=== PATIENT | female | born 1970 | race African-American/Black ===

== ENCOUNTER 2016-06-30 15:30 | Observation (INO) | payer OTHER ==
[2016-06-30] VITALS (8 sets, daily range): BP systolic 133–159; BP diastolic 62–87; PULSE 40–55; RESP 14–24; TEMP 97.7–98.3; O2SAT 95–100
[~2016-06-30] VITALS: Ht 175.3 cm; Wt 42.0 kg
[~2016-06-30 15:30] MED LIST: ALBU8I INH; AMBI5TAB PO; ATOR40TA PO; CITA20 PO; CLOP75 PO; LACT PO; LEVEMIR SQ; LORA-474 PO; LYRI50CA2 PO; METF500 PO; METO25 PO; METR-1 PO; NOVOLOGP2 SQ; SENN8.6T8 PO; SERT100 PO; SPIRCAP INH; TOPI50TA4 PO; ZOFR4TAB3 SL
[2016-06-30] MEDS ORDERED: SODIUM CHLOR 0.9% 1000 ML INJ 1,000 ML IV SCH (16:37)
[2016-06-30] MEDS ORDERED: ONDANSETRON HCL 4 MG/2 ML VIAL IVP ONE (16:45)
[2016-06-30] MEDS ORDERED: PANTOPRAZOLE SODIUM 40 MG VIAL IVP ONE (16:45)
[2016-06-30] MEDS ORDERED: SODIUM CHLORIDE 0.9% FLUSH 10 ML FLUSH IV FLUSH PRN (16:45)
--- NOTE | 2016-06-30 17:06 | PD ---
HPI Chief Complaint: GI Complaint Time Seen by Provider: 17:00 Travel History International Travel<30 days: No Contact w/Intl Traveler<30days: No Traveled to known affect area: No History of Present Illness HPI Patient is a 46-year-old female presenting to emergency department evaluation of nausea, vomiting, abdominal pain. Patient states her symptoms started yesterday, she's been vomiting all night last night and throughout the day today. She reports elevated blood sugars at 500, 475, 420. Patient takes Levemir and metformin at home. She denies any fevers, chills, chest pain, shortness of breath. She denies any alcohol use, she denies any recent sick contacts, or contaminated foods. Patient has history of the same a few months ago per her report when she was in DKA. PFSH Past Medical History Hx Anticoagulant Therapy: Yes (PLAVIX) Arthritis: No Asthma: Yes Autoimmune Disease: No Blood Disorders: No Anxiety: Yes Depression: Yes Heart Rhythm Problems: No Cancer: No High Cholesterol: Yes Chemotherapy: No Chest Pain: Yes Congestive Heart Failure: No COPD: No Cerebrovascular Accident: Yes (STROKE 2014) Coronary Artery Disease: Yes Diabetes: Yes Patient Takes Glucophage: Yes Diminished Hearing: No Deep Vein Thrombosis: Yes Gastrointestinal Disorders: Yes (GASTRITIS) GERD: Yes Genitourinary: No Headaches: Yes Hypertension: Yes Immune Disorder: No Implanted Vascular Access Dvce: Yes (STENT IN LEFT LEG) Neurologic: Yes (DIABETIC NEUROPATHY, CVA, PERIPHERIAL VISION LOSS RIGHT EYE) Immunizations Current: Yes Migraines: Yes Radiation Therapy: No Sickle Cell Disease: No Sleep Apnea: No Thyroid Disease: No Influenza Vaccination: Yes ?: Not : 3 Para: 0 Miscarriage: 3 : 0 Ovarian Cysts: Yes Past Surgical History Abdominal Surgery: Yes (04/30/02 FIBROIDS REMOVED FROM UTERUS.) AICD: No Arteriovenous Shunt: No Body Medical Devices: LEFT LEG FILTER Ear Surgery: No Endocrine Surgery: No Eye Surgery: Yes Genitourinary Surgery: No Gynecologic Surgery: Yes Hysterectomy: Yes (PARTIAL) Insulin Pump: No Joint Replacement: No Oral Surgery: No Pacemaker: No Other Surgery: Yes (MYOMECTOMY, BLOOD CLOT FROM L LEG, R BELOW KNEE AMPUTATION) Social History Alcohol Use: No Tobacco Use: Yes (1/2 PPD) Substance Use: Yes (MARIJUANA) Allergies-Medications (Allergen,Severity, Reaction): Coded Allergies: Penicillin (Verified Allergy, Severe, SWELLING WITH RESP DIFFICULTY, ) Shellfish (Verified Allergy, Severe, SWELLING, 06/30/16) Tomato (Verified Allergy, Intermediate, 06/30/16) Milk (Verified Allergy, Unknown, 06/30/16) Reported Meds & Prescriptions Reported Meds & Active Scripts Active Reported Albuterol Neb (Albuterol Sulfate) 2.5 Mg/3 Ml Neb 2.5 Mg NEB Q4-6H PRN Proair Hfa 8.5 GM Inh (Albuterol Sulfate) 90 Mcg/Act Aer 2 Puff INH BID 108 mcg/actuation Metformin (Metformin HCl) 500 Mg Tab 500 Mg PO BID With meals Sertraline (Sertraline HCl) 100 Mg Tab 100 Mg PO DAILY Pantoprazole (Pantoprazole Sodium) 40 Mg Tab 40 Mg PO DAILY Spiriva Handihaler (Tiotropium Inh) 18 Mcg Cap 18 Mcg INH DAILY 1 capsule = 18 mcg Do Not Swallow Capsule Lyrica (Pregabalin) 50 Mg Cap 50 Mg PO BID Zolpidem (Zolpidem Tartrate) 10 Mg Tab 10 Mg PO HS Clopidogrel (Clopidogrel Bisulfate) 75 Mg Tab 75 Mg PO DAILY Levemir Flextouch Pen Inj (Insulin Detemir) 300 unit/3 ML Pen 10 Units SQ BID Topamax (Topiramate) 50 Mg Tab 50 Mg PO HS Novolog Inj (Insulin Aspart) 1,000 Unit/10 Ml Vial 0 SQ DIRECTED Sliding Scale as directed. Review of Systems Except as stated in HPI: all other systems reviewed are Neg General / Constitutional: No: Fever, Chills HENT: No: Headaches Cardiovascular: No: Chest Pain or Discomfort Respiratory: No: Shortness of Breath Gastrointestinal: Positive: Nausea, Vomiting, Abdominal Pain, No: Diarrhea Musculoskeletal: No: Myalgias Neurologic: Positive: Weakness, No: Dizziness, Syncope, Focal Abnormalities Physical Exam Narrative GENERAL: Thin, well-developed female. Appears drowsy and uncomfortable, in no acute distress. SKIN: Focused skin assessment warm/dry. HEAD: Atraumatic. Normocephalic. EYES: Pupils equal and round. No scleral icterus. No injection or drainage. ENT: No nasal bleeding or discharge. Mucous membranes pink and moist. NECK: Trachea midline. No JVD. CARDIOVASCULAR: Bradycardic. No murmur appreciated. RESPIRATORY: No accessory muscle use. Clear to auscultation. Breath sounds equal bilaterally. GASTROINTESTINAL: Abdomen soft, tender to palpation epigastric region, nondistended. Hepatic and splenic margins not palpable. The bowel sounds, no rebound, no guarding MUSCULOSKELETAL: No obvious deformities. No clubbing. No cyanosis. No edema. Right BKA NEUROLOGICAL drowsy, easily arousable and alert. No obvious cranial nerve deficits. Motor grossly within normal limits. Normal speech. PSYCHIATRIC: Appropriate mood and affect; insight and judgment normal. Data Data Last Documented VS Vital Signs Date Time Temp Pulse Resp B/P Pulse Ox O2 Delivery O2 Flow Rate FiO2 06/30/16 18:27 51 16 145/87 100 Room Air 06/30/16 16:37 97.7 Orders Complete Blood Count With Diff (06/30/16 16:37) Comprehensive Metabolic Panel (06/30/16 16:37) Lipase (06/30/16 16:37) Lactic Acid (06/30/16 16:37) Urinalysis - C+S If Indicated (06/30/16 16:37) Iv Access Insert/Monitor (06/30/16 16:37) Ecg Monitoring (06/30/16 16:37) Oximetry (06/30/16 16:37) Ondansetron Inj (Zofran Inj) (06/30/16 16:45) Pantoprazole Inj (Protonix Inj) (06/30/16 16:45) Sodium Chlor 0.9% 1000 Ml Inj (Ns 1000 M (06/30/16 16:37) Sodium Chloride 0.9% Flush (Ns Flush) (06/30/16 16:45) Electrocardiogram (06/30/16 16:56) Magnesium (Mg) (06/30/16 16:56) Blood Gas Venous (Vbg) (06/30/16 16:56) Beta Hydroxybutyrate (Acetone) (06/30/16 17:05) B-Type Natriuretic Peptide (06/30/16 17:35) Ckmb (Isoenzyme) Profile (06/30/16 17:35) Magnesium (Mg) (06/30/16 17:35) Prothrombin Time / Inr (Pt) (06/30/16 17:35) Act Partial Throm Time (Ptt) (06/30/16 17:35) Troponin I (06/30/16 17:35) Chest, Single Ap (06/30/16 ) Urine Culture (06/30/16 17:10) Blood Culture (06/30/16 18:06) Vancomycin Inj (Vancomycin Inj) (06/30/16 18:07) Ceftriaxone Inj (Rocephin Inj) (06/30/16 18:30) Prochlorperazine Inj (Compazine Inj) (06/30/16 18:30) CKMB (06/30/16 17:10) CKMB% (06/30/16 17:10) Admit Order (Ed Use Only) (06/30/16 18:47) Labs Laboratory Tests Test 06/30/16 06/30/16 17:10 17:12 White Blood Count 6.3 TH/MM3 Red Blood Count 4.45 MIL/MM3 Hemoglobin 14.7 GM/DL Hematocrit 43.3 % Mean Corpuscular Volume 97.3 FL Mean Corpuscular Hemoglobin 33.1 PG Mean Corpuscular Hemoglobin 34.0 % Concent Red Cell Distribution Width 13.0 % Platelet Count 318 TH/MM3 Mean Platelet Volume 8.0 FL Neutrophils (%) (Auto) 89.3 % Lymphocytes (%) (Auto) 8.3 % Monocytes (%) (Auto) 1.9 % Eosinophils (%) (Auto) 0.1 % Basophils (%) (Auto) 0.4 % Neutrophils # (Auto) 5.6 TH/MM3 Lymphocytes # (Auto) 0.5 TH/MM3 Monocytes # (Auto) 0.1 TH/MM3 Eosinophils # (Auto) 0.0 TH/MM3 Basophils # (Auto) 0.0 TH/MM3 CBC Comment DIFF FINAL Differential Comment Urine Color YELLOW Urine Turbidity HAZY Urine pH 6.0 Urine Specific [place] 1.048 Urine Protein TRACE mg/dL Urine Glucose (UA) 1000 mg/dL Urine Ketones 150 mg/dL Urine Occult Blood NEG Urine Nitrite POS Urine Bilirubin NEG Urine Urobilinogen LESS THAN 2.0 MG/DL Urine Leukocyte Esterase NEG Urine WBC 2 /hpf Urine Squamous Epithelial 4 /hpf Cells Urine Bacteria MANY /hpf Microscopic Urinalysis Comment CULTURE INDICATED Sodium Level 147 MEQ/L Potassium Level 3.8 MEQ/L Chloride Level 109 MEQ/L Carbon Dioxide Level 27.4 MEQ/L Anion Gap 11 MEQ/L Blood Urea Nitrogen 10 MG/DL Creatinine 0.77 MG/DL Estimat Glomerular Filtration 97 ML/MIN Rate Random Glucose 335 MG/DL Lactic Acid Level 2.5 mmol/L Calcium Level 9.4 MG/DL Magnesium Level 2.0 MG/DL Total Bilirubin 0.4 MG/DL Aspartate Amino Transf 20 U/L (AST/SGOT) Alanine Aminotransferase 34 U/L (ALT/SGPT) Alkaline Phosphatase 119 U/L Total Creatine Kinase 121 U/L Creatine Kinase MB 0.9 NG/ML Troponin I LESS THAN 0.02 NG/ML Total Protein 7.3 GM/DL Albumin 4.0 GM/DL Lipase 111 U/L B-Hydroxybutyrate 2.61 MMOL/L Blood Gas Puncture Site IV Blood Gas Patient Temperature 98.6 Venous Blood pH 7.41 Venous Blood Partial Pressure 43 mmHg CO2 Venous Blood Partial Pressure 28 mmHg O2 Venous Blood HCO3 26 mmol/L Venous Blood Oxygen Saturation 52 % Venous Blood Oxygen Content 10.7 Vol % Venous Blood Base Excess 2.1 mmol/L Oxygen Delivery Device ROOM AIR MDM Medical Decision Making Medical Screen Exam Complete: Yes Emergency Medical Condition: Yes Interpretation(s) Laboratory Tests Test 06/30/16 06/30/16 17:10 17:12 White Blood Count 6.3 TH/MM3 Red Blood Count 4.45 MIL/MM3 Hemoglobin 14.7 GM/DL Hematocrit 43.3 % Mean Corpuscular Volume 97.3 FL Mean Corpuscular Hemoglobin 33.1 PG Mean Corpuscular Hemoglobin 34.0 % Concent Red Cell Distribution Width 13.0 % Platelet Count 318 TH/MM3 Mean Platelet Volume 8.0 FL Neutrophils (%) (Auto) 89.3 % Lymphocytes (%) (Auto) 8.3 % Monocytes (%) (Auto) 1.9 % Eosinophils (%) (Auto) 0.1 % Basophils (%) (Auto) 0.4 % Neutrophils # (Auto) 5.6 TH/MM3 Lymphocytes # (Auto) 0.5 TH/MM3 Monocytes # (Auto) 0.1 TH/MM3 Eosinophils # (Auto) 0.0 TH/MM3 Basophils # (Auto) 0.0 TH/MM3 CBC Comment DIFF FINAL Differential Comment Urine Color YELLOW Urine Turbidity HAZY Urine pH 6.0 Urine Specific [place] 1.048 Urine Protein TRACE mg/dL Urine Glucose (UA) 1000 mg/dL Urine Ketones 150 mg/dL Urine Occult Blood NEG Urine Nitrite POS Urine Bilirubin NEG Urine Urobilinogen LESS THAN 2.0 MG/DL Urine Leukocyte Esterase NEG Urine WBC 2 /hpf Urine Squamous Epithelial 4 /hpf Cells Urine Bacteria MANY /hpf Microscopic Urinalysis Comment CULTURE INDICATED Sodium Level 147 MEQ/L Potassium Level 3.8 MEQ/L Chloride Level 109 MEQ/L Carbon Dioxide Level 27.4 MEQ/L Anion Gap 11 MEQ/L Blood Urea Nitrogen 10 MG/DL Creatinine 0.77 MG/DL Estimat Glomerular Filtration 97 ML/MIN Rate Random Glucose 335 MG/DL Lactic Acid Level 2.5 mmol/L Calcium Level 9.4 MG/DL Magnesium Level 2.0 MG/DL Total Bilirubin 0.4 MG/DL Aspartate Amino Transf 20 U/L (AST/SGOT) Alanine Aminotransferase 34 U/L (ALT/SGPT) Alkaline Phosphatase 119 U/L Total Creatine Kinase 121 U/L Troponin I LESS THAN 0.02 NG/ML Total Protein 7.3 GM/DL Albumin 4.0 GM/DL Lipase 111 U/L B-Hydroxybutyrate 2.61 MMOL/L Blood Gas Puncture Site IV Blood Gas Patient Temperature 98.6 Venous Blood pH 7.41 Venous Blood Partial Pressure 43 mmHg CO2 Venous Blood Partial Pressure 28 mmHg O2 Venous Blood HCO3 26 mmol/L Venous Blood Oxygen Saturation 52 % Venous Blood Oxygen Content 10.7 Vol % Venous Blood Base Excess 2.1 mmol/L Oxygen Delivery Device ROOM AIR Vital Signs Date Time Temp Pulse Resp B/P Pulse Ox O2 Delivery O2 Flow Rate FiO2 06/30/16 16:42 43 14 159/72 99 Room Air 06/30/16 16:41 100 Room Air 06/30/16 16:37 97.7 55 16 159/72 99 Differential Diagnosis Hyperglycemia versus gastroenteritis versus gastritis versus cholecystitis versus DKA versus other Narrative Course Patient is a 46-year-old female presenting to the emergency room evaluation of abdominal pain, nausea, vomiting, body aches. Symptoms started yesterday. Patient's history of the same in November 2015. Patient reports she was in DKA at that time. She has a history of type 2 diabetes, her blood sugars have been running in the upper 400s to 500s. Patient's vital signs are stable, she is bradycardic on the monitor with a heart rate in the mid 50s. Chest x-ray shows no acute disease CBC with elevated neutrophils Chemistry with a random glucose of 335 lactic acid 2.5 troponin less than 0.02. Magnesium 2.0 Beta hydroxybutyrate 2.61 UA shows nitrite positive UTI with elevated glucose, elevated ketones and elevated specific gravity VBG pH 7.41. Patient given 2 L of IV fluids, IV vancomycin, IV Rocephin ordered. Blood and urine cultures obtained and pending. [facility] paged for admission. Dr. Sen accepted admission, pt placed in OBS per her request. Sepsis Criteria Severe Sepsis (+one): Lactate >2 Diagnosis Primary Impression: Nausea and vomiting Qualified Code: R11.2 - Non-intractable vomiting with nausea, unspecified vomiting type Additional Impressions: Hyperglycemia due to type 2 diabetes mellitus Qualified Code: E11.65 - Type 2 diabetes mellitus with hyperglycemia, unspecified terminal press operator insulin use status UTI (urinary tract infection) Qualified Code: N39.0 - Urinary tract infection without hematuria, site unspecified Bradycardia Admitting Information Admitting Physician Requests: Observation Condition: Fabiola Delgado STRATIGRAPHY TEACHER June 30, 2016 17:06
[2016-06-30 17:15] LABS: BLOOD GAS VENOUS BASE EXCESS 2.1 mmol/L (-2-2); BLOOD GAS VENOUS HCO3 26 mmol/L (22-26); BLOOD GAS VENOUS O2 CONTENT 10.7 Vol % (9.0-17.0); BLOOD GAS VENOUS O2 HGB SAT 52 % (70-76); BLOOD GAS VENOUS PCO2 43 mmHg (44-48); BLOOD GAS VENOUS PO2 28 mmHg (35-40); BLOOD GAS VENOUS pH 7.41 (7.360-7.400); TEMP CORR TO 98.6
[2016-06-30 17:16] LABS: CRITICAL VALUE YES; DRAW SITE IV; OXYGEN DEVICE ROOM AIR; STAT NO
[2016-06-30 17:33] LABS: AUTOMATED NEUTROPHIL # 5.6 TH/MM3 (1.8-7.7); BASOPHIL % 0.4 % (0.0-2.0); EOSINOPHIL % 0.1 % (0.0-4.0); HEMATOCRIT 43.3 % (35.0-46.0); HEMO FLAGS DIFF FINAL; LYMPH % 8.3 % (9.0-44.0); LYMPHOCYTE # 0.5 TH/MM3 (1.0-4.8); MEAN CELL VOLUME 97.3 FL (80.0-100.0); MEAN CORPUSCULAR HEMOGLOBIN 33.1 PG (27.0-34.0); MONO % 1.9 % (0.0-8.0); NEUT % 89.3 % (16.0-70.0); PLATELET COUNT 318 TH/MM3 (150-450); RED BLOOD COUNT 4.45 MIL/MM3 (4.00-5.30); WHITE BLOOD COUNT 6.3 TH/MM3 (4.0-11.0)
[2016-06-30] MEDS ORDERED: TOPA50TA7 PO (17:45)
[2016-06-30] MEDS ORDERED: METF500T PO (17:45)
[2016-06-30] MEDS ORDERED: ALBU0.08 NEB (17:45)
[2016-06-30] MEDS ORDERED: ALBUAER3 INH (17:45)
[2016-06-30] MEDS ORDERED: SPIRCAP INH (17:45)
[2016-06-30] MEDS ORDERED: ZOLP10TA3 PO (17:45)
[2016-06-30] MEDS ORDERED: SERT-129 PO (17:45)
[2016-06-30] MEDS ORDERED: INSU1INJ5 SQ (17:45)
[2016-06-30] MEDS ORDERED: LYRI50CA PO (17:45)
[2016-06-30] MEDS ORDERED: NOVOLOGP2 SQ (17:45)
[2016-06-30] MEDS ORDERED: CLOP75TA PO (17:45)
[2016-06-30] MEDS ORDERED: PANT40TA3 PO (17:45)
[2016-06-30 17:49] LABS: ALT (GPT) 34 U/L (10-53); ANION GAP 11 MEQ/L (5-15); AST (GOT) 20 U/L (15-37); BICARBONATE 27.4 MEQ/L (21.0-32.0); BLOOD UREA NITROGEN 10 MG/DL (7-18); CHLORIDE 109 MEQ/L (98-107); GLOMERULAR FILTRATION RATE 97 ML/MIN (>89); POTASSIUM 3.8 MEQ/L (3.5-5.1); SODIUM (NA) 147 MEQ/L (136-145)
[2016-06-30 17:51] LABS: ALKALINE PHOSPHATASE 119 U/L (45-117); TOTAL BILIRUBIN ADULT 0.4 MG/DL (0.2-1.0)
[2016-06-30 17:59] LABS: BACTERIA, URINE MANY /hpf; BLOOD, URINE NEG (NEG); COMMENT (UR) CULTURE INDICATED; CULTURE IF INDICATED CULTURE INDICATED; GLUCOSE,URINE 1000 mg/dL (NEG); KETONE, URINE 150 mg/dL (NEG); SQUAMOUS EPITHELIAL CELL URINE 4 /hpf (0-5); URINE COLOR YELLOW (YELLW/STRAW)
[2016-06-30 18:00] LABS: NITRITE,URINE POS (NEG)
[2016-06-30] MEDS ORDERED: VANCOMYCIN INJ 1,000 MG in SODIUM CHLOR 0.9% 250 ML INJ 250 ML IV STA (18:07)
[2016-06-30 18:30] LABS: CREATINE KINASE 121 U/L (26-192)
[2016-06-30] MEDS ORDERED: cefTRIAXone INJ 2,000 MG in SODIUM CHLORIDE 0.9% INJ 100 ML IV ONE (18:30)
[2016-06-30] MEDS ORDERED: PROCHLORPERAZINE INJ 10 MG/2 ML VIAL IV PUSH ONE (18:30)
--- NOTE | 2016-06-30 18:34 | RADRPT ---
EXAM DATE/TIME: 06/30/2016 18:22 [facility] COMPARISON: CHEST SINGLE AP, October 21, 2015, 19:01. INDICATIONS : Nausea, vomiting, diarrhea. MEDICAL HISTORY : Cardiovascular disease. Diabetes mellitus type 2. SURGICAL HISTORY : None. ENCOUNTER: Initial ACUITY: 4 - 6 days PAIN SCORE: 8/10 LOCATION: Abdomen. FINDINGS: A single view of the chest demonstrates the lungs to be symmetrically aerated without evidence of mas s, infiltrate or effusion. The cardiomediastinal contours are unremarkable. Osseous structures are intact. CONCLUSION: No acute disease. Dmitriy Aguila MD on June 30, 2016 at 18:32 Board Certified Radiologist. This report was verified electronically.
[2016-06-30 18:48] LABS: CKMB 0.9 NG/ML (0.5-3.6)
[2016-06-30 18:58] LABS: APTT (PATIENT) 22.4 SEC (24.3-30.1); PROTHROMBIN TIME - PATIENT 11.6 SEC (9.8-11.6)
[2016-06-30] MEDS ORDERED: NALOXONE HCL 0.4 MG/ML AMP IV PRN (19:45)
[2016-06-30] MEDS ORDERED: DEXTROSE 50% IN WATER 50 ML VIAL(D50) IV PUSH PRN (20:45)
[2016-06-30] MEDS ORDERED: GLUCAGON 1 MG/ML VIAL OTHER PRN (20:45)
[2016-06-30] MEDS: SODIUM CHLORIDE 0.9% FLUSH 10 ML FLUSH IV FLUSH SCH (21:14)
--- NOTE | 2016-06-30 22:25 | HHI.HP ---
HPI Service [facility] Primary Care Physician Refugio Hill, Admission Diagnosis UTI, BRADYCARDIA, NAUSEA/VOMITING, T2DM Diagnoses: (1) UTI (urinary tract infection) (2) Nausea and vomiting (3) Hyperglycemia due to type 2 diabetes mellitus (4) Bradycardia Chief Complaint: abdominal pain with nausea and vomiting Travel History International Travel<30 Days: No Contact w/Intl Traveler <30 Da: No Traveled to Known Affected Are: No History of Present Illness Ms. Colón is a 46 year old female with a history of neuropathy, CVA, DVT, peripheral vascular disease with left leg stent and right BKA, coronary artery disease, hyperlipidemia, hypertension, asthma, gastroesophageal reflux disease, and diabetes mellitus who presented to the emergency room complaining of severe abdominal pain with nausea and vomiting. Urinalysis is consistent with UTI. The patient is seen in the CDU. She is very sleepy and will awaken and answer questions briefly but says she is too sick to stay awake for interview. She complains of severe diffuse stomach pain all over her abdomen accompanied by green emesis with an inability to hold down any food or fluids for 2 days. She reports that the symptoms are accompanied by throbbing headache and diarrhea 3 times on 06/30/2016 with green stool. She denies neck pain and photophobia. Denies fever, hematuria, dysuria, urinary frequency Denies family contact with similar symptoms Denies eating any unusual foods Ran out of bp medications about one week ago - formerly took Metoprolol BID - unsure of dose Denies CAD, CHF . Review of Systems Except as stated in HPI: all other systems reviewed are Neg Past Family Social History Past Medical History Hypertension Diabetes mellitus PVD Asthma Anxiety Depression Hyperlipidemia CVA 2015 Coronary artery disease DVT gastritis GERD . Past Surgical History Right BKA Left leg stent Hysterectomy Eye surgery . Reported Medications Reported Meds & Active Scripts Active Reported Albuterol Neb (Albuterol Sulfate) 2.5 Mg/3 Ml Neb 2.5 Mg NEB Q4-6H PRN Proair Hfa 8.5 GM Inh (Albuterol Sulfate) 90 Mcg/Act Aer 2 Puff INH BID 108 mcg/actuation Metformin (Metformin HCl) 500 Mg Tab 500 Mg PO BID With meals Sertraline (Sertraline HCl) 100 Mg Tab 100 Mg PO DAILY Pantoprazole (Pantoprazole Sodium) 40 Mg Tab 40 Mg PO DAILY Spiriva Handihaler (Tiotropium Inh) 18 Mcg Cap 18 Mcg INH DAILY 1 capsule = 18 mcg Do Not Swallow Capsule Lyrica (Pregabalin) 50 Mg Cap 50 Mg PO BID Zolpidem (Zolpidem Tartrate) 10 Mg Tab 10 Mg PO HS Clopidogrel (Clopidogrel Bisulfate) 75 Mg Tab 75 Mg PO DAILY Levemir Flextouch Pen Inj (Insulin Detemir) 300 unit/3 ML Pen 10 Units SQ BID Topamax (Topiramate) 50 Mg Tab 50 Mg PO HS Novolog Inj (Insulin Aspart) 1,000 Unit/10 Ml Vial 0 SQ DIRECTED Sliding Scale as directed. . Allergies: Coded Allergies: Penicillin (Verified Allergy, Severe, SWELLING WITH RESP DIFFICULTY, ) Shellfish (Verified Allergy, Severe, SWELLING, 08/01/16) Tomato (Verified Allergy, Intermediate, 08/01/16) Milk (Verified Allergy, Unknown, 08/01/16) Active Ordered Medications Current Medications Ondansetron HCl (Zofran Inj) 4 mg ONCE ONCE IVP Last administered on 06/30/16 17:21; Start 06/30/16 at 16:45; Stop 06/30/16 at 16:46; Status DC Pantoprazole Sodium 40 mg 40 mg ONCE ONCE IVP Last administered on 06/30/16 17 :21; Start 06/30/16 at 16:45; Stop 06/30/16 at 16:46; Status DC Sodium Chloride (NS 1000 ml Inj) 1,000 ml @ 1,000 mls/hr Q1H IV Last administered on 06/30/16 17:20; Start 06/30/16 at 16:37; Stop 06/30/16 at 17:36; Status DC Sodium Chloride 2 ml 2 ml UNSCH PRN IV FLUSH FLUSH AFTER USING IV ACCESS; Start 06/30/16 at 16:45; Stop 06/30/16 at 20:00; Status DC Vancomycin HCl 1000 mg/Sodium Chloride 250 ml @ 250 mls/hr ONCE STAT IV Last administered on 06/30/16 19:21; Start 06/30/16 at 18:07; Stop 06/30/16 at 19:06; Status DC Ceftriaxone Sodium/Sodium Chloride (Rocephin Inj/NS Inj) 100 ml @ 200 mls/hr ONCE ONCE IV Last administered on 06/30/16 18:26; Start 06/30/16 at 18:30; Stop 06/30/16 at 18:59; Status DC Prochlorperazine Edisylate (Compazine Inj) 10 mg ONCE ONCE IV PUSH Last administered on 06/30/16 18:26; Start 06/30/16 at 18:30; Stop 06/30/16 at 18:31; Status DC Sodium Chloride (NS Flush) 2 ml UNSCH PRN IV FLUSH FLUSH AFTER USING IV ACCESS ; Start 06/30/16 at 19:45 Sodium Chloride (NS Flush) 2 ml BID IV FLUSH Last administered on 06/30/16 21: 14; Start 06/30/16 at 21:00 Ondansetron HCl (Zofran Inj) 4 mg Q6H PRN IVP NAUSEA OR VOMITING; Start at 19:45 Naloxone HCl (Narcan Inj) 0.4 mg UNSCH PRN IV SEE LABEL COMMENTS; Start at 19:45 Pantoprazole Sodium (Protonix) 40 mg DAILY PO ; Start 07/01/16 at 09:00 Dextrose (D50w (Vial) Inj) 25 ml UNSCH PRN IV PUSH HYPOGLYCEMIA-SEE COMMENTS; Start 06/30/16 at 20:45 Glucagon (Glucagon Inj) 1 mg UNSCH PRN OTHER HYPOGLYCEMIA-SEE COMMENTS; Start 06/30/16 at 20:45 . Family History Father with diabetes mellitus . Social History Tobacco: One pack per day for many years Alcohol: denies Illicit Drugs: denies . Physical Exam Vital Signs Vital Signs Date Time Temp Pulse Resp B/P Pulse Ox O2 Delivery O2 Flow Rate FiO2 06/30/16 21:29 43 18 134/64 98 06/30/16 19:25 45 20 133/63 100 Room Air 06/30/16 18:27 51 16 145/87 100 Room Air 06/30/16 17:18 40 24 143/67 100 Room Air 06/30/16 16:42 43 14 159/72 99 Room Air 06/30/16 16:41 100 Room Air 06/30/16 16:37 97.7 55 16 159/72 99 Physical Exam GENERAL: This is a thin, chronically ill-appearing female patient, in no apparent distress but sleepy. SKIN: No rashes, ecchymoses or lesions. Cool and dry. HEAD: Atraumatic. Normocephalic. EYES: No scleral icterus. No injection or drainage. ENT: Nose without bleeding, purulent drainage. NECK: Trachea midline. No JVD or lymphadenopathy. CARDIOVASCULAR: Regular rate and rhythm without murmurs, gallops, or rubs. RESPIRATORY: Clear to auscultation. Breath sounds equal bilaterally. No wheezes , rales, or rhonchi. GASTROINTESTINAL: Abdomen soft, non-tender, nondistended. No guarding. : suprapubic tenderness with palpation MUSCULOSKELETAL: Extremities without clubbing, cyanosis, or edema. No calf tenderness. Right BKA noted. NEUROLOGICAL: Lethargic. Motor and sensory grossly within normal limits. Normal speech. . Laboratory Laboratory Tests Test 06/30/16 06/30/16 06/30/16 17:10 17:12 18:18 White Blood Count 6.3 Red Blood Count 4.45 Hemoglobin 14.7 Hematocrit 43.3 Mean Corpuscular Volume 97.3 Mean Corpuscular Hemoglobin 33.1 Mean Corpuscular Hemoglobin 34.0 Concent Red Cell Distribution Width 13.0 Platelet Count 318 Mean Platelet Volume 8.0 Neutrophils (%) (Auto) 89.3 Lymphocytes (%) (Auto) 8.3 Monocytes (%) (Auto) 1.9 Eosinophils (%) (Auto) 0.1 Basophils (%) (Auto) 0.4 Neutrophils # (Auto) 5.6 Lymphocytes # (Auto) 0.5 Monocytes # (Auto) 0.1 Eosinophils # (Auto) 0.0 Basophils # (Auto) 0.0 CBC Comment DIFF FINAL Differential Comment Urine Color YELLOW Urine Turbidity HAZY Urine pH 6.0 Urine Specific [place] 1.048 Urine Protein TRACE Urine Glucose (UA) 1000 Urine Ketones 150 Urine Occult Blood NEG Urine Nitrite POS Urine Bilirubin NEG Urine Urobilinogen LESS THAN 2.0 Urine Leukocyte Esterase NEG Urine WBC 2 Urine Squamous Epithelial 4 Cells Urine Bacteria MANY Microscopic Urinalysis Comment CULTURE INDICATED Sodium Level 147 Potassium Level 3.8 Chloride Level 109 Carbon Dioxide Level 27.4 Anion Gap 11 Blood Urea Nitrogen 10 Creatinine 0.77 Estimat Glomerular Filtration 97 Rate Random Glucose 335 Lactic Acid Level 2.5 Calcium Level 9.4 Magnesium Level 2.0 Total Bilirubin 0.4 Aspartate Amino Transf 20 (AST/SGOT) Alanine Aminotransferase 34 (ALT/SGPT) Alkaline Phosphatase 119 Total Creatine Kinase 121 Creatine Kinase MB 0.9 Troponin I LESS THAN 0.02 B-Type Natriuretic Peptide 110 Total Protein 7.3 Albumin 4.0 Lipase 111 B-Hydroxybutyrate 2.61 Blood Gas Puncture Site IV Blood Gas Patient Temperature 98.6 Venous Blood pH 7.41 Venous Blood Partial Pressure 43 CO2 Venous Blood Partial Pressure 28 O2 Venous Blood HCO3 26 Venous Blood Oxygen Saturation 52 Venous Blood Oxygen Content 10.7 Venous Blood Base Excess 2.1 Oxygen Delivery Device ROOM AIR Prothrombin Time 11.6 Prothromb Time International 1.0 Ratio Activated Partial 22.4 Thromboplast Time Date/Time Procedure Status Source Growth 06/30/16 18:18 Aerobic Blood Culture Received Blood Peripheral Pending 06/30/16 18:18 Anaerobic Blood Culture Received Blood Peripheral Pending 06/30/16 17:10 Urine Culture Received Urine Clean Catch Pending Result Diagram: 06/30/16 1710 06/30/16 1710 Imaging Last Impressions Chest X-Ray 06/30/16 0000 Signed Impressions: Service Date/Time: Thursday, June 30, 2016 18:22 - CONCLUSION: No acute disease. Dmitriy Aguila MD . Assessment and Plan Problem List: (1) UTI (urinary tract infection) ICD Code: N39.0 Status: Acute (2) Nausea and vomiting ICD Code: R11.2 Status: Acute (3) Hyperglycemia due to type 2 diabetes mellitus ICD Code: E11.65 Status: Acute (4) Bradycardia ICD Code: R00.1 Status: Acute Assessment and Plan Urinary tract infection - UA c/w UTI - Blood and urine cultures pending - await results - Lactic acid elevated at 2.5 - will recheck - follow results - Ceftriaxone 2 gm IV q24h Nausea and vomiting - Zofran 4 mg IV q6h PRN nausea/vomiting - clear liquid diet Hyperglycemia due to type 2 diabetes and infection - concern regarding continued insulin use at this time given N/V - Accu-Chek every 4 hours with no sliding scale coverage - nursing to notify for greater than 300 or less than 70 on 2 consecutive occasions - hypoglycemia treatment protocol ordered - Follow trends and blood glucose readings and adjust treatment as indicated - Restart home medications when condition stabilizes Bradycardia - etiology uncertain - blood pressure stable - monitor closely with cardiac telemetry DVT prophylaxis - Lovenox 40 mg subq [id number] Written by Janna Chin, acting as scribe for Dr. Babb on 06/30/16 at 22:25. This note was transcribed by scribe [Janna Chin]. I, Dr. Nelson Babb personally performed the history, physical exam, and medical decision making; and confirmed the accuracy of the information in the transcribed note. Authenticated by Dr. Nelson Babb on 06/30/16 at 22:25. . Discussed Condition With ER physician and patient Problem Qualifiers (1) UTI (urinary tract infection): Qualified Code: N39.0 - Urinary tract infection without hematuria, site unspecified (2) Nausea and vomiting: Qualified Code: R11.2 - Non-intractable vomiting with nausea, unspecified vomiting type (3) Hyperglycemia due to type 2 diabetes mellitus: Qualified Code: E11.65 - Type 2 diabetes mellitus with hyperglycemia, unspecified fci insulin use status Janna Chin June 30, 2016 22:25 Nelson Babb MD Aug 09, 2016 11:57
[2016-06-30] MEDS ORDERED: RESP: ALBUTEROL 2.5 MG/IPRATROPIUM 0.5 MG NEB (PRN) NEB (22:45)
[2016-06-30] MEDS ORDERED: DIATRIZOATE MEGLUM/DIATRIZOATE SOD 9 ML CUP PO ONE (23:00)
[2016-06-30] MEDS ORDERED: IOHEXOL 350 MG/ML 10 ML VIAL (for RAD DIAG) IV ONE (23:59)
[2016-07-01] VITALS (9 sets, daily range): BP systolic 100–123; BP diastolic 57–72; PULSE 41–91; RESP 16–20; TEMP 97.6–98; O2SAT 95–98
[2016-07-01] MEDS ORDERED: IOHEXOL 350 MG/ML 10 ML VIAL (for RAD DIAG) IV ONE (02:29)
[2016-07-01] MEDS: RESP: ALBUTEROL 2.5 MG/IPRATROPIUM 0.5 MG NEB (SCH) NEB ×4 (03:10→20:59)
--- NOTE | 2016-07-01 03:52 | RADRPT ---
EXAM DATE/TIME: 07/01/2016 02:29 [facility] COMPARISON: CT ABDOMEN & PELVIS W CONTRAST, December 11, 2015, 17:36. INDICATIONS : Abdomen pain with nausea and vomiting. IV CONTRAST: 70 cc Omnipaque 350 (iohexol) IV ORAL CONTRAST: Prescribed oral contrast ingested. RADIATION DOSE: 4.51 CTDIvol (mGy) MEDICAL HISTORY : Cardiovascular disease. Gastroesophageal reflux disease. Diabetes mellitus type 2.DVT SURGICAL HISTORY : Hysterectomy. ENCOUNTER: Initial ACUITY: 1 day PAIN SCALE: 8/10 LOCATION: Bilateral abdomen TECHNIQUE: Volumetric scanning of the abdomen and pelvis was performed. Using automated exposure control and ad justment of the mA and/or kV according to patient size, radiation dose was kept as low as reasonably achievable to obtain optimal diagnostic quality images. FINDINGS: Examination of the lung bases demonstrates no abnormality. No pleural fluid is identified. No pulmona ry nodules are present. The liver and spleen are normal in size and no focal defects are identified. The adrenal glands and kidneys appear normal bilaterally. No hydronephrosis or mass lesions are ident ified. The stomach is markedly distended but no mass is identified. Whether this is functional and re lated to gastroparesis is uncertain. There is a small amount of fluid surrounding the gallbladder. No stone is seen. Examination of the pelvis demonstrates no evidence of free fluid or pelvic mass. No abnormally enlarg ed inguinal or retroperitoneal lymph nodes are present. The bladder is unremarkable. A stent is in pl bobo in the left common iliac artery.CONCLUSION: 1. Marked gastric distention without gastric outlet obstruction. Radionuclide imaging may be helpful for evaluation of gastroparesis. 2. Pericholecystic fluid. If there is concern for cholecystitis then radionuclide imaging is recommen ded. Ab Mcneil MD on July 01, 2016 at 3:43 Board Certified Radiologist. This report was verified electronically.
[2016-07-01] MEDS: PANTOPRAZOLE SOD 40 MG DELAYED RELEASE TAB PO SCH (05:22)
[2016-07-01] MEDS: ENOXAPARIN SODIUM 40 MG/0.4 ML SYRINGE SQ SCH (05:23)
[2016-07-01 05:35] LABS: AUTOMATED NEUTROPHIL # 6.7 TH/MM3 (1.8-7.7); BASOPHIL % 0.2 % (0.0-2.0); HEMO FLAGS DIFF FINAL; LYMPH % 13.5 % (9.0-44.0); LYMPHOCYTE # 1.1 TH/MM3 (1.0-4.8); MEAN CELL VOLUME 97.6 FL (80.0-100.0); MEAN CORPUSCULAR HEMOGLOBIN 32.3 PG (27.0-34.0); MONO % 6.8 % (0.0-8.0); NEUT % 79.5 % (16.0-70.0); PLATELET COUNT 285 TH/MM3 (150-450); RED CELL DISTRIBUTION WIDTH 12.9 % (11.6-17.2); WHITE BLOOD COUNT 8.4 TH/MM3 (4.0-11.0)
[2016-07-01 06:05] LABS: ANION GAP 14 MEQ/L (5-15); AST (GOT) 20 U/L (15-37); BICARBONATE 20.5 MEQ/L (21.0-32.0); BLOOD UREA NITROGEN 13 MG/DL (7-18); CHLORIDE 106 MEQ/L (98-107); GLOMERULAR FILTRATION RATE 112 ML/MIN (>89); POTASSIUM 3.1 MEQ/L (3.5-5.1); SODIUM (NA) 140 MEQ/L (136-145)
[2016-07-01 06:07] LABS: ALKALINE PHOSPHATASE 90 U/L (45-117); ALT (GPT) 37 U/L (10-53); TOTAL BILIRUBIN ADULT 0.3 MG/DL (0.2-1.0)
[2016-07-01] MEDS: CLOPIDOGREL 75 MG TAB PO SCH (08:33)
[2016-07-01] MEDS: PREGABALIN 25 MG CAP PO SCH ×2 (08:33→21:27)
[2016-07-01] MEDS: SERTRALINE HCL 100 MG TAB PO SCH (08:33)
[2016-07-01] MEDS: POTASSIUM CHLOR 20 MEQ PREMIX 100 ML IV SCH ×2 (08:34→08:45)
[2016-07-01] MEDS: SODIUM CHLORIDE 0.9% FLUSH 10 ML FLUSH IV FLUSH SCH ×2 (08:34→21:28)
[2016-07-01] MEDS: ONDANSETRON HCL 4 MG/2 ML VIAL IVP PRN ×3 (08:37→21:26)
[2016-07-01] MEDS ORDERED: POTASSIUM CHLORIDE 20 MEQ CONTROLLED RELEASE TAB PO ONE (09:00)
[2016-07-01] MEDS ORDERED: PANTOPRAZOLE SOD 40 MG DELAYED RELEASE TAB PO SCH (09:00)
--- NOTE | 2016-07-01 09:50 | HHI.PR ---
Subjective Remarks Follow up for abdominal pain, nausea/vomiting, UTI. The patient reports continued 10 sharp stabbing diffuse abdominal pain associated with nausea, no vomiting overnight. She has had diarrhea twice a day for the past 3 days, none overnight. Denies fevers/chills. Denies any sick contacts. She last ate a chicken wrap 3 days ago prior to her symptoms. She states she can get food down but then she vomits everything back up. She reports marijuana use once a month. She reports 60+lbs weight loss over the past year. She has never had an EGD or colonoscopy. Denies any melena or hematochezia. Denies any family history of colon cancer. She uses Levemir 10u bid and Novolog SSI tidac, usually uses ~8u before meals. Objective Vitals Vital Signs Date Time Temp Pulse Resp B/P Pulse Ox O2 Delivery O2 Flow Rate FiO2 07/01/16 07:18 98.0 52 18 118/62 96 07/01/16 04:19 97.6 67 20 113/72 95 07/01/16 00:30 41 06/30/16 23:27 98.3 48 18 135/62 95 06/30/16 21:29 43 18 134/64 98 06/30/16 19:25 45 20 133/63 100 Room Air 06/30/16 18:27 51 16 145/87 100 Room Air 06/30/16 17:18 40 24 143/67 100 Room Air 06/30/16 16:42 43 14 159/72 99 Room Air 06/30/16 16:41 100 Room Air 06/30/16 16:37 97.7 55 16 159/72 99 Result Diagram: 07/01/16 0446 07/01/16 0446 Imaging Last Impressions Chest X-Ray 06/30/16 0000 Signed Impressions: Service Date/Time: Thursday, June 30, 2016 18:22 - CONCLUSION: No acute disease. Dmitriy Aguila MD Abdomen/Pelvis CT 06/30/16 0000 Signed Impressions: Service Date/Time: June 02:29 - CONCLUSION: 1. Marked gastric distention without gastric outlet obstruction. Radionuclide imaging may be helpful for evaluation of gastroparesis. 2. Pericholecystic fluid. If there is concern for cholecystitis then radionuclide imaging is recommended. Ab Mcneil MD Objective Remarks GENERAL: Thin cachectic female patient in NAD. SKIN: Warm and dry. No rash. HEENT: Normocephalic. Atraumatic. Pupils equal and round. Mucous membranes pink and moist. NECK: Supple. Trachea midline. CARDIOVASCULAR: Regular rate and rhythm. S1, S2 noted. No murmur appreciated. RESPIRATORY: No accessory muscle use. Clear to auscultation. Breath sounds equal bilaterally. GASTROINTESTINAL: Abdomen soft, nondistended, mild diffuse TTP, worse at periumbilical. Normoactive bowel sounds x4. MUSCULOSKELETAL: No obvious deformities. Extremities without clubbing, cyanosis , or edema. NEUROLOGICAL: Awake and alert. No obvious cranial nerve deficits. Motor grossly within normal limits. Normal speech. PSYCHIATRIC: Appropriate mood and affect; insight and judgment normal. Medications and IVs Current Medications Medications (Trade) Dose Ordered Sig/Lizz Route Start Time Stop Time Status Last Admin (NS Flush) 2 ml UNSCH PRN IV FLUSH 06/30/16 19:45 (NS Flush) 2 ml BID IV FLUSH 06/30/16 21:00 07/01/16 08:34 (Zofran Inj) 4 mg Q6H PRN IVP 06/30/16 19:45 07/01/16 08:37 (Narcan Inj) 0.4 mg UNSCH PRN IV 06/30/16 19:45 (D50w (Vial) Inj) 25 ml UNSCH PRN IV PUSH 06/30/16 20:45 Glucagon 1 mg 1 mg UNSCH PRN OTHER 06/30/16 20:45 (Rocephin Inj/NS Inj) 100 ml @ 200 mls/hr Q24H IV 07/01/16 18:30 (Plavix) 75 mg DAILY PO 07/01/16 09:00 07/01/16 08:33 (Protonix) 40 mg DAILY@06 PO 07/01/16 06:00 07/01/16 05:22 (Lyrica) 50 mg BID PO 07/01/16 09:00 07/01/16 08:33 (Zoloft) 100 mg DAILY PO 07/01/16 09:00 07/01/16 08:33 (Topamax) 50 mg HS PO 07/01/16 21:00 Enoxaparin Sodium 40 mg 40 mg Q24H SQ 5/4/17 06:00 07/01/16 05:23 (KCl 20 Meq Premix Inj) 100 ml @ 50 mls/hr Q2H IV 07/01/16 06:45 07/01/16 10:44 07/01/16 08:34 A/P Problem List: (1) UTI (urinary tract infection) ICD Code: N39.0 Status: Acute (2) Nausea and vomiting ICD Code: R11.2 Status: Acute (3) Hyperglycemia due to type 2 diabetes mellitus ICD Code: E11.65 Status: Acute (4) Bradycardia ICD Code: R00.1 Status: Acute Assessment and Plan Ms. Colón is a 46 year old female with a history of neuropathy, CVA, DVT, peripheral vascular disease with left leg stent and right BKA, coronary artery disease, hyperlipidemia, hypertension, asthma, gastroesophageal reflux disease, and diabetes mellitus who presented to the emergency room complaining of severe abdominal pain with nausea and vomiting. Urinary tract infection: UA c/w UTI, +nitrites. - Blood and urine cultures pending - await results - Lactic acid elevated at 2.5, continue IVF, recheck lactic acid - Continue Ceftriaxone 2 gm IV q24h Abdominal Pain, Nausea and vomiting - Abdominal CT shows marked gastric distention without gastric outlet obstruction, pericholecystic fluid - Check HIDA scan - Supportive treatment with IVF, antiemetics - clear liquid diet for now - consult gastroenterology Hyperglycemia due to type 2 diabetes and infection - concern regarding continued insulin use at this time given N/V - Monitor Accu-Cheks, cover with SSI - hold patient's Levemir for now with decreased oral intake - hypoglycemia treatment protocol ordered - Follow trends and blood glucose readings and adjust treatment as indicated - Restart home medications when condition stabilizes Bradycardia - etiology uncertain - blood pressure stable - monitor closely with cardiac telemetry Hypokalemia: K 3.1. Likely secondary to recent vomiting and poor oral intake - patient could not tolerate IV KCl - given 40meq po KCl - monitor BMP Severe Protein Calorie Malnutrition: with cachexia, BMI 13.7. - add Ensure to meals - technical laboratory asst consult DVT prophylaxis - Lovenox 40 mg subq [id number] Problem Qualifiers (1) UTI (urinary tract infection): Qualified Code: N39.0 - Urinary tract infection without hematuria, site unspecified (2) Nausea and vomiting: Qualified Code: R11.2 - Non-intractable vomiting with nausea, unspecified vomiting type (3) Hyperglycemia due to type 2 diabetes mellitus: Qualified Code: E11.65 - Type 2 diabetes mellitus with hyperglycemia, unspecified fci insulin use status Caro Martino PA-C July 01, 2016 9:50 am
--- NOTE | 2016-07-01 11:24 | RADRPT ---
EXAM DATE/TIME: 07/01/2016 10:00 [facility] COMPARISON: CT ABDOMEN & PELVIS W CONTRAST, July 01, 2016, 2:29. INDICATIONS : Abdominal pain, nausea and vomiting for 1 day. DOSE: 4.1 mCi Tc99m Mebrofenin IV MEDICAL HISTORY : Diabetes mellitus type 2. Hypertension. Cardiovascular disease Asthma. SURGICAL HISTORY : Hysterectomy. Left leg stent and fibroids removed. ENCOUNTER: Initial ACUITY: 1 day PAIN SCALE: 2/10 LOCATION: Right upper quadrant TECHNIQUE: Following the intravenous administration of radiotracer, dynamic sequential images were performed wit h continuous acquisition. FINDINGS: The examination was terminated by the patient. Only 20 minutes of imaging was able to be obtained bef ore the patient terminated the study. HEPATIC KINETICS: There is prompt uptake of radiotracer in the liver. No focal defects are seen. There is normal rate of washout from the hepatic parenchyma. BILIARY CLEARANCE: Activity is first seen in the extrahepatic biliary system at 5 minutes. There is normal excretion in to the small bowel. GALLBLADDER: Activity is first seen in the gallbladder at 20 minutes. Common bile duct kinetics are normal and th ere is no evidence of biliary obstruction. BILIARY ENTRIC REFLUX: None observed. CONCLUSION: 1. The patient terminated the study. There is activity seen within the gallbladder on the final image . Herbert Wolfe Jr., MD on July 01, 2016 at 11:20 Board Certified Radiologist. This report was verified electronically.
[2016-07-01] MEDS: MORPHINE SULFATE 4 MG/ML INJ IV PUSH PRN ×2 (14:33→21:27)
[2016-07-01] MEDS: PEG (High)/E-LYTE SOLN 4000 ML BTL PO SCH (16:17)
--- NOTE | 2016-07-01 17:20 | EKG ---
Date Performed: 06/30/2016 Time Performed: 17:31:00 PTAGE: 46 years EKG: SINUS BRADYCARDIA MODERATE T-WAVE ABNORMALITY, CONSIDER ANTEROLATERAL ISCHEMIA ABNORMAL ECG Compared to previous tracing of 10/22/2015, inferolateral T-wave changes are now present. Consider i schemia. NO PREVIOUS TRACING DOCTOR: Ab Walker Interpretating Date/Time 07/01/2016 17:19:09
--- NOTE | 2016-07-01 17:24 | MB ---
cc: FELIPA VARGAS M.D., AARON, DO Corrected Copy: 07/02/16 DATE OF CONSULTATION: 07/01/[address] Hill. REASON FOR CONSULTATION: Nausea, vomiting, abdominal pain as well as diarrhea. HISTORY OF PRESENT ILLNESS: Miss Colón is a 46-year-old lady who presents with these symptoms; she says the symptoms have been going on for many months. She says when symptoms got worse she presented to the hospital. There has been no bleeding. No hematemesis or hematochezia. She has not lost any weight. REVIEW OF SYSTEMS Currently is having some abdominal pain and nausea but no other symptoms. PAST MEDICAL HISTORY 1. Hypertension 2. Diabetes 3. Peripheral vascular disease. 4. Asthma. 5. Anxiety. 6. Depression. 7. Hyperlipidemia. 8. Cerebrovascular accident 9. Gastroesophageal reflux disease 10. Deep venous thrombosis PAST SURGICAL HISTORY 1. Right BKA 2. Leg stent 3. Hysterectomy. 4. Eye surgery. MEDICATIONS On admission 1. Albuterol. 2. Metformin. 3. Sertraline. 4. Pantoprazole 5. Lyrica 6. Zolpidem. 7. Plavix. 8. Insulin. 9. Topamax ALLERGIES PENICILLIN SHELLFISH TOMATOES MILK FAMILY HISTORY: Noncontributory. SOCIAL HISTORY The patient is a smoker. No alcohol. PHYSICAL EXAMINATION: IN GENERAL: Physical examination reveals a well-nourished lady in no apparent distress. VITAL SIGNS: Stable. HEAD/NECK: Examination anicteric sclerae. CHEST: Bilateral air entry with rales. ABDOMEN: Soft, nontender. No hepatosplenomegaly. Bowel sounds are present. CENTRAL NERVOUS SYSTEM: Exam is nonfocal. RECTUM: Exam deferred at this time. LABORATORY FINDINGS: The labs revealed normal liver function tests, lipase level is 111. INR is 1. Hemoglobin 12.9. HIDA scan reveals normal filling of the gallbladder and emptying into the small intestines. CT scan of the abdomen and pelvis shows marked gastric distension, pericholecystic fluid. IMPRESSION 1. Abdominal pain, nausea, vomiting could be related to peptic ulcer disease. 2. Gastritis could be possibility of acalculous cholecystitis. RECOMMENDATIONS 1. Esophagogastroduodenoscopy, colonoscopy discussed with the patient. Risk, limitations have been discussed. She is agreeable to proceed. 2. NG tube has been discussed with her. An order has been placed. She does not seem to keen on the nasogastric tube, however. If she is able to do the prep procedures are planned for tomorrow. Thank you for this referral. MD TOREY Gonzales/elliott /3:28 PM /12:29 PM
[2016-07-01] MEDS: INSULIN ASPART SUPPLEMENTAL SCALE SQ SCH ×2 (18:00→21:27)
[2016-07-01] MEDS: cefTRIAXone INJ 2,000 MG in SODIUM CHLORIDE 0.9% INJ 100 ML IV SCH (18:04)
[2016-07-01] MEDS: TOPIRAMATE 25 MG TAB PO SCH (21:27)
[2016-07-01] MEDS: INSULIN DETEMIR 100 UNITS/ML VIAL SQ SCH (21:27)
[2016-07-02] VITALS (10 sets, daily range): BP systolic 83–144; BP diastolic 44–82; PULSE 58–100; RESP 16–18; TEMP 96.7–98.2; O2SAT 97–99
[2016-07-02] MEDS: PEG (High)/E-LYTE SOLN 4000 ML BTL PO SCH (00:22)
[2016-07-02] MEDS: RESP: ALBUTEROL 2.5 MG/IPRATROPIUM 0.5 MG NEB (SCH) NEB ×4 (03:01→20:30)
[2016-07-02] MEDS: ENOXAPARIN SODIUM 40 MG/0.4 ML SYRINGE SQ SCH (05:11)
[2016-07-02] MEDS: PANTOPRAZOLE SOD 40 MG DELAYED RELEASE TAB PO SCH (05:12)
[2016-07-02] MEDS: INSULIN ASPART SUPPLEMENTAL SCALE SQ SCH ×4 (05:16→22:00)
[2016-07-02] MEDS ORDERED: DEXTROSE 50% IN WATER 50 ML SYRINGE IV ONE (06:30)
[2016-07-02] MEDS ORDERED: DEXT 5%-NACL 0.9% 1000 ML INJ 1,000 ML IV SCH (06:45)
[2016-07-02] MEDS: SODIUM CHLORIDE 0.9% FLUSH 10 ML FLUSH IV FLUSH SCH ×2 (08:00→21:00)
[2016-07-02] MEDS: MORPHINE SULFATE 4 MG/ML INJ IV PUSH PRN ×3 (08:00→16:18)
[2016-07-02 08:07] LABS: BICARBONATE 29.7 MEQ/L (21.0-32.0); MAGNESIUM 1.8 MG/DL (1.5-2.5); POTASSIUM 3.1 MEQ/L (3.5-5.1)
--- NOTE | 2016-07-02 08:58 | HHI.PR ---
Subjective Remarks Follow up for abdominal pain, nausea/vomiting, UTI. The patient reports continued diffuse periumbilical and lower abdominal pain, described as sharp stabbing 9/10 pains, temporarily relived by IV morphine. She reports continued intermittent nausea with 1 episode of vomiting at 1am this morning. She completed the bowel prep overnight and had multiple loose BMs. She is going for EGD/colonoscopy today. She has no other medical complaints at this time. Objective Vitals Vital Signs Date Time Temp Pulse Resp B/P Pulse Ox O2 Delivery O2 Flow Rate FiO2 07/02/16 08:10 97.6 71 16 139/77 99 07/02/16 08:00 97.6 71 16 139/77 99 07/02/16 04:00 97.0 80 16 115/64 97 07/02/16 00:00 97.9 100 16 83/44 99 07/01/16 22:15 91 07/01/16 19:28 98.0 85 20 104/59 98 07/01/16 17:35 75 07/01/16 17:33 54 07/01/16 16:23 98.0 77 16 100/57 95 07/01/16 12:20 97.9 65 18 123/57 96 Result Diagram: 07/01/16 0446 07/02/16 0648 Imaging Last Impressions Hepatobiliary Scan Nuclear Medicine 07/01/16 0000 Signed Impressions: Service Date/Time: June 10:00 - CONCLUSION: 1. The patient terminated the study. There is activity seen within the gallbladder on the final image. Herbert Wolfe Jr., MD Chest X-Ray 06/30/16 0000 Signed Impressions: Service Date/Time: Thursday, June 30, 2016 18:22 - CONCLUSION: No acute disease. Dmitriy Aguila MD Abdomen/Pelvis CT 06/30/16 0000 Signed Impressions: Service Date/Time: June 02:29 - CONCLUSION: 1. Marked gastric distention without gastric outlet obstruction. Radionuclide imaging may be helpful for evaluation of gastroparesis. 2. Pericholecystic fluid. If there is concern for cholecystitis then radionuclide imaging is recommended. Ab Mcneil MD Objective Remarks GENERAL: Thin cachectic female patient in NAD. SKIN: Warm and dry. No rash. HEENT: Normocephalic. Atraumatic. Pupils equal and round. Mucous membranes pink and moist. NECK: Supple. Trachea midline. CARDIOVASCULAR: Regular rate and rhythm. S1, S2 noted. No murmur appreciated. RESPIRATORY: No accessory muscle use. Clear to auscultation. Breath sounds equal bilaterally. GASTROINTESTINAL: Abdomen soft, nondistended, mild diffuse TTP, worse at periumbilical and lower abdomen. Normoactive bowel sounds x4. MUSCULOSKELETAL: No obvious deformities. Extremities without clubbing, cyanosis , or edema. NEUROLOGICAL: Awake and alert. No obvious cranial nerve deficits. Motor grossly within normal limits. Normal speech. PSYCHIATRIC: Appropriate mood and affect; insight and judgment normal. Procedures 07/02 - EGD/colonoscopy planned for today Medications and IVs Current Medications Medications (Trade) Dose Ordered Sig/Lizz Route Start Time Stop Time Status Last Admin (NS Flush) 2 ml UNSCH PRN IV FLUSH 06/30/16 19:45 (NS Flush) 2 ml BID IV FLUSH 06/30/16 21:00 07/02/16 08:00 (Zofran Inj) 4 mg Q6H PRN IVP 06/30/16 19:45 07/01/16 21:26 (Narcan Inj) 0.4 mg UNSCH PRN IV 06/30/16 19:45 (D50w (Vial) Inj) 25 ml UNSCH PRN IV PUSH 06/30/16 20:45 Glucagon 1 mg 1 mg UNSCH PRN OTHER 06/30/16 20:45 (Rocephin Inj/NS Inj) 100 ml @ 200 mls/hr Q24H IV 07/01/16 18:30 07/01/16 18:04 (Plavix) 75 mg DAILY PO 07/01/16 09:00 07/01/16 08:33 (Protonix) 40 mg DAILY@06 PO 07/01/16 06:00 07/02/16 05:12 (Lyrica) 50 mg BID PO 07/01/16 09:00 07/01/16 21:27 (Zoloft) 100 mg DAILY PO 07/01/16 09:00 07/01/16 08:33 (Topamax) 50 mg HS PO 07/01/16 21:00 07/01/16 21:27 (Lovenox Inj) 40 mg Q24H SQ 07/01/16 06:00 07/01/16 05:23 (Morphine Inj) 2 mg Q4H PRN IV PUSH 07/01/16 15:00 07/02/16 08:00 Insulin Detemir 10 units 10 units BID SQ 07/01/16 21:00 07/01/16 21:27 (D5W-NS 1000 ml Inj) 1,000 ml @ 75 mls/hr [id number] IV 07/02/16 06:45 07/02/16 06:45 A/P Problem List: (1) UTI (urinary tract infection) ICD Code: N39.0 Status: Acute (2) Nausea and vomiting ICD Code: R11.2 Status: Acute (3) Hyperglycemia due to type 2 diabetes mellitus ICD Code: E11.65 Status: Acute (4) Bradycardia ICD Code: R00.1 Status: Acute Assessment and Plan Ms. Colón is a 46 year old female with a history of neuropathy, CVA, DVT, peripheral vascular disease with left leg stent and right BKA, coronary artery disease, hyperlipidemia, hypertension, asthma, gastroesophageal reflux disease, and diabetes mellitus who presented to the emergency room complaining of severe abdominal pain with nausea and vomiting. Urinary tract infection: UA c/w UTI, +nitrites. - Blood cultures with NGTD - Preliminary urine culture with gram negative rods - Lactic acid elevated at 3.9, continue IVF, recheck lactic acid - Continue Ceftriaxone 2 gm IV q24h Abdominal Pain, Nausea and vomiting - Abdominal CT shows marked gastric distention without gastric outlet obstruction, pericholecystic fluid - HIDA scan showed activity within the gallbladder, patient terminated the study secondary to pain - Supportive treatment with IVF, antiemetics - clear liquid diet for now - consulted gastroenterology - plan for EGD/colonoscopy today Possible Bacteremia: 03/03 blood cultures with Gram positive cocci in pairs and clusters - repeat stat blood cultures - start IV Vanco with pharmacy consult - consult infectious disease Hyperglycemia due to type 2 diabetes and infection - concern regarding continued insulin use at this time given N/V - Monitor Accu-Cheks, cover with SSI - hold patient's Levemir for now while NPO for procedure - hypoglycemia treatment protocol ordered - Restart home medications when tolerating po intake Bradycardia - etiology uncertain - blood pressure stable - monitor closely with cardiac telemetry - heart rate now wnl Hypokalemia: K 3.1. Likely secondary to recent vomiting and poor oral intake - patient cannot tolerate IV KCl - given 40meq po KCl - monitor BMP, still K 3.1, will give kcl eff Severe Protein Calorie Malnutrition: with cachexia, BMI 13.7. - add Ensure to meals - biomaterials engineer consult DVT prophylaxis - Lovenox 40 mg subq [id number] Problem Qualifiers (1) UTI (urinary tract infection): Qualified Code: N39.0 - Urinary tract infection without hematuria, site unspecified (2) Nausea and vomiting: Qualified Code: R11.2 - Non-intractable vomiting with nausea, unspecified vomiting type (3) Hyperglycemia due to type 2 diabetes mellitus: Qualified Code: E11.65 - Type 2 diabetes mellitus with hyperglycemia, unspecified intermediate project manager insulin use status Caro Martino PA-C July 02, 2016 08:58
[2016-07-02] MEDS ORDERED: MAGNESIUM SULFATE 1 GM PREMIX 100 ML IV ONE (09:00)
[2016-07-02] MEDS ORDERED: THIAMINE INJ 100 MG in SODIUM CHLORIDE 0.9% INJ 100 ML IV ONE (09:15)
[2016-07-02] MEDS ORDERED: Vancomycin Consult Pharmacy 1 EA OTHER SCH (09:45)
[2016-07-02] MEDS ORDERED: VANCOMYCIN 1,000 MG/NS 250 ML IV ONE ×2 (10:00)
[2016-07-02] MEDS ORDERED: PROPOFOL 200 MG/20 ML AMP IV ONE (10:06)
--- NOTE | 2016-07-02 10:30 | GIPROC ---
[facility] [address] [facility]. [facility], [address] EGD PROCEDURE REPORT EXAM DATE: 07/02/2016 PATIENT NAME: Linda Colón MR #: [id number] BIRTHDATE: 1970 ATTENDING: Willie Burgos MD ORDER #: [id number] JAVA SCALA DEVELOPER: Segundo Mendez Glinsky, Jason, and Marianne Ruvalcaba STATUS: inpatient INDICATIONS: The patient is a 46 yr old female here for an EGD due to epigastric abdominal pain and dyspepsia PROCEDURE PERFORMED: EGD w/ biopsy MEDICATIONS: None and Per Anesthesia. TOPICAL ANESTHETIC: CONSENT: The patient understands the risks and benefits of the procedure and understands that these risks include, but are not limited to: sedation, allergic reaction, infection, perforation and/or bleeding. Alternative means of evaluation and treatment include, among others: physical exam, x-rays, and/or surgical intervention. The patient elects to proceed with this endoscopic procedure. medical equipment was checked for proper function. Hand hygiene and appropriate measures for infection prevention was taken. After the risks, benefits and alternatives of the procedure were thoroughly explained, Informed consent was verified, confirmed and timeout was successfully executed by the treatment team. The patient was anesthetized with topical anesthesia and the [id number] (Pedi C) endoscope was introduced through the mouth and advanced to the second portion of the duodenum. Retroflexed views revealed no abnormalities and Retroflexed views revealed The gastroscope was then slowly withdrawn and removed. ESOPHAGUS: There was LA Class A esophagitis noted. A biopsy was performed using cold forceps. Sample sent for histology. STOMACH: There was erythematous moderate gastritis in the gastric antrum. A biopsy was performed using cold forceps. Sample sent for histology. DUODENUM: The duodenal mucosa appeared normal in the bulb and second portion of the duodenum. ADVERSE EVENTS: There were no complications. IMPRESSIONS: 1. There was LA Class A esophagitis noted; biopsy was performed 2. There was erythematous gastritis in the gastric antrum; biopsy was performed 3. Normal duodenal mucosa in the bulb and second portion of the duodenum 4. Retroflexed views revealed no abnormalities 5. Retroflexed views revealed RECOMMENDATIONS: 1. Await biopsy results. Biopsy results will not be ready for 7-10 days. If you don't hear from us in two weeks, call our office for biopsy results. 2. Anti-reflux regimen 3. Continue PPI 4. Avoid NSAIDS PATIENT CONDITION: stable DISPOSITION: Inpatient REPEAT EXAM: Return 1 year EGD pending biopsy results Willie Burgos MD eSigned: Willie Burgos MD 07/02/2016 10:29 AM cc: PATIENT NAME: Linda Colón Tao MR#: [id number]
--- NOTE | 2016-07-02 10:36 | GIPROC ---
[facility] [address] [facility]. [facility], [address] COLONOSCOPY PROCEDURE REPORT EXAM DATE: 07/02/2016 PATIENT NAME: Linda Colón MR #: [id number] BIRTHDATE: 1970 ENDOSCOPIST: Willie Burgos MD ORDER #: [id number] SANITARY INSPECTOR: Segundo Mendez Glinsky, Jason, and Marianne Ruvalcaba STATUS: inpatient INDICATIONS: The patient is a 46 yr old female here for a colonoscopy due to abdominal pain PROCEDURE PERFORMED: Colonoscopy with biopsy MEDICATIONS: None and Per Anesthesia. PREP QUALITY: The [place] Bowel Prep Score was Right colon 2, Mid colon 3, and Left colon 3. Total = 8. PREP TYPE:GoLytely ESTIMATED BLOOD LOSS: None CONSENT: The patient understands the risks and benefits of the procedure and understands that these risks include, but are not limited to: sedation, allergic reaction, infection, perforation and/or bleeding. Alternative means of evaluation and treatment include, among others: physical exam, x-rays, and/or surgical intervention. The patient elects to proceed with this endoscopic procedure. medical equipment was checked for proper function. Hand hygiene and appropriate measures for infection prevention was taken. After the risks, benefits and alternatives of the procedure were thoroughly explained, Informed consent was verified, confirmed and timeout was successfully executed by the treatment team. A digital exam revealed external hemorrhoids The Pentax [id number] endoscope was introduced through the anus and advanced to the cecum, which was identified by both the appendix and ileocecal valve. The instrument was then slowly withdrawn as the colon was fully examined. COLON FINDINGS: Moderate diverticulosis was noted in the sigmoid colon. No bleeding was noted from the diverticulosis. A polypoid shaped sessile polyp ranging between 3-5mm in size was found in the sigmoid colon. A biopsy was performed using cold forceps. Retroflexed views revealed internal hemorrhoids and Retroflexed views revealed medium internal hemorrhoids The scope was then completely withdrawn from the patient and the procedure terminated. PROCEDURE WITHDRAWAL TIME:6minutes ADVERSE EVENTS: There were no complications. IMPRESSIONS: 1. Moderate diverticulosis was noted in the sigmoid colon 2. A sessile polyp ranging between 3-5mm in size was found in the sigmoid colon; biopsy was performed using cold forceps 3. Retroflexed views revealed internal hemorrhoids 4. Retroflexed views revealed medium internal hemorrhoids 5. Revealed external hemorrhoids RECOMMENDATIONS: 1. Await biopsy results. Biopsy results will not be ready for 7-10 days. If you don't hear from us in two weeks, call our office for results. 2. Benefiber 2 tsp daily 3. Continue surveillance 4. Yearly hemoccult 5. High fiber diet 6. No seeds, nuts and popcorn in diet RECALL: Return 3 years Colonoscopy, pending biopsy results Willie Burgos MD eSigned: Willie Burgos MD 07/02/2016 10:35 AM cc: PATIENT NAME: Linda Colón MR#: [id number]
[2016-07-02] MEDS ORDERED: POTASSIUM CHLORIDE 25 MEQ EFFERVESCENT TAB PO ONE (11:00)
[2016-07-02] MEDS: PREGABALIN 25 MG CAP PO SCH ×2 (11:07→22:17)
[2016-07-02] MEDS: SERTRALINE HCL 100 MG TAB PO SCH (11:07)
[2016-07-02] MEDS: CLOPIDOGREL 75 MG TAB PO SCH (11:08)
[2016-07-02] MEDS: ONDANSETRON HCL 4 MG/2 ML VIAL IVP PRN ×2 (11:08→18:41)
[2016-07-02] MEDS: SODIUM CHLOR 0.9% 1000 ML INJ 1,000 ML IV SCH ×2 (11:09→22:17)
[2016-07-02] MEDS: SODIUM CHLORIDE 0.9% FLUSH 10 ML FLUSH IV FLUSH PRN ×3 (12:08→16:18)
[2016-07-02] MEDS: METOCLOPRAMIDE HCL 10 MG/2 ML VIAL IV PRN ×2 (13:04→22:18)
--- NOTE | 2016-07-02 13:04 | HHI.IDPN ---
Note Infectious Disease Note Patient seen and examined. Full consult dictated. Patient with positive blood culture which i think is contamination of 1 of 4 bottles. UTI due to e. coli which does not appear complicated. Recommend: Do not treat for the positive blood culture. Treat the UTI as you are doing. If she remain afebrile and nausea and vomiting improves she can be given PO. If the repeat blood culture comes back positive, please call ID for further input. I will sign off. Rolan Ortez MD July 02, 2016 13:04
--- NOTE | 2016-07-02 13:41 | MB ---
cc: JAYSON HURLEY MD DATE OF CONSULTATION: 07/02/2016 REQUESTING PHYSICIAN KERON Potts. HISTORY OF PRESENT ILLNESS This is a 46-year-old black female who was brought to the emergency department with nausea and vomiting and abdominal pain. The patient says that she began to have lightheadedness approximately six days ago and then she developed nausea and abdominal pain. She tried to take care of herself at home but the pain persisted and therefore she presented to the emergency department for evaluation three days ago. She was noted to have elevated blood sugar. She has had multiple episodes of vomiting since the pain began and currently she has nausea and is vomiting but is bringing up mostly clear oral secretions. She describes the pain in her abdomen as an 11/10 scale. She was evaluated by gastroenterology and she underwent colonoscopy. She was found to have diverticulosis. A biopsy was performed of a colonic polyp. From review of the previous notes the patient reported to other physicians that she has ongoing pains off and on for many months. She tells me that she has lost a lot of weight. She denies other symptoms. Blood cultures were obtained and one bottle has staph coagulase negative of a set of four. Urine culture from 06/30/[address] scan of the abdomen showed marked gastric distention without gastric outlet obstruction. Pericholecystic fluid was noted and there was concern for cholecystitis. A HIDA scan was attempted but the patient terminated the study. The patient denies any headache or back pain or dysuria. PAST MEDICAL HISTORY 1. Diabetes mellitus. 2. Hypertension. 3. Peripheral vascular disease. 4. Hyperlipidemia. 5. Gastroesophageal reflux disease. 6. Cerebrovascular accident. 7. DVT. 8. Depression. 9. Eye surgery. 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 11.History of uterine fibroids which were surgically resected. ALLERGIES 1. PENICILLIN. 2. MILK. 3. SHELLFISH. 4. TOMATOES. MEDICATIONS 1. Vancomycin. 2. Ceftriaxone. 3. Topamax. 4. Plavix. 5. Lyrica. 6. Zoloft. 7. Protonix. 8. Lovenox. 9. Inhaled albuterol. SOCIAL HISTORY The patient denies alcohol use. She smokes a half pack of cigarettes a day. Occasional marijuana. FAMILY HISTORY Significant for seizure in the patient's mother and diabetes in the patient's father. REVIEW OF SYSTEMS GENERAL: Denies fever or chills. Positive for weight loss HEAD, EYES, EARS, NOSE, AND THROAT: No visual blurring. No diplopia. Denies difficulty swallowing or soreness of the throat. NECK: No neck swelling or pain. PULMONARY: Denies cough or shortness of breath. CARDIOVASCULAR: Denies palpitations or chest pain. GASTROINTESTINAL: Positive for nausea, vomiting, abdominal pain. Occasional diarrhea. GENITOURINARY: No urgency, frequency or dysuria. MUSCULOSKELETAL: No muscle aches or joint pains. INTEGUMENTARY: No skin rash or itching. HEMATOPOIETIC: No easy bruising or bleeding. ENDOCRINE: No polyuria. Denies polydipsia. NEUROLOGIC: Denies problems with coordination. PSYCHIATRIC: Denies mood changes. PHYSICAL EXAMINATION GENERAL: This is a cachectic-appearing female who is in moderate distress from nausea. She is awake and alert. VITAL SIGNS: Temperature 96.7, BP 144/82, respirations 16, heart rate 58. HEENT: The head is atraumatic. Extraocular movements are grossly intact. Pupils reactive to light. No icterus. Oropharynx has moist mucosa, no visible lesions, no thrush. NECK: Supple. No adenopathy. LUNGS: Decreased clear breath sounds. HEART: Regular S1, S2, without murmurs, rubs or gallops. ABDOMEN: Bowel sounds diminished. Moderate tenderness of the mid abdomen without rebound. RECTAL: Not performed. EXTREMITIES: No clubbing, cyanosis or edema. The left leg BKA stump is well-healed. SKIN: No rash. NEUROLOGIC: No focal findings. PSYCHIATRIC: The patient is calm and cooperative. LABORATORY WBC 8.4, platelets 285, 79% neutrophils, hemoglobin 12.9. Creatinine 0.55, BUN 6, sodium 145. IMPRESSION 1. Positive blood culture which is very likely contamination in patient with staph-coagulase negative in one of four bottles and no fever and no elevated white blood cell count. 2. UTI due to E. coli in patient who does not appear symptomatic from a urinary infection standpoint. 3. Abdominal pain. The patient is being evaluated and managed by gastroenterology. RECOMMENDATIONS 1. Discontinue vancomycin. I would not treat this bacteremia due to staph-coagulase negative in one of four bottles. 2. Treat the patient for an urinary tract infection. 3. Monitor for signs of complications from UTI. The patient does not appear septic at this time. I will not follow this patient since she does not appear to be an acute issue as far as infection is concerned. I will sign off. If further infectious disease input is required, the infectious disease service can be reconsulted. Jayson Hurley MD FD/JENNY /12:48 PM /1:25 PM
[2016-07-02] MEDS: cefTRIAXone INJ 2,000 MG in SODIUM CHLORIDE 0.9% INJ 100 ML IV SCH (18:00)
[2016-07-02] MEDS ORDERED: VANCOMYCIN INJ 750 MG in SODIUM CHLOR 0.9% 250 ML INJ 250 ML IV SCH (22:00)
[2016-07-02] MEDS: TOPIRAMATE 25 MG TAB PO SCH (22:17)
[2016-07-03] VITALS (7 sets, daily range): BP systolic 86–138; BP diastolic 53–76; PULSE 65–97; RESP 16–19; TEMP 98.1–98.9; O2SAT 94–99
[2016-07-03] MEDS: RESP: ALBUTEROL 2.5 MG/IPRATROPIUM 0.5 MG NEB (SCH) NEB ×3 (04:00→19:56)
[2016-07-03] MEDS: PANTOPRAZOLE SOD 40 MG DELAYED RELEASE TAB PO SCH (05:18)
[2016-07-03] MEDS: ENOXAPARIN SODIUM 40 MG/0.4 ML SYRINGE SQ SCH (05:20)
[2016-07-03] MEDS: ONDANSETRON HCL 4 MG/2 ML VIAL IVP PRN ×2 (05:20→13:22)
[2016-07-03] MEDS: INSULIN ASPART SUPPLEMENTAL SCALE SQ SCH ×4 (06:11→21:39)
--- NOTE | 2016-07-03 07:17 | HHI.PR ---
Subjective Remarks Patient seen for follow up abdominal pain, N/V, and UTI. 07/03/2016 - patient seen this morning. No acute events overnight. Vitals this AM essentially WNL. No major events on tele. Linda c/o new, frontal BARRERA this morning, consistent with previous "migraine". She is on topamax daily for this apparently. Reports she does not take PRN medicine at home. Endorses some nausea this AM, but no emesis. Still c/o vague, diffuse abdominal pain. Unchanged from admission. Required IV morphine x3 yesterday. Feels pain med is working well. She states she does not feel ready for DC until abdominal pain improves. Objective Vitals Vital Signs Date Time Temp Pulse Resp B/P Pulse Ox O2 Delivery O2 Flow Rate FiO2 07/03/16 03:58 98.2 65 18 113/67 97 07/02/16 23:56 98.2 85 18 113/64 98 07/02/16 20:00 79 07/02/16 19:06 97.9 75 18 113/63 98 07/02/16 16:00 97.7 93 16 119/66 99 07/02/16 11:14 96.7 58 16 144/82 98 07/02/16 10:38 73 07/02/16 10:34 53 16 161/92 99 07/02/16 10:29 59 16 160/98 99 07/02/16 10:24 97.4 54 16 155/90 100 07/02/16 08:10 97.6 71 16 139/77 99 07/02/16 08:00 97.6 71 16 139/77 99 I/O 07/02/16 07/02/16 07/02/16 07/03/16 07/03/16 07/03/16 07:00 15:00 23:00 07:00 15:00 23:00 Intake Total 100 ml 720 ml 1220 ml Balance 100 ml 720 ml 1220 ml Intake Oral 720 ml 120 ml IV Total 1100 ml Other 100 ml # Voids 1 Result Diagram: 07/01/16 0446 07/02/16 0648 Objective Remarks GENERAL: Thin cachectic female patient in NAD. Appears mildly anxious. Shaking. SKIN: Warm and dry. No rash. HEENT: Normocephalic. Atraumatic. Pupils equal and round. Mucous membranes pink and moist. NECK: Supple. Trachea midline. CARDIOVASCULAR: Regular rate and rhythm. S1, S2 noted. No murmur appreciated. RESPIRATORY: No accessory muscle use. Clear to auscultation. Breath sounds equal bilaterally. GASTROINTESTINAL: Abdomen soft, nondistended, mild diffuse TTP, worse at periumbilical and lower abdomen. Normoactive bowel sounds x4. MUSCULOSKELETAL: No obvious deformities. Extremities without clubbing, cyanosis , or edema. NEUROLOGICAL: Awake and alert. No obvious cranial nerve deficits. Motor grossly within normal limits. Normal speech. PSYCHIATRIC: Appropriate mood and affect; insight and judgment normal. Procedures 07/02 - EGD/colonoscopy A/P Problem List: (1) UTI (urinary tract infection) ICD Code: N39.0 Status: Acute (2) Nausea and vomiting ICD Code: R11.2 Status: Acute (3) Hyperglycemia due to type 2 diabetes mellitus ICD Code: E11.65 Status: Acute (4) Bradycardia ICD Code: R00.1 Status: Acute Assessment and Plan Ms. Colón is a 46 year old female with a history of neuropathy, CVA, DVT, peripheral vascular disease with left leg stent and right BKA, coronary artery disease, hyperlipidemia, hypertension, asthma, gastroesophageal reflux disease, and diabetes mellitus who presented to the emergency room complaining of severe abdominal pain with nausea and vomiting. Urinary tract infection: UA c/w UTI, +nitrites. - Blood cultures growing coag negative staph in / tubes. Patient started on vancomycin yesterday. ID consulted. Per ID, likely contaminant. DC vancomycin. Repeat cxs drawn and pending. - Urine cx growing pansensitive E. coli. - Lactic acid elevated at 3.9, continue IVF, recheck lactic acid - Continue Ceftriaxone 2 gm IV q24h (07/01-) Abdominal Pain, Nausea and vomiting - Abdominal CT shows marked gastric distention without gastric outlet obstruction, pericholecystic fluid - HIDA scan showed activity within the gallbladder, patient terminated the study secondary to pain - Supportive treatment with IVF, antiemetics - Cont protonix - GI consulted. EGD/colonoscopy yesterday showed gastritis, esophagitis, diverticulosis. Biopsies taken. Path pending. Migraine BARRERA -cont topamax. Add fioricet. Hyperglycemia due to type 2 diabetes and infection - concern regarding continued insulin use at this time given N/V - Monitor Accu-Cheks, cover with SSI - levemir on hold for procedure yesterday. Post prandials now in the mid 200s. Restart. Cont to hold metformin. - hypoglycemia treatment protocol ordered Bradycardia - etiology uncertain - blood pressure stable - monitor closely with cardiac telemetry - heart rate now wnl Hypokalemia: K 3.1. Likely secondary to recent vomiting and poor oral intake - patient cannot tolerate IV KCl - given 40meq po KCl - check repeat BMP this AM Severe Protein Calorie Malnutrition: with cachexia, BMI 13.7. - add Ensure to meals - game engineer consult DVT prophylaxis - Lovenox 40 mg subq [id number] (started ~ 24 hours post-procedure) Problem Qualifiers (1) UTI (urinary tract infection): Qualified Code: N39.0 - Urinary tract infection without hematuria, site unspecified (2) Nausea and vomiting: Qualified Code: R11.2 - Non-intractable vomiting with nausea, unspecified vomiting type (3) Hyperglycemia due to type 2 diabetes mellitus: Qualified Code: E11.65 - Type 2 diabetes mellitus with hyperglycemia, unspecified usp insulin use status Luther Riojas MD R3 July 03, 2016 07:17
[2016-07-03] MEDS: METOCLOPRAMIDE HCL 10 MG/2 ML VIAL IV PRN (08:23)
[2016-07-03] MEDS: ACETAMIN 325 MG/BUTALBITAL 50 MG/CAFFEINE 40 MG TAB PO PRN (08:37)
[2016-07-03] MEDS: SODIUM CHLORIDE 0.9% FLUSH 10 ML FLUSH IV FLUSH SCH ×2 (09:00→21:00)
[2016-07-03] MEDS: INSULIN DETEMIR 100 UNITS/ML VIAL SQ SCH ×2 (10:04→21:39)
[2016-07-03] MEDS: SERTRALINE HCL 100 MG TAB PO SCH (10:05)
[2016-07-03] MEDS: CLOPIDOGREL 75 MG TAB PO SCH (10:05)
[2016-07-03] MEDS: PREGABALIN 25 MG CAP PO SCH ×2 (10:06→21:40)
[2016-07-03] MEDS: SODIUM CHLOR 0.9% 1000 ML INJ 1,000 ML IV SCH ×2 (10:06→21:40)
[2016-07-03 12:47] LABS: BICARBONATE 23.5 MEQ/L (21.0-32.0); POTASSIUM 3.2 MEQ/L (3.5-5.1)
--- NOTE | 2016-07-03 13:27 | HHI.GIFU ---
Subjective Remarks Patient is resting in bed, trying to eat lunch. She had 50% of her food, she is nauseous but no vomiting, but she was about to throw up. She has mild abdomen pain. (Vinicius He) Objective Vitals I&O Vital Signs Date Time Temp Pulse Resp B/P Pulse Ox O2 Delivery O2 Flow Rate FiO2 07/03/16 11:22 98.5 82 17 124/76 99 07/03/16 08:01 98.8 97 18 122/73 99 07/03/16 03:58 98.2 65 18 113/67 97 07/02/16 23:56 98.2 85 18 113/64 98 07/02/16 20:00 79 07/02/16 19:06 97.9 75 18 113/63 98 07/02/16 16:00 97.7 93 16 119/66 99 I/O 07/02/16 07/02/16 07/02/16 07/03/16 07/03/16 07/03/16 07:00 15:00 23:00 07:00 15:00 23:00 Intake Total 100 ml 720 ml 1220 ml Balance 100 ml 720 ml 1220 ml Intake Oral 720 ml 120 ml IV Total 1100 ml Other 100 ml # Voids 1 Laboratory Laboratory Tests Test 07/03/16 12:00 Sodium Level 140 Potassium Level 3.2 Chloride Level 107 Carbon Dioxide Level 23.5 Anion Gap 10 Blood Urea Nitrogen 2 Creatinine 0.63 Estimat Glomerular Filtration 123 Rate Random Glucose 283 Calcium Level 7.8 Date/Time Procedure Status Source Growth 07/02/16 11:51 Aerobic Blood Culture - Preliminary Resulted Blood Peripheral NO GROWTH IN 1 DAY 07/02/16 11:51 Anaerobic Blood Culture - Preliminary Resulted Blood Peripheral NO GROWTH IN 1 DAY 06/30/16 17:10 Urine Culture - Final Complete Urine Clean Catch Escherichia Coli Imaging Last Impressions Hepatobiliary Scan Nuclear Medicine 07/01/16 0000 Signed Impressions: Service Date/Time: June 10:00 - CONCLUSION: 1. The patient terminated the study. There is activity seen within the gallbladder on the final image. Herbert Wolfe Jr., MD Chest X-Ray 06/30/16 0000 Signed Impressions: Service Date/Time: Thursday, June 30, 2016 18:22 - CONCLUSION: No acute disease. Dmitriy Aguila MD Abdomen/Pelvis CT 06/30/16 0000 Signed Impressions: Service Date/Time: June 02:29 - CONCLUSION: 1. Marked gastric distention without gastric outlet obstruction. Radionuclide imaging may be helpful for evaluation of gastroparesis. 2. Pericholecystic fluid. If there is concern for cholecystitis then radionuclide imaging is recommended. Ab Mcneil MD Physical Exam HEENT: normocephalic; atraumatic; no jaundice. NECK: Neck is supple, no JVD, no lymphadenopathy. CHEST: Chest is clear to auscultation and percussion. CARDIAC: Regular rate and rhythm with no murmur gallop or rubs. ABDOMEN: Soft, nondistended, diffused tenderness; no hepatosplenomegaly; bowel sounds are present in all four quadrants. EXTREMITIES: No clubbing, cyanosis, or edema Right BKA noted SKIN: Normal; no rash; no jaundice. TANKAGE GRINDER OPERATOR: No focal deficits; alert and oriented times three. (Vinicius He) Assessment and Plan Plan - Abdominal Pain, Nausea and vomiting S/P EGD/colonoscopy on (07/02/16) showed There was LA Class A esophagitis noted ; biopsy was performed, erythematous gastritis, Moderate diverticulosis was noted in the sigmoid colon A sessile polyp ranging between 3-5mm in size was found in the sigmoid, internal hemorrhoids, external hemorrhoids BX pending, repeat in one year/ [address] shows marked gastric distention without gastric outlet obstruction, pericholecystic fluid HIDA scan showed activity within the gallbladder, patient terminated the study secondary to pain - Severe Protein Calorie Malnutrition: with cachexia, BMI 13.7. - Urinary tract infection- on abx - neuropathy, CVA, DVT, peripheral vascular disease with left leg stent and right BKA, per attending Plan: - Diabetic diet - Cont. Zofran as needed - Will order CTA to r/o mesenteric involvement in this patient with hx of PVD - Consider GES, states she had one before, not able to find it - Cont. supportive care - Patient seen and examined by Dr. Burgos and myself and this note is written on his behalf. (Vinicius He) Physician Comments Seen and examined with SHEETROCK APPLICATOR< still symptomatic. Biopsies form endoscopy-p. CTA ordered, if -ve consider GES. (Willie Burgos MD) Vinicius He [facility] July 03, 2016 13:27 Willie Burgos MD July 03, 2016 14:29
[2016-07-03] MEDS: cefTRIAXone INJ 2,000 MG in SODIUM CHLORIDE 0.9% INJ 100 ML IV SCH (19:35)
[2016-07-03] MEDS ORDERED: IOHEXOL 350 MG/ML 10 ML VIAL (for RAD DIAG) IV ONE (20:42)
[2016-07-03] MEDS: TOPIRAMATE 25 MG TAB PO SCH (21:40)
[2016-07-03] MEDS ORDERED: PHARMACY ORDERED LAB ONE (21:45)
--- NOTE | 2016-07-03 22:44 | RADRPT ---
EXAM DATE/TIME: 07/03/2016 20:39 [place] COMPARISON: CTA RUNOFF W 3D RECON, July 02, 2015, 17:54. INDICATIONS : Abdominal pain and nausea with significant weight loss. IV CONTRAST: 96 cc Omnipaque 350 (iohexol) IV ORAL CONTRAST: No oral contrast ingested. RADIATION DOSE: 3.92 CTDIvol (mGy) MEDICAL HISTORY : Diabetes mellitus type 2. Hypertension. Deep venous thrombosis.Gastritis SURGICAL HISTORY : Hysterectomy. ENCOUNTER: Initial ACUITY: 4 - 6 months PAIN SCALE: 7/10 LOCATION: abdomen TECHNIQUE: Volumetric scanning was performed using a multi-row detector CT scanner. The data was post processed with a variety of visualization algorithms including full volume maximum intensity projection, multi -planar sliding thin slab reformation, curved planar reformation, and surface rendering techniques. Using automated exposure control and adjustment of the mA and/or kV according to patient size, radiat ion dose was kept as low as reasonably achievable to obtain optimal diagnostic quality images. FINDINGS: Aorta is patent and normal caliber. There is a stent in the left common iliac artery. Mild plaque pro ximal right common iliac artery. Both internal iliac arteries are occluded. The celiac, superior mesenteric and renal arteries are patent. There is free fluid in the pelvis. No acute visceral abnormalities. CONCLUSION: Left external iliac artery stent appears patent. 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 Celiac, mesenteric and renal arteries are patent. Small amount of free fluid in the pelvis. Hesham Thompson MD on July 03, 2016 at 22:32 Board Certified Radiologist. This report was verified electronically.
[2016-07-03] MEDS: MORPHINE SULFATE 4 MG/ML INJ IV PUSH PRN (23:46)
[2016-07-04] MEDS: RESP: ALBUTEROL 2.5 MG/IPRATROPIUM 0.5 MG NEB (SCH) NEB ×4 (02:48→22:32)
[2016-07-04 03:36] VITALS: BP 118/66; PULSE 90; RESP 19; TEMP 99.1; O2SAT 98
[2016-07-04] MEDS: PANTOPRAZOLE SOD 40 MG DELAYED RELEASE TAB PO SCH (05:47)
[2016-07-04] MEDS: ENOXAPARIN SODIUM 40 MG/0.4 ML SYRINGE SQ SCH (05:47)
[2016-07-04] MEDS: SODIUM CHLOR 0.9% 1000 ML INJ 1,000 ML IV SCH ×2 (05:48→15:31)
[2016-07-04 06:12] LABS: BICARBONATE 26.6 MEQ/L (21.0-32.0); POTASSIUM 3.1 MEQ/L (3.5-5.1)
[2016-07-04] MEDS: INSULIN ASPART SUPPLEMENTAL SCALE SQ SCH ×4 (06:47→21:00)
[2016-07-04 08:00] VITALS: BP 118/66; PULSE 77; RESP 20; TEMP 98.4; O2SAT 98
--- NOTE | 2016-07-04 10:09 | HHI.PR ---
Subjective Remarks No acute events overnight. Afebrile, vital signs stable. Patient continues to complain of nausea and abdominal pain. She states she is unable to eat at this time. Objective Vitals Vital Signs Date Time Temp Pulse Resp B/P Pulse Ox O2 Delivery O2 Flow Rate FiO2 07/04/16 08:00 98.4 77 20 118/66 98 07/04/16 03:36 99.1 90 19 118/66 98 07/03/16 23:17 98.9 90 19 138/72 96 07/03/16 20:00 92 07/03/16 15:03 98.6 82 16 127/71 98 07/03/16 11:22 98.5 82 17 124/76 99 07/03/16 11:06 20 I/O 07/03/16 07/03/16 07/03/16 07/04/16 07/04/16 07/04/16 07:00 15:00 23:00 07:00 15:00 23:00 Intake Total 1220 ml 2040 ml Balance 1220 ml 2040 ml Intake Oral 120 ml 1040 ml IV Total 1100 ml 1000 ml # Voids 3 # Bowel Movements 2 Result Diagram: 07/01/16 0446 07/04/16 0507 Objective Remarks GENERAL: Thin cachectic female patient in NAD. Appears mildly anxious. Shaking. SKIN: Warm and dry. No rash. HEENT: Normocephalic. Atraumatic. Pupils equal and round. Mucous membranes pink and moist. NECK: Supple. Trachea midline. CARDIOVASCULAR: Regular rate and rhythm. S1, S2 noted. No murmur appreciated. RESPIRATORY: No accessory muscle use. Clear to auscultation. Breath sounds equal bilaterally. GASTROINTESTINAL: Abdomen soft, nondistended, mild diffuse TTP, worse at periumbilical and lower abdomen. Normoactive bowel sounds x4. MUSCULOSKELETAL: No obvious deformities. Extremities without clubbing, cyanosis , or edema. NEUROLOGICAL: Awake and alert. No obvious cranial nerve deficits. Motor grossly within normal limits. Normal speech. PSYCHIATRIC: Appropriate mood and affect; insight and judgment normal. Procedures 07/02 - EGD/colonoscopy A/P Problem List: (1) UTI (urinary tract infection) ICD Code: N39.0 Status: Acute (2) Nausea and vomiting ICD Code: R11.2 Status: Acute (3) Hyperglycemia due to type 2 diabetes mellitus ICD Code: E11.65 Status: Acute (4) Bradycardia ICD Code: R00.1 Status: Acute Assessment and Plan Ms. Colón is a 46 year old female with a history of neuropathy, CVA, DVT, peripheral vascular disease with left leg stent and right BKA, coronary artery disease, hyperlipidemia, hypertension, asthma, gastroesophageal reflux disease, and diabetes mellitus who presented to the emergency room complaining of severe abdominal pain with nausea and vomiting. Urinary tract infection: UA c/w UTI, +nitrites. - Blood cultures growing coag negative staph in 03/03 tubes. Patient started on vancomycin 07/02. ID consulted. Per ID, likely contaminant. DC vancomycin. Repeat cxs drawn and NGTD 1 day. - Urine cx growing pansensitive E. coli. - Lactic acid elevated at 3.9, continue IVF, recheck lactic acid - 0.9 on 07/02 - Continue Ceftriaxone 2 gm IV q24h (07/01-) Abdominal Pain, Nausea and vomiting - Abdominal CT shows marked gastric distention without gastric outlet obstruction, pericholecystic fluid - HIDA scan showed activity within the gallbladder, patient terminated the study secondary to pain - CT on 07/03 showed patent mesenteric arteries with a small amount of free fluid in the pelvis - Supportive treatment with IVF, antiemetics - Cont protonix - GI consulted. EGD/colonoscopy 07/02 showed gastritis, esophagitis, diverticulosis. Biopsies taken. Path pending. - Gastric emptying study pending Migraine BARRERA -cont topamax. Add fioricet. Hyperglycemia due to type 2 diabetes and infection - concern regarding continued insulin use at this time given N/V - Monitor Accu-Cheks, cover with SSI - levemir. Cont to hold metformin. - hypoglycemia treatment protocol ordered Bradycardia - etiology uncertain - blood pressure stable - monitor closely with cardiac telemetry - heart rate now wnl Hypokalemia: K 3.1. Likely secondary to recent vomiting and poor oral intake - patient cannot tolerate IV KCl - given 40meq po KCl - check repeat BMP Severe Protein Calorie Malnutrition: with cachexia, BMI 13.7. - add Ensure to meals - guide setter consult DVT prophylaxis - Lovenox 40 mg subq [id number] (started ~ 24 hours post-procedure) Discharge Planning To home once GS complete. Patient states she is able to follow up with gastroenterology as an outpatient. Problem Qualifiers (1) UTI (urinary tract infection): Qualified Code: N39.0 - Urinary tract infection without hematuria, site unspecified (2) Nausea and vomiting: Qualified Code: R11.2 - Non-intractable vomiting with nausea, unspecified vomiting type (3) Hyperglycemia due to type 2 diabetes mellitus: Qualified Code: E11.65 - Type 2 diabetes mellitus with hyperglycemia, unspecified shelter insulin use status April Mccormack MD R3 July 04, 2016 10:08
[2016-07-04] MEDS: ONDANSETRON HCL 4 MG/2 ML VIAL IVP PRN ×2 (10:21→20:30)
[2016-07-04] MEDS: PREGABALIN 25 MG CAP PO SCH ×2 (10:22→20:30)
[2016-07-04] MEDS: SERTRALINE HCL 100 MG TAB PO SCH (10:22)
[2016-07-04] MEDS: CLOPIDOGREL 75 MG TAB PO SCH (10:22)
[2016-07-04] MEDS: SODIUM CHLORIDE 0.9% FLUSH 10 ML FLUSH IV FLUSH SCH ×2 (10:22→20:29)
[2016-07-04] MEDS: INSULIN DETEMIR 100 UNITS/ML VIAL SQ SCH ×2 (10:28→20:31)
[2016-07-04] MEDS ORDERED: POTASSIUM CHLORIDE 20 MEQ CONTROLLED RELEASE TAB PO ONE (11:00)
[2016-07-04 12:47] VITALS: BP 133/75; PULSE 77; RESP 18; TEMP 98; O2SAT 97
[2016-07-04] MEDS: MORPHINE SULFATE 4 MG/ML INJ IV PUSH PRN ×2 (15:27→20:30)
[2016-07-04] MEDS: cefTRIAXone INJ 2,000 MG in SODIUM CHLORIDE 0.9% INJ 100 ML IV SCH (19:45)
[2016-07-04 20:07] VITALS: BP 126/78; PULSE 91; RESP 18; TEMP 98.7; O2SAT 98
[2016-07-04] MEDS: TOPIRAMATE 25 MG TAB PO SCH (20:29)
[2016-07-04] MEDS: SODIUM CHLORIDE 0.9% FLUSH 10 ML FLUSH IV FLUSH PRN (20:30)
[2016-07-04 21:53] VITALS: PULSE 84
[2016-07-04 23:59] VITALS: BP 106/59; PULSE 93; RESP 18; TEMP 97.6; O2SAT 99
[2016-07-05] MEDS: SODIUM CHLOR 0.9% 1000 ML INJ 1,000 ML IV SCH ×2 (02:47→09:00)
[2016-07-05] MEDS: MORPHINE SULFATE 4 MG/ML INJ IV PUSH PRN ×2 (02:48→12:59)
[2016-07-05 02:52] VITALS: BP 116/73; PULSE 90; RESP 18; TEMP 97.5; O2SAT 97
[2016-07-05] MEDS: ONDANSETRON HCL 4 MG/2 ML VIAL IVP PRN ×2 (03:15→11:25)
[2016-07-05] MEDS: ACETAMIN 325 MG/BUTALBITAL 50 MG/CAFFEINE 40 MG TAB PO PRN (04:37)
[2016-07-05] MEDS: ENOXAPARIN SODIUM 40 MG/0.4 ML SYRINGE SQ SCH (04:38)
[2016-07-05] MEDS: PANTOPRAZOLE SOD 40 MG DELAYED RELEASE TAB PO SCH (04:38)
[2016-07-05] MEDS: INSULIN ASPART SUPPLEMENTAL SCALE SQ SCH ×2 (05:51→13:00)
[2016-07-05 06:25] LABS: BICARBONATE 27.9 MEQ/L (21.0-32.0); POTASSIUM 3.3 MEQ/L (3.5-5.1)
[2016-07-05 07:20] VITALS: BP 102/63; PULSE 69; RESP 16; TEMP 98; O2SAT 98
[2016-07-05] MEDS: PREGABALIN 25 MG CAP PO SCH (08:48)
[2016-07-05] MEDS: CLOPIDOGREL 75 MG TAB PO SCH (08:48)
[2016-07-05] MEDS: SERTRALINE HCL 100 MG TAB PO SCH (08:48)
[2016-07-05] MEDS: INSULIN DETEMIR 100 UNITS/ML VIAL SQ SCH (08:49)
[2016-07-05] MEDS: SODIUM CHLORIDE 0.9% FLUSH 10 ML FLUSH IV FLUSH SCH (09:00)
--- NOTE | 2016-07-05 09:35 | HHI.PR ---
Subjective Remarks Follow up for abdominal pain, nausea. The patient reports feeling better today. She was able to tolerate some breakfast this morning and is now tolerating lunch. Her last episode of vomiting was last night. She has continued intermittent diarrhea how much improved. Denies fevers but states she's always cold with chills. Denies any other medical complaints at this time. She feels ready for discharge. Objective Vitals Vital Signs Date Time Temp Pulse Resp B/P Pulse Ox O2 Delivery O2 Flow Rate FiO2 07/05/16 07:20 98.0 69 16 102/63 98 07/05/16 05:51 16 07/05/16 03:11 16 07/05/16 02:52 97.5 90 18 116/73 97 07/04/16 23:59 97.6 93 18 106/59 99 07/04/16 21:53 84 07/04/16 21:04 16 07/04/16 20:07 98.7 91 18 126/78 98 07/04/16 12:47 98.0 77 18 133/75 97 I/O 07/04/16 07/04/16 07/04/16 07/05/16 07/05/16 07/05/16 06:59 14:59 22:59 06:59 14:59 22:59 Intake Total 720 ml Output Total 600 ml Balance 720 ml -600 ml Intake Oral 720 ml Output Urine Total 600 ml # Voids 3 # Bowel Movements 3 2 Result Diagram: 07/01/16 0446 07/05/16 0506 Imaging Last Impressions Abdomen/Pelvis CT 07/03/16 0000 Signed Impressions: Service Date/Time: Sunday, July 03, 2016 20:39 - CONCLUSION: Left external iliac artery stent appears patent. Chronically occluded internal iliac arteries bilaterally. Celiac, mesenteric and renal arteries are patent. Small amount of free fluid in the pelvis. Hesham Thompson MD Hepatobiliary Scan Nuclear Medicine 07/01/16 0000 Signed Impressions: Service Date/Time: June 10:00 - CONCLUSION: 1. The patient terminated the study. There is activity seen within the gallbladder on the final image. Herbert Wolfe Jr., MD Chest X-Ray 06/30/16 0000 Signed Impressions: Service Date/Time: Thursday, June 30, 2016 18:22 - CONCLUSION: No acute disease. Dmitriy Aguila MD Objective Remarks GENERAL: Thin cachectic female patient in NAD. SKIN: Warm and dry. No rash. HEENT: Normocephalic. Atraumatic. Pupils equal and round. Mucous membranes pink and moist. NECK: Supple. Trachea midline. CARDIOVASCULAR: Regular rate and rhythm. S1, S2 noted. No murmur appreciated. RESPIRATORY: No accessory muscle use. Clear to auscultation. Breath sounds equal bilaterally. GASTROINTESTINAL: Abdomen soft, nondistended, nontender. Normoactive bowel sounds x4. MUSCULOSKELETAL: No obvious deformities. Extremities without clubbing, cyanosis , or edema. NEUROLOGICAL: Awake and alert. No obvious cranial nerve deficits. Motor grossly within normal limits. Normal speech. PSYCHIATRIC: Appropriate mood and affect; insight and judgment normal. Procedures 07/02 - EGD/colonoscopy showed gastritis, esophagitis, diverticulosis. Biopsies taken. Path pending. Medications and IVs Current Medications Medications (Trade) Dose Ordered Sig/Lizz Route Start Time Stop Time Status Last Admin (NS Flush) 2 ml UNSCH PRN IV FLUSH 06/30/16 19:45 07/04/16 20:30 (NS Flush) 2 ml BID IV FLUSH 06/30/16 21:00 07/04/16 20:29 (Zofran Inj) 4 mg Q6H PRN IVP 06/30/16 19:45 07/05/16 03:15 (Narcan Inj) 0.4 mg UNSCH PRN IV 06/30/16 19:45 (D50w (Vial) Inj) 25 ml UNSCH PRN IV PUSH 06/30/16 20:45 Glucagon 1 mg 1 mg UNSCH PRN OTHER 06/30/16 20:45 (Rocephin Inj/NS Inj) 100 ml @ 200 mls/hr Q24H IV 07/01/16 18:30 07/04/16 19:45 (Plavix) 75 mg DAILY PO 07/01/16 09:00 07/05/16 08:48 (Protonix) 40 mg DAILY@06 PO 07/01/16 06:00 07/05/16 04:38 (Lyrica) 50 mg BID PO 07/01/16 09:00 07/05/16 08:48 (Zoloft) 100 mg DAILY PO 07/01/16 09:00 07/05/16 08:48 (Topamax) 50 mg HS PO 07/01/16 21:00 07/04/16 20:29 (Lovenox Inj) 40 mg Q24H SQ 07/01/16 06:00 07/05/16 04:38 (Morphine Inj) 2 mg Q4H PRN IV PUSH 07/01/16 15:00 07/05/16 02:48 Insulin Detemir 10 units 10 units BID SQ 07/01/16 21:00 07/05/16 08:49 (NS 1000 ml Inj) 1,000 ml @ 100 mls/hr Q10H IV 07/02/16 11:00 07/05/16 02:47 (Reglan Inj) 10 mg Q6H PRN IV 07/02/16 13:00 07/03/16 08:23 (Fioricet 325-50-40) 1 tab Q6H PRN PO 07/03/16 08:15 07/05/16 04:37 (KCl) 40 meq ONCE ONCE PO 07/05/16 10:00 07/05/16 10:01 Urinary Catheter: No Vascular Central Line Catheter: No A/P Problem List: (1) UTI (urinary tract infection) ICD Code: N39.0 Status: Acute (2) Nausea and vomiting ICD Code: R11.2 Status: Acute (3) Hyperglycemia due to type 2 diabetes mellitus ICD Code: E11.65 Status: Acute (4) Bradycardia ICD Code: R00.1 Status: Acute Assessment and Plan Ms. Colón is a 46 year old female with a history of neuropathy, CVA, DVT, peripheral vascular disease with left leg stent and right BKA, coronary artery disease, hyperlipidemia, hypertension, asthma, gastroesophageal reflux disease, and diabetes mellitus who presented to the emergency room complaining of severe abdominal pain with nausea and vomiting. Urinary tract infection: UA c/w UTI, +nitrites. - Blood cultures growing coag negative staph in 03/03 tubes. Patient started on vancomycin 07/02. ID consulted. Per ID, likely contaminant. DC vancomycin. Repeat cxs drawn and NGTD 3 days. - Urine cx growing pansensitive E. coli. - Lactic acid elevated at 3.9, given IVF, recheck lactic acid - 0.9 on 07/02 - Continued Ceftriaxone 2 gm IV q24h, patient completed 6days total treatment, d /c abx - Resolved Abdominal Pain, Nausea and vomiting - Abdominal CT 06/30 shows marked gastric distention without gastric outlet obstruction, pericholecystic fluid - HIDA scan 07/01 showed activity within the gallbladder, patient terminated the study secondary to pain - CTA abd w/contrast on 07/03 showed patent mesenteric arteries with a small amount of free fluid in the pelvis - Supportive treatment with IVF, antiemetics, pain control - Cont protonix 40mg bid - GI consulted. - EGD/colonoscopy 07/02 showed gastritis, esophagitis, diverticulosis. Biopsies taken. Path pending at discharge. - Gastric emptying study 07/05 unremarkable - GI started patient on carafate tidac - patient tolerating meals x2 prior to discharge, no further nausea/vomiting, still with abdominal pain, given Rx for [place], Protonix, Carafate at discharge Migraine BARRERA - cont topamax. Add fioricet. - migraine resolved Hyperglycemia secondary to type 2 diabetes and infection - concern regarding continued insulin use at this time given N/V - Monitor Accu-Cheks, cover with SSI - Continue levemir. Cont to hold metformin. - hypoglycemia treatment protocol ordered - blood sugars fairly well controlled Bradycardia - etiology uncertain - blood pressure stable - monitor closely with cardiac telemetry - heart rate now wnl Hypokalemia: K 3.1. Likely secondary to recent vomiting and poor oral intake - patient cannot tolerate IV KCl - given 40meq po KCl - check repeat BMP, improving, given additional po KCl replacement Severe Protein Calorie Malnutrition: with cachexia, BMI 13.7. - add Ensure to meals - hr leader consulted DVT prophylaxis - Lovenox 40 mg subq [id number] (started ~ 24 hours post-procedure ) Written by Caro Martino, acting as scribe for Dr. Pepe on 07/05/16 at 13:45 This note was transcribed by [email or web address] CABRALES. I, Dr. Florinda Pepe personally performed the history, physical exam, and medical decision making; and confirmed the accuracy of the information in the transcribed note. Authenticated by Dr. Florinda Pepe on 07/05/16 at 13:45 Discharge Planning See discharge summary. Problem Qualifiers (1) UTI (urinary tract infection): Qualified Code: N39.0 - Urinary tract infection without hematuria, site unspecified (2) Nausea and vomiting: Qualified Code: R11.2 - Non-intractable vomiting with nausea, unspecified vomiting type (3) Hyperglycemia due to type 2 diabetes mellitus: Qualified Code: E11.65 - Type 2 diabetes mellitus with hyperglycemia, unspecified nursing home insulin use status Caro Martino PA-C July 05, 2016 09:34 Florinda Pepe MD July 05, 2016 18:11
[2016-07-05] MEDS ORDERED: POTASSIUM CHLORIDE 20 MEQ CONTROLLED RELEASE TAB PO ONE (10:00)
--- NOTE | 2016-07-05 11:29 | RADRPT ---
EXAM DATE/TIME: 07/05/2016 08:30 [place] COMPARISON: No previous studies available for comparison. INDICATIONS : Nausea with abdomen pain. DOSE: 1.1 mCi Tc99m Sulfur Colloid Labeled Whole egg PO IMAGIN hr, 30 min MEDICAL HISTORY : Diabetes mellitus type 2. Hypertension. Deep venous thrombosis. Lupus. SURGICAL HISTORY : Hysterectomy. Right BKA Stent left leg ENCOUNTER: Initial ACUITY: 2 days PAIN SCALE: 2/10 LOCATION: upper quadrant TECHNIQUE: Following the oral ingestion of radiotracer-labeled meal, dynamic sequential images in the LATVIAN projec tion were acquired with simultaneous computer acquisition. The data set was decay-corrected. FINDINGS: LAG PHASE: There is 20 minutes before onset of gastric emptying. EMPTYING: Gastric emptying kinetics are linear. The decay-corrected, back-extrapolated half-time of emptying i s 42 minutes. (Normal for this lab is 45- 90 minutes.) INTERVENTION: None given CONCLUSION: Normal gastric emptying study. Yon Huang MD FACR on July 05, 2016 at 11:26 Board Certified Radiologist. This report was verified electronically.
[2016-07-05 11:35] VITALS: BP 140/79; PULSE 66; RESP 16; TEMP 97.7; O2SAT 100
--- NOTE | 2016-07-05 12:48 | HHI.GIFU ---
Subjective Remarks Resting in bed. Nausea without vomiting, was able to tolerate oatmeal this am. Continues to have mid abdominal pain- about the same. (Lenore Browne) Objective Vitals I&O Vital Signs Date Time Temp Pulse Resp B/P Pulse Ox O2 Delivery O2 Flow Rate FiO2 07/05/16 11:35 97.7 66 16 140/79 100 07/05/16 07:20 98.0 69 16 102/63 98 07/05/16 05:51 16 07/05/16 03:11 16 07/05/16 02:52 97.5 90 18 116/73 97 07/04/16 23:59 97.6 93 18 106/59 99 07/04/16 21:53 84 07/04/16 21:04 16 07/04/16 20:07 98.7 91 18 126/78 98 07/04/16 12:47 98.0 77 18 133/75 97 I/O 07/04/16 07/04/16 07/04/16 07/05/16 07/05/16 07/05/16 07:00 15:00 23:00 07:00 15:00 23:00 Intake Total 720 ml Output Total 600 ml Balance 720 ml -600 ml Intake Oral 720 ml Output Urine Total 600 ml # Voids 3 # Bowel Movements 3 2 Laboratory Laboratory Tests Test 07/05/16 05:06 Sodium Level 142 Potassium Level 3.3 Chloride Level 108 Carbon Dioxide Level 27.9 Anion Gap 6 Blood Urea Nitrogen 4 Creatinine 0.48 Estimat Glomerular Filtration 168 Rate Random Glucose 90 Calcium Level 8.3 Date/Time Procedure Status Source Growth 07/02/16 11:51 Aerobic Blood Culture - Preliminary Resulted Blood Peripheral NO GROWTH IN 3 DAYS 07/02/16 11:51 Anaerobic Blood Culture - Preliminary Resulted Blood Peripheral NO GROWTH IN 3 DAYS 06/30/16 18:18 Aerobic Blood Culture - Final Complete Blood Peripheral NO GROWTH IN 5 DAYS 06/30/16 18:18 Anaerobic Blood Culture - Final Complete Blood Peripheral NO GROWTH IN 5 DAYS 06/30/16 17:10 Urine Culture - Final Complete Urine Clean Catch Escherichia Coli Imaging Last Impressions Gastric Emptying Nuclear Medicine 07/05/16 0000 Signed Impressions: Service Date/Time: Tuesday, July 05, 2016 08:30 - CONCLUSION: Normal gastric emptying study. Yon Huang MD FACR Abdomen/Pelvis CT 07/03/16 0000 Signed Impressions: Service Date/Time: Sunday, July 03, 2016 20:39 - CONCLUSION: Left external iliac artery stent appears patent. Chronically occluded internal iliac arteries bilaterally. Celiac, mesenteric and renal arteries are patent. Small amount of free fluid in the pelvis. Hesham Thompson MD Hepatobiliary Scan Nuclear Medicine 07/01/16 0000 Signed Impressions: Service Date/Time: June 10:00 - CONCLUSION: 1. The patient terminated the study. There is activity seen within the gallbladder on the final image. Herbert Wolfe Jr., MD Chest X-Ray 06/30/16 0000 Signed Impressions: Service Date/Time: Thursday, June 30, 2016 18:22 - CONCLUSION: No acute disease. Dmitriy Aguila MD Physical Exam HEENT: Normocephalic; atraumatic CHEST: CTA CARDIAC: RRR. ABDOMEN: Soft, nondistended, mild mid abdominal tenderness; no hepatosplenomegaly; bowel sounds are present in all four quadrants. EXTREMITIES: No clubbing, cyanosis, or edema Right BKA noted SKIN: Normal; no rash; no jaundice. [place] [employer] ADJUSTER: No focal deficits; alert and oriented times three. (Lenore Browne [facility]) Assessment and Plan Plan ASSESSMENT: - Abdominal Pain, Nausea and vomiting. HIDA (07/01/16)----> 1. The patient terminated the study. There is activity seen within the gallbladder on the final image. S/P EGD/Colonoscopy (07/02/16)---> [place] Class A esophagitis noted; biopsy was performed, erythematous gastritis, Moderate diverticulosis was noted in the sigmoid colon. A sessile polyp ranging between 3-5mm in size was found in the sigmoid, internal hemorrhoids, external hemorrhoids. Pathology pending. CTA (07/03/16)-----> Left external iliac artery stent appears patent. Chronically occluded internal iliac arteries bilaterally. Celiac, mesenteric and renal arteries are patent. Small amount of free fluid in the pelvis. GES (07/05/16)---> Normal gastric emptying study. Pt still with nausea, mid abdominal pain, was able to get oatmeal down. Will increase protonix to BID dosing and add carafate. Of note, was on reglan at time of GES. - Severe Protein Calorie Malnutrition: with cachexia, BMI 13.7. - Urinary tract infection- on abx - Neuropathy, CVA, DVT, peripheral vascular disease with left leg stent and right BKA, per attending Plan: - Diabetic diet - Await pathology - Increase protonix to BID dosing - Add Carafate - Supportive care - EGD one year - Colonoscopy 3 years - Pt seen and examined by Dr. Nicole and myself and this note is written on her behalf (Lenore Browne) Physician Comments agree with above (Ani Nicole MD) Lenore Browne July 05, 2016 12:48 Ani Nicole MD July 05, 2016 21:33
[2016-07-05 13:04] VITALS: RESP 16
[2016-07-05] MEDS ORDERED: NORC5TAB PO (13:57)
[2016-07-05] MEDS ORDERED: SUCR1S PO (14:02)
[2016-07-05] MEDS ORDERED: PANT40TA3 PO (14:02)
--- NOTE | 2016-07-05 14:03 | HHI.DCPOC ---
Discharge Care Plan Diagnosis: (1) Gastritis (2) Esophagitis (3) Nausea and vomiting (4) UTI (urinary tract infection) Goals to Promote Your Health * To prevent worsening of your condition and complications * To maintain your health at the optimal level Directions to Meet Your Goals Take your medications as prescribed Follow your dietary instruction Follow activity as directed Keep your appointments as scheduled Take your immunizations and boosters as scheduled If your symptoms worsen call your PCP, if no PCP go to Urgent Care Center or Emergency Room Smoking is Dangerous to Your Health. Avoid second hand smoke Call the 24-hour hour crisis hotline for domestic abuse at Caro Martino PA-C July 05, 2016 14:03 Florinda Pepe MD July 05, 2016 18:11
--- NOTE | 2016-07-05 14:16 | HHI.DS ---
cc: Dr. Refugio Hill; Willie Burgos MD Discharge Summary Admission Date June 30, 2016 at 6:49 pm Discharge Date: July 05, 2016 Admitting Diagnosis UTI, BRADYCARDIA, NAUSEA/VOMITING, T2DM (1) Gastritis ICD Code: K29.70 Diagnosis: Principal (2) Esophagitis ICD Code: K20.9 Diagnosis: Principal (3) UTI (urinary tract infection) ICD Code: N39.0 (4) Nausea and vomiting ICD Code: R11.2 (5) Hyperglycemia due to type 2 diabetes mellitus ICD Code: E11.65 (6) Bradycardia ICD Code: R00.1 Procedures 07/02 - EGD/colonoscopy showed gastritis, esophagitis, diverticulosis. Biopsies taken. Path pending. Brief History - From Admission Ms. Colón is a 46 year old female with a history of neuropathy, CVA, DVT, peripheral vascular disease with left leg stent and right BKA, coronary artery disease, hyperlipidemia, hypertension, asthma, gastroesophageal reflux disease, and diabetes mellitus who presented to the emergency room complaining of severe abdominal pain with nausea and vomiting. Urinalysis is consistent with UTI. The patient is seen in the CDU. She is very sleepy and will awaken and answer questions briefly but says she is too sick to stay awake for interview. She complains of severe diffuse stomach pain all over her abdomen accompanied by green emesis with an inability to hold down any food or fluids for 2 days. She reports that the symptoms are accompanied by throbbing headache and diarrhea 3 times on 06/30/2016 with green stool. She denies neck pain and photophobia. Denies fever, hematuria, dysuria, urinary frequency Denies family contact with similar symptoms Denies eating any unusual foods Ran out of bp medications about one week ago - formerly took Metoprolol BID - unsure of dose Denies CAD, CHF . CBC/BMP: 07/01/16 0446 07/05/16 0506 Significant Findings Laboratory Tests Test 07/03/16 07/04/16 07/05/16 12:00 05:07 05:06 Potassium Level 3.2 MEQ/L 3.1 MEQ/L 3.3 MEQ/L (3.5-5.1) (3.5-5.1) (3.5-5.1) Blood Urea Nitrogen 2 MG/DL (7-18) 3 MG/DL (7-18) 4 MG/DL (7-18) Random Glucose 283 MG/DL (74-106) Calcium Level 7.8 MG/DL 8.0 MG/DL 8.3 MG/DL (8.5-10.1) (8.5-10.1) (8.5-10.1) Chloride Level 111 MEQ/L 108 MEQ/L (98-107) (98-107) Creatinine 0.48 MG/DL (0.50-1.00) Imaging Last Impressions Gastric Emptying Nuclear Medicine 07/05/16 0000 Signed Impressions: Service Date/Time: Tuesday, July 05, 2016 08:30 - CONCLUSION: Normal gastric emptying study. Yon Huang MD FACR Abdomen/Pelvis CT 07/03/16 0000 Signed Impressions: Service Date/Time: Sunday, July 03, 2016 20:39 - CONCLUSION: Left external iliac artery stent appears patent. Chronically occluded internal iliac arteries bilaterally. Celiac, mesenteric and renal arteries are patent. Small amount of free fluid in the pelvis. Hesham Thompson MD Hepatobiliary Scan Nuclear Medicine 07/01/16 0000 Signed Impressions: Service Date/Time: June 10:00 - CONCLUSION: 1. The patient terminated the study. There is activity seen within the gallbladder on the final image. Herbert Wolfe Jr., MD Chest X-Ray 06/30/16 0000 Signed Impressions: Service Date/Time: Thursday, June 30, 2016 18:22 - CONCLUSION: No acute disease. Dmitriy Aguila MD PE at Discharge GENERAL: Thin cachectic female patient in NAD. SKIN: Warm and dry. No rash. HEENT: Normocephalic. Atraumatic. Pupils equal and round. Mucous membranes pink and moist. NECK: Supple. Trachea midline. CARDIOVASCULAR: Regular rate and rhythm. S1, S2 noted. No murmur appreciated. RESPIRATORY: No accessory muscle use. Clear to auscultation. Breath sounds equal bilaterally. GASTROINTESTINAL: Abdomen soft, nondistended, nontender. Normoactive bowel sounds x4. MUSCULOSKELETAL: No obvious deformities. Extremities without clubbing, cyanosis , or edema. NEUROLOGICAL: Awake and alert. No obvious cranial nerve deficits. Motor grossly within normal limits. Normal speech. PSYCHIATRIC: Appropriate mood and affect; insight and judgment normal. Hospital Course Ms. Colón is a 46 year old female with a history of neuropathy, CVA, DVT, peripheral vascular disease with left leg stent and right BKA, coronary artery disease, hyperlipidemia, hypertension, asthma, gastroesophageal reflux disease, and diabetes mellitus who presented to the emergency room complaining of severe abdominal pain with nausea and vomiting. Urinary tract infection: UA c/w UTI, +nitrites. - Blood cultures growing coag negative staph in 03/03 tubes. Patient started on vancomycin 07/02. ID consulted. Per ID, likely contaminant. DC vancomycin. Repeat cxs drawn and NGTD 3 days. - Urine cx growing pansensitive E. coli. - Lactic acid elevated at 3.9, given IVF, recheck lactic acid - 0.9 on 07/02 - Continued Ceftriaxone 2 gm IV q24h, patient completed 6days total treatment, d /c abx - Resolved Abdominal Pain, Nausea and vomiting - Abdominal CT 06/30 shows marked gastric distention without gastric outlet obstruction, pericholecystic fluid - HIDA scan 07/01 showed activity within the gallbladder, patient terminated the study secondary to pain - CTA abd w/contrast on 07/03 showed patent mesenteric arteries with a small amount of free fluid in the pelvis - Supportive treatment with IVF, antiemetics, pain control - Cont protonix 40mg bid - GI consulted. - EGD/colonoscopy 07/02 showed gastritis, esophagitis, diverticulosis. Biopsies taken. Path pending at discharge. - Gastric emptying study 07/05 unremarkable - GI started patient on carafate tidac - patient tolerating meals x2 prior to discharge, no further nausea/vomiting overnight, still with mild abdominal pain, given Rx for [place], Protonix, Carafate at discharge Migraine BARRERA - cont topamax. Add fioricet. - migraine resolved Hyperglycemia secondary to type 2 diabetes and infection - concern regarding continued insulin use at this time given N/V - Monitor Accu-Cheks, cover with SSI - Continue levemir. Cont to hold metformin. - hypoglycemia treatment protocol ordered - blood sugars fairly well controlled Bradycardia - etiology uncertain - blood pressure stable - monitor closely with cardiac telemetry - heart rate now wnl Hypokalemia: K 3.1. Likely secondary to recent vomiting and poor oral intake - patient cannot tolerate IV KCl - given 40meq po KCl - check repeat BMP, improving, given additional po KCl replacement Severe Protein Calorie Malnutrition: with cachexia, BMI 13.7. - add Ensure to meals - counselling psychologist consulted Depression: patient voiced poor energy, lack of appetite, labile mood, and poor social support at home, denies suicidal ideations. Strongly suspect depression contributing to above GI symptoms -continue patient's Zoloft -outpatient follow up with psychiatry and psychology DVT prophylaxis - Lovenox 40 mg subq [id number] (started ~ 24 hours post-procedure ) I spent 35 minutes [id number] with the patient or on the amor discussing the patient's disposition, prognosis, and plan of care with her caregivers. Over half the time spent was devoted to counseling the patient regarding placement in coordinating care with caregivers and case management. Written by Caro Martino, acting as scribe for Dr. Pepe on 07/05/16 at 13:45 This note was transcribed by [email or web address] CABRALES. I, Dr. Florinda Pepe personally performed the history, physical exam, and medical decision making; and confirmed the accuracy of the information in the transcribed note. Authenticated by Dr. Florinda Pepe on 07/05/16 at 13:45 Pt Condition on Discharge: Stable Discharge Disposition: Discharge Home Discharge Time: > 30 minutes Discharge Instructions DIET: Follow Instructions for: As Tolerated, No Restrictions, Diabetic Diet Additional Diet Instructions: Add Ensure to each meal for nutrition supplementation. Activities you can perform: Regular-No Restrictions Follow up Referrals: Gastroenterology - 1 Week with Willie Burgos MD PCP Follow-up - 1 Week with Refugio Hill DO New Medications: Hydrocodone-Acetaminophen ([place]) 5-325 mg Tab 1 TAB PO Q6H PRN PAIN #10 Ref 0 TAB Pantoprazole (Pantoprazole) 40 Mg Tab 40 MG PO BID gastritis #60 TAB Sucralfate Liq (Sucralfate Liq) 1 Gm/10 Ml Melina 1 GM PO ACHS gastritis #210 ML Continued Medications: Albuterol 8.5 GM Inh (Proair Hfa 8.5 GM Inh) 90 Mcg/Act Aer 2 PUFF INH BID 108 mcg/actuation Shortness of Breath #1 Ref 0 INHALER Albuterol Neb (Albuterol Neb) 2.5 Mg/3 Ml Neb 2.5 MG NEB Q4-6H PRN SHORTNESS OF BREATH #1 Ref 0 NEBULE Clopidogrel (Clopidogrel) 75 Mg Tab 75 MG PO DAILY Blood Clot Prevention #30 Ref 0 TAB Insulin Aspart Inj (Novolog Inj) 1,000 Unit/10 Ml Vial 0 SQ DIRECTED Sliding Scale as directed. Blood Sugar Management #10 Ref 0 ML Insulin Detemir Inj (Levemir Flextouch Pen Inj) 300 unit/3 ML Pen 10 UNITS SQ BID Blood Sugar Management Ref 0 PEN Metformin (Metformin) 500 Mg Tab 500 MG PO BID With meals Blood Sugar Management #60 Ref 0 TAB Pantoprazole (Pantoprazole) 40 Mg Tab 40 MG PO DAILY Reflux #30 Ref 0 TAB Pregabalin (Lyrica) 50 Mg Cap 50 MG PO BID #60 Ref 0 CAP Sertraline (Sertraline) 100 Mg Tab 100 MG PO DAILY #30 Ref 0 TAB Tiotropium Inh (Spiriva Handihaler) 18 Mcg Cap 18 MCG INH DAILY 1 capsule = 18 mcg Do Not Swallow Capsule COPD #30 Ref 0 CAP Topiramate (Topamax) 50 Mg Tab 50 MG PO HS Control Seizures #60 Ref 0 TAB Zolpidem (Zolpidem) 10 Mg Tab 10 MG PO HS INSOMNIA Ref 0 TAB Caro Martino PA-C July 05, 2016 14:16 Florinda Pepe MD July 05, 2016 18:12
[2016-07-05] MEDS ORDERED: SUCRALFATE 1 GM/10 ML CUP PO SCH (16:00)
[2016-07-05] MEDS ORDERED: PANTOPRAZOLE SOD 40 MG DELAYED RELEASE TAB PO SCH (21:00)
== END 2016-07-05 15:42 | disposition home or self-care (01) ==
LOC: NEPD 15:30 → NEDA 18:49 → NEPFCDU 21:06 → NEPHCDU 07-03 17:58
PROVIDERS: ADMIT Hospitalist; ATTEND Hospitalist
DX: K21.0 Gastro-esophageal reflux disease with esophagitis (principal); K29.50 Unspecified chronic gastritis without bleeding; K63.5 Polyp of colon; K57.30 Diverticulosis of large intestine without perforation or abscess without bleeding; K64.4 Residual hemorrhoidal skin tags; K64.8 Other hemorrhoids; N39.0 Urinary tract infection, site not specified; B96.20 Unspecified Escherichia coli [E. coli] as the cause of diseases classified elsewhere; J45.909 Unspecified asthma, uncomplicated; R00.1 Bradycardia, unspecified; E78.00 Pure hypercholesterolemia, unspecified; I25.10 Atherosclerotic heart disease of native coronary artery without angina pectoris; I10 Essential (primary) hypertension; E11.51 Type 2 diabetes mellitus with diabetic peripheral angiopathy without gangrene; E78.5 Hyperlipidemia, unspecified; E11.40 Type 2 diabetes mellitus with diabetic neuropathy, unspecified; F17.210 Nicotine dependence, cigarettes, uncomplicated; R64 Cachexia; E43 Unspecified severe protein-calorie malnutrition; E87.6 Hypokalemia; G43.909 Migraine, unspecified, not intractable, without status migrainosus; Z79.4 Long term (current) use of insulin; E11.65 Type 2 diabetes mellitus with hyperglycemia; Z86.718 Personal history of other venous thrombosis and embolism; Z89.511 Acquired absence of right leg below knee; Z86.73 Personal history of transient ischemic attack (TIA), and cerebral infarction without residual deficits; Z98.62 Peripheral vascular angioplasty status; Z79.02 Long term (current) use of antithrombotics/antiplatelets; Z68.1 Body mass index [BMI] 19.9 or less, adult
CPT/HCPCS: 00740; 43239; 45380; 71010; 74174; 74177; 78226; 78264; 80048; 80053; 81001; 82010; 82550; 82552; 82805; 82948; 83605; 83690; 83735; 83880; 84132; 84484; 85025; 85610; 85652; 85730; 86140; 87040; 87077; 87086; 87149; 87186; 87205; 88305; 88312; 93005; 94640; 94664; 96361; 96365; 96375; 99285; A9537; A9541; C9113; G0378; J0696; J0780; J1650; J1815; J2270; J2405; J2765; J3370; J3411; J3475; J3480; J7030; J7042; J7050; Q9963; Q9967

== ENCOUNTER 2016-08-01 18:40 | Observation (INO) | payer OTHER ==
[~2016-08-01] VITALS: Ht 175.3 cm; Wt 40.0 kg
[~2016-08-01 18:40] MED LIST changes: +ALBU0.08 NEB; -ALBU8I INH; +ALBUAER3 INH; -AMBI5TAB PO; -ATOR40TA PO; -CITA20 PO; -CLOP75 PO; +CLOP75TA PO; +INSU1INJ5 SQ; -LACT PO; -LEVEMIR SQ; -LORA-474 PO; +LYRI50CA PO; -LYRI50CA2 PO; -METF500 PO; +METF500T PO; -METO25 PO; -METR-1 PO; +NORC5TAB PO; +PANT40TA3 PO; -SENN8.6T8 PO; +SERT-129 PO; -SERT100 PO; +SUCR1S PO; +TOPA50TA7 PO; -TOPI50TA4 PO; -ZOFR4TAB3 SL; +ZOLP10TA3 PO
[2016-08-01 19:10] VITALS: BP 175/96; PULSE 83; RESP 18; TEMP 98.8; O2SAT 98
[2016-08-01] MEDS ORDERED: SODIUM CHLOR 0.9% 1000 ML INJ 1,000 ML IV SCH ×2 (19:13→19:51)
[2016-08-01] MEDS ORDERED: ONDANSETRON HCL 4 MG/2 ML VIAL IVP ONE (19:15)
--- NOTE | 2016-08-01 19:34 | PD ---
HPI Chief Complaint: Diabetic Time Seen by Provider: 19:29 Travel History International Travel<30 days: No Contact w/Intl Traveler<30days: No Traveled to known affect area: No History of Present Illness HPI 46-year-old female that presents to the ED via E back for evaluation of abdominal pain, nausea and vomiting hyperglycemia. Patient has a history of DKA in the past history of diabetes with insulin dependent. Patient states that since 3:00 this morning she's been having nausea and cannot keep anything down. Patient states having some abdominal pain. Premarin she's been confused and somewhat lethargic. She denies any drug abuse. Denies any falls. No urinary symptoms was state having some diarrhea. Patient reports no bleeding. No blood in the vomit. States that her sugars have been high in the 400s and 300s. She has an allergy to penicillin, shellfish and tomatoes. She denies any falls. She's been taking some antiemetics with no relief. Patient called the ambulance because she cannot keep anything down so she was brought here. Denies any chest pain. No shortness of breath. PFSH Past Medical History Hx Anticoagulant Therapy: Yes (PLAVIX) Arthritis: No Asthma: Yes Autoimmune Disease: No Blood Disorders: No Anxiety: Yes Depression: Yes Heart Rhythm Problems: No Cancer: No Cardiovascular Problems: Yes (HX OF DVT, STENT PLACED IN LEFT LEG) High Cholesterol: Yes Chemotherapy: No Chest Pain: Yes Congestive Heart Failure: No COPD: No Cerebrovascular Accident: Yes (STROKE 2014) Coronary Artery Disease: Yes Diabetes: Yes Diminished Hearing: No Deep Vein Thrombosis: Yes Endocrine: Yes Gastrointestinal Disorders: Yes (GASTRITIS) GERD: Yes Genitourinary: No Headaches: Yes Hypertension: Yes Immune Disorder: No Implanted Vascular Access Dvce: Yes (STENT IN LEFT LEG) Musculoskeletal: No Neurologic: Yes (CVA IN 2015, NEUROPATHY) Psychiatric: Yes Reproductive: No Respiratory: Yes Immunizations Current: Yes Migraines: Yes Radiation Therapy: No Sickle Cell Disease: No Sleep Apnea: No Thyroid Disease: No : 3 Para: 0 Miscarriage: 3 : 0 Ovarian Cysts: Yes Past Surgical History Abdominal Surgery: Yes (04/30/02 FIBROIDS REMOVED FROM UTERUS.) AICD: No Arteriovenous Shunt: No Body Medical Devices: LEFT LEG FILTER Ear Surgery: No Endocrine Surgery: No Eye Surgery: Yes Genitourinary Surgery: No Gynecologic Surgery: Yes Hysterectomy: Yes (PARTIAL) Insulin Pump: No Joint Replacement: No Oral Surgery: No Pacemaker: No Other Surgery: Yes (MYOMECTOMY, BLOOD CLOT FROM L LEG, R BELOW KNEE AMPUTATION) Social History Alcohol Use: No Tobacco Use: Yes (1/2 PPD) Substance Use: Yes (MARIJUANA ) Allergies-Medications (Allergen,Severity, Reaction): Coded Allergies: Penicillin (Verified Allergy, Severe, SWELLING WITH RESP DIFFICULTY, ) Shellfish (Verified Allergy, Severe, SWELLING, 08/01/16) Tomato (Verified Allergy, Intermediate, 08/01/16) Milk (Verified Allergy, Unknown, 08/01/16) Reported Meds & Prescriptions Reported Meds & Active Scripts Active Sucralfate Liq (Sucralfate) 1 Gm/10 Ml Melina 1 Gm PO ACHS [place] (Hydrocodone-Acetaminophen) 5-325 mg Tab 1 Tab PO Q6H PRN Reported Albuterol Neb (Albuterol Sulfate) 2.5 Mg/3 Ml Neb 2.5 Mg NEB Q4-6H PRN Proair Hfa 8.5 GM Inh (Albuterol Sulfate) 90 Mcg/Act Aer 2 Puff INH BID 108 mcg/actuation Metformin (Metformin HCl) 500 Mg Tab 500 Mg PO BID With meals Sertraline (Sertraline HCl) 100 Mg Tab 100 Mg PO DAILY Pantoprazole (Pantoprazole Sodium) 40 Mg Tab 40 Mg PO DAILY Spiriva Handihaler (Tiotropium Inh) 18 Mcg Cap 18 Mcg INH DAILY 1 capsule = 18 mcg Do Not Swallow Capsule Lyrica (Pregabalin) 50 Mg Cap 50 Mg PO BID Zolpidem (Zolpidem Tartrate) 10 Mg Tab 10 Mg PO HS Clopidogrel (Clopidogrel Bisulfate) 75 Mg Tab 75 Mg PO DAILY Levemir Flextouch Pen Inj (Insulin Detemir) 300 unit/3 ML Pen 10 Units SQ BID Topamax (Topiramate) 50 Mg Tab 50 Mg PO HS Novolog Inj (Insulin Aspart) 1,000 Unit/10 Ml Vial 0 SQ DIRECTED Sliding Scale as directed. Review of Systems Except as stated in HPI: all other systems reviewed are Neg Physical Exam Narrative GENERAL: SKIN: Warm and dry. HEAD: Atraumatic. Normocephalic. EYES: Pupils equal and round 4 mm reactive to light and accommodation. No scleral icterus. No injection or drainage. ENT: No nasal bleeding or discharge. Mucous membranes pink and moist. Tongue is midline. No uvula deviation. NECK: Trachea midline. No JVD. CARDIOVASCULAR: Regular rate and rhythm. No murmurs, S3, S4. RESPIRATORY: No accessory muscle use. Clear to auscultation. Breath sounds equal bilaterally. GASTROINTESTINAL: Abdomen soft, non-tender, nondistended. Hepatic and splenic margins not palpable. MUSCULOSKELETAL: Extremities without clubbing, cyanosis, or edema. No obvious deformities. Full range of motion of the upper and lower extremities bilaterally. 2+ pulses bilaterally. NEUROLOGICAL: Awake and alert and oriented x2. No obvious cranial nerve deficits. Motor grossly within normal limits. Five out of 5 muscle strength in the arms and legs. Normal speech. PSYCHIATRIC: Appropriate mood and affect; insight and judgment normal. Data Data Last Documented VS Vital Signs Date Time Temp Pulse Resp B/P Pulse Ox O2 Delivery O2 Flow Rate FiO2 08/01/16 22:28 58 18 135/69 98 Room Air 08/01/16 19:10 98.8 Orders Electrocardiogram (08/01/16 19:13) Complete Blood Count With Diff (08/01/16 19:13) Comprehensive Metabolic Panel (08/01/16 19:13) Troponin I (08/01/16 19:13) Urinalysis - C+S If Indicated (08/01/16 19:13) Magnesium (Mg) (08/01/16 19:13) Beta Hydroxybutyrate (Acetone) (08/01/16 19:13) Chest, Single Ap (08/01/16 19:13) Iv Access Insert/Monitor (08/01/16 19:13) Ecg Monitoring (08/01/16 19:13) Oximetry (08/01/16 19:13) Ondansetron Inj (Zofran Inj) (08/01/16 19:15) Sodium Chlor 0.9% 1000 Ml Inj (Ns 1000 M (08/01/16 19:13) Arterial Blood Gas (Abg) (08/01/16 ) Sodium Chlor 0.9% 1000 Ml Inj (Ns 1000 M (08/01/16 19:51) Ct Brain W/O Iv Contrast(Rout) (08/01/16 ) Ketorolac Inj (Toradol Inj) (08/01/16 21:15) Ct Abd/Pel W Iv Contrast(Rout) (08/01/16 ) Famotidine Inj (Pepcid Inj) (08/01/16 22:00) Labs Laboratory Tests Test 08/01/16 08/01/16 19:22 21:40 White Blood Count 9.7 TH/MM3 Red Blood Count 4.71 MIL/MM3 Hemoglobin 15.6 GM/DL Hematocrit 45.1 % Mean Corpuscular Volume 95.8 FL Mean Corpuscular Hemoglobin 33.0 PG Mean Corpuscular Hemoglobin 34.5 % Concent Red Cell Distribution Width 13.1 % Platelet Count 306 TH/MM3 Mean Platelet Volume 8.6 FL Neutrophils (%) (Auto) 90.6 % Lymphocytes (%) (Auto) 7.0 % Monocytes (%) (Auto) 1.5 % Eosinophils (%) (Auto) 0.1 % Basophils (%) (Auto) 0.8 % Neutrophils # (Auto) 8.8 TH/MM3 Lymphocytes # (Auto) 0.7 TH/MM3 Monocytes # (Auto) 0.1 TH/MM3 Eosinophils # (Auto) 0.0 TH/MM3 Basophils # (Auto) 0.1 TH/MM3 CBC Comment DIFF FINAL Differential Comment Urine Color LIGHT-YELLOW Urine Turbidity CLEAR Urine pH 6.5 Urine Specific [place] 1.034 Urine Protein NEG mg/dL Urine Glucose (UA) 1000 mg/dL Urine Ketones 150 mg/dL Urine Occult Blood NEG Urine Nitrite NEG Urine Bilirubin NEG Urine Urobilinogen LESS THAN 2.0 MG/DL Urine Leukocyte Esterase NEG Urine RBC 0-3 /hpf Urine WBC 0-2 /hpf Urine Squamous Epithelial 0-5 /hpf Cells Urine Bacteria RARE /hpf Microscopic Urinalysis Comment CULT NOT INDICATED Sodium Level 142 MEQ/L Potassium Level 3.9 MEQ/L Chloride Level 105 MEQ/L Carbon Dioxide Level 26.1 MEQ/L Anion Gap 11 MEQ/L Blood Urea Nitrogen 8 MG/DL Creatinine 0.73 MG/DL Estimat Glomerular Filtration 103 ML/MIN Rate Random Glucose 330 MG/DL Calcium Level 9.4 MG/DL Magnesium Level 1.8 MG/DL Total Bilirubin 0.4 MG/DL Aspartate Amino Transf 13 U/L (AST/SGOT) Alanine Aminotransferase 37 U/L (ALT/SGPT) Alkaline Phosphatase 149 U/L Troponin I LESS THAN 0.02 NG/ML Total Protein 7.8 GM/DL Albumin 4.1 GM/DL B-Hydroxybutyrate 2.01 MMOL/L Blood Gas Puncture Site LT RADIAL Blood Gas Patient Temperature 98.6 Blood Gas HCO3 22 mmol/L Blood Gas Base Excess -2.6 mmol/L Blood Gas Oxygen Saturation 93 % Arterial Blood pH 7.39 Arterial Blood Partial 36 mmHg Pressure CO2 Arterial Blood Partial 99 mmHG Pressure O2 Arterial Blood Oxygen Content 16.9 Vol % Arterial Blood 4.4 % Carboxyhemoglobin Arterial Blood Methemoglobin 0.8 % Blood Gas Hemoglobin 12.9 G/DL Blood Gas Inspired Oxygen 21 % MDM Medical Decision Making Medical Screen Exam Complete: Yes Emergency Medical Condition: Yes Medical Record Reviewed: Yes Interpretation(s) CBC & BMP Diagram 08/01/16 19:22 LFTS and Lipase WNL Last Impressions Chest X-Ray 08/01/16 1913 Signed Impressions: Service Date/Time: Monday, August 01, 2016 19:25 - CONCLUSION: No acute disease. Rohan George MD Head CT 08/01/16 0000 Signed Impressions: Service Date/Time: Monday, August 01, 2016 20:14 - CONCLUSION: No acute intracranial disease. Rohan George MD EKG shows sinus rhythm with no sign of acute ischemia or arrythmia. read by me and attending. troponin and CKMB negative acetone of 2 Differential Diagnosis DKA versus acute abdominal pain versus nausea and vomiting versus intractable nausea and vomiting versus gastritis versus peptic ulcer disease versus diabetes versus hyperglycemia Narrative Course 46-year-old female that presents to the ED for evaluation of nausea and vomiting as well as elevated blood sugars. Patient was properly examined and was found to have signs and symptoms more concerning for diabetic ketoacidosis. She does have a history of this in the past and states that this feels somewhat similar. She is somewhat somnolent on exam. She looks dehydrated. Labs and imaging ordered. Patient was given IV fluids. Labs and imaging showed no sign of acute disease other than hyperglycemia. She still in some abdominal pain and does not feel improve. CT of abdomen ordered. Case signed out to my attending pending CT results. Diagnosis Primary Impression: Nausea and vomiting Qualified Code: R11.2 - Intractable vomiting with nausea, unspecified vomiting type Additional Impression: Abdominal pain Qualified Code: R10.9 - Abdominal pain, unspecified location Jorge Perales Aug 01, 2016 19:34
--- NOTE | 2016-08-01 19:36 | RADRPT ---
EXAM DATE/TIME: 08/01/2016 19:25 [facility] COMPARISON: CHEST SINGLE AP, June 30, 2016, 18:22. INDICATIONS : Short of breath. MEDICAL HISTORY : None. SURGICAL HISTORY : None. ENCOUNTER: Initial ACUITY: 1 day PAIN SCORE: 0/10 LOCATION: Bilateral chest FINDINGS: A single view of the chest demonstrates the lungs to be symmetrically aerated without evidence of mas s, infiltrate or effusion. The cardiomediastinal contours are unremarkable. Osseous structures are intact. CONCLUSION: No acute disease. Rohan George MD on August 01, 2016 at 19:34 Board Certified Radiologist. This report was verified electronically.
[2016-08-01 19:46] LABS: AUTOMATED NEUTROPHIL # 8.8 TH/MM3 (1.8-7.7); BASOPHIL # 0.1 TH/MM3 (0-0.2); BASOPHIL % 0.8 % (0.0-2.0); EOSINOPHIL % 0.1 % (0.0-4.0); HEMATOCRIT 45.1 % (35.0-46.0); HEMO FLAGS DIFF FINAL; LYMPHOCYTE # 0.7 TH/MM3 (1.0-4.8); MEAN CELL VOLUME 95.8 FL (80.0-100.0); MEAN CORPUSCULAR HGB CONC 34.5 % (32.0-36.0); MONO % 1.5 % (0.0-8.0); NEUT % 90.6 % (16.0-70.0); PLATELET COUNT 306 TH/MM3 (150-450); RED BLOOD COUNT 4.71 MIL/MM3 (4.00-5.30); RED CELL DISTRIBUTION WIDTH 13.1 % (11.6-17.2); WHITE BLOOD COUNT 9.7 TH/MM3 (4.0-11.0)
[2016-08-01 19:48] LABS: BLOOD, URINE NEG (NEG); GLUCOSE,URINE 1000 mg/dL (NEG); KETONE, URINE 150 mg/dL (NEG); NITRITE,URINE NEG (NEG); PH, URINE 6.5 (5.0-8.5); URINE COLOR LIGHT-YELLOW (YELLW/STRAW)
[2016-08-01 19:51] VITALS: O2SAT 100
[2016-08-01 19:59] LABS: BACTERIA, URINE RARE /hpf; COMMENT (UR) CULT NOT INDICATED; COMMENT2 (UR) CULT NOT INDICATED; CULTURE IF INDICATED CULT NOT INDICATED; RBC, URINE 0-3 /hpf (0-3); SQUAMOUS EPITHELIAL CELL URINE 0-5 /hpf (0-5); WBC, URINE 0-2 /hpf (0-5)
[2016-08-01 20:04] LABS: ANION GAP 11 MEQ/L (5-15); AST (GOT) 13 U/L (15-37); BICARBONATE 26.1 MEQ/L (21.0-32.0); BLOOD UREA NITROGEN 8 MG/DL (7-18); CHLORIDE 105 MEQ/L (98-107); GLOMERULAR FILTRATION RATE 103 ML/MIN (>89); MAGNESIUM 1.8 MG/DL (1.5-2.5); POTASSIUM 3.9 MEQ/L (3.5-5.1); SODIUM (NA) 142 MEQ/L (136-145)
[2016-08-01 20:10] LABS: ALKALINE PHOSPHATASE 149 U/L (45-117); ALT (GPT) 37 U/L (10-53); BETA-HYDROXYBUTYRATE 2.01 MMOL/L (0.00-0.39); TOTAL BILIRUBIN ADULT 0.4 MG/DL (0.2-1.0)
[2016-08-01 20:18] VITALS: BP 181/100; PULSE 90; RESP 18; O2SAT 99
--- NOTE | 2016-08-01 20:44 | RADRPT ---
EXAM DATE/TIME: 08/01/2016 20:14 [facility] COMPARISON: CT BRAIN W/O CONTRAST, December 23, 2013, 14:11. INDICATIONS : Cephalgia with vomiting. RADIATION DOSE: 32.19 CTDIvol (mGy) MEDICAL HISTORY : Cardiovascular disease. Deep venous thrombosis. Hypertension.Diabetes. SURGICAL HISTORY : Hysterectomy. Right leg amputation. ENCOUNTER: Initial ACUITY: 3 days PAIN SCALE: 8/10 LOCATION: cranial TECHNIQUE: Multiple contiguous axial images were obtained of the head. Using automated exposure control and adj ustment of the mA and/or kV according to patient size, radiation dose was kept as low as reasonably a chievable to obtain optimal diagnostic quality images. FINDINGS: CEREBRUM: The ventricles are normal for age. No evidence of midline shift, mass lesion, hemorrhage or acute in farction. No extra-axial fluid collections are seen. POSTERIOR FOSSA: The cerebellum and brainstem are intact. The 4th ventricle is midline. The cerebellopontine angle i s unremarkable. EXTRACRANIAL: The visualized portion of the orbits is intact. SKULL: The calvaria is intact. No evidence of skull fracture. CONCLUSION: No acute intracranial disease. Rohan George MD on August 01, 2016 at 20:42 Board Certified Radiologist. This report was verified electronically.
[2016-08-01 20:52] VITALS: BP 172/93; PULSE 79; RESP 18; O2SAT 99
[2016-08-01] MEDS ORDERED: KETOROLAC TROMETHAMINE 30 MG/ML (IVP) VIAL IV PUSH ONE (21:15)
[2016-08-01 21:48] LABS: BLOOD GAS BASE EXCESS -2.6 mmol/L (-2-2); BLOOD GAS CARBOXYHEMOGLOBIN 4.4 % (0-4); BLOOD GAS HCO3 22 mmol/L (22-26); BLOOD GAS METHEMOGLOBIN 0.8 % (0-2); BLOOD GAS O2 HGB SATURATION 93 % (90-100); BLOOD GAS OXYGEN CONTENT 16.9 Vol % (12.0-20.0); BLOOD GAS PCO2 36 mmHg (38-42); BLOOD GAS PO2 99 mmHG (61-120); BLOOD GAS TOTAL HGB 12.9 G/DL (12.0-16.0); CRITICAL VALUE NO; DRAW SITE LT RADIAL; FIO2 21 %; NUMBER OF ARTERIAL PUNCTURES 1; STAT YES; TEMP CORR TO 98.6; ULNAR PULSE PRESENT
[2016-08-01] MEDS ORDERED: FAMOTIDINE 20 MG/2 ML VIAL IV PUSH ONE (22:00)
[2016-08-01 22:28] VITALS: BP 135/69; PULSE 58; RESP 18; O2SAT 98
[2016-08-01 22:49] VITALS: BP 142/70; PULSE 56; RESP 18; O2SAT 100
[2016-08-01] MEDS ORDERED: IOHEXOL 350 MG/ML 10 ML VIAL (for RAD DIAG) IV ONE (23:05)
--- NOTE | 2016-08-01 23:20 | PD ---
Data Data Last Documented VS Vital Signs Date Time Temp Pulse Resp B/P Pulse Ox O2 Delivery O2 Flow Rate FiO2 08/01/16 22:49 56 18 142/70 100 Room Air 08/01/16 19:10 98.8 Orders Electrocardiogram (08/01/16 19:13) Complete Blood Count With Diff (08/01/16 19:13) Comprehensive Metabolic Panel (08/01/16 19:13) Troponin I (08/01/16 19:13) Urinalysis - C+S If Indicated (08/01/16 19:13) Magnesium (Mg) (08/01/16 19:13) Beta Hydroxybutyrate (Acetone) (08/01/16 19:13) Chest, Single Ap (08/01/16 19:13) Iv Access Insert/Monitor (08/01/16 19:13) Ecg Monitoring (08/01/16 19:13) Oximetry (08/01/16 19:13) Ondansetron Inj (Zofran Inj) (08/01/16 19:15) Sodium Chlor 0.9% 1000 Ml Inj (Ns 1000 M (08/01/16 19:13) Arterial Blood Gas (Abg) (08/01/16 ) Sodium Chlor 0.9% 1000 Ml Inj (Ns 1000 M (08/01/16 19:51) Ct Brain W/O Iv Contrast(Rout) (08/01/16 ) Ketorolac Inj (Toradol Inj) (08/01/16 21:15) Ct Abd/Pel W Iv Contrast(Rout) (08/01/16 ) Famotidine Inj (Pepcid Inj) (08/01/16 22:00) Iohexol 350 Inj (Omnipaque 350 Inj) (08/01/16 23:05) Lipase (08/01/16 23:20) Admit Order (Ed Use Only) (08/02/16 00:22) Labs Laboratory Tests Test 08/01/16 08/01/16 19:22 21:40 White Blood Count 9.7 TH/MM3 Red Blood Count 4.71 MIL/MM3 Hemoglobin 15.6 GM/DL Hematocrit 45.1 % Mean Corpuscular Volume 95.8 FL Mean Corpuscular Hemoglobin 33.0 PG Mean Corpuscular Hemoglobin 34.5 % Concent Red Cell Distribution Width 13.1 % Platelet Count 306 TH/MM3 Mean Platelet Volume 8.6 FL Neutrophils (%) (Auto) 90.6 % Lymphocytes (%) (Auto) 7.0 % Monocytes (%) (Auto) 1.5 % Eosinophils (%) (Auto) 0.1 % Basophils (%) (Auto) 0.8 % Neutrophils # (Auto) 8.8 TH/MM3 Lymphocytes # (Auto) 0.7 TH/MM3 Monocytes # (Auto) 0.1 TH/MM3 Eosinophils # (Auto) 0.0 TH/MM3 Basophils # (Auto) 0.1 TH/MM3 CBC Comment DIFF FINAL Differential Comment Urine Color LIGHT-YELLOW Urine Turbidity CLEAR Urine pH 6.5 Urine Specific [place] 1.034 Urine Protein NEG mg/dL Urine Glucose (UA) 1000 mg/dL Urine Ketones 150 mg/dL Urine Occult Blood NEG Urine Nitrite NEG Urine Bilirubin NEG Urine Urobilinogen LESS THAN 2.0 MG/DL Urine Leukocyte Esterase NEG Urine RBC 0-3 /hpf Urine WBC 0-2 /hpf Urine Squamous Epithelial 0-5 /hpf Cells Urine Bacteria RARE /hpf Microscopic Urinalysis Comment CULT NOT INDICATED Sodium Level 142 MEQ/L Potassium Level 3.9 MEQ/L Chloride Level 105 MEQ/L Carbon Dioxide Level 26.1 MEQ/L Anion Gap 11 MEQ/L Blood Urea Nitrogen 8 MG/DL Creatinine 0.73 MG/DL Estimat Glomerular Filtration 103 ML/MIN Rate Random Glucose 330 MG/DL Calcium Level 9.4 MG/DL Magnesium Level 1.8 MG/DL Total Bilirubin 0.4 MG/DL Aspartate Amino Transf 13 U/L (AST/SGOT) Alanine Aminotransferase 37 U/L (ALT/SGPT) Alkaline Phosphatase 149 U/L Troponin I LESS THAN 0.02 NG/ML Total Protein 7.8 GM/DL Albumin 4.1 GM/DL Lipase 117 U/L B-Hydroxybutyrate 2.01 MMOL/L Blood Gas Puncture Site LT RADIAL Blood Gas Patient Temperature 98.6 Blood Gas HCO3 22 mmol/L Blood Gas Base Excess -2.6 mmol/L Blood Gas Oxygen Saturation 93 % Arterial Blood pH 7.39 Arterial Blood Partial 36 mmHg Pressure CO2 Arterial Blood Partial 99 mmHG Pressure O2 Arterial Blood Oxygen Content 16.9 Vol % Arterial Blood 4.4 % Carboxyhemoglobin Arterial Blood Methemoglobin 0.8 % Blood Gas Hemoglobin 12.9 G/DL Blood Gas Inspired Oxygen 21 % [facility] Medical Record Reviewed: Yes Supervised Visit with INDERJIT: Yes Interpretation(s) Last Impressions Chest X-Ray 08/01/16 1913 Signed Impressions: Service Date/Time: Monday, August 01, 2016 19:25 - CONCLUSION: No acute disease. Rohan George MD Head CT 08/01/16 0000 Signed Impressions: Service Date/Time: Monday, August 01, 2016 20:14 - CONCLUSION: No acute intracranial disease. Rohan George MD Abdomen/Pelvis CT 08/01/16 0000 Signed Impressions: Service Date/Time: Monday, August 01, 2016 23:03 - CONCLUSION: Extensive diverticulosis throughout the colon. Possible large bladder diverticulectomy pelvis. Minimal free fluid scattered the abdomen and pelvis. No evidence of bowel obstruction or solid organ mass. I do not clearly see a normal appendix but there certainly no periappendiceal stranding or any obvious evidence of appendicitis. Jake Collins MD Narrative Course I, Dr. Rojas, have reviewed the advance practice practitioner's documentation and am in agreement, met with the patient face to face, made the diagnosis, and the medical decision making was done by me. The patient was initially seen by Sarkis, the physician recycling assistant. Please see his complete history and physical. *My assessment and Findings: The patient is a 46-year-old female who presents to [facility] emergency Department with a history of abdominal pain associated with nausea and vomiting. The patient on examination had a periumbilical abdominal pain. Workup ensued including laboratory studies and a CT scan of the abdomen and pelvis. The patient continued to have intractable nausea in spite of treatment with IV fluids and nausea medication. During the course of the patients emergency department visit, the patients history, examination, and differential diagnosis were reviewed with the patient. The patient had IV access obtained and blood work sent for analysis. The patient was initially provided normal saline a 1 L IV fluid bolus which was repeated 1, Toradol 30 mg IV, Zofran 4 mg IV, famotidine 20 mg IV. The patients laboratory studies were reviewed and remarkable for white count of 9.7, hemoglobin 15.6, platelets 306 with 90.6 neutrophils, lymphocytes 7.0, CMP is remarkable for a glucose of 3:30, AST 13, alkaline phosphatase 149, urinalysis shows 1000 glucose, ketones 150 troponin I less than 0.02, beta hydroxybutyrate was 2.01 Radiology studies were reviewed and remarkable for a CT scan of the brain that was unremarkable, chest x-ray shows no acute abnormality. The patient's case was checked out to me by Tez at the conclusion of his shift as the patient's CT scan of the abdomen and pelvis is pending. CT scan of the abdomen and pelvis showed scattered diverticulosis without evidence of diverticulitis, minimal free fluid scattered in the abdomen and pelvis, no evidence of bowel obstruction or solid organ mass, I do not clearly see the appendix according to the radiologist, however there is no periappendiceal stranding or obvious evidence of appendicitis. The patient will be admitted for intractable nausea and vomiting associated with abdominal pain. The patients results were discussed with the patient, including the plan of care. I explained that further testing and/ or monitoring is indicated based on the patients history, examination, and/ or laboratory findings. Therefore, I recommended admission for additional evaluation. The patient expressed understanding and was agreeable with this plan. The patient was admitted to the hospital in stable condition and [facility] Physician Communication Physician Communication The patient's case was discussed with Dr. Dougherty who did agree to admit the patient for further evaluation and treatment at this time. Diagnosis Primary Impression: Nausea and vomiting Qualified Code: R11.2 - Intractable vomiting with nausea, unspecified vomiting type Additional Impression: Abdominal pain Qualified Code: R10.9 - Abdominal pain, unspecified location Admitting Information Admitting Physician Requests: Observation Christina Rojas MD Aug 01, 2016 23:20
--- NOTE | 2016-08-01 23:28 | RADRPT ---
EXAM DATE/TIME: 08/01/2016 23:03 [facility] COMPARISON: CT ABDOMEN & PELVIS W CONTRAST, July 01, 2016, 2:29. INDICATIONS : Medial abdominal pain with weakness and vomiting. IV CONTRAST: 80 cc Omnipaque 350 (iohexol) IV ORAL CONTRAST: No oral contrast ingested. RADIATION DOSE: 4.51 CTDIvol (mGy) MEDICAL HISTORY : Deep venous thrombosis. Gastroesophageal reflux disease. Diabetes mellitus type 2.Hypertension. Coron aleksandra artery disease. CVA. SURGICAL HISTORY : Hysterectomy. ENCOUNTER: Initial ACUITY: 3 days PAIN SCALE: 9/10 LOCATION: medial abdomen TECHNIQUE: Volumetric scanning of the abdomen and pelvis was performed. Using automated exposure control and ad justment of the mA and/or kV according to patient size, radiation dose was kept as low as reasonably achievable to obtain optimal diagnostic quality images. FINDINGS: LOWER LUNGS: The visualized lower lungs are clear. LIVER: Homogeneous density without lesion. There is no dilation of the biliary tree. No calcified gallston es. SPLEEN: Normal size without lesion. PANCREAS: Within normal limits. KIDNEYS: Normal in size and shape. There is no mass, stone or hydronephrosis. ADRENAL GLANDS: Within normal limits. VASCULAR: There is no aortic aneurysm. BOWEL/MESENTERY: There is extensive cyst diverticulosis throughout the colon even the right colon . The stomach, smal l bowel, and colon demonstrate no acute abnormality. There is no free intraperitoneal air. There is some scattered intraperitoneal fluid ABDOMINAL WALL: Within normal limits. RETROPERITONEUM: There is no lymphadenopathy. BLADDER: No wall thickening or mass. Numerous pelvic calcifications I suspect are phleboliths. REPRODUCTIVE: In the right hemipelvis is a collection of fluid measuring 3.0 x 5.4 cm or to a large functional cyst the left ovary or conceivably a bladder diverticulum and may been a similar structure in June. INGUINAL: There is no lymphadenopathy or hernia. MUSCULOSKELETAL: Within normal limits for patient age. CONCLUSION: Extensive diverticulosis throughout the colon. Possible large bladder diverticulectomy pelvis. Minima l free fluid scattered the abdomen and pelvis. No evidence of bowel obstruction or solid organ mass. I do not clearly see a normal appendix but there certainly no periappendiceal stranding or any obviou s evidence of appendicitis. Jake Collins MD on August 01, 2016 at 23:22 Board Certified Radiologist. This report was verified electronically.
[2016-08-02] MEDS ORDERED: RESP: ALBUTEROL 2.5 MG/3 ML NEB (PRN) NEB (01:15)
[2016-08-02] MEDS ORDERED: BISACODYL 10 MG SUPP RECTAL PRN (01:15)
[2016-08-02] MEDS ORDERED: DEXTROSE 50% IN WATER 50 ML VIAL(D50) IV PRN (01:15)
[2016-08-02] MEDS ORDERED: MAGNESIUM HYDROXIDE SUSP 30 ML CUP PO PRN (01:15)
[2016-08-02] MEDS ORDERED: MORPHINE SULFATE 4 MG/ML INJ IV PRN (01:15)
[2016-08-02] MEDS ORDERED: LACTULOSE SYRUP 20 GM/30 ML CUP PO PRN (01:15)
[2016-08-02] MEDS ORDERED: SENNOSIDES 8.6 MG TAB PO PRN (01:15)
[2016-08-02] MEDS ORDERED: GLUCAGON 1 MG/ML VIAL OTHER PRN (01:15)
[2016-08-02] MEDS ORDERED: SODIUM CHLORIDE 0.9% FLUSH 10 ML FLUSH IV FLUSH PRN (01:15)
[2016-08-02] MEDS ORDERED: ACETAMINOPHEN 325 MG TAB PO PRN (01:15)
--- NOTE | 2016-08-02 02:17 | HHI.HP ---
HPI Service [facility] Primary Care Physician Refugio Hill DO Admission Diagnosis Intractable Nausea vomiting, hyperglycemia Diagnoses: (1) Intractable nausea and vomiting Diagnosis: Principal (2) DM (diabetes mellitus) Diagnosis: Principal (3) HTN (hypertension) Diagnosis: Principal (4) Tobacco abuse Diagnosis: Principal Travel History International Travel<30 Days: No Contact w/Intl Traveler <30 Da: No Traveled to Known Affected Are: No History of Present Illness This is a 46-year-old female with a PMH of Anxiety, Depression, HTN, Hyperlipidemia, h/o CVA, CAD, h/o DVT and Tobacco Abuse who presented ER with complaints of abdominal pain, nausea and vomiting starting earlier this morning. States she's been unable to keep anything down due to persistent nausea and vomiting. Denies diarrhea, fevers or chills. On arrival, BP 135/96 , HR 83, O2 sat 100% on RA, Afebrile. CBC essentially unremarkable except for mild hemoconcentration. Chemistry unremarkable except for BS 3:30. Troponin negative. Lipase normal. UA negative. CXR with no acute findings. CT Abd/ Pelvis w/ extensive diverticulosis throughout:, Possible large bladder diverticulectomy a minimal free fluid in the abdomen and pelvis no obvious obstruction. S/p multiple doses of antiemetics in ER w/ persistent nausea/ vomiting. Review of Systems Except as stated in HPI: all other systems reviewed are Neg ROS: 14 point review of systems otherwise negative. Past Family Social History Past Medical History PMH: Anxiety, Depression, HTN, Hyperlipidemia, h/o CVA, CAD, h/o DVT and Tobacco Abuse Past Surgical History PAST SURGICAL HISTORY: Fibroid Removal, IVC Filter, Partial Hysterectomy, Right BKA Allergies: Coded Allergies: Penicillin (Verified Allergy, Severe, SWELLING WITH RESP DIFFICULTY, ) Shellfish (Verified Allergy, Severe, SWELLING, 08/01/16) Tomato (Verified Allergy, Intermediate, 08/01/16) Milk (Verified Allergy, Unknown, 08/01/16) Family History PAST FAMILY HISTORY: Reviewed. No h/o DM or CAD Social History PAST SOCIAL HISTORY: Occasional alcohol. Smokes 1/2ppd. +Marijuana. Physical Exam Vital Signs Vital Signs Date Time Temp Pulse Resp B/P Pulse Ox O2 Delivery O2 Flow Rate FiO2 08/01/16 22:49 56 18 142/70 100 Room Air 08/01/16 22:28 58 18 135/69 98 Room Air 08/01/16 20:52 79 18 172/93 99 08/01/16 20:18 90 18 181/100 99 Room Air 08/01/16 19:51 100 Room Air 08/01/16 19:10 98.8 83 18 175/96 98 Physical Exam GENERAL: This is a well-nourished, well-developed patient, in no apparent distress. PE: GENERAL: Middle-aged female in no acute distress. HEENT: PERRLA, EOMI. No scleral icterus or conjunctival pallor. No lid lag or facial droop. CARDIOVASCULAR: Regular rate and rhythm. No obvious murmurs to auscultation. No chest tenderness to palpation. RESPIRATORY: No obvious rhonchi or wheezing. Clear to auscultation. Breath sounds equal bilaterally. GASTROINTESTINAL: Abdomen soft, non-tender, nondistended. BS normal. MUSCULOSKELETAL: Extremities without clubbing, cyanosis, or edema. No obvious deformities. NEUROLOGICAL: Awake, alert and oriented x4. No focal neurologic deficits. Moving both upper and lower extremities spontaneously. Laboratory Laboratory Tests Test 08/01/16 08/01/16 19:22 21:40 White Blood Count 9.7 Red Blood Count 4.71 Hemoglobin 15.6 Hematocrit 45.1 Mean Corpuscular Volume 95.8 Mean Corpuscular Hemoglobin 33.0 Mean Corpuscular Hemoglobin 34.5 Concent Red Cell Distribution Width 13.1 Platelet Count 306 Mean Platelet Volume 8.6 Neutrophils (%) (Auto) 90.6 Lymphocytes (%) (Auto) 7.0 Monocytes (%) (Auto) 1.5 Eosinophils (%) (Auto) 0.1 Basophils (%) (Auto) 0.8 Neutrophils # (Auto) 8.8 Lymphocytes # (Auto) 0.7 Monocytes # (Auto) 0.1 Eosinophils # (Auto) 0.0 Basophils # (Auto) 0.1 CBC Comment DIFF FINAL Differential Comment Urine Color LIGHT-YELLOW Urine Turbidity CLEAR Urine pH 6.5 Urine Specific [place] 1.034 Urine Protein NEG Urine Glucose (UA) 1000 Urine Ketones 150 Urine Occult Blood NEG Urine Nitrite NEG Urine Bilirubin NEG Urine Urobilinogen LESS THAN 2.0 Urine Leukocyte Esterase NEG Urine RBC 0-3 Urine WBC 0-2 Urine Squamous Epithelial 0-5 Cells Urine Bacteria RARE Microscopic Urinalysis Comment CULT NOT INDICATED Sodium Level 142 Potassium Level 3.9 Chloride Level 105 Carbon Dioxide Level 26.1 Anion Gap 11 Blood Urea Nitrogen 8 Creatinine 0.73 Estimat Glomerular Filtration 103 Rate Random Glucose 330 Calcium Level 9.4 Magnesium Level 1.8 Total Bilirubin 0.4 Aspartate Amino Transf 13 (AST/SGOT) Alanine Aminotransferase 37 (ALT/SGPT) Alkaline Phosphatase 149 Troponin I LESS THAN 0.02 Total Protein 7.8 Albumin 4.1 Lipase 117 B-Hydroxybutyrate 2.01 Blood Gas Puncture Site LT RADIAL Blood Gas Patient Temperature 98.6 Blood Gas HCO3 22 Blood Gas Base Excess -2.6 Blood Gas Oxygen Saturation 93 Arterial Blood pH 7.39 Arterial Blood Partial 36 Pressure CO2 Arterial Blood Partial 99 Pressure O2 Arterial Blood Oxygen Content 16.9 Arterial Blood 4.4 Carboxyhemoglobin Arterial Blood Methemoglobin 0.8 Blood Gas Hemoglobin 12.9 Blood Gas Inspired Oxygen 21 Result Diagram: 08/01/16192108/01/161921 Assessment and Plan Problem List: (1) Intractable nausea and vomiting ICD Code: R11.2 Status: Acute (2) DM (diabetes mellitus) ICD Code: E11.9 Status: Chronic (3) HTN (hypertension) ICD Code: I10 Status: Acute (4) Tobacco abuse ICD Code: Z72.0 Status: Acute Assessment and Plan A/P: 1. Intractable Nausea/Vomiting: acute onset of nausea/vomiting, no diarrhea, no sick contacts. S/p multiple doses of antiemetics in ER w/ minimal improvement. CT Abd/Pelvis w/ no obvious etiology, images reviewed by me. Afebrile, no leukocytosis. IVF for hydration, continue antiemetics/analgesics as needed. Protonix IV. Repeat labs in am. 2. HTN: BP 170's on arrival, likely compounded by ongoing nausea/vomiting, currently BP 140's. Will monitor. 3. DM: Sliding scale w/ Accu-Cheks. Hold Metformin/Insulin as decreased PO intake. IVF for hydration. 4. Tobacco Abuse: Pt counselled. Ativan prn if needed. 5. DVT Prophylaxis: SCD/Teds. 6. Social work for d/c planning as needed. 7. Case discussed w/ ER physician at length Fina Dougherty MD Aug 02, 2016 02:17
[2016-08-02] MEDS: SODIUM CHLOR 0.9% 1000 ML INJ 1,000 ML IV SCH ×3 (02:36→21:12)
[2016-08-02 02:40] VITALS: BP 151/70; PULSE 47; RESP 16; TEMP 98.8; O2SAT 99
[2016-08-02] MEDS: ACETAMINOPHEN/HYDROcodone 325 MG/5 MG TAB PO PRN (03:20)
[2016-08-02] MEDS: ONDANSETRON HCL 4 MG/2 ML VIAL IVP PRN ×3 (03:21→18:32)
[2016-08-02] MEDS: SUCRALFATE 1 GM/10 ML CUP PO SCH ×4 (06:03→21:12)
[2016-08-02 06:23] VITALS: BP 109/58; PULSE 55; RESP 16; O2SAT 98
[2016-08-02] MEDS: INSULIN ASPART SUPPLEMENTAL SCALE SQ SCH ×4 (06:32→20:09)
[2016-08-02 07:25] VITALS: BP 107/62; PULSE 62; RESP 18; TEMP 98.4; O2SAT 97
[2016-08-02] MEDS: METOCLOPRAMIDE HCL 10 MG/2 ML VIAL IV PUSH PRN ×2 (08:18→22:05)
[2016-08-02] MEDS: TIOTROPIUM BROMIDE 18 MCG INH INH SCH (08:20)
[2016-08-02] MEDS: PREGABALIN 25 MG CAP PO SCH ×2 (08:20→21:13)
[2016-08-02] MEDS: SERTRALINE HCL 100 MG TAB PO SCH (08:20)
[2016-08-02] MEDS: DOCUSATE SODIUM 50 MG/SENNA 8.6 MG TAB PO SCH ×2 (08:20→21:13)
[2016-08-02] MEDS: CLOPIDOGREL 75 MG TAB PO SCH (08:20)
[2016-08-02] MEDS: PANTOPRAZOLE SOD 40 MG DELAYED RELEASE TAB PO SCH (08:20)
[2016-08-02] MEDS: SODIUM CHLORIDE 0.9% FLUSH 10 ML FLUSH IV FLUSH SCH ×2 (08:21→20:09)
--- NOTE | 2016-08-02 11:19 | HHI.PR ---
Subjective Remarks Follow up for intractable nausea/vomiting/abdominal pain. The patient reports continued periumbilical abdominal pain rate 10/10 with associated nausea and 1 episode of vomiting clear-white emesis this morning. She had a semi-formed bowel movement yesterday prior to arrival. Denies fevers/chills. She does not have an appetite for regular food but is willing to try full liquid tray. She reports compliance with all of her medications including her levemir, metformin , carafate, and protonix. She states she was unable to see gastroenterology after discharge because they wouldn't take her insurance. Discussed patient getting a referral from her PCP to follow up with gastroenterology at discharge , patient verbalized understanding. Objective Vitals Vital Signs Date Time Temp Pulse Resp B/P Pulse Ox O2 Delivery O2 Flow Rate FiO2 08/02/16 07:25 98.4 62 18 107/62 97 08/02/16 06:23 55 16 109/58 98 08/02/16 02:40 98.8 47 16 151/70 99 08/01/16 22:49 56 18 142/70 100 Room Air 08/01/16 22:28 58 18 135/69 98 Room Air 08/01/16 20:52 79 18 172/93 99 08/01/16 20:18 90 18 181/100 99 Room Air 08/01/16 19:51 100 Room Air 08/01/16 19:10 98.8 83 18 175/96 98 I/O 08/01/16 08/01/16 08/01/16 08/02/16 08/02/16 08/02/16 07:00 15:00 23:00 07:00 15:00 23:00 Intake Total 1120 ml 350 ml Balance 1120 ml 350 ml Intake Oral 1120 ml 150 ml IV Total 200 ml # Voids 1 Result Diagram: 08/01/16192108/01/161921 Imaging Last Impressions Chest X-Ray 08/01/161912 Signed Impressions: Service Date/Time: Monday, August 01, 2016 19:25 - CONCLUSION: No acute disease. Rohan George MD Head CT 08/01/16 0000 Signed Impressions: Service Date/Time: Monday, August 01, 2016 20:14 - CONCLUSION: No acute intracranial disease. Rohan George MD Abdomen/Pelvis CT 08/01/16 0000 Signed Impressions: Service Date/Time: Monday, August 01, 2016 23:03 - CONCLUSION: Extensive diverticulosis throughout the colon. Possible large bladder diverticulectomy pelvis. Minimal free fluid scattered the abdomen and pelvis. No evidence of bowel obstruction or solid organ mass. I do not clearly see a normal appendix but there certainly no periappendiceal stranding or any obvious evidence of appendicitis. Jake Collins MD Objective Remarks GENERAL: Thin cachectic appearing AA female patient in NAD. SKIN: Warm and dry. No rash. HEENT: Normocephalic. Atraumatic. Pupils equal and round. Mucous membranes pink and moist. NECK: Supple. Trachea midline. CARDIOVASCULAR: Regular rate and rhythm. S1, S2 noted. No murmur appreciated. RESPIRATORY: No accessory muscle use. Clear to auscultation. Breath sounds equal bilaterally. GASTROINTESTINAL: Abdomen soft, non-tender with distraction, nondistended. Normoactive bowel sounds x4. MUSCULOSKELETAL: Chronic Right BKA. Extremities without clubbing, cyanosis, or edema. NEUROLOGICAL: Awake and alert. No obvious cranial nerve deficits. Motor grossly within normal limits. Normal speech. PSYCHIATRIC: Appropriate mood and affect; insight and judgment normal. Medications and IVs Current Medications Medications (Trade) Dose Ordered Sig/Lizz Route Start Time Stop Time Status Last Admin (D50w (Vial) Inj) 50 ml UNSCH PRN IV 08/02/16 01:15 Glucagon 1 mg 1 mg UNSCH PRN OTHER 08/02/16 01:15 (NS 1000 ml Inj) 1,000 ml @ 100 mls/hr Q10H IV 08/02/16 01:10 08/02/16 02:36 (NS Flush) 2 ml UNSCH PRN IV FLUSH 08/02/16 01:15 (NS Flush) 2 ml BID IV FLUSH 08/02/16 09:00 08/02/16 08:21 (Zofran Inj) 4 mg Q6H PRN IVP 08/02/16 01:15 08/02/16 03:21 (Tylenol) 650 mg Q6H PRN PO 08/02/16 01:15 ([place] 5-325 Mg) 1 tab Q4H PRN PO 08/02/16 01:15 08/02/16 03:20 (Morphine Inj) 2 mg Q3H PRN IV 08/02/16 01:15 (Kavita-Colace) 1 tab BID PO 08/02/16 09:00 08/02/16 08:20 (Milk Of Magnesia Liq) 30 ml Q12H PRN PO 08/02/16 01:15 (Senokot) 17.2 mg Q12H PRN PO 08/02/16 01:15 (Dulcolax Supp) 10 mg DAILY PRN RECTAL 08/02/16 01:15 (Lactulose Liq) 30 ml DAILY PRN PO 08/02/16 01:15 (Plavix) 75 mg DAILY PO 08/02/16 09:00 08/02/16 08:20 (Protonix) 40 mg DAILY PO 08/02/16 09:00 08/02/16 08:20 (Lyrica) 50 mg BID PO 08/02/16 09:00 08/02/16 08:20 (Zoloft) 100 mg DAILY PO 08/02/16 09:00 08/02/16 08:20 (Carafate Liq) 1 gm ACHS PO 08/02/16 07:00 08/02/16 06:03 (Spiriva Inh) 18 mcg DAILY INH 08/02/16 09:00 08/02/16 08:20 (Topamax) 50 mg HS PO 08/02/16 21:00 (Ambien) 10 mg HS PO 08/02/16 21:00 (Pneumovax-23 Inj) 25 mcg ONCE ONCE IM 08/03/16 10:00 08/03/16 10:01 (Reglan Inj) 10 mg Q8H PRN IV PUSH 08/02/16 08:00 08/02/16 08:18 A/P Problem List: (1) Intractable nausea and vomiting ICD Code: R11.2 Status: Acute (2) DM (diabetes mellitus) ICD Code: E11.9 Status: Chronic (3) HTN (hypertension) ICD Code: I10 Status: Acute (4) Tobacco abuse ICD Code: Z72.0 Status: Acute Assessment and Plan 46-year-old female with a PMH of Anxiety, Depression, HTN, Hyperlipidemia, h/o CVA, CAD, h/o DVT and Tobacco Abuse who presented ER with complaints of abdominal pain, nausea and vomiting x1day. Intractable Nausea/Vomiting: acute onset of N/V, no diarrhea, no sick contacts. S/p multiple doses of antiemetics in ER w/ minimal improvement. Afebrile, no leukocytosis. Recent admission 06/30 - 07/05 for same symptoms, s/p GI consult with extensive workup including Abdominal CT 06/30 showed marked gastric distention without gastric outlet obstruction, pericholecystic fluid; HIDA scan 07/01 normal, CTA abd w/contrast on 07/03 showed patent mesenteric arteries; EGD/ colonoscopy 07/02 showed gastritis, esophagitis, diverticulosis; Gastric emptying study 07/05 unremarkable. Discharged on carafate and protonix. -CT Abd/Pelvis 08/01 w/ no obvious etiology, images reviewed by me. -Give IVF for hydration, continue antiemetics/analgesics as needed. -Continue protonix, carafate. -monitor Labs -marijuana use likely contributing, possible marijuana hyperemesis, patient counseled -full liquid diet for now, advance as tolerated HTN: BP 170's on arrival, likely compounded by ongoing nausea/vomiting, currently BP 140's. -BP labile, currently 107/62, Will monitor. DM: with hyperglycemia upon arrival, BG 330, likely reactive secondary to vomiting. -Continue Sliding scale w/ Accu-Cheks. -Hold Metformin/Insulin as decreased PO intake. -IVF for hydration. Tobacco Abuse: Pt counselled. Ativan prn if needed. DVT Prophylaxis: SCD/Teds. Discharge Planning Pending further clinical improvement. Hopefully discharge in 1-2 days if patient tolerating oral intake. Caro Martino PA-C Aug 02, 2016 11:18 am
[2016-08-02 11:20] VITALS: BP 137/60; PULSE 56; RESP 18; TEMP 98.8; O2SAT 97
[2016-08-02 15:33] VITALS: BP 118/64; PULSE 67; RESP 18; TEMP 98.5; O2SAT 97
--- NOTE | 2016-08-02 16:12 | EKG ---
Date Performed: 08/01/2016 Time Performed: 19:51:24 PTAGE: 46 years EKG: Sinus rhythm POSSIBLE LEFT ATRIAL ENLARGEMENT NONSPECIFIC T-WAVE ABNORMALITY IMPROVED FROM THE PRIOR TRACING. DAY GRAY ECG PREVIOUS TRACING : 06/30/2016 17.31 DOCTOR: Angel Rojas Interpretating Date/Time 08/02/2016 16:11:42
[2016-08-02 20:00] VITALS: BP 124/67; PULSE 60; RESP 18; TEMP 98; O2SAT 97
[2016-08-02] MEDS ORDERED: TOPIRAMATE 25 MG TAB PO SCH (21:00)
[2016-08-02] MEDS ORDERED: ZOLPIDEM TARTRATE 10 MG TAB PO SCH (21:00)
[2016-08-03] VITALS: BP 112/67; PULSE 78; RESP 18; TEMP 98.4; O2SAT 97
[2016-08-03 04:18] LABS: BASOPHIL # 0.2 TH/MM3 (0-0.2); BASOPHIL % 1.9 % (0.0-2.0); EOSINOPHIL # 0.2 TH/MM3 (0-0.4); EOSINOPHIL % 1.6 % (0.0-4.0); HEMATOCRIT 38.6 % (35.0-46.0); HEMO FLAGS DIFF FINAL; LYMPH % 28.1 % (9.0-44.0); LYMPHOCYTE # 2.8 TH/MM3 (1.0-4.8); MEAN CELL VOLUME 97.3 FL (80.0-100.0); MEAN CORPUSCULAR HEMOGLOBIN 32.4 PG (27.0-34.0); MEAN CORPUSCULAR HGB CONC 33.3 % (32.0-36.0); MONO % 7.4 % (0.0-8.0); PLATELET COUNT 254 TH/MM3 (150-450); RED BLOOD COUNT 3.97 MIL/MM3 (4.00-5.30); RED CELL DISTRIBUTION WIDTH 12.8 % (11.6-17.2); WHITE BLOOD COUNT 9.8 TH/MM3 (4.0-11.0)
[2016-08-03 05:02] LABS: ALKALINE PHOSPHATASE 77 U/L (45-117); ALT (GPT) 29 U/L (10-53); ANION GAP 6 MEQ/L (5-15); AST (GOT) 17 U/L (15-37); BICARBONATE 26.1 MEQ/L (21.0-32.0); BLOOD UREA NITROGEN 5 MG/DL (7-18); CHLORIDE 110 MEQ/L (98-107); GLOMERULAR FILTRATION RATE 190 ML/MIN (>89); SODIUM (NA) 142 MEQ/L (136-145); TOTAL BILIRUBIN ADULT 0.4 MG/DL (0.2-1.0)
[2016-08-03] MEDS: INSULIN ASPART SUPPLEMENTAL SCALE SQ SCH ×2 (06:35→13:38)
[2016-08-03] MEDS: SUCRALFATE 1 GM/10 ML CUP PO SCH ×2 (06:35→11:23)
[2016-08-03] MEDS: SODIUM CHLOR 0.9% 1000 ML INJ 1,000 ML IV SCH (06:37)
[2016-08-03 07:56] VITALS: BP 119/75; PULSE 75; RESP 18; TEMP 98.9; O2SAT 98
[2016-08-03] MEDS ORDERED: POTASSIUM CHLORIDE 20 MEQ CONTROLLED RELEASE TAB PO ONE (08:00)
[2016-08-03] MEDS: SODIUM CHLORIDE 0.9% FLUSH 10 ML FLUSH IV FLUSH SCH (08:26)
[2016-08-03] MEDS: TIOTROPIUM BROMIDE 18 MCG INH INH SCH (08:26)
[2016-08-03] MEDS: PANTOPRAZOLE SOD 40 MG DELAYED RELEASE TAB PO SCH (08:28)
[2016-08-03] MEDS: DOCUSATE SODIUM 50 MG/SENNA 8.6 MG TAB PO SCH (08:28)
[2016-08-03] MEDS: PREGABALIN 25 MG CAP PO SCH (08:28)
[2016-08-03] MEDS: SERTRALINE HCL 100 MG TAB PO SCH (08:28)
[2016-08-03] MEDS: CLOPIDOGREL 75 MG TAB PO SCH (08:28)
--- NOTE | 2016-08-03 08:35 | HHI.PR ---
Subjective Remarks Follow up nausea/vomiting and abdominal pain. Patient states she has not had anymore vomiting, but complains of nausea and abdominal tenderness. She is currently waiting on breakfast to see if she tolerates eating. Denies any chest pain, sob, fever or chills. Objective Vitals Vital Signs Date Time Temp Pulse Resp B/P Pulse Ox O2 Delivery O2 Flow Rate FiO2 08/03/16 07:56 98.9 75 18 119/75 98 08/03/16 00:00 98.4 78 18 112/67 97 08/02/16 20:00 98.0 60 18 124/67 97 08/02/16 15:33 98.5 67 18 118/64 97 08/02/16 11:20 98.8 56 18 137/60 97 I/O 08/02/16 08/02/16 08/02/16 08/03/16 08/03/16 08/03/16 07:00 15:00 23:00 07:00 15:00 23:00 Intake Total 1120 ml 350 ml Balance 1120 ml 350 ml Intake Oral 1120 ml 150 ml IV Total 200 ml # Voids 1 Result Diagram: 08/03/16 0351 08/03/16 0351 Objective Remarks GENERAL: Thin AA female patient in NAD. SKIN: Warm and dry. No rash. HEENT: Normocephalic. Atraumatic. Pupils equal and round. Mucous membranes pink and moist. NECK: Supple. Trachea midline. CARDIOVASCULAR: Regular rate and rhythm. S1, S2 noted. No murmur appreciated. RESPIRATORY: No accessory muscle use. Clear to auscultation. Breath sounds equal bilaterally. GASTROINTESTINAL: Abdomen soft, slight epigastric tenderness, nondistended. Normoactive bowel sounds x4. MUSCULOSKELETAL: Chronic Right BKA. Extremities without clubbing, cyanosis, or edema. NEUROLOGICAL: Awake and alert. No obvious cranial nerve deficits. Motor grossly within normal limits. Normal speech. PSYCHIATRIC: Appropriate mood and affect; insight and judgment normal. Medications and IVs Current Medications Medications (Trade) Dose Ordered Sig/Lizz Route Start Time Stop Time Status Last Admin (D50w (Vial) Inj) 50 ml UNSCH PRN IV 08/02/16 01:15 Glucagon 1 mg 1 mg UNSCH PRN OTHER 08/02/16 01:15 (NS 1000 ml Inj) 1,000 ml @ 100 mls/hr Q10H IV 08/02/16 01:10 08/03/16 06:37 (NS Flush) 2 ml UNSCH PRN IV FLUSH 08/02/16 01:15 08/02/16 22:06 (NS Flush) 2 ml BID IV FLUSH 08/02/16 09:00 08/02/16 08:21 (Zofran Inj) 4 mg Q6H PRN IVP 08/02/16 01:15 08/02/16 18:32 (Tylenol) 650 mg Q6H PRN PO 08/02/16 01:15 ([place] 5-325 Mg) 1 tab Q4H PRN PO 08/02/16 01:15 08/02/16 03:20 (Morphine Inj) 2 mg Q3H PRN IV 08/02/16 01:15 08/02/16 22:05 (Kavita-Colace) 1 tab BID PO 08/02/16 09:00 08/02/16 21:13 (Milk Of Magnesia Liq) 30 ml Q12H PRN PO 08/02/16 01:15 (Senokot) 17.2 mg Q12H PRN PO 08/02/16 01:15 (Dulcolax Supp) 10 mg DAILY PRN RECTAL 08/02/16 01:15 (Lactulose Liq) 30 ml DAILY PRN PO 08/02/16 01:15 (Plavix) 75 mg DAILY PO 08/02/16 09:00 08/02/16 08:20 (Protonix) 40 mg DAILY PO 08/02/16 09:00 08/02/16 08:20 (Lyrica) 50 mg BID PO 08/02/16 09:00 08/02/16 21:13 (Zoloft) 100 mg DAILY PO 08/02/16 09:00 08/02/16 08:20 (Carafate Liq) 1 gm ACHS PO 08/02/16 07:00 08/03/16 06:35 (Spiriva Inh) 18 mcg DAILY INH 08/02/16 09:00 08/02/16 08:20 (Topamax) 50 mg HS PO 08/02/16 21:00 08/02/16 21:13 (Ambien) 10 mg HS PO 08/02/16 21:00 08/02/16 21:13 (Pneumovax-23 Inj) 25 mcg ONCE ONCE IM 08/03/16 10:00 08/03/16 10:01 (Reglan Inj) 10 mg Q8H PRN IV PUSH 08/02/16 08:00 08/02/16 22:05 A/P Problem List: (1) Intractable nausea and vomiting ICD Code: R11.2 Status: Acute (2) DM (diabetes mellitus) ICD Code: E11.9 Status: Chronic (3) HTN (hypertension) ICD Code: I10 Status: Acute (4) Tobacco abuse ICD Code: Z72.0 Status: Acute Assessment and Plan 46-year-old female with a PMH of Anxiety, Depression, HTN, Hyperlipidemia, h/o CVA, CAD, h/o DVT and Tobacco Abuse who presented ER with complaints of abdominal pain, nausea and vomiting x1day. Intractable Nausea/Vomiting: acute onset of N/V, no diarrhea, no sick contacts. S/p multiple doses of antiemetics in ER w/ minimal improvement. Afebrile, no leukocytosis. Recent admission 06/30 - 07/05 for same symptoms, s/p GI consult with extensive workup including Abdominal CT 06/30 showed marked gastric distention without gastric outlet obstruction, pericholecystic fluid; HIDA scan 07/01 normal, CTA abd w/contrast on 07/03 showed patent mesenteric arteries; EGD/ colonoscopy 07/02 showed gastritis, esophagitis, diverticulosis; Gastric emptying study 07/05 unremarkable. Discharged on carafate and protonix. -CT Abd/Pelvis 08/01 w/ no obvious etiology, images reviewed by me. -Give IVF for hydration, continue antiemetics/analgesics as needed. -Continue protonix, carafate. -marijuana use likely contributing, possible marijuana hyperemesis, patient counseled -full liquid diet for now, advance as tolerated HTN: BP 170's on arrival, likely compounded by ongoing nausea/vomiting, currently BP 140's. -BP labile, currently 107/62, Will monitor. DM: with hyperglycemia upon arrival, BG 330, likely reactive secondary to vomiting. -Continue Sliding scale w/ Accu-Cheks. -Hold Metformin/Insulin as decreased PO intake. -IVF for hydration. Tobacco Abuse: Pt counselled. 1400: Patient has tolerated a diabetic diet with no issue, stable to be discharged, and instructed to stop marijuana use and follow outpatient with GI. Patient verbalizes understanding. Discharge patient to home Condition on discharge: Stable Diabetic Diet as tolerated, avoid illicit drugs and tobacco Ad Felecia activity Rx written: none, cont all home medication Follow-up with primary care physician 2-3 days, GI follow up in 1 week Peg Tariq Aug 03, 2016 08:35
[2016-08-03] MEDS ORDERED: PNEUMOCOCCAL POLYVALENT INJ 25 MCG/0.5 ML SYR IM ONE (10:00)
[2016-08-03 11:27] VITALS: BP 141/85; PULSE 81; RESP 17; TEMP 98.4; O2SAT 97
--- NOTE | 2016-08-03 11:54 | HHI.DCPOC ---
Discharge Care Plan Diagnosis: (1) Abdominal pain (2) DM (diabetes mellitus) (3) Intractable nausea and vomiting (4) HTN (hypertension) Goals to Promote Your Health * To prevent worsening of your condition and complications * To maintain your health at the optimal level Directions to Meet Your Goals Take your medications as prescribed Follow your dietary instruction Follow activity as directed Keep your appointments as scheduled Take your immunizations and boosters as scheduled If your symptoms worsen call your PCP, if no PCP go to Urgent Care Center or Emergency Room Smoking is Dangerous to Your Health. Avoid second hand smoke Call the 24-hour hour crisis hotline for domestic abuse at Peg Tariq Aug 03, 2016 11:54
[2016-08-03] MEDS: ACETAMINOPHEN/HYDROcodone 325 MG/5 MG TAB PO PRN (12:56)
[2016-08-03 15:43] VITALS: BP 116/71; PULSE 87; RESP 17; TEMP 99.1; O2SAT 98
== END 2016-08-03 16:51 | disposition home or self-care (01) ==
LOC: NEPE 18:40 → NEDA 08-02 00:23 → NEPFCDU 08-02 02:14
PROVIDERS: ADMIT Hospitalist; ATTEND Hospitalist
DX: R11.2 Nausea with vomiting, unspecified (principal); R10.33 Periumbilical pain; E11.65 Type 2 diabetes mellitus with hyperglycemia; J45.909 Unspecified asthma, uncomplicated; F41.9 Anxiety disorder, unspecified; F32.9 Major depressive disorder, single episode, unspecified; E78.00 Pure hypercholesterolemia, unspecified; E78.5 Hyperlipidemia, unspecified; I25.10 Atherosclerotic heart disease of native coronary artery without angina pectoris; K21.9 Gastro-esophageal reflux disease without esophagitis; I10 Essential (primary) hypertension; F17.200 Nicotine dependence, unspecified, uncomplicated; Z86.73 Personal history of transient ischemic attack (TIA), and cerebral infarction without residual deficits; Z86.718 Personal history of other venous thrombosis and embolism; Z79.02 Long term (current) use of antithrombotics/antiplatelets; Z88.0 Allergy status to penicillin; Z91.013 Allergy to seafood; Z91.018 Allergy to other foods; Z79.4 Long term (current) use of insulin; Z89.511 Acquired absence of right leg below knee; Z91.011 Allergy to milk products
CPT/HCPCS: 36600; 70450; 71010; 74177; 80053; 81001; 82010; 82805; 82948; 83690; 83735; 84484; 85025; 90732; 93005; 96361; 96372; 96374; 96375; 96376; 99285; G0378; J1815; J1885; J2270; J2405; J2765; J7030; Q9967

== ENCOUNTER 2016-11-15 23:31 | Observation (INO) | payer OTHER ==
[~2016-11-15] VITALS: Ht 172.7 cm; Wt 41.0 kg
[2016-11-15 23:36] VITALS: BP 139/92; PULSE 65; RESP 18; TEMP 98; O2SAT 99
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
[2016-11-15] MEDS ORDERED: ONDANSETRON HCL 4 MG/2 ML VIAL IV ONE (23:45)
[2016-11-15] MEDS ORDERED: SODIUM CHLOR 0.9% 1000 ML INJ 1,000 ML IV ONE (23:45)
[2016-11-15 23:55] LABS: AUTOMATED NEUTROPHIL # 4.4 TH/MM3 (1.8-7.7); BASOPHIL # 0.1 TH/MM3 (0-0.2); BASOPHIL % 0.8 % (0.0-2.0); EOSINOPHIL # 0.2 TH/MM3 (0-0.4); EOSINOPHIL % 2.2 % (0.0-4.0); HEMATOCRIT 40.2 % (35.0-46.0); HEMO FLAGS DIFF FINAL; LYMPH % 34.7 % (9.0-44.0); LYMPHOCYTE # 2.7 TH/MM3 (1.0-4.8); MEAN CELL VOLUME 96.5 FL (80.0-100.0); MEAN CORPUSCULAR HEMOGLOBIN 32.5 PG (27.0-34.0); MEAN CORPUSCULAR HGB CONC 33.6 % (32.0-36.0); MONO % 7.1 % (0.0-8.0); NEUT % 55.2 % (16.0-70.0); PLATELET COUNT 309 TH/MM3 (150-450); RED BLOOD COUNT 4.17 MIL/MM3 (4.00-5.30); RED CELL DISTRIBUTION WIDTH 12.9 % (11.6-17.2); WHITE BLOOD COUNT 7.9 TH/MM3 (4.0-11.0)
[2016-11-16 00:11] LABS: APTT (PATIENT) 22.6 SEC (24.3-30.1); PROTHROMBIN TIME - PATIENT 10.8 SEC (9.8-11.6)
[2016-11-16 00:21] LABS: ANION GAP 8 MEQ/L (5-15); AST (GOT) 11 U/L (15-37); BICARBONATE 24.1 MEQ/L (21.0-32.0); BLOOD UREA NITROGEN 4 MG/DL (7-18); CHLORIDE 105 MEQ/L (98-107); GLOMERULAR FILTRATION RATE 146 ML/MIN (>89); MAGNESIUM 1.6 MG/DL (1.5-2.5); POTASSIUM 3.4 MEQ/L (3.5-5.1); SODIUM (NA) 137 MEQ/L (136-145)
[2016-11-16 00:30] LABS: ALKALINE PHOSPHATASE 128 U/L (45-117); ALT (GPT) 18 U/L (10-53); TOTAL BILIRUBIN ADULT 0.3 MG/DL (0.2-1.0)
[2016-11-16 00:37] LABS: CREATINE KINASE 62 U/L (26-192)
--- NOTE | 2016-11-16 02:58 | RADRPT ---
EXAM DATE/TIME: 11/16/2016 00:51 [place] COMPARISON: CHEST SINGLE AP, August 01, 2016, 19:25. INDICATIONS : Short of breath. MEDICAL HISTORY : Deep venous thrombosis. Gastroesophageal reflux disease. Diabetes mellitus type 2. Hypertension. Yamileth nary artery disease. CVA. SURGICAL HISTORY : Hysterectomy. ENCOUNTER: Initial ACUITY: 1 day PAIN SCORE: 0/10 LOCATION: Bilateral chest FINDINGS: A single view of the chest demonstrates the lungs to be symmetrically aerated without evidence of mas s, infiltrate or effusion. The lungs are hyperinflated. The cardiomediastinal contours are unremarka ble. Osseous structures are intact. CONCLUSION: 1. Hyperinflation suggesting COPD. No acute infiltrate or effusion. Herbert Wolfe Jr., MD on November 16, 2016 at 1:32 Board Certified Radiologist. This report was verified electronically.
[2016-11-16] MEDS ORDERED: MORPHINE SULFATE 4 MG/ML INJ IV PRN (03:30)
[2016-11-16] MEDS ORDERED: ONDANSETRON HCL 4 MG/2 ML VIAL IV PRN (03:30)
[2016-11-16] MEDS ORDERED: SODIUM CHLOR 0.9% 1000 ML INJ 1,000 ML IV SCH ×2 (03:30→04:06)
--- NOTE | 2016-11-16 04:01 | HHI.HP ---
[facility] Primary Care Physician Refugio Hill, DO Admission Diagnosis Diagnoses: Travel History International Travel<30 Days: No Contact w/Intl Traveler <30 Da: No Traveled to Known Affected Are: No History of Present Illness History from patient, ER physician clinical indication, and review of medical records. Patient reported that she ran out of her glucose monitoring strips about 3 days ago. Because of that, she was afraid to take her diabetic medications and did not take any of them for 3 days. Yesterday then, she states she was asking her to bring the strength from another room and as he brought her the strip, she was looking at the strips and noted that her eyes were having double vision/tunnel vision. She new then that her blood sugars have to be high because of this visual disturbance. She then told the to call to 911. Upon EMS arrival, patient's blood sugars were around 476. She was given insulin by EMS. Upon emergency room arrival, patient's blood sugars were in the 200s to 300s. She never required any coverage. Her blood work also did not reveal any evidence of acidosis nor beta hydroxybutyrate. However, her routine blood work does shows elevated lipase levels. Patient herself denies any abdominal pains. She does report of some nausea and vomiting on Tuesday and Tuesday. She stated that she vomited 2 times. She denies any black color vomit or red color vomits. She stated she vomited a small amount of whenever she ate. Denies fever. Denies any burning or pain on urination. Denies any blood in her urine. Denies any recent fevers or skin tears or skin infections. Again, patient stressed that she simply came to the hospital because of her glucose meter strips running out. She follows up with Dr. Hill and she just needs to get prescription refills for the strips. Patient reports she still has her gallbladder. No right upper quadrant abdominal pains or mid epigastric pains. Denies any alcohol abuse. She states she drinks socially and usually once every few months. She states any new medications apart from metoprolol which was started several months ago. Apart from the above, patient also denies any chest pain/shortness of breath/ palpitations/focal weakness. Denies any dizziness/syncopal episodes. Review of Systems Except as stated in HPI: all other systems reviewed are Neg Past Family Social History Past Medical History Hypertension Diabetes mellitus PVD Asthma / COPD Anxiety Depression Hyperlipidemia CVA 2014 Coronary artery disease DVT GERD . Past Surgical History Right BKA Left leg stent Hysterectomy Eye surgery Reported Medications Patient's med list listed on EMRreviewed. Patient does not remember all her meds. She did not bring a list either. Patient's nurse in ER had gone through the meds with her as best as he could based on patient's memory. Allergies: Coded Allergies: penicillin G (Unverified Allergy, Severe, SWELLING WITH RESP DIFFICULTY, ) shellfish derived (Unverified Allergy, Severe, SWELLING, 11/15/16) tomato (Unverified Allergy, Intermediate, 11/15/16) milk (Unverified Allergy, Unknown, 11/15/16) Family History dad- dm mother- epilepsy Social History drinks only socially smokes 5- 6 cigarrettes a day no drugs Physical Exam Vital Signs Vital Signs Date Time Temp Pulse Resp B/P (MAP) Pulse Ox O2 Delivery O2 Flow Rate FiO2 11/15/16 23:36 98.0 65 18 139/92 (108) 99 Physical Exam GENERAL: This is a thin lady, not in distress SKIN: No rashes, ecchymoses or lesions. Cool and dry. HEAD: Atraumatic. Normocephalic. No temporal or scalp tenderness. EYES: No scleral icterus. No injection or drainage. ENT: Nose without bleeding, purulent drainage or septal hematoma. . Airway patent. NECK: Trachea midline. No JVD Cardiovascular: Regular rate and rhythm, no murmur appreciated. RESPIRATORY: Clear to auscultation. Breath sounds equal bilaterally. No wheezes , rales, or rhonchi. GASTROINTESTINAL: Abdomen soft, non-tender, nondistended. No guarding. MUSCULOSKELETAL: Extremities without clubbing, cyanosis, or edema. Right BKA NEUROLOGICAL: Awake and alert. Motor and sensory grossly within normal limits. Normal speech. Laboratory Laboratory Tests Test 11/15/16 23:45 White Blood Count 7.9 Red Blood Count 4.17 Hemoglobin 13.5 Hematocrit 40.2 Mean Corpuscular Volume 96.5 Mean Corpuscular Hemoglobin 32.5 Mean Corpuscular Hemoglobin Concent 33.6 Red Cell Distribution Width 12.9 Platelet Count 309 Mean Platelet Volume 7.9 Neutrophils (%) (Auto) 55.2 Lymphocytes (%) (Auto) 34.7 Monocytes (%) (Auto) 7.1 Eosinophils (%) (Auto) 2.2 Basophils (%) (Auto) 0.8 Neutrophils # (Auto) 4.4 Lymphocytes # (Auto) 2.7 Monocytes # (Auto) 0.6 Eosinophils # (Auto) 0.2 Basophils # (Auto) 0.1 CBC Comment DIFF FINAL Differential Comment Prothrombin Time 10.8 Prothromb Time International Ratio 1.0 Activated Partial Thromboplast Time 22.6 Blood Urea Nitrogen 4 Creatinine 0.54 Random Glucose 368 Total Protein 6.5 Albumin 3.2 Calcium Level 8.2 Magnesium Level 1.6 Alkaline Phosphatase 128 Aspartate Amino Transf (AST/SGOT) 11 Alanine Aminotransferase (ALT/SGPT) 18 Total Bilirubin 0.3 Sodium Level 137 Potassium Level 3.4 Chloride Level 105 Carbon Dioxide Level 24.1 Anion Gap 8 Estimat Glomerular Filtration Rate 146 Total Creatine Kinase 62 Troponin I LESS THAN 0.02 B-Type Natriuretic Peptide 19 Lipase 775 Thyroid Stimulating Hormone 3rd Gen 0.910 B-Hydroxybutyrate 0.20 Result Diagram: 11/15/16234411/15/162344 Caprini VTE Risk Assessment Caprini VTE Risk Assessment: Mod/High Risk (score >= 2) Caprini Risk Assessment Model Point Value = 1 Point Value = 2 Point Value = 3 Point Value = 5 Age 41-60 Minor surgery BMI > 25 kg/m2 Swollen legs Varicose veins or History of unexplained or recurrent spontaneous Oral contraceptives or hormone replacement Sepsis (< 1 month) Serious lung disease, including pneumonia (< 1 month) Abnormal pulmonary function Acute myocardial infarction Congestive heart failure (< 1 month) History of inflammatory bowel disease Medical patient at bed rest Age 61-74 Arthroscopic surgery Major open surgery (> 45 min) Laparoscopic surgery (> 45 min) Malignancy Confined to bed (> 72 hours) Immobilizing plaster cast Central venous access Age >= 75 History of VTE Family history of VTE Factor V Leiden Prothrombin [id number] Lupus anticoagulant Anticardiolipin antibodies Elevated serum homocysteine Heparin-induced thrombocytopenia Other congenital or acquired thrombophilia Stroke (< 1 month) Elective arthroplasty Hip, pelvis, or leg fracture Acute spinal cord injury (< 1 month) Prophylaxis Regimen Total Risk Factor Score Risk Level Prophylaxis Regimen 0-1 Low Early ambulation 2 Moderate Order ONE of the following: *Sequential Compression Device (SCD) *Heparin 5000 units SQ BID 3-4 Higher Order ONE of the following medications: *Heparin 5000 units SQ TID *Enoxaparin/Lovenox 40 mg SQ daily (WT < 150 kg, CrCl > 30 mL/min) *Enoxaparin/Lovenox 30 mg SQ daily (WT < 150 kg, CrCl > 10-29 mL/min) *Enoxaparin/Lovenox 30 mg SQ BID (WT < 150 kg, CrCl > 30 mL/min) AND/OR *Sequential Compression Device (SCD) 5 or more Highest Order ONE of the following medications: *Heparin 5000 units SQ TID (Preferred with Epidurals) *Enoxaparin/Lovenox 40 mg SQ daily (WT < 150 kg, CrCl > 30 mL/min) *Enoxaparin/Lovenox 30 mg SQ daily (WT < 150 kg, CrCl > 10-29 mL/min) *Enoxaparin/Lovenox 30 mg SQ BID (WT < 150 kg, CrCl > 30 mL/min) AND *Sequential Compression Device (SCD) Assessment and Plan Assessment and Plan Impression: Hyperglycemia with no evidence of acidosis. Pancreatitis by labs. Patient has no abdominal pains. Does complain of some nausea and vomiting the minimal. Plan: iv hydration with normal saline at 1 25 cc per hour. Pain control. fingersticks every before meals and daily at bedtime. follow ransons critereia So far there is no evidence of nausea or vomiting or abdominal pain since the patient arrives ER. Patient will be hydrated orally. If she can tolerate by mouth hydration, she will be discharged home in the morning. Patient is explained of the signs and symptoms of pancreatitis and the need to return to ER if symptoms worsen. Resume home meds at discharge. He would write prescription for glucose monitoring strips. DVT prophylaxis with Lovenox. Discussed Condition With Patient, ER physician, patient's nurse Nelson Babb MD Nov 16, 2016 04:01
[2016-11-16 04:07] VITALS: BP 142/75; PULSE 75; RESP 18; O2SAT 98
[2016-11-16] MEDS ORDERED: ONDANSETRON HCL 4 MG/2 ML VIAL IVP PRN (04:15)
[2016-11-16] MEDS ORDERED: NALOXONE HCL 0.4 MG/ML AMP IV PUSH PRN (04:15)
[2016-11-16] MEDS ORDERED: SODIUM CHLORIDE 0.9% FLUSH 10 ML FLUSH IV FLUSH PRN (04:15)
[2016-11-16] MEDS ORDERED: ACETAMIN 325 MG/BUTALBITAL 50 MG/CAFFEINE 40 MG TAB PO ONE (04:15)
[2016-11-16] MEDS ORDERED: GLUCAGON 1 MG/ML VIAL OTHER PRN (04:30)
[2016-11-16] MEDS ORDERED: DEXTROSE 50% IN WATER 50 ML VIAL(D50) IV PRN (04:30)
[2016-11-16 05:18] LABS: BACTERIA, URINE RARE /hpf; BLOOD, URINE NEG (NEG); GLUCOSE,URINE 1000 mg/dL (NEG); KETONE, URINE 10 mg/dL (NEG); NITRITE,URINE NEG (NEG); SQUAMOUS EPITHELIAL CELL URINE 2 /hpf (0-5); URINE COLOR LIGHT-YELLOW (YELLW/STRAW)
[2016-11-16 05:27] LABS: COMMENT (UR) CULT NOT INDICATED; CULTURE IF INDICATED CULT NOT INDICATED
[2016-11-16 05:46] VITALS: RESP 12
[2016-11-16] MEDS ORDERED: GLUCTES27 (06:14)
[2016-11-16] MEDS ORDERED: INSULIN ASPART SUPPLEMENTAL SCALE SQ SCH (08:00)
[2016-11-16] MEDS ORDERED: ENOXAPARIN SODIUM 40 MG/0.4 ML SYRINGE SQ SCH (09:00)
[2016-11-16] MEDS ORDERED: SODIUM CHLORIDE 0.9% FLUSH 10 ML FLUSH IV FLUSH SCH (09:00)
--- NOTE | 2016-11-16 14:49 | EKG ---
Date Performed: 11/15/2016 Time Performed: 23:53:24 PTAGE: 46 years EKG: Sinus rhythm WITH SINUS ARRHYTHMIA NORMAL ECG Compared to prior tracing no significant change PREVIOUS TRACING : 08/01/16 DOCTOR: Gregory Reece Interpretating Date/Time 11/16/2016 14:47:49
== END 2016-11-16 10:49 | disposition home or self-care (01) ==
LOC: NEPC 23:31 → NEDA 11-16 01:40 → NEPFCDU 11-16 04:30
PROVIDERS: ADMIT Internal Medicine; ATTEND Internal Medicine
DX: E11.65 Type 2 diabetes mellitus with hyperglycemia (principal); K85.90 Acute pancreatitis without necrosis or infection, unspecified; I10 Essential (primary) hypertension; J44.9 Chronic obstructive pulmonary disease, unspecified; I73.9 Peripheral vascular disease, unspecified; E78.5 Hyperlipidemia, unspecified; R11.2 Nausea with vomiting, unspecified; I25.10 Atherosclerotic heart disease of native coronary artery without angina pectoris; K21.9 Gastro-esophageal reflux disease without esophagitis; I82.509 Chronic embolism and thrombosis of unspecified deep veins of unspecified lower extremity; Z89.511 Acquired absence of right leg below knee; Z79.4 Long term (current) use of insulin; Z86.73 Personal history of transient ischemic attack (TIA), and cerebral infarction without residual deficits; R06.02 Shortness of breath
CPT/HCPCS: 71010; 80053; 81001; 82010; 82550; 83690; 83735; 83880; 84443; 84484; 85025; 85610; 85730; 93005; 96361; 96374; 99285; G0378; J2405; J7030

== ENCOUNTER 2017-03-20 23:37 | Emergency (ER) | payer OTHER ==
[~2017-03-20] VITALS: Ht 167.6 cm; Wt 55.0 kg
[~2017-03-20 23:37] MED LIST changes: +GLUCTES27
[2017-03-20 23:41] VITALS: BP 129/89; PULSE 66; RESP 18; TEMP 98.6; O2SAT 99
[2017-03-20 23:57] VITALS: RESP 16; O2SAT 98
[2017-03-21 00:13] LABS: AUTOMATED NEUTROPHIL # 4.2 TH/MM3 (1.8-7.7); BASOPHIL # 0.1 TH/MM3 (0-0.2); BASOPHIL % 0.8 % (0.0-2.0); EOSINOPHIL # 0.2 TH/MM3 (0-0.4); EOSINOPHIL % 2.5 % (0.0-4.0); HEMATOCRIT 38.7 % (35.0-46.0); HEMOGLOBIN 12.8 GM/DL (11.6-15.3); LYMPH % 26.6 % (9.0-44.0); LYMPHOCYTE # 1.8 TH/MM3 (1.0-4.8); MEAN CELL VOLUME 99.2 FL (80.0-100.0); MEAN CORPUSCULAR HEMOGLOBIN 32.7 PG (27.0-34.0); MEAN PLATELET VOLUME 8.1 FL (7.0-11.0); MONO % 7.9 % (0.0-8.0); MONOCYTE # 0.5 TH/MM3 (0-0.9); NEUT % 62.2 % (16.0-70.0); PLATELET COUNT 310 TH/MM3 (150-450); RED CELL DISTRIBUTION WIDTH 12.6 % (11.6-17.2); WHITE BLOOD COUNT 6.8 TH/MM3 (4.0-11.0)
[2017-03-21 00:17] LABS: INTERNATIONAL NORMALIZED RATIO 1.1 RATIO
--- NOTE | 2017-03-21 00:17 | PD ---
HPI Chief Complaint: Diabetic Time Seen by Provider: 23:47 Travel History International Travel<30 days: No Contact w/Intl Traveler<30days: No Traveled to known affect area: No History of Present Illness HPI The patient is a 47 year old female who presents to the [facility] emergency department with a history of having sudden onset of nausea with lower abdominal pain while sitting and watching a movie prior to arrival. The patient reports that she checked her blood sugar and it was 527. Her then called ambulance services. She reports that she forgot to take her dinner time NovoLog insulin. She reports that she did take her Levemir this evening. She reports that she is on this medication twice a day, 10 units each time. The patient reports that she had 1 episode of vomiting prior to arrival. She reports having a bitemporal headache associated with this. According to ambulance services the patient's blood sugar prior to arrival was 570. The patient had IV access obtained and was given 700 mL of normal saline IV fluids. The patient was given Zofran 4 mg IV. The patient reports that over the last 2 days she has had diarrhea. She reports that the diarrhea has been occurring twice a day. She denies having any blood in her stool or black or tarry stools. She reports that the stool has been light brown in color. She additionally reports having urinary frequency on review of systems. She reports that she's had incontinence that she cannot get to the bathroom quickly enough for the last month. He denies having any dysuria. On review of systems otherwise, the patient denies having any known recent fevers, cough, congestion , neck pain, shortness of breath, or neurologic symptoms. The patient incidentally on review of systems reports having chest pain the last 2 weeks. She reports that it is in the center of her chest. She reports that it is a tightening sensation. [facility] Past Medical History Narrative Medical The patient's past medical history is significant for diabetes, asthma, COPD, hyperlipidemia, hypertension, depression and anxiety, insomnia. The patient's primary care physician is Dr. Hill. Hx Anticoagulant Therapy: Yes (PLAVIX) Arthritis: No Asthma: Yes Autoimmune Disease: No Blood Disorders: No Anxiety: Yes Depression: Yes Heart Rhythm Problems: No Cancer: No Cardiovascular Problems: Yes (HX OF DVT, STENT PLACED IN LEFT LEG) High Cholesterol: Yes Chemotherapy: No Chest Pain: Yes Congestive Heart Failure: No COPD: No Cerebrovascular Accident: Yes (STROKE 2014) Coronary Artery Disease: Yes Diabetes: Yes (type 2) Patient Takes Glucophage: No Diminished Hearing: No Deep Vein Thrombosis: Yes Endocrine: Yes Gastrointestinal Disorders: Yes (GASTRITIS) GERD: Yes Genitourinary: No Headaches: Yes Heparin Induced Thrombocytopen: No Hypertension: Yes Immune Disorder: No Implanted Vascular Access Dvce: Yes (STENT IN LEFT LEG) Musculoskeletal: No Neurologic: Yes (CVA IN 2015, NEUROPATHY) Psychiatric: Yes (anixety & depression (pt states that she doesnt take medicine )) Reproductive: No Respiratory: Yes Immunizations Current: Yes Migraines: Yes Radiation Therapy: No Sickle Cell Disease: No Sleep Apnea: No Thyroid Disease: No ?: Not : 3 Para: 0 Miscarriage: 3 : 0 Ovarian Cysts: Yes Past Surgical History Narrative Surgical The patient's past surgical history is significant for an IVC filter placement, hysterectomy, laparoscopy, right below the knee amputation. Abdominal Surgery: Yes (04/30/02 FIBROIDS REMOVED FROM UTERUS.) AICD: No Arteriovenous Shunt: No Body Medical Devices: LEFT LEG FILTER/ dvt Ear Surgery: No Endocrine Surgery: No Eye Surgery: Yes Genitourinary Surgery: No Gynecologic Surgery: Yes Hysterectomy: Yes (PARTIAL) Insulin Pump: No Joint Replacement: No Oral Surgery: No Pacemaker: No Other Surgery: Yes (MYOMECTOMY, BLOOD CLOT FROM L LEG, R BELOW KNEE AMPUTATION) Social History Alcohol Use: No Tobacco Use: Yes (2 PPD) Substance Use: Yes (MARIJUANA/ once month/ last week) Allergies-Medications (Allergen,Severity, Reaction): Coded Allergies: penicillin G (Unverified Allergy, Severe, SWELLING WITH RESP DIFFICULTY, ) shellfish derived (Unverified Allergy, Severe, SWELLING, 03/20/17) tomato (Unverified Allergy, Intermediate, 03/20/17) milk (Unverified Allergy, Unknown, 03/20/17) Reported Meds & Prescriptions Reported Meds & Active Scripts Active Cipro (Ciprofloxacin HCl) 500 Mg Tab 500 Mg PO BID Iram Contour Next Blood Test Strips (Blood Glucose Test Strips) 1 Erica Erica Strip .ROUTE ACHS PRN Sucralfate Liq (Sucralfate) 1 Gm/10 Ml Melina 1 Gm PO ACHS [place] (Hydrocodone-Acetaminophen) 5-325 mg Tab 1 Tab PO Q6H PRN Reported Albuterol Neb (Albuterol Sulfate) 2.5 Mg/3 Ml Neb 2.5 Mg NEB Q4-6H PRN Proair Hfa 8.5 GM Inh (Albuterol Sulfate) 90 Mcg/Act Aer 2 Puff INH BID 108 mcg/actuation Metformin (Metformin HCl) 500 Mg Tab 500 Mg PO BID With meals Sertraline (Sertraline HCl) Unknown Strength Tab Unknown Dose PO DAILY Pantoprazole (Pantoprazole Sodium) 40 Mg Tab 40 Mg PO DAILY Spiriva Handihaler (Tiotropium Inh) 18 Mcg Cap 18 Mcg INH DAILY 1 capsule = 18 mcg Do Not Swallow Capsule Lyrica (Pregabalin) 50 Mg Cap 50 Mg PO BID Zolpidem (Zolpidem Tartrate) 10 Mg Tab 10 Mg PO HS Clopidogrel (Clopidogrel Bisulfate) 75 Mg Tab 75 Mg PO DAILY Levemir Flextouch Pen Inj (Insulin Detemir) 300 unit/3 ML Pen 10 Units SQ BID Topamax (Topiramate) 50 Mg Tab 50 Mg PO HS Novolog Inj (Insulin Aspart) 1,000 Unit/10 Ml Vial 0 SQ DIRECTED Sliding Scale as directed. Review of Systems Except as stated in HPI: all other systems reviewed are Neg General / Constitutional: No: Fever Eyes: No: Visual changes HENT: No: Headaches Cardiovascular: Positive: Chest Pain or Discomfort Respiratory: No: Shortness of Breath Gastrointestinal: Positive: Nausea, Vomiting, Abdominal Pain, No: Diarrhea Genitourinary: No: Dysuria Musculoskeletal: No: Pain Skin: No Rash Neurologic: No: Weakness Psychiatric: No: Depression Endocrine: No: Polydipsia Hematologic/Lymphatic: No: Easy Bruising Physical Exam Narrative General: The patient is a well-developed well-nourished female in no acute distress. Head and Neck exam: Head is normocephalic atraumatic. Eyes: EOMI, pupils are equal round and reactive to light. Nose: Midline septum with pink mucous membranes Mouth: Dentition unremarkable. Moist mucus membranes. Posterior oropharynx is not erythematous. No tonsillar hypertrophy. Uvula midline. Airway patent. Neck: No palpable lymphadenopathy. No nuchal rigidity. No thyromegaly. Cardiovascular: Regular rate and rhythm without murmurs, gallops, or rubs. Lungs: Clear to auscultation bilaterally. No wheezes, rhonchi, or rales. Abdomen: Soft, with reported tenderness on palpation along the suprapubic area, no other tenderness on palpation of the other quadrants of the abdomen. No guarding, rebound, or rigidity. Normal bowel sounds are audible. No tenderness on palpation of McBurney's point. Negative Ramírez's sign. Extremities: No clubbing, cyanosis, or edema. 2+ pulses in all 4 extremities. No calf tenderness on palpation. The patient has a right below the knee amputation noted. This is well-healed. Back: No costovertebral angle tenderness to palpation. Neurologic Exam: Grossly nonfocal. Skin Exam: No rash noted. Intact skin that is warm and dry. Data Data Last Documented VS Vital Signs Date Time Temp Pulse Resp B/P (MAP) Pulse Ox O2 Delivery O2 Flow Rate FiO2 03/20/17 23:57 16 98 03/20/17 23:41 98.6 66 129/89 (102) Orders Orders Electrocardiogram (03/20/17 23:47) Complete Blood Count With Diff (03/20/17 23:47) Comprehensive Metabolic Panel (03/20/17 23:47) Creatine Kinase (Cpk) (03/20/17 23:47) Ckmb (Isoenzyme) Profile (03/20/17 23:47) Troponin I (03/20/17 23:47) Prothrombin Time / Inr (Pt) (03/20/17 23:47) Act Partial Throm Time (Ptt) (03/20/17 23:47) Lipase (03/20/17 23:47) Urinalysis - C+S If Indicated (03/20/17 23:47) Magnesium (Mg) (03/20/17 23:47) Blood Gas Venous Ph (03/20/17 23:47) Beta Hydroxybutyrate (Acetone) (03/20/17 23:47) Iv Access Insert/Monitor (03/20/17 23:47) Ecg Monitoring (03/20/17 23:47) Oximetry (03/20/17 23:47) Ed Urine Pregnancytest Poc (03/20/17 23:47) Sodium Chlor 0.9% 1000 Ml Inj (Ns 1000 M (03/21/17 00:00) Chest, Single Ap (03/21/17 01:42) Ct Abd/Pel W Iv Contrast(Rout) (03/21/17 01:42) Sodium Chlor 0.9% 1000 Ml Inj (Ns 1000 M (03/21/17 01:45) Insulin Human Regular Inj (Novolin R Inj (03/21/17 01:45) Iohexol 350 Inj (Omnipaque 350 Inj) (03/21/17 02:06) Acetamin-Hydrocod 325-5 Mg ([place] 5-325 (03/21/17 02:30) Urine Culture (03/20/17 03:06) Ciprofloxacin 400 Mg Premix (Cipro 400 M (03/21/17 04:30) Labs Laboratory Tests Test 03/20/17 03:06 03/20/17 23:50 03/20/17 23:55 Urine Color LIGHT-YELLOW Urine Turbidity CLEAR Urine pH 5.5 Urine Specific [place] 1.040 Urine Protein NEG mg/dL Urine Glucose (UA) 1000 mg/dL Urine Ketones NEG mg/dL Urine Occult Blood NEG Urine Nitrite POS Urine Bilirubin NEG Urine Urobilinogen LESS THAN 2.0 MG/DL Urine Leukocyte Esterase NEG Urine WBC 1 /hpf Urine Squamous Epithelial Cells 1 /hpf Urine Bacteria MOD /hpf Microscopic Urinalysis Comment CULTURE INDICATED Venous Blood pH 7.36 White Blood Count 6.8 TH/MM3 Red Blood Count 3.90 MIL/MM3 Hemoglobin 12.8 GM/DL Hematocrit 38.7 % Mean Corpuscular Volume 99.2 FL Mean Corpuscular Hemoglobin 32.7 PG Mean Corpuscular Hemoglobin Concent 33.0 % Red Cell Distribution Width 12.6 % Platelet Count 310 TH/MM3 Mean Platelet Volume 8.1 FL Neutrophils (%) (Auto) 62.2 % Lymphocytes (%) (Auto) 26.6 % Monocytes (%) (Auto) 7.9 % Eosinophils (%) (Auto) 2.5 % Basophils (%) (Auto) 0.8 % Neutrophils # (Auto) 4.2 TH/MM3 Lymphocytes # (Auto) 1.8 TH/MM3 Monocytes # (Auto) 0.5 TH/MM3 Eosinophils # (Auto) 0.2 TH/MM3 Basophils # (Auto) 0.1 TH/MM3 CBC Comment DIFF FINAL Differential Comment Prothrombin Time 11.0 SEC Prothromb Time International Ratio 1.1 RATIO Activated Partial Thromboplast Time 22.6 SEC Blood Urea Nitrogen 4 MG/DL Creatinine 0.88 MG/DL Random Glucose 572 MG/DL Total Protein 6.2 GM/DL Albumin 3.1 GM/DL Calcium Level 8.0 MG/DL Magnesium Level 1.7 MG/DL Alkaline Phosphatase 124 U/L Aspartate Amino Transf (AST/SGOT) 7 U/L Alanine Aminotransferase (ALT/SGPT) 18 U/L Total Bilirubin 0.3 MG/DL Sodium Level 138 MEQ/L Potassium Level 3.4 MEQ/L Chloride Level 104 MEQ/L Carbon Dioxide Level 24.5 MEQ/L Anion Gap 10 MEQ/L Estimat Glomerular Filtration Rate 83 ML/MIN Total Creatine Kinase 61 U/L Troponin I LESS THAN 0.02 NG/ML Lipase 156 U/L B-Hydroxybutyrate 0.11 MMOL/L [facility] Medical Decision Making Medical Screen Exam Complete: Yes Emergency Medical Condition: Yes Medical Record Reviewed: Yes Interpretation(s) Last Impressions Chest X-Ray 03/21/17141 Signed Impressions: Service Date/Time: Tuesday, March 21, 2017 01:47 - CONCLUSION: The lungs are clear. Herbert Cotton MD Abdomen/Pelvis CT 03/21/17141 Signed Impressions: Service Date/Time: Tuesday, March 21, 2017 02:06 - CONCLUSION: 1. 2.9 cm hypodense area in the left hemipelvis is smaller than on prior examination July 2016, possibly related to a bladder diverticulum. 2. Small amount of free fluid in the dependent pelvis. Herbert Cotton MD Differential Diagnosis Hyperglycemia for medication noncompliance, versus hyperosmolar hyperglycemia, versus DKA Narrative Course During the course of the patients emergency department visit, the patients history, examination, and differential diagnosis were reviewed with the patient. The patient was placed on a oracle reports developer with oximetry and frequent blood pressure monitoring. The patient had IV access obtained and blood work sent for analysis. EKG shows a sinus rhythm heart rate of 81, QRS duration 90 ms, QTC [address] segment elevation. The patient was initially provided normal saline 1 L IV fluid bolus, Zofran 4 mg IV. The patients laboratory studies were reviewed and remarkable for a CBC that is unremarkable, CMP is remarkable for a potassium of 3.4, BUN 4, glucose 572, AST 7, alkaline phosphatase 124, CPK 61, troponin I less than 0.02, lipase 156, VBG reveals a pH of 7.36, PT PTT unremarkable, beta hydroxybutyrate is negative at 0.11. Urinalysis shows evidence of a urinary tract infection. The patient was given ciprofloxacin 400 mg IV times one. Radiology studies were reviewed and remarkable for a chest x-ray shows no acute cardiopulmonary disease. CT scan of the abdomen and pelvis shows a 2.9 cm hypodense area on the left hemipelvis that is smaller than on prior examination in July 2016. Possibly related to a bladder diverticulum. Small amount of free fluid in the dependent pelvis. No other acute abnormality. The patient's repeat blood sugar was 407. The patient continues to receive IV fluid resuscitation. The patient's blood sugar will be repeated possibly one hour. The patient is encouraged to regularly check her blood sugar and use her sliding scale insulin and long-acting Levemir as previously prescribed. She is instructed regarding the importance of close follow-up with her primary care physician in the next 2 days for reexamination. The patient will be discharged home with a prescription for ciprofloxacin. The patient is resting comfortably and feels better, is alert and in no distress. The patients results and examination findings were discussed with the patient. The repeat examination is unremarkable and benign. The history, exam, diagnostic testing, and current condition do not suggest any significant pathology to warrant further testing, continued ED treatment, admission, or surgical evaluation at this point. The vital signs have been stable. The patient does not have uncontrollable pain, intractable vomiting, or other significant symptoms. The patient's condition is stable and appropriate for discharge. The patient will pursue further outpatient evaluation with a primary care physician or other designated or consulting physician as indicated in the discharge instructions. The patient expressed understanding and was agreeable with this plan. Diagnosis Primary Impression: Hyperglycemia due to type 2 diabetes mellitus Qualified Codes: E11.65 - Type 2 diabetes mellitus with hyperglycemia; Z79.4 - care home (current) use of insulin Additional Impression: UTI (urinary tract infection) Qualified Codes: N39.0 - Urinary tract infection, site not specified; R31.9 - Hematuria, unspecified Referrals: Primary Care Physician 2 days Patient Instructions: Diabetic Hyperglycemia (ED), General Instructions Med/Other Pt SpecificInfo: Prescription(s) given, No Change to Meds Scripts Ciprofloxacin (Cipro) 500 Mg Tab 500 MG PO BID for Infection, #13 TAB 0 Refills Prov: Christina Rojas MD 03/21/17 Disposition: 01 DISCHARGE HOME Condition: Stable Christina Rojas MD Mar 21, 2017 00:17
[2017-03-21 00:33] LABS: ALBUMIN 3.1 GM/DL (3.4-5.0); AST (GOT) 7 U/L (15-37); BICARBONATE 24.5 MEQ/L (21.0-32.0); BLOOD UREA NITROGEN 4 MG/DL (7-18); CHLORIDE 104 MEQ/L (98-107); CREATININE 0.88 MG/DL (0.50-1.00); GLOMERULAR FILTRATION RATE 83 ML/MIN (>89); LIPASE 156 U/L (73-393); MAGNESIUM 1.7 MG/DL (1.5-2.5); SODIUM (NA) 138 MEQ/L (136-145)
[2017-03-21 00:37] LABS: ALKALINE PHOSPHATASE 124 U/L (45-117); ALT (GPT) 18 U/L (10-53); TOTAL BILIRUBIN ADULT 0.3 MG/DL (0.2-1.0); TOTAL PROTEIN 6.2 GM/DL (6.4-8.2); TROPONIN I LESS THAN 0.02 NG/ML (0.02-0.05)
[2017-03-21 00:38] LABS: GLUCOSE,RANDOM 572 MG/DL (74-106)
[2017-03-21] MEDS ORDERED: SODIUM CHLOR 0.9% 1000 ML INJ 1,000 ML IV ONE ×2 (01:45)
[2017-03-21] MEDS ORDERED: INSULIN HUMAN REGULAR 1,000 UNITS/10 ML VIAL SQ ONE (01:45)
[2017-03-21] MEDS ORDERED: IOHEXOL 350 MG/ML 10 ML VIAL (for RAD DIAG) IVCONTRAST ONE (02:06)
--- NOTE | 2017-03-21 02:13 | RADRPT ---
EXAM DATE/TIME: 03/21/2017 01:47 [facility] COMPARISON: CHEST SINGLE AP, November 16, 2016, 0:51. INDICATIONS : Short of breath, cough. MEDICAL HISTORY : None. SURGICAL HISTORY : None. ENCOUNTER: Initial ACUITY: 1 day PAIN SCORE: 0/10 LOCATION: Bilateral chest FINDINGS: A single view of the chest demonstrates the lungs to be symmetrically aerated without evidence of mas s, infiltrate or effusion. No evidence of pneumothorax. The cardiomediastinal contours are unremark able. Osseous structures are intact. CONCLUSION: The lungs are clear. Herbert Cotton MD on March 21, 2017 at 2:11 Board Certified Radiologist. This report was verified electronically.
--- NOTE | 2017-03-21 02:22 | RADRPT ---
EXAM DATE/TIME: 03/21/2017 02:06 [facility] COMPARISON: CT ABDOMEN & PELVIS W CONTRAST, July 01, 2016, 2:29. CTA ABDOMEN & PELVIS W 3D RECON, July 03, 2016, 2 0:39. CT ABDOMEN & PELVIS W CONTRAST, August 01, 2016, 23:03. INDICATIONS : Abdomen pain with low glucose. IV CONTRAST: 70 cc Omnipaque 350 (iohexol) IV ORAL CONTRAST: No oral contrast ingested. RADIATION DOSE: 4.52 CTDIvol (mGy) MEDICAL HISTORY : Cardiovascular disease. Hypertension. Diabetes mellitus type 2.DVT CVA SURGICAL HISTORY : Hysterectomy. ENCOUNTER: Initial ACUITY: 1 day PAIN SCALE: 7/10 LOCATION: abdomen TECHNIQUE: Volumetric scanning of the abdomen and pelvis was performed. Using automated exposure control and ad justment of the mA and/or kV according to patient size, radiation dose was kept as low as reasonably achievable to obtain optimal diagnostic quality images. DICOM format image data is available electro nically for review and comparison. FINDINGS: LOWER LUNGS: The visualized lower lungs are clear. LIVER: Homogeneous density without lesion. There is no dilation of the biliary tree. No calcified gallston es. SPLEEN: Normal size without lesion. PANCREAS: Within normal limits. KIDNEYS: Normal in size and shape. There is no mass, stone or hydronephrosis. ADRENAL GLANDS: Within normal limits. VASCULAR: There is no aortic aneurysm. Left iliac stent. BOWEL/MESENTERY: No dilated loops of small or large. Small amount of free fluid in the right pelvis. ABDOMINAL WALL: Within normal limits. RETROPERITONEUM: There is no lymphadenopathy. BLADDER: No wall thickening or mass. REPRODUCTIVE: Prior CT in July 2016 demonstrated an oval fluid density structure in the posterior left hemipelvis, either left adnexal or bladder diverticulum. The structure persists, but is smaller on today's exami nation and appears to be in continuity with the posterior margin of the urinary bladder suggestive of a bladder diverticulum. The hypodensity measures 2.5 x 2.9 cm on today's exam. INGUINAL: There is no lymphadenopathy or hernia. MUSCULOSKELETAL: Within normal limits for patient age. CONCLUSION: 1. 2.9 cm hypodense area in the left hemipelvis is smaller than on prior examination July 2016, possi tita related to a bladder diverticulum. 2. Small amount of free fluid in the dependent pelvis. Herbert Cotton MD on March 21, 2017 at 2:15 Board Certified Radiologist. This report was verified electronically.
[2017-03-21] MEDS ORDERED: ACETAMINOPHEN/HYDROcodone 325 MG/5 MG TAB PO ONE (02:30)
[2017-03-21 03:25] LABS: BACTERIA, URINE MOD /hpf; BILIRUBIN, URINE NEG (NEG); BLOOD, URINE NEG (NEG); GLUCOSE,URINE 1000 mg/dL (NEG); KETONE, URINE NEG (NEG); NITRITE,URINE POS (NEG); PH, URINE 5.5 (5.0-8.5); SQUAMOUS EPITHELIAL CELL URINE 1 /hpf (0-5); URINE COLOR LIGHT-YELLOW (YELLW/STRAW); URINE LEUKOCYTE ESTERASE NEG (NEG)
[2017-03-21] MEDS ORDERED: CIPR-9 PO (04:19)
[2017-03-21] MEDS ORDERED: CIPROFLOXACIN 400 MG PREMIX 200 ML IV ONE (04:30)
[2017-03-21 09:01] VITALS: BP 103/68; PULSE 73; RESP 18; O2SAT 99
--- NOTE | 2017-03-21 19:46 | EKG ---
Date Performed: 03/20/2017 Time Performed: 23:48:42 PTAGE: 47 years EKG: Sinus rhythm NORMAL ECG PREVIOUS TRACING : 11/15/2016 23.53 Since previous tracing, no significant change noted DOCTOR: Wendy Goodman Interpretating Date/Time 03/21/2017 19:44:05
== END 2017-03-22 02:39 | disposition home or self-care (01) ==
LOC: NEPC 23:37
DX: E11.65 Type 2 diabetes mellitus with hyperglycemia (principal); N39.0 Urinary tract infection, site not specified; E78.00 Pure hypercholesterolemia, unspecified; I10 Essential (primary) hypertension; I25.10 Atherosclerotic heart disease of native coronary artery without angina pectoris; J44.9 Chronic obstructive pulmonary disease, unspecified; F32.9 Major depressive disorder, single episode, unspecified; Z79.4 Long term (current) use of insulin; R07.9 Chest pain, unspecified
CPT/HCPCS: 71045; 74177; 80053; 81001; 82010; 82550; 82800; 83690; 83735; 84484; 84703; 85025; 85610; 85730; 87086; 93005; 96361; 96372; 96374; 99285; J0744; J1815; J7030; Q9967

== ENCOUNTER 2017-05-09 09:56 | Emergency (ER) | payer OTHER ==
[~2017-05-09] VITALS: Ht 165.1 cm; Wt 39.0 kg
[~2017-05-09 09:56] MED LIST changes: +CIPR-9 PO
[2017-05-09 10:03] VITALS: BP 140/74; PULSE 66; RESP 18; TEMP 98; O2SAT 100
[2017-05-09] MEDS ORDERED: SODIUM CHLOR 0.9% 1000 ML INJ 1,000 ML IV SCH ×2 (10:30→12:58)
[2017-05-09] MEDS ORDERED: ONDANSETRON HCL 4 MG/2 ML VIAL IVP ONE ×2 (10:30→13:00)
[2017-05-09] MEDS ORDERED: MORPHINE SULFATE 4 MG/ML INJ IV PUSH ONE ×2 (10:30→13:00)
[2017-05-09 10:51] LABS: AUTOMATED NEUTROPHIL # 5.5 TH/MM3 (1.8-7.7); BASOPHIL # 0.1 TH/MM3 (0-0.2); BASOPHIL % 0.9 % (0.0-2.0); EOSINOPHIL # 0.2 TH/MM3 (0-0.4); EOSINOPHIL % 1.6 % (0.0-4.0); HEMATOCRIT 43.7 % (35.0-46.0); LYMPH % 29.5 % (9.0-44.0); LYMPHOCYTE # 2.7 TH/MM3 (1.0-4.8); MEAN CELL VOLUME 97.4 FL (80.0-100.0); MEAN CORPUSCULAR HEMOGLOBIN 33.4 PG (27.0-34.0); MEAN CORPUSCULAR HGB CONC 34.3 % (32.0-36.0); MEAN PLATELET VOLUME 7.7 FL (7.0-11.0); MONO % 8.7 % (0.0-8.0); MONOCYTE # 0.8 TH/MM3 (0-0.9); NEUT % 59.3 % (16.0-70.0); PLATELET COUNT 305 TH/MM3 (150-450); RED BLOOD COUNT 4.49 MIL/MM3 (4.00-5.30); RED CELL DISTRIBUTION WIDTH 12.9 % (11.6-17.2); WHITE BLOOD COUNT 9.2 TH/MM3 (4.0-11.0)
[2017-05-09 11:25] LABS: BILIRUBIN, URINE NEG (NEG); BLOOD, URINE NEG (NEG); GLUCOSE,URINE 1000 mg/dL (NEG); KETONE, URINE 150 mg/dL (NEG); MUCUS URINE FEW /lpf (OCC); NITRITE,URINE NEG (NEG); PH, URINE 6.5 (5.0-8.5); SQUAMOUS EPITHELIAL CELL URINE 3 /hpf (0-5); TRANSITIONAL EPI CELLS, URINE <1 /hpf; URINE COLOR YELLOW (YELLW/STRAW); URINE LEUKOCYTE ESTERASE NEG (NEG)
[2017-05-09 11:43] LABS: ALBUMIN 3.8 GM/DL (3.4-5.0); ALKALINE PHOSPHATASE 98 U/L (45-117); ALT (GPT) 20 U/L (10-53); AST (GOT) 14 U/L (15-37); BICARBONATE 24.6 MEQ/L (21.0-32.0); BLOOD UREA NITROGEN 3 MG/DL (7-18); CALCIUM 9.2 MG/DL (8.5-10.1); CHLORIDE 105 MEQ/L (98-107); CREATININE 0.74 MG/DL (0.50-1.00); GLOMERULAR FILTRATION RATE 101 ML/MIN (>89); GLUCOSE,RANDOM 117 MG/DL (74-106); SODIUM (NA) 142 MEQ/L (136-145); TOTAL BILIRUBIN ADULT 0.5 MG/DL (0.2-1.0); TOTAL PROTEIN 7.7 GM/DL (6.4-8.2)
[2017-05-09] MEDS ORDERED: HYDR-3580 PO (12:41)
--- NOTE | 2017-05-09 12:41 | PD ---
HPI Chief Complaint: Abdominal Pain Time Seen by Provider: 10:10 Travel History International Travel<30 days: No Contact w/Intl Traveler<30days: No Traveled to known affect area: No History of Present Illness HPI 47-year-old female complains of abdominal pain and back pain. She's had vomiting for 2 days. Emesis is nonbloody. She denies urinary complaint. Insulin compliance reported. No fever. Patient has a history of pancreatitis however states feels different today. No trauma. No bloody emesis or diarrhea. PFSH Past Medical History Hx Anticoagulant Therapy: Yes (PLAVIX) Arthritis: No Asthma: Yes Autoimmune Disease: No Blood Disorders: No Anxiety: Yes Depression: Yes Heart Rhythm Problems: No Cancer: No Cardiovascular Problems: Yes (HX OF DVT, STENT PLACED IN LEFT LEG) High Cholesterol: Yes Chemotherapy: No Chest Pain: Yes Congestive Heart Failure: No COPD: No Cerebrovascular Accident: Yes (STROKE 2014) Coronary Artery Disease: Yes Diabetes: Yes Patient Takes Glucophage: No Diminished Hearing: No Deep Vein Thrombosis: Yes Endocrine: Yes Gastrointestinal Disorders: Yes (GASTRITIS) GERD: Yes Genitourinary: No Headaches: Yes Heparin Induced Thrombocytopen: No Hypertension: Yes Immune Disorder: No Implanted Vascular Access Dvce: Yes (STENT IN LEFT LEG) Musculoskeletal: No Neurologic: Yes (CVA IN 2015, NEUROPATHY) Psychiatric: Yes (anixety & depression (pt states that she doesnt take medicine )) Reproductive: No Respiratory: Yes Immunizations Current: Yes Migraines: Yes Radiation Therapy: No Sickle Cell Disease: No Sleep Apnea: No Thyroid Disease: No ?: Not : 3 Para: 0 Miscarriage: 3 : 0 Ovarian Cysts: Yes Past Surgical History Abdominal Surgery: Yes (04/30/02 FIBROIDS REMOVED FROM UTERUS.) AICD: No Arteriovenous Shunt: No Body Medical Devices: LEFT LEG FILTER/ dvt Ear Surgery: No Endocrine Surgery: No Eye Surgery: Yes Genitourinary Surgery: No Gynecologic Surgery: Yes Hysterectomy: Yes (PARTIAL) Insulin Pump: No Joint Replacement: No Oral Surgery: No Pacemaker: No Other Surgery: Yes (MYOMECTOMY, BLOOD CLOT FROM L LEG, R BELOW KNEE AMPUTATION) Social History Alcohol Use: No Tobacco Use: Yes (03/01 PPD) Substance Use: Yes (MARIJUANA/ once month/ last week) Allergies-Medications (Allergen,Severity, Reaction): Coded Allergies: penicillin G (Unverified Allergy, Severe, SWELLING WITH RESP DIFFICULTY, ) shellfish derived (Unverified Allergy, Severe, SWELLING, 05/10/17) tomato (Unverified Allergy, Intermediate, 05/10/17) milk (Unverified Allergy, Unknown, 05/10/17) Reported Meds & Prescriptions Reported Meds & Active Scripts Active Hydrocodone-Acetaminophen 7.5 Mg-325 Mg Tab 2 Tab PO Q4H PRN Iram Contour Next Blood Test Strips (Blood Glucose Test Strips) 1 Erica Erica Strip .ROUTE ACHS PRN Sucralfate Liq (Sucralfate) 1 Gm/10 Ml Melina 1 Gm PO ACHS Reported Atorvastatin (Atorvastatin Calcium) 40 Mg Tab 40 Mg PO HS Citalopram (Citalopram Hydrobromide) 20 Mg Tab 20 Mg PO DAILY Metoprolol Tartrate 25 Mg Tab 12.5 Mg PO BID Albuterol Neb (Albuterol Sulfate) 2.5 Mg/3 Ml Neb 2.5 Mg NEB Q4-6H PRN Proair Hfa 8.5 GM Inh (Albuterol Sulfate) 90 Mcg/Act Aer 2 Puff INH BID 108 mcg/actuation Metformin (Metformin HCl) 500 Mg Tab 500 Mg PO BID With meals Sertraline (Sertraline HCl) Unknown Strength Tab Unknown Dose PO DAILY Pantoprazole (Pantoprazole Sodium) 40 Mg Tab 40 Mg PO DAILY Spiriva Handihaler (Tiotropium Inh) 18 Mcg Cap 18 Mcg INH DAILY 1 capsule = 18 mcg Do Not Swallow Capsule Lyrica (Pregabalin) 50 Mg Cap 50 Mg PO BID Zolpidem (Zolpidem Tartrate) 10 Mg Tab 10 Mg PO HS Clopidogrel (Clopidogrel Bisulfate) 75 Mg Tab 75 Mg PO DAILY Levemir Flextouch Pen Inj (Insulin Detemir) 300 unit/3 ML Pen 10 Units SQ BID Topamax (Topiramate) 50 Mg Tab 50 Mg PO HS Novolog Inj (Insulin Aspart) 1,000 Unit/10 Ml Vial 0 SQ DIRECTED Sliding Scale as directed. Review of Systems Except as stated in HPI: all other systems reviewed are Neg General / Constitutional: No: Fever Respiratory: No: Cough, Shortness of Breath Physical Exam Narrative GENERAL: 47-year-old female very thin mild to moderate distress Vital Signs Date Time Temp Pulse Resp B/P (MAP) Pulse Ox O2 Delivery O2 Flow Rate FiO2 05/09/17 14:05 05/09/17 13:26 100 Room Air 05/09/17 13:26 56 16 129/63 (85) 100 Room Air 05/09/17 13:26 Room Air 05/09/17 10:03 98.0 66 18 140/74 (96) 100 SKIN: Warm and dry. HEAD: Atraumatic. Normocephalic. EYES: Pupils equal and round. No scleral icterus. No injection or drainage. ENT: No nasal bleeding or discharge. Mucous membranes pink and moist. NECK: Trachea midline. No JVD. CARDIOVASCULAR: Regular rate and rhythm. RESPIRATORY: No accessory muscle use. Clear to auscultation. Breath sounds equal bilaterally. GASTROINTESTINAL: Soft. Generalized nonspecific tenderness. MUSCULOSKELETAL: Extremities without clubbing, cyanosis, or edema. No obvious deformities. NEUROLOGICAL: Awake and alert. No obvious cranial nerve deficits. Motor grossly within normal limits. Five out of 5 muscle strength in the arms and legs. Normal speech. PSYCHIATRIC: Appropriate mood and affect; insight and judgment normal. Data Data Last Documented VS Vital Signs Date Time Temp Pulse Resp B/P (MAP) Pulse Ox O2 Delivery O2 Flow Rate FiO2 05/09/17 14:05 05/09/17 13:26 100 Room Air 05/09/17 13:26 56 16 05/09/17 10:03 98.0 Orders Orders Complete Blood Count With Diff (05/09/17 10:12) Comprehensive Metabolic Panel (05/09/17 10:12) Urinalysis - C+S If Indicated (05/09/17 10:12) Iv Access Insert/Monitor (05/09/17 10:12) Oxygen Administration (05/09/17 10:12) Oximetry (05/09/17 10:12) Lipase (05/09/17 10:12) Act Partial Throm Time (Ptt) (05/09/17 10:12) Morphine Inj (Morphine Inj) (05/09/17 10:30) Ondansetron Inj (Zofran Inj) (05/09/17 10:30) Sodium Chlor 0.9% 1000 Ml Inj (Ns 1000 M (05/09/17 10:30) Morphine Inj (Morphine Inj) (05/09/17 13:00) Ondansetron Inj (Zofran Inj) (05/09/17 13:00) Sodium Chlor 0.9% 1000 Ml Inj (Ns 1000 M (05/09/17 12:58) Prochlorperazine Inj (Compazine Inj) (05/09/17 13:00) Potassium Chloride (Kcl) (05/09/17 13:45) Ed Discharge Order (05/09/17 13:39) Labs Laboratory Tests Test 05/09/17 10:10 05/09/17 10:15 White Blood Count 9.2 TH/MM3 Red Blood Count 4.49 MIL/MM3 Hemoglobin 15.0 GM/DL Hematocrit 43.7 % Mean Corpuscular Volume 97.4 FL Mean Corpuscular Hemoglobin 33.4 PG Mean Corpuscular Hemoglobin Concent 34.3 % Red Cell Distribution Width 12.9 % Platelet Count 305 TH/MM3 Mean Platelet Volume 7.7 FL Neutrophils (%) (Auto) 59.3 % Lymphocytes (%) (Auto) 29.5 % Monocytes (%) (Auto) 8.7 % Eosinophils (%) (Auto) 1.6 % Basophils (%) (Auto) 0.9 % Neutrophils # (Auto) 5.5 TH/MM3 Lymphocytes # (Auto) 2.7 TH/MM3 Monocytes # (Auto) 0.8 TH/MM3 Eosinophils # (Auto) 0.2 TH/MM3 Basophils # (Auto) 0.1 TH/MM3 CBC Comment DIFF FINAL Differential Comment Activated Partial Thromboplast Time 22.6 SEC Blood Urea Nitrogen 3 MG/DL Creatinine 0.74 MG/DL Random Glucose 117 MG/DL Total Protein 7.7 GM/DL Albumin 3.8 GM/DL Calcium Level 9.2 MG/DL Alkaline Phosphatase 98 U/L Aspartate Amino Transf (AST/SGOT) 14 U/L Alanine Aminotransferase (ALT/SGPT) 20 U/L Total Bilirubin 0.5 MG/DL Sodium Level 142 MEQ/L Potassium Level 2.8 MEQ/L Chloride Level 105 MEQ/L Carbon Dioxide Level 24.6 MEQ/L Anion Gap 12 MEQ/L Estimat Glomerular Filtration Rate 101 ML/MIN Lipase 88 U/L Urine Color YELLOW Urine Turbidity CLEAR Urine pH 6.5 Urine Specific [place] 1.041 Urine Protein TRACE mg/dL Urine Glucose (UA) 1000 mg/dL Urine Ketones 150 mg/dL Urine Occult Blood NEG Urine Nitrite NEG Urine Bilirubin NEG Urine Urobilinogen 2.0 MG/DL Urine Leukocyte Esterase NEG Urine RBC 4 /hpf Urine WBC 1 /hpf Urine Squamous Epithelial Cells 3 /hpf Urine Transitional Epithelial Cells <1 /hpf Urine Mucus FEW /lpf Microscopic Urinalysis Comment CULT NOT INDICATED MDM Medical Decision Making Medical Screen Exam Complete: Yes Emergency Medical Condition: Yes Medical Record Reviewed: Yes Differential Diagnosis Constipation, Gastritis, Acute Cholecystitis, Biliary Colic, Pancreatitis, GARCIA , Hepatitis, Bowel Obstruction, Cystitis, Mesenteric Ischemia, AAA, Appendicitis , Renal Stone/Hydronephrosis, GERD, perforated viscous Narrative Course CBC & BMP Diagram 05/09/17 10:10 Total Protein 7.7, Albumin 3.8, Calcium Level 9.2, Alkaline Phosphatase 98, Aspartate Amino Transf (AST/SGOT) 14 L, Alanine Aminotransferase (ALT/SGPT) 20, Total Bilirubin 0.5 Lipase 88 Urinalysis shows no UTI Patient received 2 L IV saline Zofran and Compazine. She required 2 doses of morphine. Patient has 11 CT scans of the abdomen pelvis on record as well as 4 CT aortagrams, a gastric emptying study, HIDA scan. today's evaluation is unlikely to gain significant diagnostic yield from further utilization/ symptoms. Return precautions were discussed. The patient was agreeable with the plan and confirmed intent to return should any worsening of symptoms occur in the next several hours. Diagnosis Primary Impression: Abdominal pain Qualified Codes: R10.9 - Unspecified abdominal pain Additional Impressions: Hypokalemia Nausea and vomiting Qualified Codes: R11.2 - Nausea with vomiting, unspecified Referrals: Primary Care Physician 2 days Med/Other Pt SpecificInfo: Prescription(s) given Scripts Hydrocodone-Acetaminophen (Hydrocodone-Acetaminophen) 7.5 Mg-325 Mg Tab 2 TAB PO Q4H Y for PAIN, #12 TAB 0 Refills Prov: Cristo Lopes MD 05/09/17 Disposition: 01 DISCHARGE HOME Condition: Stable Cristo Lopes MD May 09, 2017 12:41
[2017-05-09] MEDS ORDERED: PROCHLORPERAZINE INJ 10 MG/2 ML VIAL IV PUSH ONE (13:00)
[2017-05-09 13:26] VITALS: BP 129/63; PULSE 56; RESP 16; O2SAT 100
[2017-05-09] MEDS ORDERED: POTASSIUM CHLORIDE 20 MEQ CONTROLLED RELEASE TAB PO ONE (13:45)
[2017-05-10] MEDS ORDERED: CITA20TA4 PO (22:14)
[2017-05-10] MEDS ORDERED: ATOR40TA16 PO (22:14)
[2017-05-10] MEDS ORDERED: METO25TA3 PO (22:14)
== END 2017-05-09 14:06 | disposition home or self-care (01) ==
LOC: NEPE 09:56
DX: R10.9 Unspecified abdominal pain (principal); E87.6 Hypokalemia; R11.2 Nausea with vomiting, unspecified; J45.909 Unspecified asthma, uncomplicated; E78.00 Pure hypercholesterolemia, unspecified; I25.10 Atherosclerotic heart disease of native coronary artery without angina pectoris; E11.9 Type 2 diabetes mellitus without complications; F17.200 Nicotine dependence, unspecified, uncomplicated; F12.90 Cannabis use, unspecified, uncomplicated
CPT/HCPCS: 80053; 81001; 83690; 85025; 85730; 96361; 96374; 96375; 96376; 99284; J0780; J2270; J2405; J7030

== ENCOUNTER 2017-05-10 20:03 | Inpatient (IN) | payer OTHER ==
[~2017-05-10] VITALS: Ht 170.2 cm; Wt 40.0 kg
[~2017-05-10 20:03] MED LIST changes: +HYDR-3580 PO
[2017-05-10 21:47] VITALS: BP 178/80; PULSE 50; RESP 30; TEMP 98.1; O2SAT 95
[2017-05-10] MEDS ORDERED: SODIUM CHLOR 0.9% 1000 ML INJ 1,000 ML IV SCH (21:49)
[2017-05-10 21:52] VITALS: O2SAT 96
[2017-05-10] MEDS ORDERED: ONDANSETRON HCL 4 MG/2 ML VIAL IVP ONE (22:00)
[2017-05-10] MEDS ORDERED: SODIUM CHLORIDE 0.9% FLUSH 10 ML FLUSH IV FLUSH PRN (22:00)
[2017-05-10 22:08] LABS: AUTOMATED NEUTROPHIL # 6.5 TH/MM3 (1.8-7.7); BASOPHIL # 0.1 TH/MM3 (0-0.2); BASOPHIL % 1.2 % (0.0-2.0); EOSINOPHIL % 0.4 % (0.0-4.0); HEMATOCRIT 42.7 % (35.0-46.0); HEMOGLOBIN 14.6 GM/DL (11.6-15.3); LYMPH % 15.1 % (9.0-44.0); LYMPHOCYTE # 1.2 TH/MM3 (1.0-4.8); MEAN CELL VOLUME 96.8 FL (80.0-100.0); MEAN CORPUSCULAR HEMOGLOBIN 33.1 PG (27.0-34.0); MEAN CORPUSCULAR HGB CONC 34.1 % (32.0-36.0); MEAN PLATELET VOLUME 8.7 FL (7.0-11.0); MONO % 3.8 % (0.0-8.0); MONOCYTE # 0.3 TH/MM3 (0-0.9); NEUT % 79.5 % (16.0-70.0); PLATELET COUNT 341 TH/MM3 (150-450); RED BLOOD COUNT 4.41 MIL/MM3 (4.00-5.30); RED CELL DISTRIBUTION WIDTH 13.3 % (11.6-17.2); WHITE BLOOD COUNT 8.2 TH/MM3 (4.0-11.0)
--- NOTE | 2017-05-10 22:09 | PD ---
HPI Chief Complaint: GI Complaint Time Seen by Provider: 21:49 Travel History International Travel<30 days: No Contact w/Intl Traveler<30days: No Traveled to known affect area: No History of Present Illness HPI Patient states a 4 day history of ongoing nausea vomiting diffuse abdominal crampy pain. States it is 4-5 out of 10 scale, sometimes radiating towards the back mid back. Patient denies any alleviating factors. However patient states that her symptoms are aggravated by drinking or eating food.... Patient states that she has not been compliant with her diabetic medicines however she has been taking her metoprolol for her blood pressure. Patient stated that she also felt some lightheadedness worse with standing or moving about. Patient states allergy to milk, penicillin, shellfish. Past medical history significant for CVA in 2014 neuropathy migraine history of DVT with stent placed in the left leg on Plavix hypercholesterolemia hypertension DVT asthma hysterectomy ovarian cyst GERD fibroids removed from uterus patch in April 2002 also a history of anxiety and depression PFSH Past Medical History Hx Anticoagulant Therapy: Yes (PLAVIX) Arthritis: No Asthma: Yes Autoimmune Disease: No Blood Disorders: No Anxiety: Yes Depression: Yes Heart Rhythm Problems: No Cancer: No Cardiovascular Problems: Yes (HX OF DVT, STENT PLACED IN LEFT LEG) High Cholesterol: Yes Chemotherapy: No Chest Pain: Yes Congestive Heart Failure: No COPD: No Cerebrovascular Accident: Yes (STROKE 2014) Coronary Artery Disease: Yes Diabetes: Yes Patient Takes Glucophage: Yes (metformin) Diminished Hearing: No Deep Vein Thrombosis: Yes Endocrine: Yes Gastrointestinal Disorders: Yes (GASTRITIS) GERD: Yes Genitourinary: No Headaches: Yes Heparin Induced Thrombocytopen: No Hypertension: Yes Immune Disorder: No Implanted Vascular Access Dvce: Yes (STENT IN LEFT LEG) Musculoskeletal: No Neurologic: Yes (CVA IN 2015, NEUROPATHY) Psychiatric: Yes (anixety & depression (pt states that she doesnt take medicine )) Reproductive: No Respiratory: Yes Immunizations Current: Yes Migraines: Yes Radiation Therapy: No Sickle Cell Disease: No Sleep Apnea: No Thyroid Disease: No Tetanus Vaccination: > 5 Years Influenza Vaccination: Yes ?: Not : 3 Para: 0 Miscarriage: 3 : 0 Ovarian Cysts: Yes Past Surgical History Abdominal Surgery: Yes (04/30/02 FIBROIDS REMOVED FROM UTERUS.) AICD: No Arteriovenous Shunt: No Body Medical Devices: LEFT LEG FILTER/ dvt Ear Surgery: No Endocrine Surgery: No Eye Surgery: Yes Genitourinary Surgery: No Gynecologic Surgery: Yes Hysterectomy: Yes (PARTIAL) Insulin Pump: No Joint Replacement: No Oral Surgery: No Pacemaker: No Other Surgery: Yes (MYOMECTOMY, BLOOD CLOT FROM L LEG, R BELOW KNEE AMPUTATION) Social History Alcohol Use: No Tobacco Use: Yes (1/2 PPD) Substance Use: Yes (MARIJUANA/ once month/ last week) Allergies-Medications (Allergen,Severity, Reaction): Coded Allergies: penicillin G (Unverified Allergy, Severe, SWELLING WITH RESP DIFFICULTY, ) shellfish derived (Unverified Allergy, Severe, SWELLING, 05/10/17) tomato (Unverified Allergy, Intermediate, 05/10/17) milk (Unverified Allergy, Unknown, 05/10/17) Reported Meds & Prescriptions Reported Meds & Active Scripts Active Hydrocodone-Acetaminophen 7.5 Mg-325 Mg Tab 2 Tab PO Q4H PRN Iram Contour Next Blood Test Strips (Blood Glucose Test Strips) 1 Erica Erica Strip .ROUTE ACHS PRN Sucralfate Liq (Sucralfate) 1 Gm/10 Ml Melina 1 Gm PO ACHS Reported Atorvastatin (Atorvastatin Calcium) 40 Mg Tab 40 Mg PO HS Citalopram (Citalopram Hydrobromide) 20 Mg Tab 20 Mg PO DAILY Metoprolol Tartrate 25 Mg Tab 12.5 Mg PO BID Albuterol Neb (Albuterol Sulfate) 2.5 Mg/3 Ml Neb 2.5 Mg NEB Q4-6H PRN Proair Hfa 8.5 GM Inh (Albuterol Sulfate) 90 Mcg/Act Aer 2 Puff INH BID 108 mcg/actuation Metformin (Metformin HCl) 500 Mg Tab 500 Mg PO BID With meals Sertraline (Sertraline HCl) Unknown Strength Tab Unknown Dose PO DAILY Pantoprazole (Pantoprazole Sodium) 40 Mg Tab 40 Mg PO DAILY Spiriva Handihaler (Tiotropium Inh) 18 Mcg Cap 18 Mcg INH DAILY 1 capsule = 18 mcg Do Not Swallow Capsule Lyrica (Pregabalin) 50 Mg Cap 50 Mg PO BID Zolpidem (Zolpidem Tartrate) 10 Mg Tab 10 Mg PO HS Clopidogrel (Clopidogrel Bisulfate) 75 Mg Tab 75 Mg PO DAILY Levemir Flextouch Pen Inj (Insulin Detemir) 300 unit/3 ML Pen 10 Units SQ BID Topamax (Topiramate) 50 Mg Tab 50 Mg PO HS Novolog Inj (Insulin Aspart) 1,000 Unit/10 Ml Vial 0 SQ DIRECTED Sliding Scale as directed. Review of Systems General / Constitutional: No: Fever Eyes: No: Visual changes HENT: No: Headaches Cardiovascular: No: Chest Pain or Discomfort Respiratory: No: Shortness of Breath Gastrointestinal: Positive: Nausea, Vomiting Genitourinary: No: Dysuria Musculoskeletal: No: Pain Skin: No Rash Neurologic: No: Weakness Psychiatric: No: Depression Endocrine: No: Polydipsia Hematologic/Lymphatic: No: Easy Bruising Physical Exam Narrative GENERAL: SKIN: Warm and dry. HEAD: Atraumatic. Normocephalic. EYES: Pupils equal and round. No scleral icterus. No injection or drainage. ENT: No nasal bleeding or discharge. Mucous membranes pink and moist. NECK: Trachea midline. No JVD. CARDIOVASCULAR: Regular rate and rhythm. RESPIRATORY: No accessory muscle use. Clear to auscultation. Breath sounds equal bilaterally. GASTROINTESTINAL: Abdomen soft, non-tender, nondistended. MUSCULOSKELETAL: Extremities without clubbing, cyanosis, or edema. No obvious deformities. NEUROLOGICAL: Awake and alert. No obvious cranial nerve deficits. Motor grossly within normal limits. Five out of 5 muscle strength in the arms and legs. Normal speech. PSYCHIATRIC: Appropriate mood and affect; insight and judgment normal. Data Data Last Documented VS Vital Signs Date Time Temp Pulse Resp B/P (MAP) Pulse Ox O2 Delivery O2 Flow Rate FiO2 05/11/17 02:27 72 16 152/67 (95) 100 Room Air 05/10/17 21:47 98.1 Orders Orders Electrocardiogram (05/10/17 21:49) Complete Blood Count With Diff (05/10/17 21:49) Comprehensive Metabolic Panel (05/10/17 21:49) Ckmb (Isoenzyme) Profile (05/10/17 21:49) Troponin I (05/10/17 21:49) B-Type Natriuretic Peptide (05/10/17 21:49) Prothrombin Time / Inr (Pt) (05/10/17 21:49) Act Partial Throm Time (Ptt) (05/10/17 21:49) Lipase (05/10/17 21:49) Urinalysis - C+S If Indicated (05/10/17 21:49) Blood Gas Venous Ph (05/10/17 21:49) Chest, Single Ap (05/10/17 21:49) Iv Access Insert/Monitor (05/10/17 21:49) Ecg Monitoring (05/10/17 21:49) Oximetry (05/10/17 21:49) Drug Screen, Random Urine (05/10/17 21:49) Alcohol (Ethanol) (05/10/17 21:49) Salicylates (Aspirin) (05/10/17 21:49) Tylenol (Acetaminophen) (05/10/17 21:49) NPO (05/10/17 21:49) Ondansetron Inj (Zofran Inj) (05/10/17 22:00) Sodium Chlor 0.9% 1000 Ml Inj (Ns 1000 M (05/10/17 21:49) Sodium Chloride 0.9% Flush (Ns Flush) (05/10/17 22:00) Glucagon Inj (Glucagon Inj) (05/10/17 22:30) Morphine Inj (Morphine Inj) (05/10/17 23:00) CKMB (05/10/17 23:15) CKMB% (05/10/17 23:15) Sodium Chlor 0.9% 1000 Ml Inj (Ns 1000 M (05/11/17 00:45) Ondansetron Inj (Zofran Inj) (05/11/17 01:30) Ct Abd/Pel W Iv Contrast(Rout) (05/11/17 02:07) Arterial Blood Gas (Abg) (05/11/17 01:45) Labs Laboratory Tests Test 05/10/17 21:56 05/10/17 22:00 05/10/17 23:15 05/11/17 00:55 White Blood Count 8.2 TH/MM3 Red Blood Count 4.41 MIL/MM3 Hemoglobin 14.6 GM/DL Hematocrit 42.7 % Mean Corpuscular Volume 96.8 FL Mean Corpuscular Hemoglobin 33.1 PG Mean Corpuscular Hemoglobin Concent 34.1 % Red Cell Distribution Width 13.3 % Platelet Count 341 TH/MM3 Mean Platelet Volume 8.7 FL Neutrophils (%) (Auto) 79.5 % Lymphocytes (%) (Auto) 15.1 % Monocytes (%) (Auto) 3.8 % Eosinophils (%) (Auto) 0.4 % Basophils (%) (Auto) 1.2 % Neutrophils # (Auto) 6.5 TH/MM3 Lymphocytes # (Auto) 1.2 TH/MM3 Monocytes # (Auto) 0.3 TH/MM3 Eosinophils # (Auto) 0.0 TH/MM3 Basophils # (Auto) 0.1 TH/MM3 CBC Comment DIFF FINAL Differential Comment B-Type Natriuretic Peptide 43 PG/ML Venous Blood pH 7.25 Prothrombin Time 11.4 SEC Prothromb Time International Ratio 1.1 RATIO Activated Partial Thromboplast Time 24.1 SEC Blood Urea Nitrogen 3 MG/DL Creatinine 0.69 MG/DL Random Glucose 247 MG/DL Total Protein 8.1 GM/DL Albumin 4.0 GM/DL Calcium Level 8.9 MG/DL Alkaline Phosphatase 94 U/L Aspartate Amino Transf (AST/SGOT) 18 U/L Alanine Aminotransferase (ALT/SGPT) 23 U/L Total Bilirubin 0.5 MG/DL Sodium Level 143 MEQ/L Potassium Level 3.4 MEQ/L Chloride Level 108 MEQ/L Carbon Dioxide Level 22.0 MEQ/L Anion Gap 13 MEQ/L Estimat Glomerular Filtration Rate 110 ML/MIN Total Creatine Kinase 124 U/L Creatine Kinase MB 1.1 NG/ML Troponin I LESS THAN 0.02 NG/ML Lipase 66 U/L Salicylates Level 5.9 MG/DL Acetaminophen Level LESS THAN 2.0 MCG/ML Ethyl Alcohol Level LESS THAN 3 MG/DL Urine Color YELLOW Urine Turbidity CLEAR Urine pH 5.5 Urine Specific [place] 1.039 Urine Protein TRACE mg/dL Urine Glucose (UA) 1000 mg/dL Urine Ketones 150 mg/dL Urine Occult Blood NEG Urine Nitrite NEG Urine Bilirubin NEG Urine Urobilinogen LESS THAN 2.0 MG/DL Urine Leukocyte Esterase NEG Urine RBC LESS THAN 1 /hpf Urine WBC 1 /hpf Urine Squamous Epithelial Cells 2 /hpf Urine Yeast (Budding) RARE Microscopic Urinalysis Comment CULT NOT INDICATED Urine Opiates Screen NEG Urine Barbiturates Screen NEG Urine Amphetamines Screen NEG Urine Benzodiazepines Screen NEG Urine Cocaine Screen POS Urine Cannabinoids Screen POS Test 05/11/17 01:45 Blood Gas Puncture Site RT RADIAL Blood Gas Patient Temperature 98.6 Blood Gas HCO3 18 mmol/L Blood Gas Base Excess -6.6 mmol/L Blood Gas Oxygen Saturation 93 % Arterial Blood pH 7.34 Arterial Blood Partial Pressure CO2 35 mmHg Arterial Blood Partial Pressure O2 90 mmHG Arterial Blood Oxygen Content 17.1 Vol % Arterial Blood Carboxyhemoglobin 3.1 % Arterial Blood Methemoglobin 0.6 % Blood Gas Hemoglobin 13.0 G/DL Oxygen Delivery Device ROOM AIR Blood Gas Inspired Oxygen 21 % [facility] Medical Decision Making Medical Screen Exam Complete: Yes Emergency Medical Condition: Yes Medical Record Reviewed: Yes Interpretation(s) EKG shows evidence of sinus bradycardia, with a rate of 44 bpm, with an occasional ectopic premature atrial complex, patient is also noted to have inverted T waves on the inferior lateral leads of 2 3 aVF V3 V4 V5 and V6. Consistent with ischemic changes. This is very different from a previous EKG noted from 2017 where the patient was showing sinus rhythm, rate between 70 and 85, and had no inverted T waves. Differential Diagnosis Esophagitis versus gastritis versus dyspeptic syndrome versus pancreatitis versus hepatitis versus DKA versus non-STEMI versus atypical STEMI Narrative Course Venous blood gas performed on IV established shows a venous pH of 7.249 consistent with acidosis. In lieu of mildly elevated glucose of 250 this is consistent with early DKA. By noting that the patient had bradycardia not previously established as well as inverted T waves, with ectopic rhythms. The patient is likely to have either an ischemic event or possible beta-hui overdose because she has prescribed metoprolol twice daily. Glucagon will be given urgently to try and evaluate, patient had a great response to the glucagon treatment given. Heart rate improved from the low 40s to now up in the 80s, blood pressures have been stable as well, and pulse ox is also excellent. Critical Care Narrative CRITICAL CARE NOTE: With evaluation of the patient, labs, EKG, receipt of radiologic studies, administration of medications, reevaluation the patient and discussion of the patient with the admitting physicians, the total critical care time was [60] minutes. Time to perform other separately billable procedures was not included in the critical care time. Diagnosis Primary Impression: Symptomatic bradycardia possibly secondary to metoprolol overuse Additional Impression: Acidosis with hyperglycemia possible DKA Juan Carlos Frausto MD May 10, 2017 22:09
[2017-05-10] MEDS ORDERED: METO25TA3 PO (22:14)
[2017-05-10] MEDS ORDERED: CITA20TA4 PO (22:14)
[2017-05-10] MEDS ORDERED: ATOR40TA16 PO (22:14)
--- NOTE | 2017-05-10 22:23 | RADRPT ---
EXAM DATE/TIME: 05/10/2017 21:58 [place] COMPARISON: 03/21/2017. INDICATIONS : Vomiting, abdominal pain, cough. MEDICAL HISTORY : None. SURGICAL HISTORY : None. ENCOUNTER: Initial ACUITY: 1 day PAIN SCORE: 0/10 LOCATION: Bilateral chest FINDINGS: A single view of the chest demonstrates the lungs to be symmetrically aerated without evidence of mas s, infiltrate or effusion. The cardiomediastinal contours are unremarkable. Osseous structures are intact. CONCLUSION: No evidence of acute cardiopulmonary disease. Anoop Gage MD on May 10, 2017 at 22:20 Board Certified Radiologist. This report was verified electronically.
[2017-05-10] MEDS ORDERED: GLUCAGON 1 MG/ML VIAL IV PUSH ONE (22:30)
[2017-05-10] MEDS ORDERED: MORPHINE SULFATE 4 MG/ML INJ IV PUSH ONE (23:00)
[2017-05-10 23:13] VITALS: BP 137/94; PULSE 79; RESP 16; O2SAT 96
[2017-05-10 23:26] VITALS: PULSE 52; RESP 16; O2SAT 98
[2017-05-10 23:44] LABS: INTERNATIONAL NORMALIZED RATIO 1.1 RATIO; PROTHROMBIN TIME - PATIENT 11.4 SEC (9.8-11.6)
[2017-05-10 23:55] LABS: ALKALINE PHOSPHATASE 94 U/L (45-117); ALT (GPT) 23 U/L (10-53); AST (GOT) 18 U/L (15-37); BLOOD UREA NITROGEN 3 MG/DL (7-18); CALCIUM 8.9 MG/DL (8.5-10.1); CHLORIDE 108 MEQ/L (98-107); CREATININE 0.69 MG/DL (0.50-1.00); GLOMERULAR FILTRATION RATE 110 ML/MIN (>89); GLUCOSE,RANDOM 247 MG/DL (74-106); SODIUM (NA) 143 MEQ/L (136-145); TOTAL BILIRUBIN ADULT 0.5 MG/DL (0.2-1.0); TOTAL PROTEIN 8.1 GM/DL (6.4-8.2); TROPONIN I LESS THAN 0.02 NG/ML (0.02-0.05)
[2017-05-10 23:56] LABS: ACETAMINOPHEN LESS THAN 2.0 MCG/ML (10.0-30.0)
[2017-05-11] VITALS (10 sets, daily range): BP systolic 105–152; BP diastolic 55–82; PULSE 59–89; RESP 16–18; TEMP 96.9–98.4; O2SAT 97–100
[2017-05-11] MEDS ORDERED: SODIUM CHLOR 0.9% 1000 ML INJ 1,000 ML IV ONE (00:45)
[2017-05-11 01:18] LABS: BILIRUBIN, URINE NEG (NEG); BLOOD, URINE NEG (NEG); GLUCOSE,URINE 1000 mg/dL (NEG); KETONE, URINE 150 mg/dL (NEG); NITRITE,URINE NEG (NEG); PH, URINE 5.5 (5.0-8.5); SQUAMOUS EPITHELIAL CELL URINE 2 /hpf (0-5); URINE COLOR YELLOW (YELLW/STRAW); URINE LEUKOCYTE ESTERASE NEG (NEG)
[2017-05-11] MEDS ORDERED: ONDANSETRON HCL 4 MG/2 ML VIAL IVP ONE (01:30)
[2017-05-11] MEDS ORDERED: SODIUM CHLORIDE 0.9% FLUSH 10 ML FLUSH IV FLUSH PRN (02:45)
[2017-05-11] MEDS ORDERED: NALOXONE HCL 0.4 MG/ML AMP IV PUSH PRN (02:45)
[2017-05-11] MEDS ORDERED: POTASSIUM CHLORIDE 20 MEQ CONTROLLED RELEASE TAB PO ONE (02:45)
[2017-05-11] MEDS ORDERED: IOHEXOL 350 MG/ML 10 ML VIAL (for RAD DIAG) IVCONTRAST ONE (02:46)
--- NOTE | 2017-05-11 02:56 | RADRPT ---
EXAM DATE/TIME: 05/11/2017 02:33 [place] COMPARISON: CT ABDOMEN & PELVIS W CONTRAST, December 11, 2015, 17:36. CT ABDOMEN & PELVIS W CONTRAST, July 01 7, 2:29. CTA ABDOMEN & PELVIS W 3D RECON, July 03, 2016, 20:39. CT ABDOMEN & PELVIS W CONTRAST, August 01, 2016, 23:03. CT ABDOMEN & PELVIS W CONTRAST, March 21, 2017, 2:06. INDICATIONS : Abdomen pain. IV CONTRAST: 100 cc Omnipaque 350 (iohexol) IV ORAL CONTRAST: Prescribed oral contrast ingested. RADIATION DOSE: 6.64 CTDIvol (mGy) MEDICAL HISTORY : Hypertension. Stroke Cardiovascular disease SURGICAL HISTORY : None. ENCOUNTER: Initial ACUITY: 1 day PAIN SCALE: 5/10 LOCATION: Bilateral abdomen TECHNIQUE: Volumetric scanning of the abdomen and pelvis was performed. Using automated exposure control and ad justment of the mA and/or kV according to patient size, radiation dose was kept as low as reasonably achievable to obtain optimal diagnostic quality images. DICOM format image data is available electro nically for review and comparison. FINDINGS: LOWER LUNGS: The visualized lower lungs are clear. LIVER: There is an area of low-density change involving segment 4 of the liver. This measures 5.5 x 1.9 cm a nd is subcapsular in location. It does not cause displacement of the vessels. This is a long-term sta ble. The remaining aspects of the liver unremarkable. Gallbladder is unremarkable. No ductal dilatati on. Portal vein is patent. SPLEEN: Normal size without lesion. PANCREAS: The pancreatic duct is mildly prominent measuring 4 mm in diameter. This is minimally larger from the prior exams. No obstructing mass or stone. The pancreas is otherwise unremarkable. KIDNEYS: Normal in size and shape. There is no mass, stone or hydronephrosis. ADRENAL GLANDS: Within normal limits. VASCULAR: A stent is seen within the left common iliac artery. Patency cannot be assessed on this standard acqu isitions study. Abdominal aorta is normal in caliber. BOWEL/MESENTERY: Fluid-filled loops of nondilated large and small bowel observed. Fluid is also noted throughout the s tomach. A trace amount of free fluid is seen deep within the pelvis. No free air. ABDOMINAL WALL: Within normal limits. RETROPERITONEUM: There is no lymphadenopathy. BLADDER: There is mild wall thickening in a circumferential fashion involving the urinary bladder. No discrete mass. No air within the lumen. REPRODUCTIVE: There is a 3.1 cm cystic structure within the left adnexa. This abuts the left posterior lateral wall the urinary bladder. This was present on prior studies. It fluctuates in size. INGUINAL: There is no lymphadenopathy or hernia. MUSCULOSKELETAL: Within normal limits for patient age. CONCLUSION: 1. Nonspecific bowel gas pattern with trace amount of free fluid within the pelvis. 2. Area of low density change involving segment 4 the liver is long-term stable. This likely relates to focal fatty infiltration. It can be further assessed with outpatient MRI of the liver if clinicall y warranted. 3. 3.1 cm cystic structure within the left adnexa. This could relate to a hutch diverticulum arising from the urinary bladder. I cannot exclude an ovarian cyst. 4. Mild circumferential wall thickening involving the urinary bladder. This could relate to an acute cystitis. Herbert Wolfe Jr., MD on May 11, 2017 at 2:47 Board Certified Radiologist. This report was verified electronically.
[2017-05-11] MEDS ORDERED: GLUCAGON 1 MG/ML VIAL OTHER PRN (03:00)
[2017-05-11] MEDS ORDERED: DEXTROSE 50% IN WATER 50 ML VIAL(D50) IV PUSH PRN (03:00)
[2017-05-11] MEDS: SODIUM CHLOR 0.9% 1000 ML INJ 1,000 ML IV SCH ×3 (03:06→22:53)
[2017-05-11] MEDS: MORPHINE SULFATE 2 MG/ML INJ IV PUSH PRN ×4 (06:10→20:24)
[2017-05-11] MEDS: SODIUM CHLORIDE 0.9% FLUSH 10 ML FLUSH IV FLUSH SCH ×2 (09:00→20:22)
[2017-05-11] MEDS ORDERED: RESP: ALBUTEROL 2.5 MG/3 ML NEB (PRN) NEB (13:45)
--- NOTE | 2017-05-11 14:06 | HHI.HP ---
HPI Service [facility] Primary Care Physician Refugio Hill DO Admission Diagnosis INTRACTABLE VOMITING Diagnoses: Chief Complaint: Severe Vomiting, abdominal pain Travel History International Travel<30 Days: No Contact w/Intl Traveler <30 Da: No Traveled to Known Affected Are: No History of Present Illness Written by Joanna Pierce, acting as scribe for Dr. Pepe on 05/11/17 at 14:06. Patient is a 47-year-old -[place] female with primary medical history of DVT, CVA in 2013, diabetes, gastritis, HTN, HLD, COPD who came into the hospital for complaints of vomiting, abdominal pain. Patient states that for about 4-5 days she has been vomiting she noted some blood in it. Patient states that everything she ate just comes out. She also noted that the first few days that "even water makes me sick." Discuss result of Utox. Admits to smoking cigarettes, marijuana use but does not know how she got the cocaine. States she was given the "blunt by a friend." State she still have some abdominal pain but improved compared to when she came in. Patient states that she thought that this is the beginning of her DKA as she was feeling like this on her previous hospitalization with DKA. Otherwise, denies shortness of breath or dyspnea. Denies chest pain, palpitations, dizziness. Complains of on and off headaches. Denies dysuria. Review of Systems Except as stated in HPI: all other systems reviewed are Neg Past Family Social History Past Medical History Anxiety, Depression, HTN, Hyperlipidemia, h/o CVA, CAD, h/o DVT and Tobacco Abuse Past Surgical History Fibroid Removal, IVC Filter, Partial Hysterectomy, Right BKA Reported Medications Last Impressions Abdomen/Pelvis CT 05/11/17 0207 Signed Impressions: Service Date/Time: Thursday, May 11, 2017 02:33 - CONCLUSION: 1. Nonspecific bowel gas pattern with trace amount of free fluid within the pelvis. 2. Area of low density change involving segment 4 the liver is long-term stable. This likely relates to focal fatty infiltration. It can be further assessed with outpatient MRI of the liver if clinically warranted. 3. 3.1 cm cystic structure within the left adnexa. This could relate to a hutch diverticulum arising from the urinary bladder. I cannot exclude an ovarian cyst. 4. Mild circumferential wall thickening involving the urinary bladder. This could relate to an acute cystitis. Herbert Wolfe Jr., MD Chest X-Ray 05/10/17 [id number] Signed Impressions: Service Date/Time: Wednesday, May 10, 2017 21:58 - CONCLUSION: No evidence of acute cardiopulmonary disease. Anoop Gage MD Allergies: Coded Allergies: penicillin G (Unverified Allergy, Severe, SWELLING WITH RESP DIFFICULTY, ) shellfish derived (Unverified Allergy, Severe, SWELLING, 05/10/17) tomato (Unverified Allergy, Intermediate, 05/10/17) milk (Unverified Allergy, Unknown, 05/10/17) Active Ordered Medications Current Medications Medications (Trade) Dose Ordered Sig/Lizz Route Start Time Stop Time Status Last Admin (NS Flush) 2 ml UNSCH PRN IV FLUSH 05/10/17 22:00 Sodium Chloride 1,000 ml @ 100 mls/hr Q10H IV 05/11/17 03:00 05/11/17 03:06 (NS Flush) 2 ml UNSCH PRN IV FLUSH 05/11/17 02:45 (NS Flush) 2 ml BID IV FLUSH 05/11/17 09:00 (Narcan Inj) 0.4 mg UNSCH PRN IV PUSH 05/11/17 02:45 (D50w (Vial) Inj) 50 ml UNSCH PRN IV PUSH 05/11/17 03:00 (Glucagon Inj) 1 mg UNSCH PRN OTHER 05/11/17 03:00 (Morphine Inj) 2 mg Q3H PRN IV PUSH 05/11/17 06:00 05/11/17 13:52 (Pneumovax-23 Inj) 25 mcg ONCE ONCE IM 05/12/17 10:00 05/12/17 10:01 (NovoLOG SUPPLEMENTAL SCALE) 1 ACHS SLIDING SCALE SQ 05/11/17 17:00 (Albuterol Neb) 2.5 mg Q6HR NEB PRN NEB 05/11/17 13:45 (Lipitor) 40 mg HS PO 05/11/17 21:00 (CeleXA) 20 mg DAILY PO 05/12/17 09:00 (Plavix) 75 mg DAILY PO 05/12/17 09:00 (Lopressor) 12.5 mg BID PO 05/11/17 21:00 (Lyrica) 50 mg BID PO 05/11/17 21:00 (Carafate Liq) 1 gm ACHS PO 05/11/17 17:00 (Spiriva Inh) 18 mcg DAILY INH 05/12/17 09:00 (Topamax) 50 mg HS PO 05/11/17 21:00 UNV Non-Formulary Medication 10 units BID SQ 05/11/17 21:00 UNV Family History Family history of epilepsy, diabetes Social History Occassional Alcohol Use Current Smoker, 1PPD since age 11 Marijuana Use Physical Exam Vital Signs Vital Signs Date Time Temp Pulse Resp B/P (MAP) Pulse Ox O2 Delivery O2 Flow Rate FiO2 05/11/17 13:01 98.3 63 18 136/82 (100) 98 05/11/17 12:00 96.9 78 17 132/74 (93) 97 05/11/17 10:50 18 05/11/17 07:13 63 17 124/67 (86) 98 Room Air 05/11/17 05:07 98.1 59 16 139/78 (98) 98 Room Air 05/11/17 04:11 75 16 105/55 (72) 100 Room Air 05/11/17 02:27 72 16 152/67 (95) 100 Room Air 05/11/17 00:37 80 16 115/64 (81) 100 Room Air 05/10/17 23:26 52 16 98 Room Air 05/10/17 23:13 79 16 137/94 (108) 96 Room Air 05/10/17 21:52 96 Room Air 05/10/17 21:47 98.1 50 30 178/80 (112) 95 Room Air Physical Exam GENERAL: This is a Thin appearing, well-developed patient, in no apparent distress. SKIN: Warm and dry. HEAD: Atraumatic. EYES: Pupils equal round and reactive. Extraocular motions intact. No scleral icterus. No injection or drainage. ENT: Nose without bleeding. Throat without erythema. Uvula midline. Airway patent. NECK: Trachea midline. No JVD or lymphadenopathy. Supple, nontender, no meningeal signs. CARDIOVASCULAR: Regular rate and rhythm without murmurs, gallops, or rubs. RESPIRATORY: Clear to auscultation. Breath sounds equal bilaterally. No wheezes , rales, or rhonchi. GASTROINTESTINAL: Abdomen soft, nondistended. Bowel sounds active 4. Diffuse abdominal tenderness to palpate the MUSCULOSKELETAL: Extremities without clubbing, cyanosis, or edema. NEUROLOGICAL: Awake and alert. Motor and sensory grossly within normal limits. Five out of 5 muscle strength in all muscle groups. Normal speech. Laboratory Laboratory Tests Test 05/10/17 21:56 05/10/17 22:00 05/10/17 23:15 05/11/17 00:55 White Blood Count 8.2 Red Blood Count 4.41 Hemoglobin 14.6 Hematocrit 42.7 Mean Corpuscular Volume 96.8 Mean Corpuscular Hemoglobin 33.1 Mean Corpuscular Hemoglobin Concent 34.1 Red Cell Distribution Width 13.3 Platelet Count 341 Mean Platelet Volume 8.7 Neutrophils (%) (Auto) 79.5 Lymphocytes (%) (Auto) 15.1 Monocytes (%) (Auto) 3.8 Eosinophils (%) (Auto) 0.4 Basophils (%) (Auto) 1.2 Neutrophils # (Auto) 6.5 Lymphocytes # (Auto) 1.2 Monocytes # (Auto) 0.3 Eosinophils # (Auto) 0.0 Basophils # (Auto) 0.1 CBC Comment DIFF FINAL Differential Comment B-Type Natriuretic Peptide 43 Venous Blood pH 7.25 Prothrombin Time 11.4 Prothromb Time International Ratio 1.1 Activated Partial Thromboplast Time 24.1 Blood Urea Nitrogen 3 Creatinine 0.69 Random Glucose 247 Total Protein 8.1 Albumin 4.0 Calcium Level 8.9 Alkaline Phosphatase 94 Aspartate Amino Transf (AST/SGOT) 18 Alanine Aminotransferase (ALT/SGPT) 23 Total Bilirubin 0.5 Sodium Level 143 Potassium Level 3.4 Chloride Level 108 Carbon Dioxide Level 22.0 Anion Gap 13 Estimat Glomerular Filtration Rate 110 Total Creatine Kinase 124 Creatine Kinase MB 1.1 Troponin I LESS THAN 0.02 Lipase 66 Salicylates Level 5.9 Acetaminophen Level LESS THAN 2.0 Ethyl Alcohol Level LESS THAN 3 Urine Color YELLOW Urine Turbidity CLEAR Urine pH 5.5 Urine Specific [place] 1.039 Urine Protein TRACE Urine Glucose (UA) 1000 Urine Ketones 150 Urine Occult Blood NEG Urine Nitrite NEG Urine Bilirubin NEG Urine Urobilinogen LESS THAN 2.0 Urine Leukocyte Esterase NEG Urine RBC LESS THAN 1 Urine WBC 1 Urine Squamous Epithelial Cells 2 Urine Yeast (Budding) RARE Microscopic Urinalysis Comment CULT NOT INDICATED Urine Opiates Screen NEG Urine Barbiturates Screen NEG Urine Amphetamines Screen NEG Urine Benzodiazepines Screen NEG Urine Cocaine Screen POS Urine Cannabinoids Screen POS Test 05/11/17 01:45 Blood Gas Puncture Site RT RADIAL Blood Gas Patient Temperature 98.6 Blood Gas HCO3 18 Blood Gas Base Excess -6.6 Blood Gas Oxygen Saturation 93 Arterial Blood pH 7.34 Arterial Blood Partial Pressure CO2 35 Arterial Blood Partial Pressure O2 90 Arterial Blood Oxygen Content 17.1 Arterial Blood Carboxyhemoglobin 3.1 Arterial Blood Methemoglobin 0.6 Blood Gas Hemoglobin 13.0 Oxygen Delivery Device ROOM AIR Blood Gas Inspired Oxygen 21 Result Diagram: 05/10/176 05/10/175 Imaging Last Impressions Abdomen/Pelvis CT 05/11/17 0207 Signed Impressions: Service Date/Time: Thursday, May 11, 2017 02:33 - CONCLUSION: 1. Nonspecific bowel gas pattern with trace amount of free fluid within the pelvis. 2. Area of low density change involving segment 4 the liver is long-term stable. This likely relates to focal fatty infiltration. It can be further assessed with outpatient MRI of the liver if clinically warranted. 3. 3.1 cm cystic structure within the left adnexa. This could relate to a hutch diverticulum arising from the urinary bladder. I cannot exclude an ovarian cyst. 4. Mild circumferential wall thickening involving the urinary bladder. This could relate to an acute cystitis. Herbert Wolfe Jr., MD Chest X-Ray 05/10/172148 Signed Impressions: Service Date/Time: Wednesday, May 10, 2017 21:58 - CONCLUSION: No evidence of acute cardiopulmonary disease. Anoop Gage MD Caprini VTE Risk Assessment Caprini VTE Risk Assessment: Mod/High Risk (score >= 2) Caprini Risk Assessment Model Point Value = 1 Point Value = 2 Point Value = 3 Point Value = 5 Age 41-60 Minor surgery BMI > 25 kg/m2 Swollen legs Varicose veins or History of unexplained or recurrent spontaneous Oral contraceptives or hormone replacement Sepsis (< 1 month) Serious lung disease, including pneumonia (< 1 month) Abnormal pulmonary function Acute myocardial infarction Congestive heart failure (< 1 month) History of inflammatory bowel disease Medical patient at bed rest Age 61-74 Arthroscopic surgery Major open surgery (> 45 min) Laparoscopic surgery (> 45 min) Malignancy Confined to bed (> 72 hours) Immobilizing plaster cast Central venous access Age >= 75 History of VTE Family history of VTE Factor V Leiden Prothrombin [id number] Lupus anticoagulant Anticardiolipin antibodies Elevated serum homocysteine Heparin-induced thrombocytopenia Other congenital or acquired thrombophilia Stroke (< 1 month) Elective arthroplasty Hip, pelvis, or leg fracture Acute spinal cord injury (< 1 month) Prophylaxis Regimen Total Risk Factor Score Risk Level Prophylaxis Regimen 0-1 Low Early ambulation 2 Moderate Order ONE of the following: *Sequential Compression Device (SCD) *Heparin 5000 units SQ BID 3-4 Higher Order ONE of the following medications: *Heparin 5000 units SQ TID *Enoxaparin/Lovenox 40 mg SQ daily (WT < 150 kg, CrCl > 30 mL/min) *Enoxaparin/Lovenox 30 mg SQ daily (WT < 150 kg, CrCl > 10-29 mL/min) *Enoxaparin/Lovenox 30 mg SQ BID (WT < 150 kg, CrCl > 30 mL/min) AND/OR *Sequential Compression Device (SCD) 5 or more Highest Order ONE of the following medications: *Heparin 5000 units SQ TID (Preferred with Epidurals) *Enoxaparin/Lovenox 40 mg SQ daily (WT < 150 kg, CrCl > 30 mL/min) *Enoxaparin/Lovenox 30 mg SQ daily (WT < 150 kg, CrCl > 10-29 mL/min) *Enoxaparin/Lovenox 30 mg SQ BID (WT < 150 kg, CrCl > 30 mL/min) AND *Sequential Compression Device (SCD) Assessment and Plan Problem List: (1) Abdominal pain ICD Code: R10.9 - Unspecified abdominal pain Status: Acute (2) Hyperglycemia due to type 2 diabetes mellitus ICD Code: E11.65 - Type 2 diabetes mellitus with hyperglycemia Status: Acute (3) Intractable nausea and vomiting ICD Code: R11.2 - Nausea with vomiting, unspecified Status: Acute (4) DM (diabetes mellitus) ICD Code: E11.9 - Type 2 diabetes mellitus without complications Status: Chronic (5) HTN (hypertension) ICD Code: I10 - Essential (primary) hypertension Status: Acute (6) Tobacco abuse ICD Code: Z72.0 - Tobacco use Status: Acute (7) Nausea and vomiting ICD Code: R11.2 - Nausea with vomiting, unspecified Status: Acute Assessment and Plan Patient is a 47-year-old -[place] female with primary medical history of DVT, CVA in 2013, diabetes, gastritis, HTN, HLD, COPD who came into the hospital for complaints of vomiting, abdominal pain Abdominal pain Intractable nausea, vomiting Possible gastroparesis secondary to diabetes -CT Abd Pelvis 1. Nonspecific bowel gas pattern with trace amount of free fluid within the pelvis. 2. Area of low-density change involving segment of liver as halfway stable. This likely relates to focal fatty infiltration. 3. 3.1 cm cystic structure within the left adnexa. This could relate to a Love diverticulum arising from the urinary bladder. Cannot exclude ovarian cyst. 4. Mild circumferential wall thickening involving the urinary bladder. This could relate to an acute cystitis -Zofran for nausea/vomiting -UA negative -GI consult for further evaluation and recommendations DM 2, with hyperglycemia Uncontrolled diabetes -Possible compliance issues -Anion gap is closed -Continue insulin sliding scale, Levemir 10 units twice daily -Monitor Accu-Cheks, check hemoglobin A1c HTN HLD -Continue home medications, Plavix 75 mg daily, atorvastatin 40 mg daily, hold off metoprolol for now secondary to cocaine use. -Clonidine PRN. -Monitor BP trend Tobacco abuse Substance abuse -Counseled. Nicotine patch. COPD, not an exacerbation -Continue Spiriva, duo nebs as needed Depression -Continue citalopram 20 mg daily Migraine Neuropathy -Continue Topamax nightly, Lyrica 50 mg twice daily DVT problem history of DVT with IVC filter, Lovenox This note was transcribed by KERON Booth. I, Dr. Florinda Pepe personally performed the history, physical exam, and medical decision making; and confirmed the accuracy of the information in the transcribed note. Authenticated by Dr. Florinda Pepe on 05/11/17 at 14:06. Code Status Full Code Discussed Condition With Patient, nursing Joanna Carpenter May 11, 2017 14:06 Florinda Pepe MD May 11, 2017 14:38
[2017-05-11] MEDS ORDERED: PILL SPLITTER OTHER PRN (14:15)
[2017-05-11] MEDS ORDERED: POTASSIUM CHLORIDE 10 MEQ CONTROLLED RELEASE TAB PO ONE (14:45)
[2017-05-11] MEDS ORDERED: cloNIDine HCL 0.1 MG TAB PO PRN (15:15)
[2017-05-11] MEDS: ONDANSETRON HCL 4 MG/2 ML VIAL IV PUSH PRN (15:21)
[2017-05-11] MEDS ORDERED: POLYETHYLENE GLYCOL 17 GM PKG PO PRN (15:45)
[2017-05-11] MEDS: REMOVE OLD PATCH T-DERMAL SCH (16:00)
[2017-05-11] MEDS: NICOTINE 21 MG/24 HR PATCH T-DERMAL SCH (16:19)
[2017-05-11] MEDS: PANTOPRAZOLE SODIUM 40 MG VIAL IV PUSH SCH (16:20)
[2017-05-11] MEDS: ENOXAPARIN SODIUM 40 MG/0.4 ML SYRINGE SQ SCH (16:20)
[2017-05-11] MEDS: SUCRALFATE 1 GM/10 ML CUP PO SCH ×2 (16:20→20:20)
--- NOTE | 2017-05-11 16:22 | PD.CONS ---
HPI History of Present Illness This is a 47 year old frail female admitted to the hospital on 05/10/17 in the p.m. patient's symptoms include nausea vomiting diffuse cramping abdominal pain fairly consistent for the past 4 days. Patient states she's not been able to take any of her medications which includes Plavix. Today nausea continues with symptoms of heartburn off and on at least twice a week. Currently patient has no vomiting, but states she has had a weight loss from 167 pounds to 85 pounds over the past 2 years. Patient currently denies any hematemesis or rectal bleeding. Patient states she had EGD colonoscopy this past year and was diagnosed with ulcerative colitis. She consistently has had diarrhea most of the time alternating with some constipation. States her symptoms were initially worse for approximately a month after her last GI testing. After hospital stay patient had no follow-up with GI and states that she had insurance issues. She is a positive smoker but does show the need to want to quit. Currently patient has mid abdominal pain which radiates out into all borders of her abdomen, mild to moderate tenderness noted on light palpation. (Lizeth Maloney) PFSH Past Medical History Anxiety, Depression, HTN, Hyperlipidemia, CAD, h/o DVT and Tobacco Abuse Diabetes with neuropathy CVA 2015 Diagnosis of ulcerative colitis within the past year or 2 Smoker Noncompliance Past Surgical History Fibroid Removal, IVC Filter, Partial Hysterectomy, Right BKA (Lizeth Maloney) Coded Allergies: penicillin G (Unverified Allergy, Severe, SWELLING WITH RESP DIFFICULTY, ) shellfish derived (Unverified Allergy, Severe, SWELLING, 05/10/17) tomato (Unverified Allergy, Intermediate, 05/10/17) milk (Unverified Allergy, Unknown, 05/10/17) Medications Administered Medications Medications (Trade) Dose Ordered Sig/Lizz Route PRN Reason Start Time Stop Time Status Last Admin Dose Admin Sodium Chloride 1,000 ml @ 100 mls/hr Q10H IV 05/11/17 03:00 05/11/17 03:06 Morphine Sulfate (Morphine Inj) 2 mg Q3H PRN IV PUSH pain >5 05/11/17 06:00 05/11/17 13:52 Ondansetron HCl (Zofran Inj) 4 mg Q6HR PRN IV PUSH NAUSEA OR VOMITING 05/11/17 15:00 05/11/17 15:21 Family History Family history of epilepsy, diabetes Social History Occassional Alcohol Use Current Smoker, 1PPD since age 11 Marijuana Use (Lizeth Maloney) Review of Systems Constitutional: COMPLAINS OF: Fatigue, Weight loss Gastrointestinal: COMPLAINS OF: Abdominal pain, Diarrhea, Nausea, Vomiting ( Lizeth Maloney) GI Exam Vitals I&O Vital Signs Date Time Temp Pulse Resp B/P (MAP) Pulse Ox O2 Delivery O2 Flow Rate FiO2 05/11/17 13:01 98.3 63 18 136/82 (100) 98 05/11/17 12:00 96.9 78 17 132/74 (93) 97 05/11/17 10:50 18 05/11/17 07:13 63 17 124/67 (86) 98 Room Air 05/11/17 05:07 98.1 59 16 139/78 (98) 98 Room Air 05/11/17 04:11 75 16 105/55 (72) 100 Room Air 05/11/17 02:27 72 16 152/67 (95) 100 Room Air 05/11/17 00:37 80 16 115/64 (81) 100 Room Air 05/10/17 23:26 52 16 98 Room Air 05/10/17 23:13 79 16 137/94 (108) 96 Room Air 05/10/17 21:52 96 Room Air 05/10/17 21:47 98.1 50 30 178/80 (112) 95 Room Air I/O 05/10/17 05/10/17 05/10/17 05/11/17 05/11/17 05/11/17 07:00 15:00 23:00 07:00 15:00 23:00 Intake Total 4000 ml 240 ml Output Total 150 ml Balance 3850 ml 240 ml Intake Oral 240 ml IV Total 4000 ml Output Urine Total 150 ml # Voids 2 Imaging Last Impressions Abdomen/Pelvis CT 05/11/17 0207 Signed Impressions: Service Date/Time: Thursday, May 11, 2017 02:33 - CONCLUSION: 1. Nonspecific bowel gas pattern with trace amount of free fluid within the pelvis. 2. Area of low density change involving segment 4 the liver is long-term stable. This likely relates to focal fatty infiltration. It can be further assessed with outpatient MRI of the liver if clinically warranted. 3. 3.1 cm cystic structure within the left adnexa. This could relate to a hutch diverticulum arising from the urinary bladder. I cannot exclude an ovarian cyst. 4. Mild circumferential wall thickening involving the urinary bladder. This could relate to an acute cystitis. Herbert Wolfe Jr., MD Chest X-Ray 05/10/17 9162 Signed Impressions: Service Date/Time: Wednesday, May 10, 2017 21:58 - CONCLUSION: No evidence of acute cardiopulmonary disease. Anoop Gage MD Laboratory Test 05/10/17 21:56 05/10/17 22:00 05/10/17 23:15 05/11/17 00:55 White Blood Count 8.2 TH/MM3 Red Blood Count 4.41 MIL/MM3 Hemoglobin 14.6 GM/DL Hematocrit 42.7 % Mean Corpuscular Volume 96.8 FL Mean Corpuscular Hemoglobin 33.1 PG Mean Corpuscular Hemoglobin Concent 34.1 % Red Cell Distribution Width 13.3 % Platelet Count 341 TH/MM3 Mean Platelet Volume 8.7 FL Neutrophils (%) (Auto) 79.5 % Lymphocytes (%) (Auto) 15.1 % Monocytes (%) (Auto) 3.8 % Eosinophils (%) (Auto) 0.4 % Basophils (%) (Auto) 1.2 % Neutrophils # (Auto) 6.5 TH/MM3 Lymphocytes # (Auto) 1.2 TH/MM3 Monocytes # (Auto) 0.3 TH/MM3 Eosinophils # (Auto) 0.0 TH/MM3 Basophils # (Auto) 0.1 TH/MM3 CBC Comment DIFF FINAL Differential Comment B-Type Natriuretic Peptide 43 PG/ML Venous Blood pH 7.25 Prothrombin Time 11.4 SEC Prothromb Time International Ratio 1.1 RATIO Activated Partial Thromboplast Time 24.1 SEC Blood Urea Nitrogen 3 MG/DL Creatinine 0.69 MG/DL Random Glucose 247 MG/DL Total Protein 8.1 GM/DL Albumin 4.0 GM/DL Calcium Level 8.9 MG/DL Alkaline Phosphatase 94 U/L Aspartate Amino Transf (AST/SGOT) 18 U/L Alanine Aminotransferase (ALT/SGPT) 23 U/L Total Bilirubin 0.5 MG/DL Sodium Level 143 MEQ/L Potassium Level 3.4 MEQ/L Chloride Level 108 MEQ/L Carbon Dioxide Level 22.0 MEQ/L Anion Gap 13 MEQ/L Estimat Glomerular Filtration Rate 110 ML/MIN Total Creatine Kinase 124 U/L Creatine Kinase MB 1.1 NG/ML Troponin I LESS THAN 0.02 NG/ML Lipase 66 U/L Salicylates Level 5.9 MG/DL Acetaminophen Level LESS THAN 2.0 MCG/ML Ethyl Alcohol Level LESS THAN 3 MG/DL Urine Color YELLOW Urine Turbidity CLEAR Urine pH 5.5 Urine Specific [place] 1.039 Urine Protein TRACE mg/dL Urine Glucose (UA) 1000 mg/dL Urine Ketones 150 mg/dL Urine Occult Blood NEG Urine Nitrite NEG Urine Bilirubin NEG Urine Urobilinogen LESS THAN 2.0 MG/DL Urine Leukocyte Esterase NEG Urine RBC LESS THAN 1 /hpf Urine WBC 1 /hpf Urine Squamous Epithelial Cells 2 /hpf Urine Yeast (Budding) RARE Microscopic Urinalysis Comment CULT NOT INDICATED Urine Opiates Screen NEG Urine Barbiturates Screen NEG Urine Amphetamines Screen NEG Urine Benzodiazepines Screen NEG Urine Cocaine Screen POS Urine Cannabinoids Screen POS Test 05/11/17 01:45 Blood Gas Puncture Site RT RADIAL Blood Gas Patient Temperature 98.6 Blood Gas HCO3 18 mmol/L Blood Gas Base Excess -6.6 mmol/L Blood Gas Oxygen Saturation 93 % Arterial Blood pH 7.34 Arterial Blood Partial Pressure CO2 35 mmHg Arterial Blood Partial Pressure O2 90 mmHG Arterial Blood Oxygen Content 17.1 Vol % Arterial Blood Carboxyhemoglobin 3.1 % Arterial Blood Methemoglobin 0.6 % Blood Gas Hemoglobin 13.0 G/DL Oxygen Delivery Device ROOM AIR Blood Gas Inspired Oxygen 21 % Physical Examination HEENT: normocephalic; atraumatic; no jaundice. Frail sunken cheekbones NECK: Neck is supple, thin CHEST: Chest without acute rhonchi and wheezing, essentially clear CARDIAC: Regular rate and rhythm ABDOMEN: Flat, taut, tenderness mid abdomen radiating out to the borders bowel sounds are present in all four quadrants. EXTREMITIES: No clubbing, cyanosis, or edema. Right BKA, frail SKIN: Normal; no rash; no jaundice. SHEET FOLDER: Awake, tearful ,oriented times three. (Lizeth Maloney) Assessment and Plan Assessment: (1) Anemia ICD Codes: D64.9 - Anemia, unspecified Status: Acute (2) Colitis ICD Codes: K52.9 - Noninfective gastroenteritis and colitis, unspecified Status: Acute (3) Nausea and vomiting ICD Codes: R11.2 - Nausea with vomiting, unspecified Status: Acute Plan Nausea vomiting heartburn multiple times a week, uncontrolled nausea and vomiting for 4 days to the point that she has taken no routine medications including Plavix. Significant weight loss from 167-85 pounds over the past 1-2 years patient states previous EGD and colonoscopy showed ulcerative colitis but patient never received any treatment medication or follow-up after she left the hospital. Currently the patient has more symptoms of diarrhea, but does have some constipation itch waxes and wanes. Admits to eating very minimal amounts of food which usually consist of the broth in chicken noodle soup and crackers. Increased stressors in her life, patient is tearful currently talking to her on the phone. Diarrhea uncontrolled with significant weight loss Probable noncompliance with medications and her comorbidities. History of CVA in 2014 Anemia probably secondary to her chronic diseases Plan Consent for EGD colonoscopy in a.m. we'll attempt prep with mag citrate 3 bottles, we'll need to monitor her ability to consume prep secondary to her nausea and vomiting. Nothing by mouth at midnight except for meds, no Plavix until after procedure Clear liquid diet for now, until midnight tonight Monitor for any acute symptoms of bleeding Monitor labs PPI Zofran MiraLAX bowel regimen only as needed Further recommendations will be based on the findings and patient's symptoms Patient has been seen and examined per myself and Dr. Escobar, this note was written on his behalf (Lizeth Maloney) Physician Comments Seen with cam Paez as above. EGD and Colonoscopy . Further recommendations to follow. Thank you for the consult. (Willi Escobar MD) Lizeth Maloney May 11, 2017 16:22 Willi Escobar MD May 12, 2017 10:11
[2017-05-11] MEDS ORDERED: MAGNESIUM CITRATE SOLN 300 ML BTL PO ONE (17:00)
[2017-05-11 17:54] LABS: AUTOMATED NEUTROPHIL # 4.8 TH/MM3 (1.8-7.7); BASOPHIL # 0.1 TH/MM3 (0-0.2); BASOPHIL % 0.7 % (0.0-2.0); EOSINOPHIL # 0.2 TH/MM3 (0-0.4); EOSINOPHIL % 2.7 % (0.0-4.0); HEMOGLOBIN 13.9 GM/DL (11.6-15.3); LYMPH % 33.3 % (9.0-44.0); LYMPHOCYTE # 2.8 TH/MM3 (1.0-4.8); MEAN CELL VOLUME 98.4 FL (80.0-100.0); MEAN CORPUSCULAR HEMOGLOBIN 33.2 PG (27.0-34.0); MEAN CORPUSCULAR HGB CONC 33.8 % (32.0-36.0); MEAN PLATELET VOLUME 7.9 FL (7.0-11.0); MONO % 7.1 % (0.0-8.0); MONOCYTE # 0.6 TH/MM3 (0-0.9); NEUT % 56.2 % (16.0-70.0); PLATELET COUNT 272 TH/MM3 (150-450); RED BLOOD COUNT 4.17 MIL/MM3 (4.00-5.30); RED CELL DISTRIBUTION WIDTH 12.8 % (11.6-17.2); WHITE BLOOD COUNT 8.5 TH/MM3 (4.0-11.0)
[2017-05-11 18:27] LABS: BICARBONATE 20.3 MEQ/L (21.0-32.0); CALCIUM 8.1 MG/DL (8.5-10.1); CREATININE 0.69 MG/DL (0.50-1.00)
[2017-05-11] MEDS ORDERED: MAGNESIUM CITRATE SOLN 300 ML BTL PO SCH (19:00)
[2017-05-11] MEDS: INSULIN ASPART SUPPLEMENTAL SCALE SQ SCH ×2 (19:11→22:52)
[2017-05-11] MEDS: PREGABALIN 25 MG CAP PO SCH (20:21)
[2017-05-11] MEDS: ATORVASTATIN 40 MG TAB PO SCH (20:21)
[2017-05-11] MEDS: TOPIRAMATE 25 MG TAB PO SCH (20:21)
[2017-05-11] MEDS ORDERED: METOPROLOL TARTRATE 25 MG TAB PO SCH (21:00)
[2017-05-11] MEDS: INSULIN DETEMIR 100 UNITS/ML VIAL SQ SCH (22:51)
--- NOTE | 2017-05-11 23:32 | EKG ---
Date Performed: 05/10/2017 Time Performed: 22:04:53 PTAGE: 47 years EKG: SINUS BRADYCARDIA WITH OCCASIONAL ECTOPIC PREMATURE COMPLEXES MODERATE T-WAVE ABNORMALITY, CONSIDER ANTEROLATERAL ISCHEMIA MODERATE T-WAVE ABNORMALITY, CONSIDER INFERIOR ISCHEMIA ABNORMAL ECG PREVIOUS TRACING : 03/20/2017 23.48 Compared to previous tracing SINUS BRADYCARDIA AND T WAVE A BNORMALITIES ARE NEW DOCTOR: Sid Pabon Interpretating Date/Time 05/11/2017 23:30:31
[2017-05-12] VITALS (8 sets, daily range): BP systolic 103–149; BP diastolic 68–84; PULSE 57–82; RESP 16–18; TEMP 97.2–98.2; O2SAT 98–100
[2017-05-12] MEDS: MORPHINE SULFATE 2 MG/ML INJ IV PUSH PRN ×5 (00:54→21:29)
[2017-05-12] MEDS ORDERED: MAGNESIUM CITRATE SOLN 300 ML BTL PO SCH (02:00)
[2017-05-12] MEDS: PANTOPRAZOLE SODIUM 40 MG VIAL IV PUSH SCH ×2 (04:43→17:34)
[2017-05-12] MEDS: SUCRALFATE 1 GM/10 ML CUP PO SCH ×4 (08:00→23:42)
[2017-05-12] MEDS: INSULIN ASPART SUPPLEMENTAL SCALE SQ SCH ×4 (08:00→21:29)
[2017-05-12 08:13] LABS: BASOPHIL % 0.6 % (0.0-2.0); EOSINOPHIL # 0.2 TH/MM3 (0-0.4); EOSINOPHIL % 3.1 % (0.0-4.0); HEMATOCRIT 38.9 % (35.0-46.0); HEMOGLOBIN 13.3 GM/DL (11.6-15.3); LYMPH % 32.6 % (9.0-44.0); LYMPHOCYTE # 1.8 TH/MM3 (1.0-4.8); MEAN CELL VOLUME 96.7 FL (80.0-100.0); MEAN CORPUSCULAR HEMOGLOBIN 33.1 PG (27.0-34.0); MEAN CORPUSCULAR HGB CONC 34.2 % (32.0-36.0); MEAN PLATELET VOLUME 7.7 FL (7.0-11.0); MONO % 9.5 % (0.0-8.0); MONOCYTE # 0.5 TH/MM3 (0-0.9); NEUT % 54.2 % (16.0-70.0); PLATELET COUNT 293 TH/MM3 (150-450); RED BLOOD COUNT 4.03 MIL/MM3 (4.00-5.30); RED CELL DISTRIBUTION WIDTH 12.6 % (11.6-17.2); WHITE BLOOD COUNT 5.5 TH/MM3 (4.0-11.0)
[2017-05-12 08:38] LABS: ALBUMIN 2.8 GM/DL (3.4-5.0); ALKALINE PHOSPHATASE 59 U/L (45-117); ALT (GPT) 19 U/L (10-53); AST (GOT) 17 U/L (15-37); BICARBONATE 24.9 MEQ/L (21.0-32.0); BLOOD UREA NITROGEN LESS THAN 1 MG/DL (7-18); CALCIUM 7.9 MG/DL (8.5-10.1); CHLORIDE 110 MEQ/L (98-107); CREATININE 0.46 MG/DL (0.50-1.00); GLOMERULAR FILTRATION RATE 175 ML/MIN (>89); GLUCOSE,RANDOM 79 MG/DL (74-106); SODIUM (NA) 143 MEQ/L (136-145); TOTAL BILIRUBIN ADULT 0.4 MG/DL (0.2-1.0); TOTAL PROTEIN 5.6 GM/DL (6.4-8.2)
[2017-05-12] MEDS ORDERED: POTASSIUM CHLORIDE 10 MEQ CONTROLLED RELEASE TAB PO ONE (08:45)
--- NOTE | 2017-05-12 08:47 | HHI.PR ---
Subjective Remarks Low K, replaced Patient says she is not eating much. Her BS is noted into a lower side. Still nauseated did not vomit. No fever or chills. Objective Vitals Vital Signs Date Time Temp Pulse Resp B/P (MAP) Pulse Ox O2 Delivery O2 Flow Rate FiO2 05/12/17 07:50 98.1 82 18 120/76 (91) 98 05/12/17 03:47 97.2 73 16 103/68 (80) 98 05/12/17 01:10 81 05/11/17 23:51 98.3 84 16 119/79 (92) 99 05/11/17 19:52 98.4 89 16 108/77 (87) 100 05/11/17 16:07 98.0 77 16 140/81 (100) 98 05/11/17 13:01 98.3 63 18 136/82 (100) 98 05/11/17 12:00 96.9 78 17 132/74 (93) 97 05/11/17 10:50 18 I/O 05/11/17 05/11/17 05/11/17 05/12/17 05/12/17 05/12/17 07:00 15:00 23:00 07:00 15:00 23:00 Intake Total 4000 ml 240 ml Output Total 150 ml Balance 3850 ml 240 ml Intake Oral 240 ml IV Total 4000 ml Output Urine Total 150 ml # Voids 2 Result Diagram: 05/12/17 0731 05/12/17 0731 Imaging Last Impressions Abdomen/Pelvis CT 05/11/17 0207 Signed Impressions: Service Date/Time: Thursday, May 11, 2017 02:33 - CONCLUSION: 1. Nonspecific bowel gas pattern with trace amount of free fluid within the pelvis. 2. Area of low density change involving segment 4 the liver is long-term stable. This likely relates to focal fatty infiltration. It can be further assessed with outpatient MRI of the liver if clinically warranted. 3. 3.1 cm cystic structure within the left adnexa. This could relate to a hutch diverticulum arising from the urinary bladder. I cannot exclude an ovarian cyst. 4. Mild circumferential wall thickening involving the urinary bladder. This could relate to an acute cystitis. Herbert Wolfe Jr., MD Chest X-Ray 05/10/17 8201 Signed Impressions: Service Date/Time: Wednesday, May 10, 2017 21:58 - CONCLUSION: No evidence of acute cardiopulmonary disease. Anoop Gage MD Objective Remarks GENERAL: This is a Thin appearing, well-developed patient, in no apparent distress. CARDIOVASCULAR: Regular rate and rhythm without murmurs, gallops, or rubs. RESPIRATORY: Clear to auscultation. Breath sounds equal bilaterally. No wheezes , rales, or rhonchi. GASTROINTESTINAL: Abdomen soft, nondistended. Bowel sounds active 4. Diffuse abdominal tenderness to palpate the MUSCULOSKELETAL: Extremities without clubbing, cyanosis, or edema. NEUROLOGICAL: Awake and alert. Motor and sensory grossly within normal limits. Five out of 5 muscle strength in all muscle groups. Normal speech. A/P Problem List: (1) Abdominal pain ICD Code: R10.9 - Unspecified abdominal pain Status: Acute (2) Hyperglycemia due to type 2 diabetes mellitus ICD Code: E11.65 - Type 2 diabetes mellitus with hyperglycemia Status: Acute (3) Intractable nausea and vomiting ICD Code: R11.2 - Nausea with vomiting, unspecified Status: Acute (4) DM (diabetes mellitus) ICD Code: E11.9 - Type 2 diabetes mellitus without complications Status: Chronic (5) HTN (hypertension) ICD Code: I10 - Essential (primary) hypertension Status: Acute (6) Tobacco abuse ICD Code: Z72.0 - Tobacco use Status: Acute (7) Nausea and vomiting ICD Code: R11.2 - Nausea with vomiting, unspecified Status: Acute Assessment and Plan 05/12/17 Patient is a 47-year-old -[place]i female with primary medical history of DVT, CVA in 2013, diabetes, gastritis, HTN, HLD, COPD who came into the hospital for complaints of vomiting, abdominal pain Abdominal pain Intractable nausea, vomiting Possible gastroparesis secondary to diabetes -CT Abd Pelvis 1. Nonspecific bowel gas pattern with trace amount of free fluid within the pelvis. 2. 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 This likely relates to focal fatty infiltration. 3. 3.1 cm cystic structure within the left adnexa. This could relate to a Love diverticulum arising from the urinary bladder. Cannot exclude ovarian cyst. 4. Mild circumferential wall thickening involving the urinary bladder. This could relate to an acute cystitis -Zofran for nausea/vomiting -UA negative -GI consult for further evaluation and recommendations. Plan for EGD DM 2, with hyperglycemia on admission Uncontrolled diabetes -Possible compliance issues -Anion gap is closed -Continue insulin sliding scale, Levemir 10 units twice daily. However noted Hypoglycemic 05/12/17 hold Levemir as patient is NPO for EGD. On IVF Hypoglycemic protocol. Monitor BS -Monitor Accu-Cheks, check hemoglobin A1c HTN HLD -Continue home medications, Plavix 75 mg daily, atorvastatin 40 mg daily, hold off metoprolol for now secondary to cocaine use. -Clonidine PRN. -Monitor BP trend Tobacco abuse Substance abuse -Counseled. Nicotine patch. COPD, not an exacerbation -Continue Spiriva, duo nebs as needed Depression -Continue citalopram 20 mg daily Migraine Neuropathy -Continue Topamax nightly, Lyrica 50 mg twice daily DVT problem history of DVT with IVC filter, Lovenox DC plan pending improvement. Patient still nauseated, plan for EGD Floirnda Pepe MD May 12, 2017 08:47
[2017-05-12] MEDS: SODIUM CHLORIDE 0.9% FLUSH 10 ML FLUSH IV FLUSH SCH ×2 (09:00→21:28)
[2017-05-12] MEDS ORDERED: CLOPIDOGREL 75 MG TAB PO SCH (09:00)
[2017-05-12] MEDS: REMOVE OLD PATCH T-DERMAL SCH (09:00)
[2017-05-12] MEDS: TIOTROPIUM BROMIDE 18 MCG INH INH SCH (09:00)
[2017-05-12] MEDS: INSULIN DETEMIR 100 UNITS/ML VIAL SQ SCH (09:00)
[2017-05-12] MEDS: SODIUM CHLOR 0.9% 1000 ML INJ 1,000 ML IV SCH ×2 (09:13→23:42)
[2017-05-12] MEDS: CITALOPRAM HYDROBROMIDE 20 MG TAB PO SCH (09:39)
[2017-05-12] MEDS: NICOTINE 21 MG/24 HR PATCH T-DERMAL SCH (09:40)
[2017-05-12] MEDS: POTASSIUM CHLOR 10 MEQ PREMIX 100 ML IV SCH ×4 (09:46→17:32)
[2017-05-12] MEDS: PREGABALIN 25 MG CAP PO SCH ×2 (09:58→21:27)
[2017-05-12] MEDS ORDERED: PNEUMOCOCCAL POLYVALENT INJ 25 MCG/0.5 ML SYR IM ONE (10:00)
--- NOTE | 2017-05-12 12:16 | GIPROC ---
[facility] [address] [facility]. [facility], [address] EGD PROCEDURE REPORT EXAM DATE: 05/12/2017 PATIENT NAME: Linda Colón MR #: [id number] BIRTHDATE: 1970 ATTENDING: Willi Escobar MD ORDER #: [id number] TOOLROOM CHECKER: Segundo Mendez and Marianne Ruvalcaba STATUS: inpatient INDICATIONS: The patient is a 47 yr old female here for an EGD due to weight loss PROCEDURE PERFORMED: EGD w/ biopsy MEDICATIONS: None and Per Anesthesia. TOPICAL ANESTHETIC: none CONSENT: The patient understands the risks and benefits of the procedure and understands that these risks include, but are not limited to: sedation, allergic reaction, infection, perforation and/or bleeding. Alternative means of evaluation and treatment include, among others: physical exam, x-rays, and/or surgical intervention. The patient elects to proceed with this endoscopic procedure. medical equipment was checked for proper function. Hand hygiene and appropriate measures for infection prevention was taken. After the risks, benefits and alternatives of the procedure were thoroughly explained, Informed consent was verified, confirmed and timeout was successfully executed by the treatment team. The patient was anesthetized with topical anesthesia and the EC-[id number] (Pedi C) endoscope was introduced through the mouth and advanced to the second portion of the duodenum. Retroflexion was performed and was normal The gastroscope was then slowly withdrawn and removed. ESOPHAGUS: The mucosa of the esophagus appeared normal. STOMACH: There was mild gastritis in the gastric antrum. Multiple biopsies were performed using cold forceps. Sample sent for histology. DUODENUM: The duodenal mucosa appeared normal in the bulb and second portion of the duodenum. ADVERSE EVENTS: There were no complications. IMPRESSIONS: 1. The esophagus appeared normal 2. There was mild gastritis in the gastric antrum; multiple biopsies were performed 3. Normal duodenal mucosa in the bulb and second portion of the duodenum 4. Retroflexion was performed and was normal RECOMMENDATIONS: Await biopsy results. Biopsy results will not be ready for 7-10 days. If you don't hear from us in two weeks, call our office for biopsy results. PATIENT CONDITION: stable DISPOSITION: Observation REPEAT EXAM: NONE Willi Escobar MD eSigned: Willi Escobar MD 05/12/2017 12:15 PM cc: PATIENT NAME: Linda Colón Tao MR#: [id number]
--- NOTE | 2017-05-12 12:19 | GIPROC ---
[facility] [address] [facility]. [facility], [address] COLONOSCOPY PROCEDURE REPORT EXAM DATE: 05/12/2017 PATIENT NAME: Linda Colón MR #: [id number] BIRTHDATE: 1970 ENDOSCOPIST: Willi Escobar MD ORDER #: [id number] [employer] MEDICAL SERGEANT: Segundo Mendez and Marianne Ruvalcaba STATUS: inpatient INDICATIONS: The patient is a 47 yr old female here for a colonoscopy due to weight loss PROCEDURE PERFORMED: Colonoscopy, diagnostic MEDICATIONS: None and Per Anesthesia. PREP QUALITY: poor PREP TYPE:Magnesium Citrate ESTIMATED BLOOD LOSS: None CONSENT: The patient understands the risks and benefits of the procedure and understands that these risks include, but are not limited to: sedation, allergic reaction, infection, perforation and/or bleeding. Alternative means of evaluation and treatment include, among others: physical exam, x-rays, and/or surgical intervention. The patient elects to proceed with this endoscopic procedure. medical equipment was checked for proper function. Hand hygiene and appropriate measures for infection prevention was taken. After the risks, benefits and alternatives of the procedure were thoroughly explained, Informed consent was verified, confirmed and timeout was successfully executed by the treatment team. A digital exam revealed no abnormalities of the rectum The Pentax [id number] endoscope was introduced through the anus and advanced to the cecum, which was identified by both the appendix and ileocecal valve. The instrument was then slowly withdrawn as the colon was fully examined. COLON FINDINGS: The colonic mucosa appeared normal throughout the entire examined colon. Diverticulum was found in the sigmoid colon with associated colonic spasm. The opening was small. Retroflexed views revealed no abnormalities The scope was then completely withdrawn from the patient and the procedure terminated. PROCEDURE WITHDRAWAL TIME:8minutes ADVERSE EVENTS: There were no complications. IMPRESSIONS: 1. The colonic mucosa appeared normal throughout the entire examined colon 2. Diverticulosis, mild 3. Retroflexed views revealed no abnormalities RECOMMENDATIONS: High fiber diet RECALL: NONE Willi Escobar MD eSigned: Willi Escobar MD 05/12/2017 12:18 PM cc:
[2017-05-12] MEDS: ONDANSETRON HCL 4 MG/2 ML VIAL IV PUSH PRN (12:44)
[2017-05-12] MEDS ORDERED: ACETAMINOPHEN 325 MG TAB PO PRN (17:00)
[2017-05-12] MEDS: ENOXAPARIN SODIUM 40 MG/0.4 ML SYRINGE SQ SCH (17:34)
[2017-05-12 17:36] LABS: BLOOD UREA NITROGEN LESS THAN 1 MG/DL (7-18); CALCIUM 8.6 MG/DL (8.5-10.1); CHLORIDE 108 MEQ/L (98-107); CREATININE 0.45 MG/DL (0.50-1.00); GLOMERULAR FILTRATION RATE 180 ML/MIN (>89); GLUCOSE,RANDOM 101 MG/DL (74-106); SODIUM (NA) 137 MEQ/L (136-145)
[2017-05-12] MEDS: TOPIRAMATE 25 MG TAB PO SCH (21:27)
[2017-05-12] MEDS: ATORVASTATIN 40 MG TAB PO SCH (21:28)
[2017-05-13] VITALS (8 sets, daily range): BP systolic 108–126; BP diastolic 68–75; PULSE 70–92; RESP 16–20; TEMP 98–98.4; O2SAT 98–99
[2017-05-13] MEDS: PANTOPRAZOLE SODIUM 40 MG VIAL IV PUSH SCH ×2 (06:59→18:04)
[2017-05-13] MEDS: SUCRALFATE 1 GM/10 ML CUP PO SCH ×4 (07:00→22:27)
[2017-05-13] MEDS: MORPHINE SULFATE 2 MG/ML INJ IV PUSH PRN ×2 (07:07→19:04)
[2017-05-13] MEDS: SODIUM CHLOR 0.9% 1000 ML INJ 1,000 ML IV SCH (08:00)
[2017-05-13] MEDS: REMOVE OLD PATCH T-DERMAL SCH (09:00)
[2017-05-13] MEDS: NICOTINE 21 MG/24 HR PATCH T-DERMAL SCH (09:19)
[2017-05-13] MEDS: PREGABALIN 25 MG CAP PO SCH ×2 (09:20→21:51)
[2017-05-13] MEDS: CITALOPRAM HYDROBROMIDE 20 MG TAB PO SCH (09:20)
[2017-05-13] MEDS: TIOTROPIUM BROMIDE 18 MCG INH INH SCH (09:20)
[2017-05-13] MEDS: SODIUM CHLORIDE 0.9% FLUSH 10 ML FLUSH IV FLUSH SCH ×2 (09:20→21:52)
[2017-05-13] MEDS: INSULIN ASPART SUPPLEMENTAL SCALE SQ SCH ×4 (09:21→22:27)
[2017-05-13 09:26] LABS: HEMATOCRIT 38.4 % (35.0-46.0); HEMOGLOBIN 13.3 GM/DL (11.6-15.3); MEAN CELL VOLUME 96.4 FL (80.0-100.0); MEAN CORPUSCULAR HEMOGLOBIN 33.4 PG (27.0-34.0); MEAN CORPUSCULAR HGB CONC 34.6 % (32.0-36.0); MEAN PLATELET VOLUME 7.5 FL (7.0-11.0); PLATELET COUNT 283 TH/MM3 (150-450); RED BLOOD COUNT 3.98 MIL/MM3 (4.00-5.30); RED CELL DISTRIBUTION WIDTH 12.9 % (11.6-17.2)
--- NOTE | 2017-05-13 09:53 | HHI.GIFU ---
Subjective Remarks Pt resting in bed. c/o of continued dry heaving. Admits she has been smoking blunts laced with cocaine. (Flores Carr) Objective Vitals I&O Vital Signs Date Time Temp Pulse Resp B/P (MAP) Pulse Ox O2 Delivery O2 Flow Rate FiO2 05/13/17 05:03 21 05/13/17 04:00 84 05/13/17 01:24 98.4 83 16 110/68 (82) 98 05/13/17 00:00 77 05/12/17 20:00 79 05/12/17 19:52 98.2 69 16 119/71 (87) 98 05/12/17 16:30 98.2 71 18 134/84 (101) 99 05/12/17 13:18 97.6 57 18 149/84 (105) 100 05/12/17 12:37 68 16 148/83 (104) 96 Room Air 05/12/17 12:26 72 16 158/86 (110) 95 Room Air I/O 05/12/17 05/12/17 05/12/17 05/13/17 05/13/17 05/13/17 06:59 14:59 22:59 06:59 14:59 22:59 Intake Total 100 ml 1100 ml Output Total 0 ml Balance 100 ml 1100 ml Intake Oral 0 ml IV Total 1100 ml Other 100 ml Output Urine Total 0 ml # Voids 6 Laboratory Laboratory Tests Test 05/12/17 16:00 05/13/17 08:57 Blood Urea Nitrogen LESS THAN 1 Creatinine 0.45 Random Glucose 101 Calcium Level 8.6 Sodium Level 137 Potassium Level 4.4 Chloride Level 108 Carbon Dioxide Level 20.0 Anion Gap 9 Estimat Glomerular Filtration Rate 180 White Blood Count 8.0 Red Blood Count 3.98 Hemoglobin 13.3 Hematocrit 38.4 Mean Corpuscular Volume 96.4 Mean Corpuscular Hemoglobin 33.4 Mean Corpuscular Hemoglobin Concent 34.6 Red Cell Distribution Width 12.9 Platelet Count 283 Mean Platelet Volume 7.5 Imaging Last Impressions Abdomen/Pelvis CT 05/11/17 0207 Signed Impressions: Service Date/Time: Thursday, May 11, 2017 02:33 - CONCLUSION: 1. Nonspecific bowel gas pattern with trace amount of free fluid within the pelvis. 2. Area of low density change involving segment 4 the liver is long-term stable. This likely relates to focal fatty infiltration. It can be further assessed with outpatient MRI of the liver if clinically warranted. 3. 3.1 cm cystic structure within the left adnexa. This could relate to a hutch diverticulum arising from the urinary bladder. I cannot exclude an ovarian cyst. 4. Mild circumferential wall thickening involving the urinary bladder. This could relate to an acute cystitis. Herbert Wolfe Jr., MD Chest X-Ray 05/10/17 5514 Signed Impressions: Service Date/Time: Wednesday, May 10, 2017 21:58 - CONCLUSION: No evidence of acute cardiopulmonary disease. Anoop Gage MD Physical Exam HEENT: PERRL; normocephalic; atraumatic; no jaundice. CHEST: CTA CARDIAC: RRR ABDOMEN: Soft, nondistended, nontender; no hepatosplenomegaly; bowel sounds are present in all four quadrants. EXTREMITIES: No clubbing, cyanosis, or edema. SKIN: Normal; no rash; no jaundice. BREAKER BOSS: No focal deficits; alert and oriented times three. (Flores Carr [facility]) Assessment and Plan Assessment: (1) Anemia ICD Codes: D64.9 - Anemia, unspecified Status: Acute (2) Colitis ICD Codes: K52.9 - Noninfective gastroenteritis and colitis, unspecified Status: Acute (3) Nausea and vomiting ICD Codes: R11.2 - Nausea with vomiting, unspecified Status: Acute Plan Nausea vomiting heartburn multiple times a week, uncontrolled nausea and vomiting for 4 days to the point that she has taken no routine medications including Plavix. Significant weight loss from 167-85 pounds over the past 1-2 years patient states previous EGD and colonoscopy showed ulcerative colitis but patient never received any treatment medication or follow-up after she left the hospital. Currently the patient has more symptoms of diarrhea, but does have some constipation itch waxes and wanes. Admits to eating very minimal amounts of food which usually consist of the broth in chicken noodle soup and crackers. Increased stressors in her life, patient is tearful currently talking to her on the phone. Diarrhea uncontrolled with significant weight loss Probable noncompliance with medications and her comorbidities. History of CVA in 2014 Anemia probably secondary to her chronic diseases 05/13/17 s/p relatively unremarkable EGD and colonoscopy with findings of mild diverticulosis and mild gastritis. bx pending. normal GES 1 y ago, will repeat this to r/o gastroparesis. admits using marijuana and cocaine. cannibinoid hyperemesis? Plan await bx GES Monitor labs PPI Zofran prn marijauna & cocaine cessation, d/w pt Patient has been seen and examined per myself and Dr. Escobar, this note was written on his behalf (Flores Carr) Physician Comments GES pending, agree with above assessment and plan. Will follow up with you. (Willi Escobar MD) Flores Carr May 13, 2017 09:53 Willi Escobar MD May 13, 2017 13:30
[2017-05-13 10:06] LABS: BICARBONATE 22.9 MEQ/L (21.0-32.0); CALCIUM 8.5 MG/DL (8.5-10.1); CREATININE 0.48 MG/DL (0.50-1.00)
[2017-05-13] MEDS: ONDANSETRON HCL 4 MG/2 ML VIAL IV PUSH PRN (11:29)
[2017-05-13] MEDS ORDERED: DEXT 5%-NACL 0.9% 1000 ML INJ 1,000 ML IV SCH (11:30)
--- NOTE | 2017-05-13 15:29 | HHI.PR ---
Subjective Remarks Still with nausea not able to keep anything down. Vomiting some bilious fluid. No abdominal pain. Did not have a bowel movement. Denies fever or chills. Feels very tired. Objective Vitals Vital Signs Date Time Temp Pulse Resp B/P (MAP) Pulse Ox O2 Delivery O2 Flow Rate FiO2 05/13/17 12:32 98.2 70 20 108/69 (82) 98 05/13/17 05:03 21 05/13/17 04:00 84 05/13/17 01:24 98.4 83 16 110/68 (82) 98 05/13/17 00:00 77 05/12/17 20:00 79 05/12/17 19:52 98.2 69 16 119/71 (87) 98 05/12/17 16:30 98.2 71 18 134/84 (101) 99 I/O 05/12/17 05/12/17 05/12/17 05/13/17 05/13/17 05/13/17 07:00 15:00 23:00 07:00 15:00 23:00 Intake Total 100 ml 1100 ml Output Total 0 ml Balance 100 ml 1100 ml Intake Oral 0 ml IV Total 1100 ml Other 100 ml Output Urine Total 0 ml # Voids 6 Result Diagram: 05/13/17 0857 05/13/17 0857 Imaging Last Impressions Abdomen/Pelvis CT 05/11/17 0207 Signed Impressions: Service Date/Time: Thursday, May 11, 2017 02:33 - CONCLUSION: 1. Nonspecific bowel gas pattern with trace amount of free fluid within the pelvis. 2. Area of low density change involving segment 4 the liver is long-term stable. This likely relates to focal fatty infiltration. It can be further assessed with outpatient MRI of the liver if clinically warranted. 3. 3.1 cm cystic structure within the left adnexa. This could relate to a hutch diverticulum arising from the urinary bladder. I cannot exclude an ovarian cyst. 4. Mild circumferential wall thickening involving the urinary bladder. This could relate to an acute cystitis. Herbert Wolfe Jr., MD Chest X-Ray 05/10/17 3040 Signed Impressions: Service Date/Time: Wednesday, May 10, 2017 21:58 - CONCLUSION: No evidence of acute cardiopulmonary disease. Anoop Gage MD Objective Remarks GENERAL: This is a Thin appearing, well-developed patient, in no apparent distress. CARDIOVASCULAR: Regular rate and rhythm without murmurs, gallops, or rubs. RESPIRATORY: Clear to auscultation. Breath sounds equal bilaterally. No wheezes , rales, or rhonchi. GASTROINTESTINAL: Abdomen soft, nondistended. Bowel sounds active 4. Diffuse abdominal tenderness to palpate the MUSCULOSKELETAL: Extremities without clubbing, cyanosis, or edema. NEUROLOGICAL: Awake and alert. Motor and sensory grossly within normal limits. Five out of 5 muscle strength in all muscle groups. Normal speech. A/P Problem List: (1) Abdominal pain ICD Code: R10.9 - Unspecified abdominal pain Status: Acute (2) Hyperglycemia due to type 2 diabetes mellitus ICD Code: E11.65 - Type 2 diabetes mellitus with hyperglycemia Status: Acute (3) Intractable nausea and vomiting ICD Code: R11.2 - Nausea with vomiting, unspecified Status: Acute (4) DM (diabetes mellitus) ICD Code: E11.9 - Type 2 diabetes mellitus without complications Status: Chronic (5) HTN (hypertension) ICD Code: I10 - Essential (primary) hypertension Status: Acute (6) Tobacco abuse ICD Code: Z72.0 - Tobacco use Status: Acute (7) Nausea and vomiting ICD Code: R11.2 - Nausea with vomiting, unspecified Status: Acute Assessment and Plan 05/13/17 Patient is a 47-year-old -Irish female with primary medical history of DVT, CVA in 2013, diabetes, gastritis, HTN, HLD, COPD who came into the hospital for complaints of vomiting, abdominal pain Abdominal pain Intractable nausea, vomiting Possible gastroparesis secondary to diabetes -CT Abd Pelvis 1. Nonspecific bowel gas pattern with trace amount of free fluid within the pelvis. 2. Area of low-density change involving segment of liver as nursing home stable. This likely relates to focal fatty infiltration. 3. 3.1 cm cystic structure within the left adnexa. This could relate to a Love diverticulum arising from the urinary bladder. Cannot exclude ovarian cyst. 4. Mild circumferential wall thickening involving the urinary bladder. This could relate to an acute cystitis -Zofran for nausea/vomiting -UA negative -GI consult for further evaluation and recommendations. EGD with gastritis. Plan for gastric emptying study as patient is still symptomatic with nausea vomiting unable to keep down any food. DM 2, with hyperglycemia on admission Uncontrolled diabetes -Possible compliance issues -Anion gap is closed -Continue insulin sliding scale, Levemir 10 units twice daily. However noted Hypoglycemic 05/12/17 hold Levemir as patient is npo. EGD with gastritis. On IVF Hypoglycemic protocol. Monitor BS -Monitor Accu-Cheks, check hemoglobin A1c HTN HLD -Continue home medications, Plavix 75 mg daily, atorvastatin 40 mg daily, hold off metoprolol for now secondary to cocaine use. -Clonidine PRN. -Monitor BP trend Tobacco abuse Substance abuse -Counseled. Nicotine patch. COPD, not an exacerbation -Continue Spiriva, duo nebs as needed Depression -Continue citalopram 20 mg daily Migraine Neuropathy -Continue Topamax nightly, Lyrica 50 mg twice daily DVT problem history of DVT with IVC filter, Lovenox DC plan pending improvement. Patient still nauseated. Plan for gastric emptying study Florinda Pepe MD May 13, 2017 15:29
[2017-05-13] MEDS ORDERED: METOCLOPRAMIDE HCL 10 MG/2 ML VIAL ONE (15:45)
--- NOTE | 2017-05-13 16:36 | RADRPT ---
EXAM DATE/TIME: 05/13/2017 14:06 [place] COMPARISON: GASTRIC EMPTYING, July 05, 2016, 8:30. INDICATIONS : Nausea and vomiting. DOSE: 1 mCi Tc99m Sulfur Colloid Labeled Whole egg PO MEDICATONS: 1.) 5 mg Reglan IV at minutes IMAGIN hrs MEDICAL HISTORY : Gastroesophageal reflux disease. Diabetes mellitus type 2. Hypertension. Stroke. SURGICAL HISTORY : Hysterectomy. ENCOUNTER: Initial ACUITY: 4 - 6 days PAIN SCALE: 0/10 LOCATION: upper quadrant TECHNIQUE: Following the oral ingestion of radiotracer-labeled meal, dynamic sequential images in the [place] projec tion were acquired with simultaneous computer acquisition. The data set was decay-corrected. FINDINGS: LAG PHASE: There is a 35 minutes before onset of gastric emptying. EMPTYING: kinetics are linear. The decay-corrected, back-extrapolated half-time of emptying is 113 minutes. ( Normal for this lab is 45- 90 minutes.) INTERVENTION: Reglan administered at 90 minutes with prompt emptying within 20 minutes. CONCLUSION: 1. Delayed gastric emptying consistent with gastroparesis. 2. Good response to Reglan. Elio Bowser MD on May 13, 2017 at 16:29 Board Certified Radiologist. This report was verified electronically.
[2017-05-13] MEDS: ENOXAPARIN SODIUM 40 MG/0.4 ML SYRINGE SQ SCH (17:33)
[2017-05-13] MEDS: ATORVASTATIN 40 MG TAB PO SCH (21:51)
[2017-05-13] MEDS: TOPIRAMATE 25 MG TAB PO SCH (21:52)
[2017-05-14 00:15] VITALS: PULSE 85
[2017-05-14] MEDS: MORPHINE SULFATE 2 MG/ML INJ IV PUSH PRN ×2 (00:17→05:49)
[2017-05-14 04:00] VITALS: BP 94/64; PULSE 68; RESP 14; TEMP 97.8; O2SAT 96
[2017-05-14] MEDS: PANTOPRAZOLE SODIUM 40 MG VIAL IV PUSH SCH (05:49)
[2017-05-14 06:00] VITALS: PULSE 68
[2017-05-14 07:51] VITALS: BP 114/69; PULSE 85; RESP 16; TEMP 97.4; O2SAT 95
[2017-05-14] MEDS: SUCRALFATE 1 GM/10 ML CUP PO SCH ×2 (08:37→13:13)
[2017-05-14] MEDS: TIOTROPIUM BROMIDE 18 MCG INH INH SCH (08:37)
[2017-05-14] MEDS: PREGABALIN 25 MG CAP PO SCH (08:38)
[2017-05-14] MEDS: NICOTINE 21 MG/24 HR PATCH T-DERMAL SCH (08:38)
[2017-05-14] MEDS: CITALOPRAM HYDROBROMIDE 20 MG TAB PO SCH (08:38)
[2017-05-14] MEDS: REMOVE OLD PATCH T-DERMAL SCH (08:38)
[2017-05-14] MEDS: INSULIN ASPART SUPPLEMENTAL SCALE SQ SCH ×2 (09:49→13:13)
--- NOTE | 2017-05-14 10:50 | HHI.GIFU ---
Subjective Remarks Patient's resting in the bed smiling She is feeling better able to tolerate liquids without nausea or vomiting No BM since colonoscopy Mild mid abdominal pain, improving (Lizeth Maloney) Objective Vitals I&O Vital Signs Date Time Temp Pulse Resp B/P (MAP) Pulse Ox O2 Delivery O2 Flow Rate FiO2 05/14/17 07:51 97.4 85 16 114/69 (84) 95 05/14/17 06:00 68 05/14/17 04:00 97.8 68 14 94/64 (74) 96 05/14/17 00:15 85 05/13/17 20:44 98.0 92 16 112/73 (86) 99 05/13/17 20:34 70 05/13/17 20:30 89 05/13/17 17:42 73 18 126/75 (92) 98 05/13/17 12:32 98.2 70 20 108/69 (82) 98 I/O 05/13/17 05/13/17 05/13/17 05/14/17 05/14/17 05/14/17 07:00 15:00 23:00 07:00 15:00 23:00 Intake Total 1100 ml Balance 1100 ml IV Total 1100 ml # Voids 2 Laboratory Laboratory Tests Test 05/12/17 16:00 05/13/17 08:57 Blood Urea Nitrogen LESS THAN 1 MG/DL 1 MG/DL Creatinine 0.45 MG/DL 0.48 MG/DL Random Glucose 101 MG/DL 272 MG/DL Calcium Level 8.6 MG/DL 8.5 MG/DL Sodium Level 137 MEQ/L 139 MEQ/L Potassium Level 4.4 MEQ/L 3.8 MEQ/L Chloride Level 108 MEQ/L 107 MEQ/L Carbon Dioxide Level 20.0 MEQ/L 22.9 MEQ/L Anion Gap 9 MEQ/L 9 MEQ/L Estimat Glomerular Filtration Rate 180 ML/MIN 167 ML/MIN White Blood Count 8.0 TH/MM3 Red Blood Count 3.98 MIL/MM3 Hemoglobin 13.3 GM/DL Hematocrit 38.4 % Mean Corpuscular Volume 96.4 FL Mean Corpuscular Hemoglobin 33.4 PG Mean Corpuscular Hemoglobin Concent 34.6 % Red Cell Distribution Width 12.9 % Platelet Count 283 TH/MM3 Mean Platelet Volume 7.5 FL Imaging Last Impressions Gastric Emptying Nuclear Medicine 05/13/17 0000 Signed Impressions: Service Date/Time: Saturday, May 13, 2017 14:06 - CONCLUSION: 1. Delayed gastric emptying consistent with gastroparesis. 2. Good response to Reglan. Elio Bowser MD Abdomen/Pelvis CT 05/11/17 0207 Signed Impressions: Service Date/Time: Thursday, May 11, 2017 02:33 - CONCLUSION: 1. Nonspecific bowel gas pattern with trace amount of free fluid within the pelvis. 2. Area of low density change involving segment 4 the liver is long-term stable. This likely relates to focal fatty infiltration. It can be further assessed with outpatient MRI of the liver if clinically warranted. 3. 3.1 cm cystic structure within the left adnexa. This could relate to a hutch diverticulum arising from the urinary bladder. I cannot exclude an ovarian cyst. 4. Mild circumferential wall thickening involving the urinary bladder. This could relate to an acute cystitis. Herbert Wolfe Jr., MD Chest X-Ray 05/10/17 2149 Signed Impressions: Service Date/Time: Wednesday, May 10, 2017 21:58 - CONCLUSION: No evidence of acute cardiopulmonary disease. Anoop Gage MD Physical Exam HEENT: PERRL; normocephalic; atraumatic; no jaundice. Thin facial structure CHEST: CTA no active rhonchi CARDIAC: RRR ABDOMEN: Soft, nondistended, mild mid abdominal tenderness; no hepatosplenomegaly; bowel sounds are present in all four quadrants. EXTREMITIES: No clubbing, cyanosis, or edema. Thin, muscle mass minimal SKIN: Normal; no rash; no jaundice. CONCIERGE: alert and oriented times three. (Lizeth Maloney) Assessment and Plan Assessment: (1) Anemia ICD Codes: D64.9 - Anemia, unspecified Status: Acute (2) Colitis ICD Codes: K52.9 - Noninfective gastroenteritis and colitis, unspecified Status: Acute (3) Nausea and vomiting ICD Codes: R11.2 - Nausea with vomiting, unspecified Status: Acute Plan Nausea vomiting heartburn multiple times a week, uncontrolled nausea and vomiting for 4 days to the point that she has taken no routine medications including Plavix. Significant weight loss from 167-85 pounds over the past 1-2 years patient states previous EGD and colonoscopy showed ulcerative colitis but patient never received any treatment medication or follow-up after she left the hospital. Currently the patient has more symptoms of diarrhea, but does have some constipation itch waxes and wanes. Admits to eating very minimal amounts of food which usually consist of the broth in chicken noodle soup and crackers. Increased stressors in her life, patient is tearful currently talking to her on the phone. Diarrhea uncontrolled with significant weight loss Probable noncompliance with medications and her comorbidities. History of CVA in 2014 Anemia probably secondary to her chronic diseases 05/13/17 s/p relatively unremarkable EGD and colonoscopy with findings of mild diverticulosis and mild gastritis. bx pending. normal GES 1 y ago, will repeat this to r/o gastroparesis. admits using marijuana and cocaine. cannibinoid hyperemesis? 05/14/17, patient is smiling symptoms seem to be improving denies any nausea or vomiting. Hemoglobin 13.3, no obvious bleeding Gastroparesis , Gastric emptying study delayed with good response to Reglan. Since probably secondary to diabetes EGD, esophagus normal , mild gastritis , colonoscopy showed mild diverticulosis , await any biopsy results Plan Reglan added by mouth Monitor labs Zofran prn Supportive care with marijauna & cocaine cessation, d/w pt GI will follow as outpatient if gastroparesis symptoms persist. Stable from a GI standpoint. Will see as needed. Patient has been seen and examined per myself and Dr. Escobar, this note was written on his behalf (Lizeth Maloney) Physician Comments Stable from GI point of view. Agree with DC plan. Follow up in the office as outpatient. (Willi Escobar MD) Lizeth Maloney May 14, 2017 10:50 Willi Escobar MD May 14, 2017 22:39
[2017-05-14 11:35] VITALS: BP 112/70; PULSE 85; RESP 16; TEMP 97.8; O2SAT 98
[2017-05-14] MEDS ORDERED: METOCLOPRAMIDE HCL 10 MG TAB PO SCH (12:00)
[2017-05-14] MEDS: SODIUM CHLORIDE 0.9% FLUSH 10 ML FLUSH IV FLUSH SCH (13:13)
[2017-05-14] MEDS ORDERED: HYDR-3580 PO (13:58)
[2017-05-14] MEDS ORDERED: NICO21DI25 T-DERMAL (13:58)
[2017-05-14] MEDS ORDERED: METO10TA PO (13:58)
--- NOTE | 2017-05-14 13:59 | HHI.DCPOC ---
Discharge Care Plan Diagnosis: (1) DM (diabetes mellitus) (2) Abdominal pain (3) Nausea and vomiting (4) Tobacco abuse (5) Gastritis Goals to Promote Your Health * To prevent worsening of your condition and complications * To maintain your health at the optimal level Directions to Meet Your Goals Take your medications as prescribed Follow your dietary instruction Follow activity as directed Keep your appointments as scheduled Take your immunizations and boosters as scheduled If your symptoms worsen call your PCP, if no PCP go to Urgent Care Center or Emergency Room Smoking is Dangerous to Your Health. Avoid second hand smoke Call the 24-hour hour crisis hotline for domestic abuse at Dmitriy Barragan DO May 14, 2017 13:59
--- NOTE | 2017-05-14 14:08 | HHI.DS ---
Discharge Summary Admission Date May 12, 2017 at 13:28 Discharge Date: May 14, 2017 Admitting Diagnosis INTRACTABLE VOMITING (1) Abdominal pain ICD Code: R10.9 - Unspecified abdominal pain Status: Acute (2) Hyperglycemia due to type 2 diabetes mellitus ICD Code: E11.65 - Type 2 diabetes mellitus with hyperglycemia Status: Acute (3) Intractable nausea and vomiting ICD Code: R11.2 - Nausea with vomiting, unspecified Status: Acute (4) DM (diabetes mellitus) ICD Code: E11.9 - Type 2 diabetes mellitus without complications Status: Chronic (5) HTN (hypertension) ICD Code: I10 - Essential (primary) hypertension Status: Acute (6) Tobacco abuse ICD Code: Z72.0 - Tobacco use Status: Acute (7) Nausea and vomiting ICD Code: R11.2 - Nausea with vomiting, unspecified Status: Acute Procedures EGD Brief History - From Admission Written by Joanna Pierce, acting as scribe for Dr. Pepe on 05/11/17 at 14:06. Patient is a 47-year-old -[place] female with primary medical history of DVT, CVA in 2013, diabetes, gastritis, HTN, HLD, COPD who came into the hospital for complaints of vomiting, abdominal pain. Patient states that for about 4-5 days she has been vomiting she noted some blood in it. Patient states that everything she ate just comes out. She also noted that the first few days that "even water makes me sick." Discuss result of Utox. Admits to smoking cigarettes, marijuana use but does not know how she got the cocaine. States she was given the "blunt by a friend." State she still have some abdominal pain but improved compared to when she came in. Patient states that she thought that this is the beginning of her DKA as she was feeling like this on her previous hospitalization with DKA. Otherwise, denies shortness of breath or dyspnea. Denies chest pain, palpitations, dizziness. Complains of on and off headaches. Denies dysuria. CBC/BMP: 05/13/17 0857 05/13/17 0857 Significant Findings Laboratory Tests Test 05/11/17 17:07 05/12/17 07:31 05/12/17 16:00 05/13/17 08:57 Blood Urea Nitrogen 2 MG/DL (7-18) LESS THAN 1 MG/DL (7-18) LESS THAN 1 MG/DL (7-18) 1 MG/DL (7-18) Random Glucose 277 MG/DL (74-106) 272 MG/DL (74-106) Calcium Level 8.1 MG/DL (8.5-10.1) 7.9 MG/DL (8.5-10.1) Carbon Dioxide Level 20.3 MEQ/L (21.0-32.0) 20.0 MEQ/L (21.0-32.0) Hemoglobin A1c 13.0 % (4.3-6.0) Monocytes (%) (Auto) 9.5 % (0.0-8.0) Creatinine 0.46 MG/DL (0.50-1.00) 0.45 MG/DL (0.50-1.00) 0.48 MG/DL (0.50-1.00) Total Protein 5.6 GM/DL (6.4-8.2) Albumin 2.8 GM/DL (3.4-5.0) Potassium Level 2.9 MEQ/L (3.5-5.1) Chloride Level 110 MEQ/L (98-107) 108 MEQ/L (98-107) Red Blood Count 3.98 MIL/MM3 (4.00-5.30) PE at Discharge GENERAL: This is a thin appearing patient in no apparent distress. HEENT: NC, AT. CARDIOVASCULAR: Regular rate and rhythm without murmurs, gallops, or rubs. RESPIRATORY: Clear to auscultation. Breath sounds equal bilaterally. No wheezes , rales, or rhonchi. GASTROINTESTINAL: Abdomen soft, nondistended. Bowel sounds active 4. Diffuse abdominal tenderness to palpation. MUSCULOSKELETAL: Extremities without edema. NEUROLOGICAL: Awake and alert. Motor and sensory grossly within normal limits. Five out of 5 muscle strength in all muscle groups. Normal speech. PSYCH: Mood and affect appropriate. Pt update on day of discharge The pt wanted to go home. Discussed with her on the phone. The pt wanted to know what meds she will be discharged on. She mentioned that she has trouble with incontinence. She does not use diapers and does not follow up with urology. Discussed with nursing. Hospital Course Abdominal pain/ Intractable nausea, vomiting Patient is a 47-year-old -[place] female with primary medical history of DVT, CVA in 2013, diabetes, gastritis, HTN, HLD, COPD who came into the hospital for complaints of vomiting, abdominal pain. CT Abd Pelvis 1. Nonspecific bowel gas pattern with trace amount of free fluid within the pelvis. 2. Area of low-density change involving segment of liver. This likely relates to focal fatty infiltration. 3. 3.1 cm cystic structure within the left adnexa. This could relate to a Love diverticulum arising from the urinary bladder. Cannot exclude ovarian cyst. 4. Mild circumferential wall thickening involving the urinary bladder. This could relate to an acute cystitis. The pt received Zofran for nausea/vomiting. UA was negative. GI was consulted for further evaluation and recommendations. EGD with gastritis. She was continued on a PPI. Gastric emptying study positive for gastroparesis. Reglan was started AC HS. She will follow up with GI as an outpt. She will be discharged with pain medication, Reglan and a PPI. DM 2 Uncontrolled diabetes. She was continued on an insulin sliding scale and Levemir 10 units twice daily. A1c elevated at 13%. She will resume her home regimen and will follow up with her PCP as an outpt. Urinary incontinence Chronic and bothersome. Recommended the pt use diapers for now. The pt will be referred to urology for further evaluation. Tobacco abuse/ Substance abuse Tox screen positive for cocaine and cannabinoids. The pt was counseled. She received a nicotine patch. COPD She was continued on Spiriva and received nebs as needed. Pt Condition on Discharge: Stable Discharge Disposition: Discharge Home Discharge Time: <= 30 minutes Discharge Instructions DIET: Follow Instructions for: Diabetic Diet Activities you can perform: Weight Bearing as Leslie Follow up Referrals: Gastroenterology - 1 Week @ [facility] with Willi Escobar MD PCP Follow-up - 2-3 Days Urology - 1 Week with Benjamin Godinez DO New Medications: Metoclopramide (Metoclopramide) 10 Mg Tab 10 MG PO ACHS for Gastroparesis for 30 Days, TAB Nicotine (Eq Nicotine) 21 Mg/24 Hour Dis 1 PATCH T-DERMAL DAILY for SMOKING, #30 PATCH Changed Medications: Hydrocodone-Acetaminophen (Hydrocodone-Acetaminophen) 7.5 Mg-325 Mg Tab 1 TAB PO Q6HR PRN for PAIN, #14 TAB 0 Refills (Changed from: 2 TAB; Q4H; 12) Continued Medications: Albuterol 8.5 GM Inh (Proair Hfa 8.5 GM Inh) 90 Mcg/Act Aer 2 PUFF INH BID for Shortness of Breath, #1 INHALER 0 Refills 108 mcg/actuation Albuterol Neb (Albuterol Neb) 2.5 Mg/3 Ml Neb 2.5 MG NEB Q4-6H PRN for SHORTNESS OF BREATH, #1 NEBULE 0 Refills Atorvastatin (Atorvastatin) 40 Mg Tab 40 MG PO HS for Cholesterol Management, #30 TAB 0 Refills Citalopram (Citalopram) 20 Mg Tab 20 MG PO DAILY for Control Depression, #30 TAB 0 Refills Clopidogrel (Clopidogrel) 75 Mg Tab 75 MG PO DAILY for Blood Clot Prevention, #30 TAB 0 Refills Insulin Aspart Inj (Novolog Inj) 1,000 Unit/10 Ml Vial 0 SQ DIRECTED for Blood Sugar Management, #10 ML 0 Refills Sliding Scale as directed. Insulin Detemir Inj (Levemir Flextouch Pen Inj) 300 unit/3 ML Pen 10 UNITS SQ BID for Blood Sugar Management, PEN 0 Refills Metformin (Metformin) 500 Mg Tab 500 MG PO BID for Blood Sugar Management, #60 TAB 0 Refills With meals Metoprolol Tartrate (Metoprolol Tartrate) 25 Mg Tab 12.5 MG PO BID, #60 TAB 0 Refills Pantoprazole (Pantoprazole) 40 Mg Tab 40 MG PO DAILY for Reflux, #30 TAB 0 Refills Pregabalin (Lyrica) 50 Mg Cap 50 MG PO BID, #60 CAP 0 Refills Sertraline (Sertraline) Unknown Strength Tab Unknown Dose PO DAILY, #30 TAB 0 Refills Sucralfate Liq (Sucralfate Liq) 1 Gm/10 Ml Melina 1 GM PO ACHS for gastritis, #210 ML Tiotropium Inh (Spiriva Handihaler) 18 Mcg Cap 18 MCG INH DAILY for COPD, #30 CAP 0 Refills 1 capsule = 18 mcg Do Not Swallow Capsule Topiramate (Topamax) 50 Mg Tab 50 MG PO HS for Control Seizures, #60 TAB 0 Refills Zolpidem (Zolpidem) 10 Mg Tab 10 MG PO HS for INSOMNIA, TAB 0 Refills Dmitriy Barragan DO May 14, 2017 14:08
== END 2017-05-14 17:56 | disposition home or self-care (01) | DRG 74 ==
LOC: NEPE 20:03 → NEDA 05-11 02:48 → NEDH 05-11 06:43 → NEPHCDU 05-11 12:54 → OBSVTOIN 05-12 13:28
PROVIDERS: ADMIT Hospitalist; ATTEND Hospitalist
PROC: 0DB68ZX Excision of Stomach, Via Natural or Artificial Opening Endoscopic, Diagnostic (ICD-10-PCS; principal; 2017-05-12 11:26)
PROC: 0DJD8ZZ Inspection of Lower Intestinal Tract, Via Natural or Artificial Opening Endoscopic (ICD-10-PCS; 2017-05-12 11:26)
DX: E11.43 Type 2 diabetes mellitus with diabetic autonomic (poly)neuropathy (principal); E11.649 Type 2 diabetes mellitus with hypoglycemia without coma; K76.0 Fatty (change of) liver, not elsewhere classified; K51.90 Ulcerative colitis, unspecified, without complications; Z68.1 Body mass index [BMI] 19.9 or less, adult; N30.00 Acute cystitis without hematuria; E11.10 Type 2 diabetes mellitus with ketoacidosis without coma; K31.84 Gastroparesis; I10 Essential (primary) hypertension; R00.1 Bradycardia, unspecified; K21.9 Gastro-esophageal reflux disease without esophagitis; E78.5 Hyperlipidemia, unspecified; J44.9 Chronic obstructive pulmonary disease, unspecified; I25.10 Atherosclerotic heart disease of native coronary artery without angina pectoris; K57.30 Diverticulosis of large intestine without perforation or abscess without bleeding; K29.50 Unspecified chronic gastritis without bleeding; G43.909 Migraine, unspecified, not intractable, without status migrainosus; R63.4 Abnormal weight loss; D64.9 Anemia, unspecified; F32.9 Major depressive disorder, single episode, unspecified; F41.9 Anxiety disorder, unspecified; F12.90 Cannabis use, unspecified, uncomplicated; F14.10 Cocaine abuse, uncomplicated; F17.210 Nicotine dependence, cigarettes, uncomplicated; Z23 Encounter for immunization; Z79.4 Long term (current) use of insulin; Z86.718 Personal history of other venous thrombosis and embolism; Z86.73 Personal history of transient ischemic attack (TIA), and cerebral infarction without residual deficits; Z91.011 Allergy to milk products; Z91.013 Allergy to seafood; Z91.14 Patient's other noncompliance with medication regimen; Z91.19 Patient's noncompliance with other medical treatment and regimen; Z89.511 Acquired absence of right leg below knee
CPT/HCPCS: 36600; 71045; 74177; 76937; 78264; 80048; 80053; 80307; 81001; 82550; 82552; 82800; 82805; 82948; 83036; 83690; 83735; 83880; 84484; 85025; 85027; 85610; 85730; 88305; 88312; 90732; 93005; 96361; 96374; 96375; A9541; C9113; G0378; J1610; J1650; J1815; J2270; J2405; J2765; J3480; J7030; J7042; Q9967

== ENCOUNTER 2017-06-14 19:07 | Emergency (ER) | payer OTHER ==
[~2017-06-14] VITALS: Ht 175.3 cm; Wt 36.4 kg
[~2017-06-14 19:07] MED LIST changes: +ATOR40TA16 PO; -CIPR-9 PO; +CITA20TA4 PO; +METO10TA PO; +METO25TA3 PO; +NICO21DI25 T-DERMAL; -NORC5TAB PO
[2017-06-14 19:19] VITALS: BP 123/79; PULSE 100; RESP 20; TEMP 98.6; O2SAT 98
--- NOTE | 2017-06-14 19:24 | PD ---
HPI Chief Complaint: Skin Problem Time Seen by Provider: 19:22 Travel History International Travel<30 days: No Contact w/Intl Traveler<30days: No Traveled to known affect area: No PFSH Past Medical History Hx Anticoagulant Therapy: Yes (PLAVIX) Arthritis: No Asthma: Yes Autoimmune Disease: No Blood Disorders: No Anxiety: Yes Depression: Yes Heart Rhythm Problems: No Cancer: No Cardiovascular Problems: Yes (HX OF DVT, STENT PLACED IN LEFT LEG) High Cholesterol: Yes Chemotherapy: No Chest Pain: Yes Congestive Heart Failure: No COPD: No Cerebrovascular Accident: Yes (STROKE 2014) Coronary Artery Disease: Yes Diabetes: Yes Diminished Hearing: No Deep Vein Thrombosis: Yes Endocrine: Yes Gastrointestinal Disorders: Yes (GASTRITIS) GERD: Yes Genitourinary: No Headaches: Yes Heparin Induced Thrombocytopen: No Hypertension: Yes Immune Disorder: No Implanted Vascular Access Dvce: Yes (STENT IN LEFT LEG) Musculoskeletal: No Neurologic: Yes (CVA IN 2014, NEUROPATHY) Psychiatric: Yes (anixety & depression (pt states that she doesnt take medicine )) Reproductive: No Respiratory: Yes Immunizations Current: Yes Migraines: Yes Radiation Therapy: No Sickle Cell Disease: No Sleep Apnea: No Thyroid Disease: No ?: Not : 3 Para: 0 Miscarriage: 3 : 0 Ovarian Cysts: Yes Past Surgical History Abdominal Surgery: Yes (04/30/02 FIBROIDS REMOVED FROM UTERUS.) AICD: No Arteriovenous Shunt: No Body Medical Devices: LEFT LEG FILTER/ dvt Ear Surgery: No Endocrine Surgery: No Eye Surgery: Yes Genitourinary Surgery: No Gynecologic Surgery: Yes Hysterectomy: Yes (PARTIAL) Insulin Pump: No Joint Replacement: No Oral Surgery: No Pacemaker: No Other Surgery: Yes (MYOMECTOMY, BLOOD CLOT FROM L LEG, R BELOW KNEE AMPUTATION) Social History Alcohol Use: No Tobacco Use: Yes (1/2 PPD) Substance Use: Yes (MARIJUANA/ once month/ last week) Allergies-Medications (Allergen,Severity, Reaction): Coded Allergies: penicillin G (Unverified Allergy, Severe, SWELLING WITH RESP DIFFICULTY, ) shellfish derived (Unverified Allergy, Severe, SWELLING, 05/10/17) tomato (Unverified Allergy, Intermediate, 05/10/17) milk (Unverified Allergy, Unknown, 05/10/17) Reported Meds & Prescriptions Reported Meds & Active Scripts Active Metoclopramide (Metoclopramide HCl) 10 Mg Tab 10 Mg PO ACHS 30 Days Eq Nicotine (Nicotine) 21 Mg/24 Hour Dis 1 Patch T-DERMAL DAILY Hydrocodone-Acetaminophen 7.5 Mg-325 Mg Tab 1 Tab PO Q6HR PRN Iram Contour Next Blood Test Strips (Blood Glucose Test Strips) 1 Erica Erica Strip .ROUTE ACHS PRN Sucralfate Liq (Sucralfate) 1 Gm/10 Ml Melina 1 Gm PO ACHS Reported Atorvastatin (Atorvastatin Calcium) 40 Mg Tab 40 Mg PO HS Citalopram (Citalopram Hydrobromide) 20 Mg Tab 20 Mg PO DAILY Metoprolol Tartrate 25 Mg Tab 12.5 Mg PO BID Albuterol Neb (Albuterol Sulfate) 2.5 Mg/3 Ml Neb 2.5 Mg NEB Q4-6H PRN Proair Hfa 8.5 GM Inh (Albuterol Sulfate) 90 Mcg/Act Aer 2 Puff INH BID 108 mcg/actuation Metformin (Metformin HCl) 500 Mg Tab 500 Mg PO BID With meals Sertraline (Sertraline HCl) Unknown Strength Tab Unknown Dose PO DAILY Pantoprazole (Pantoprazole Sodium) 40 Mg Tab 40 Mg PO DAILY Spiriva Handihaler (Tiotropium Inh) 18 Mcg Cap 18 Mcg INH DAILY 1 capsule = 18 mcg Do Not Swallow Capsule Lyrica (Pregabalin) 50 Mg Cap 50 Mg PO BID Zolpidem (Zolpidem Tartrate) 10 Mg Tab 10 Mg PO HS Clopidogrel (Clopidogrel Bisulfate) 75 Mg Tab 75 Mg PO DAILY Levemir Flextouch Pen Inj (Insulin Detemir) 300 unit/3 ML Pen 10 Units SQ BID Topamax (Topiramate) 50 Mg Tab 50 Mg PO HS Novolog Inj (Insulin Aspart) 1,000 Unit/10 Ml Vial 0 SQ DIRECTED Sliding Scale as directed. Data Data Last Documented VS Vital Signs Date Time Temp Pulse Resp B/P (MAP) Pulse Ox O2 Delivery O2 Flow Rate FiO2 06/14/17 19:19 98.6 100 20 123/79 (94) 98 Nimesh Rangel Jun 14, 2017 19:24
[2017-06-14] MEDS ORDERED: SODIUM CHLOR 0.9% 1000 ML INJ 1,000 ML IV ONE (20:15)
[2017-06-14] MEDS ORDERED: CLINDAMYCIN 600 MG/NS PREMIX 50 ML IV ONE (20:15)
[2017-06-14] MEDS ORDERED: INSULIN HUMAN REGULAR 1,000 UNITS/10 ML VIAL IV PUSH ONE (20:15)
--- NOTE | 2017-06-14 20:44 | PD ---
HPI Chief Complaint: Skin Problem Time Seen by Provider: 20:05 Travel History International Travel<30 days: No Contact w/Intl Traveler<30days: No Traveled to known affect area: No History of Present Illness HPI 47-year-old black female insulin-dependent diabetic presents emergency department with a painful lump behind her left shoulder. She states that she has had an incision and drainage done in the past. She reports increasing pain and swelling. Her sugars have been out of control. She states that they tend to be low and high at various times. She states that her sugar today was high. She did not adjust her insulin. She denies any fever chills. No vomiting. No abdominal pain. No urine symptoms. PFSH Past Medical History Hx Anticoagulant Therapy: Yes (PLAVIX) Arthritis: No Asthma: Yes Autoimmune Disease: No Blood Disorders: No Anxiety: Yes Depression: Yes Heart Rhythm Problems: No Cancer: No Cardiovascular Problems: Yes (HX OF DVT, STENT PLACED IN LEFT LEG) High Cholesterol: Yes Chemotherapy: No Chest Pain: Yes Congestive Heart Failure: No COPD: No Cerebrovascular Accident: Yes (STROKE 2014) Coronary Artery Disease: Yes Diabetes: Yes Diminished Hearing: No Deep Vein Thrombosis: Yes Endocrine: Yes Gastrointestinal Disorders: Yes (GASTRITIS) GERD: Yes Genitourinary: No Headaches: Yes Heparin Induced Thrombocytopen: No Hypertension: Yes Immune Disorder: No Implanted Vascular Access Dvce: Yes (STENT IN LEFT LEG) Musculoskeletal: No Neurologic: Yes (CVA IN 2015, NEUROPATHY) Psychiatric: Yes (anixety & depression (pt states that she doesnt take medicine )) Reproductive: No Respiratory: Yes Immunizations Current: Yes Migraines: Yes Radiation Therapy: No Sickle Cell Disease: No Sleep Apnea: No Thyroid Disease: No ?: Not : 3 Para: 0 Miscarriage: 3 : 0 Ovarian Cysts: Yes Past Surgical History Abdominal Surgery: Yes (04/30/02 FIBROIDS REMOVED FROM UTERUS.) AICD: No Arteriovenous Shunt: No Body Medical Devices: LEFT LEG FILTER/ dvt Ear Surgery: No Endocrine Surgery: No Eye Surgery: Yes Genitourinary Surgery: No Gynecologic Surgery: Yes Hysterectomy: Yes (PARTIAL) Insulin Pump: No Joint Replacement: No Oral Surgery: No Pacemaker: No Other Surgery: Yes (MYOMECTOMY, BLOOD CLOT FROM L LEG, R BELOW KNEE AMPUTATION) Social History Alcohol Use: No Tobacco Use: Yes (/2 PPD) Substance Use: Yes (MARIJUANA/ once month/ last week) Allergies-Medications (Allergen,Severity, Reaction): Coded Allergies: penicillin G (Unverified Allergy, Severe, SWELLING WITH RESP DIFFICULTY, ) shellfish derived (Unverified Allergy, Severe, SWELLING, 06/14/17) tomato (Unverified Allergy, Intermediate, 06/14/17) milk (Unverified Allergy, Unknown, 06/14/17) Reported Meds & Prescriptions Reported Meds & Active Scripts Active Metoclopramide (Metoclopramide HCl) 10 Mg Tab 10 Mg PO ACHS 30 Days Eq Nicotine (Nicotine) 21 Mg/24 Hour Dis 1 Patch T-DERMAL DAILY Hydrocodone-Acetaminophen 7.5 Mg-325 Mg Tab 1 Tab PO Q6HR PRN Iram Contour Next Blood Test Strips (Blood Glucose Test Strips) 1 Erica Erica Strip .ROUTE ACHS PRN Sucralfate Liq (Sucralfate) 1 Gm/10 Ml Melina 1 Gm PO ACHS Reported Atorvastatin (Atorvastatin Calcium) 40 Mg Tab 40 Mg PO HS Citalopram (Citalopram Hydrobromide) 20 Mg Tab 20 Mg PO DAILY Metoprolol Tartrate 25 Mg Tab 12.5 Mg PO BID Albuterol Neb (Albuterol Sulfate) 2.5 Mg/3 Ml Neb 2.5 Mg NEB Q4-6H PRN Proair Hfa 8.5 GM Inh (Albuterol Sulfate) 90 Mcg/Act Aer 2 Puff INH BID 108 mcg/actuation Metformin (Metformin HCl) 500 Mg Tab 500 Mg PO BID With meals Sertraline (Sertraline HCl) Unknown Strength Tab Unknown Dose PO DAILY Pantoprazole (Pantoprazole Sodium) 40 Mg Tab 40 Mg PO DAILY Spiriva Handihaler (Tiotropium Inh) 18 Mcg Cap 18 Mcg INH DAILY 1 capsule = 18 mcg Do Not Swallow Capsule Lyrica (Pregabalin) 50 Mg Cap 50 Mg PO BID Zolpidem (Zolpidem Tartrate) 10 Mg Tab 10 Mg PO HS Clopidogrel (Clopidogrel Bisulfate) 75 Mg Tab 75 Mg PO DAILY Levemir Flextouch Pen Inj (Insulin Detemir) 300 unit/3 ML Pen 10 Units SQ BID Topamax (Topiramate) 50 Mg Tab 50 Mg PO HS Novolog Inj (Insulin Aspart) 1,000 Unit/10 Ml Vial 0 SQ DIRECTED Sliding Scale as directed. Review of Systems General / Constitutional: No: Fever Eyes: No: Visual changes HENT: No: Headaches Cardiovascular: No: Chest Pain or Discomfort Respiratory: No: Shortness of Breath Gastrointestinal: No: Abdominal Pain Genitourinary: No: Dysuria Musculoskeletal: Positive: Pain Skin: Positive Lesions, No Rash Neurologic: Positive: Weakness, No: Headache Psychiatric: No: Depression Endocrine: No: Polydipsia Hematologic/Lymphatic: No: Easy Bruising Physical Exam Narrative GENERAL: This is a well-nourished, well-developed patient, in no apparent distress. SKIN: 3 x 3 cm abscess to the left posterior shoulder. This is a sebaceous cyst. It is tender to touch. Mild erythema. No drainage., . Warm and dry. HEAD: Atraumatic. Normocephalic. EYES: PERRL, EOMI, no discharge or injection. No scleral icterus. EARS: Clear NOSE: Nasal turbinates appear normal. THROAT: Mucosa pink and moist. Airway patent. NECK: Trachea midline. supple, moves head freely. LUNGS: Clear to auscultation. CV: Regular in rhythm. ABDOMEN: Soft nontender. EXT: No clubbing cyanosis or edema. 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 Data Data Last Documented VS Vital Signs Date Time Temp Pulse Resp B/P (MAP) Pulse Ox O2 Delivery O2 Flow Rate FiO2 06/14/17 19:19 98.6 100 20 123/79 (94) 98 Orders Orders Complete Blood Count With Diff (06/14/17 20:12) Basic Metabolic Panel (Bmp) (06/14/17 20:12) Iv Access Insert/Monitor (06/14/17 20:12) Sodium Chlor 0.9% 1000 Ml Inj (Ns 1000 M (06/14/17 20:15) Insulin Human Regular Inj (Novolin R Inj (06/14/17 20:15) Clindamycin 600 Mg/Ns Premix (Cleocin 60 (06/14/17 20:15) Lidocai-Epi 1%-1:100,000 Inj (Xylocaine- (06/14/17 21:00) Lidocai-Epi 1%-1:100,000 Inj (Xylocaine- (06/14/17 20:50) MDM Medical Decision Making Medical Screen Exam Complete: Yes Emergency Medical Condition: Yes Medical Record Reviewed: Yes Interpretation(s) [facility] Differential Diagnosis MDM: High Differential diagnoses: Abscess, folliculitis, cellulitis, lymphangitis, abrasion, contact dermatitis, uncontrolled diabetes Narrative Course IV access is obtained. Patient was given a liter bolus of normal saline. Patient given 8 units of regular insulin IV. Clindamycin 600 mg IV. An incision and drainage will be performed. Laboratory tests sent for analysis. Procedures Procedure Narrative I&D abscess: After the risks and benefits were discussed the following procedure was performed. The skin is prepped and draped in the usual sterile fashion using Betadine. The abscess is anesthetized with 1% lidocaine with epinephrine. After adequate anesthesia, an 10 blade scalpel is used to make a 2 centimeter central incision. The abscess capsule is dissected and removed. It did rupture during the procedure but I believe I removed the capsule in its entirety. The wound is cleansed deeply using dilute Hibiclens and normal saline. The wound is packed open using iodoform gauze. A clean dressing is applied. The patient tolerated the procedure well. There was no complications. Follow-up instructions were given to the patient. Diagnosis Primary Impression: Infected sebaceous cyst Additional Impression: Uncontrolled diabetes Patient Instructions: General Instructions Additional Instructions: Rest. Elevation. keep clean and dry. remove the packing in two days. Daily wound care with soap, water and Neosporin. Three Advil every 6 hours. Clindamycin and Lortab. Follow-up with a primary care doctor in 2-3 days. Return to the ER for any problems. Med/Other Pt SpecificInfo: Prescription(s) given Disposition: 01 DISCHARGE HOME Condition: Stable Hesham Garza Jun 14, 2017 20:44
[2017-06-14] MEDS ORDERED: LIDOCAINE 1%/EPINEPHrine 1:100,000 SOLN 30 ML VIAL ONE (20:50)
[2017-06-14] MEDS ORDERED: LIDOCAINE 1%/EPINEPHrine 1:100,000 SOLN 20 ML VIAL INFIL ONE (21:00)
[2017-06-14] MEDS ORDERED: NORC5TAB PO (21:15)
[2017-06-14] MEDS ORDERED: CLEO300C2 PO (21:15)
[2017-06-14 21:29] LABS: AUTOMATED NEUTROPHIL # 4.3 TH/MM3 (1.8-7.7); BASOPHIL # 0.1 TH/MM3 (0-0.2); BASOPHIL % 1.1 % (0.0-2.0); EOSINOPHIL # 0.2 TH/MM3 (0-0.4); EOSINOPHIL % 2.2 % (0.0-4.0); HEMOGLOBIN 14.6 GM/DL (11.6-15.3); LYMPHOCYTE # 2.1 TH/MM3 (1.0-4.8); MEAN CELL VOLUME 98.1 FL (80.0-100.0); MEAN CORPUSCULAR HEMOGLOBIN 33.3 PG (27.0-34.0); MEAN PLATELET VOLUME 8.5 FL (7.0-11.0); MONO % 8.4 % (0.0-8.0); MONOCYTE # 0.6 TH/MM3 (0-0.9); NEUT % 59.3 % (16.0-70.0); PLATELET COUNT 362 TH/MM3 (150-450); RED BLOOD COUNT 4.39 MIL/MM3 (4.00-5.30); RED CELL DISTRIBUTION WIDTH 13.1 % (11.6-17.2); WHITE BLOOD COUNT 7.3 TH/MM3 (4.0-11.0)
[2017-06-14 21:42] LABS: BICARBONATE 26.6 MEQ/L (21.0-32.0); CALCIUM 8.9 MG/DL (8.5-10.1); CREATININE 0.83 MG/DL (0.50-1.00)
[2017-06-14] MEDS ORDERED: ACETAMINOPHEN/HYDROcodone 325 MG/5 MG TAB PO ONE (22:15)
--- NOTE | 2017-06-15 22:45 | EKG ---
Date Performed: 06/14/2017 Time Performed: 19:45:47 PTAGE: 47 years EKG: Sinus rhythm INFERIOR MYOCARDIAL INFARCTION ABNORMAL ECG Compared to PREVIOUS TRACING , rate faster DOCTOR: Matt Shafer Interpretating Date/Time 06/15/2017 22:43:24
== END 2017-06-14 22:30 | disposition home or self-care (01) ==
LOC: NEPD 19:07
DX: L72.3 Sebaceous cyst (principal); L08.9 Local infection of the skin and subcutaneous tissue, unspecified; E11.65 Type 2 diabetes mellitus with hyperglycemia; E78.00 Pure hypercholesterolemia, unspecified; F17.200 Nicotine dependence, unspecified, uncomplicated; F12.90 Cannabis use, unspecified, uncomplicated; I10 Essential (primary) hypertension; I25.10 Atherosclerotic heart disease of native coronary artery without angina pectoris; J45.909 Unspecified asthma, uncomplicated; F32.9 Major depressive disorder, single episode, unspecified; Z79.4 Long term (current) use of insulin; Z79.02 Long term (current) use of antithrombotics/antiplatelets
CPT/HCPCS: 10060; 80048; 85025; 93005; 96361; 96374; 96375; 99284; J1815; J7030

== ENCOUNTER 2017-07-13 21:52 | Emergency (ER) | payer MEDICAID, OTHER ==
[~2017-07-13] VITALS: Ht 160 cm; Wt 50.0 kg
[~2017-07-13 21:52] MED LIST changes: +CLEO300C2 PO; +NORC5TAB PO
[2017-07-13 21:56] VITALS: BP 156/78; PULSE 85; RESP 18; TEMP 98.1; O2SAT 100
[2017-07-13] MEDS ORDERED: KETOROLAC TROMETHAMINE 30 MG/ML (IVP) VIAL IV PUSH ONE (22:30)
[2017-07-13] MEDS ORDERED: SODIUM CHLOR 0.9% 1000 ML INJ 1,000 ML IV ONE (22:30)
--- NOTE | 2017-07-13 22:44 | PD ---
HPI Chief Complaint: Diabetic Time Seen by Provider: 22:17 Travel History International Travel<30 days: No Contact w/Intl Traveler<30days: No Traveled to known affect area: No History of Present Illness HPI 47yo F with PMH of IDDM presents to the ED with c/o tooth pain for a while. Pt has pain in left lower wisdom tooth and has not been able to follow up with dentist. Pt also found to have elevated blood glucose because she has not taken her insulin for 2 days. Said she didnt take it because she has not been eating because of the tooth pain. Denies any fever, trauma, chest pain, sob, n/ v, abdominal pain, focal weakness or numbness. PFSH Past Medical History Hx Anticoagulant Therapy: Yes (PLAVIX) Arthritis: No Asthma: Yes Autoimmune Disease: No Blood Disorders: No Anxiety: Yes Depression: Yes Heart Rhythm Problems: No Cancer: No Cardiovascular Problems: Yes (HX OF DVT, STENT PLACED IN LEFT LEG) High Cholesterol: Yes Chemotherapy: No Chest Pain: Yes Congestive Heart Failure: No COPD: No Cerebrovascular Accident: Yes (STROKE 2014) Coronary Artery Disease: Yes Diabetes: Yes Patient Takes Glucophage: No Diminished Hearing: No Deep Vein Thrombosis: Yes Endocrine: Yes Gastrointestinal Disorders: Yes (GASTRITIS) GERD: Yes Genitourinary: No Headaches: Yes Heparin Induced Thrombocytopen: No Hypertension: Yes Immune Disorder: No Implanted Vascular Access Dvce: Yes (STENT IN LEFT LEG) Musculoskeletal: No Neurologic: Yes (CVA IN 2015, NEUROPATHY) Psychiatric: Yes (anixety & depression (pt states that she doesnt take medicine )) Reproductive: No Respiratory: Yes Immunizations Current: Yes Migraines: Yes Radiation Therapy: No Sickle Cell Disease: No Sleep Apnea: No Thyroid Disease: No Tetanus Vaccination: > 5 Years Influenza Vaccination: Yes ?: Not : 3 Para: 0 Miscarriage: 3 : 0 Ovarian Cysts: Yes Past Surgical History Abdominal Surgery: Yes (04/30/02 FIBROIDS REMOVED FROM UTERUS.) AICD: No Arteriovenous Shunt: No Body Medical Devices: LEFT LEG FILTER/ dvt Ear Surgery: No Endocrine Surgery: No Eye Surgery: Yes Genitourinary Surgery: No Gynecologic Surgery: Yes Hysterectomy: Yes (PARTIAL) Insulin Pump: No Joint Replacement: No Oral Surgery: No Pacemaker: No Other Surgery: Yes (MYOMECTOMY, BLOOD CLOT FROM L LEG, R BELOW KNEE AMPUTATION) Social History Alcohol Use: No Tobacco Use: Yes (1/2 PPD) Substance Use: Yes (MARIJUANA/ once month/ last week) Allergies-Medications (Allergen,Severity, Reaction): Coded Allergies: penicillin G (Unverified Allergy, Severe, SWELLING WITH RESP DIFFICULTY, ) shellfish derived (Unverified Allergy, Severe, SWELLING, 07/13/17) tomato (Unverified Allergy, Intermediate, 07/13/17) milk (Unverified Allergy, Unknown, 07/13/17) Reported Meds & Prescriptions Reported Meds & Active Scripts Active Clindamycin (Clindamycin HCl) 150 Mg Cap 300 Mg PO Q6H 7 Days Carefine Pen [place] 30Gx 30G X 8 mm (Insulin Pen Needle/Carefine 30Gx 30G X 8 mm) 30 Gauge X 07/13" Mis Box .XX DIRECTED Use as directed Tylenol (Acetaminophen) 325 Mg Tab 650 Mg PO Q6H PRN Metoclopramide (Metoclopramide HCl) 10 Mg Tab 10 Mg PO ACHS 30 Days Sucralfate Liq (Sucralfate) 1 Gm/10 Ml Melina 1 Gm PO ACHS Reported Atorvastatin (Atorvastatin Calcium) 40 Mg Tab 40 Mg PO HS Citalopram (Citalopram Hydrobromide) 20 Mg Tab 20 Mg PO DAILY Metoprolol Tartrate 25 Mg Tab 12.5 Mg PO BID Albuterol Neb (Albuterol Sulfate) 2.5 Mg/3 Ml Neb 2.5 Mg NEB Q4-6H PRN Proair Hfa 8.5 GM Inh (Albuterol Sulfate) 90 Mcg/Act Aer 2 Puff INH BID 108 mcg/actuation Metformin (Metformin HCl) 500 Mg Tab 500 Mg PO BID With meals Sertraline (Sertraline HCl) Unknown Strength Tab Unknown Dose PO DAILY Pantoprazole (Pantoprazole Sodium) 40 Mg Tab 40 Mg PO DAILY Spiriva Handihaler (Tiotropium Inh) 18 Mcg Cap 18 Mcg INH DAILY 1 capsule = 18 mcg Do Not Swallow Capsule Lyrica (Pregabalin) 50 Mg Cap 50 Mg PO BID Zolpidem (Zolpidem Tartrate) 10 Mg Tab 10 Mg PO HS Clopidogrel (Clopidogrel Bisulfate) 75 Mg Tab 75 Mg PO DAILY Levemir Flextouch Pen Inj (Insulin Detemir) 300 unit/3 ML Pen 10 Units SQ BID Topamax (Topiramate) 50 Mg Tab 50 Mg PO HS Novolog Inj (Insulin Aspart) 1,000 Unit/10 Ml Vial 0 SQ DIRECTED Sliding Scale as directed. Review of Systems Except as stated in HPI: all other systems reviewed are Neg Physical Exam Narrative GENERAL: 47yo F in mild distress. SKIN: Focused skin assessment warm/dry. HEAD: Atraumatic. Normocephalic. EYES: Pupils equal and round. No scleral icterus. No injection or drainage. ENT: No nasal bleeding or discharge. Mucous membranes pink and moist. MOUTH: +Cracked, impacted tooth #17. +TTP. No periapical fluctuance. No trismus. No tongue elevation. NECK: Trachea midline. No JVD. CARDIOVASCULAR: Regular rate and rhythm. No murmur appreciated. RESPIRATORY: No accessory muscle use. Clear to auscultation. Breath sounds equal bilaterally. GASTROINTESTINAL: Abdomen soft, non-tender, nondistended. MUSCULOSKELETAL: No obvious deformities. No clubbing. No cyanosis. No edema. NEUROLOGICAL: Awake and alert. No obvious cranial nerve deficits. Motor grossly within normal limits. Normal speech. PSYCHIATRIC: Appropriate mood and affect; insight and judgment normal. Data Data Last Documented VS Vital Signs Date Time Temp Pulse Resp B/P (MAP) Pulse Ox O2 Delivery O2 Flow Rate FiO2 07/14/17 00:48 07/14/17 00:47 79 16 97 Room Air 07/13/17 21:56 98.1 Orders Orders Complete Blood Count With Diff (07/13/17 22:28) Basic Metabolic Panel (Bmp) (07/13/17 22:28) Blood Gas Venous (Vbg) (07/13/17 22:28) Beta Hydroxybutyrate (Acetone) (07/13/17 22:28) Sodium Chlor 0.9% 1000 Ml Inj (Ns 1000 M (07/13/17 22:30) Ketorolac Inj (Toradol Inj) (07/13/17 22:30) Bupivacaine Pf 0.25% Inj (Marcaine Pf 0. (07/13/17 22:45) Insulin Human Regular Inj (Novolin R Inj (07/13/17 23:30) Blood Glucose (07/13/17 23:48) Ed Discharge Order (07/14/17 00:31) Labs Laboratory Tests Test 07/13/17:34 07/13/17 23:08 White Blood Count 7.3 TH/MM3 Red Blood Count 4.00 MIL/MM3 Hemoglobin 13.4 GM/DL Hematocrit 39.7 % Mean Corpuscular Volume 99.4 FL Mean Corpuscular Hemoglobin 33.4 PG Mean Corpuscular Hemoglobin Concent 33.6 % Red Cell Distribution Width 13.2 % Platelet Count 233 TH/MM3 Mean Platelet Volume 9.1 FL Neutrophils (%) (Auto) 66.2 % Lymphocytes (%) (Auto) 24.2 % Monocytes (%) (Auto) 7.5 % Eosinophils (%) (Auto) 1.5 % Basophils (%) (Auto) 0.6 % Neutrophils # (Auto) 4.8 TH/MM3 Lymphocytes # (Auto) 1.8 TH/MM3 Monocytes # (Auto) 0.5 TH/MM3 Eosinophils # (Auto) 0.1 TH/MM3 Basophils # (Auto) 0.0 TH/MM3 CBC Comment DIFF FINAL Differential Comment Blood Urea Nitrogen 3 MG/DL Creatinine 0.85 MG/DL Random Glucose 556 MG/DL Calcium Level 7.6 MG/DL Sodium Level 136 MEQ/L Potassium Level 3.7 MEQ/L Chloride Level 103 MEQ/L Carbon Dioxide Level 21.9 MEQ/L Anion Gap 11 MEQ/L Estimat Glomerular Filtration Rate 86 ML/MIN B-Hydroxybutyrate 0.10 MMOL/L Blood Gas Puncture Site IV Blood Gas Patient Temperature 98.6 Venous Blood pH 7.35 Venous Blood Partial Pressure CO2 41 mmHg Venous Blood Partial Pressure O2 67 mmHg Venous Blood HCO3 22 mmol/L Venous Blood Oxygen Saturation 85 % Venous Blood Oxygen Content 14.8 Vol % Venous Blood Base Excess -2.7 mmol/L Blood Gas Inspired Oxygen 21 % [facility] Medical Decision Making Medical Screen Exam Complete: Yes Emergency Medical Condition: Yes Differential Diagnosis Dental infection vs. DKA vs. uncontrolled DM Narrative Course 47yo F with DM here because she is having a lot of pain in her left lower tooth. Labs reviewed, no leukocytosis. H/H normal. Glucose elevated at 556. Normal anion gap. CO2 normal. pH is normal at 7.35. b-Hydroxybutyrate normal. Pt given toradol and NS IVF and pain has improved. I offered inferior alveolar block and patient would like it so performed. Inferior alveolar block performed and pt is feeling much better now. The tooth #17 is cracked and impacted and needs to be extracted by a dentist. Will cover with antibiotics in the mean time but informed pt she has to follow up with dentist. Pt given 10 units of regular insulin. She said she has insulin at home but just have not use it because she has not been eating much. Repeat blood glucose 329. Pt requesting prescription for the needle caps. Instructed pt to use her insulin and follow up with dentist. Procedures Procedure Narrative Inferior alveolar block 2cc of 0.25% bupivacaine was used for left inferior alveolar block. No complications after. No active bleeding. Diagnosis Primary Impression: Pain, dental Additional Impression: Uncontrolled blood glucose Patient Instructions: General Instructions Departure Forms: Tests/Procedures Additional Instructions: Please follow up with your dentist as soon as you can. Please follow up with your primary care physician for better control of your diabetes. Return to the ED if symptoms worsen. Med/Other Pt SpecificInfo: Prescription(s) given Scripts Clindamycin (Clindamycin) 150 Mg Cap 300 MG PO Q6H for Infection for 7 Days, #56 CAP 0 Refills Prov: Natacha Dobbs DO 07/14/17 Insulin Pen Needle/Carefine 30Gx 30G X 8 mm (Carefine Pen [place] 30Gx 30G X 8 mm) 30 Gauge X 5/16" Mis BOX .XX DIRECTED, #1 0 Refills Use as directed Prov: Natacha Dobbs DO 07/14/17 Acetaminophen (Tylenol) 325 Mg Tab 650 MG PO Q6H Y for PAIN SCALE 1 TO 4, #20 TAB 0 Refills Prov: Natacha Dobbs DO 07/14/17 Disposition: 01 DISCHARGE HOME Condition: Stable Natacha Dobbs DO July 13, 2017 22:44
[2017-07-13] MEDS ORDERED: BUPIVACAINE HCL PF 0.25% 10 ML VIAL INFIL ONE (22:45)
[2017-07-13 22:54] LABS: AUTOMATED NEUTROPHIL # 4.8 TH/MM3 (1.8-7.7); BASOPHIL % 0.6 % (0.0-2.0); EOSINOPHIL # 0.1 TH/MM3 (0-0.4); EOSINOPHIL % 1.5 % (0.0-4.0); HEMATOCRIT 39.7 % (35.0-46.0); HEMOGLOBIN 13.4 GM/DL (11.6-15.3); LYMPH % 24.2 % (9.0-44.0); LYMPHOCYTE # 1.8 TH/MM3 (1.0-4.8); MEAN CELL VOLUME 99.4 FL (80.0-100.0); MEAN CORPUSCULAR HEMOGLOBIN 33.4 PG (27.0-34.0); MEAN CORPUSCULAR HGB CONC 33.6 % (32.0-36.0); MEAN PLATELET VOLUME 9.1 FL (7.0-11.0); MONO % 7.5 % (0.0-8.0); MONOCYTE # 0.5 TH/MM3 (0-0.9); NEUT % 66.2 % (16.0-70.0); PLATELET COUNT 233 TH/MM3 (150-450); RED CELL DISTRIBUTION WIDTH 13.2 % (11.6-17.2); WHITE BLOOD COUNT 7.3 TH/MM3 (4.0-11.0)
[2017-07-13 23:09] LABS: BICARBONATE 21.9 MEQ/L (21.0-32.0); CALCIUM 7.6 MG/DL (8.5-10.1); CREATININE 0.85 MG/DL (0.50-1.00)
[2017-07-13] MEDS ORDERED: INSULIN HUMAN REGULAR 1,000 UNITS/10 ML VIAL SQ ONE (23:30)
[2017-07-14] MEDS ORDERED: INSU-92 (00:23)
[2017-07-14] MEDS ORDERED: TYLE325T PO (00:23)
[2017-07-14] MEDS ORDERED: CLIN150C14 PO (00:28)
[2017-07-14 00:47] VITALS: BP 135/84; PULSE 79; RESP 16; O2SAT 97
[2017-07-15] MEDS ORDERED: ZOFR4TAB PO (16:38)
== END 2017-07-14 01:06 | disposition home or self-care (01) ==
LOC: NEPC 21:52
DX: K08.89 Other specified disorders of teeth and supporting structures (principal); E11.65 Type 2 diabetes mellitus with hyperglycemia; I10 Essential (primary) hypertension; I25.10 Atherosclerotic heart disease of native coronary artery without angina pectoris; K21.9 Gastro-esophageal reflux disease without esophagitis; E78.00 Pure hypercholesterolemia, unspecified; F41.8 Other specified anxiety disorders; Z79.4 Long term (current) use of insulin; Z79.01 Long term (current) use of anticoagulants; Z86.79 Personal history of other diseases of the circulatory system; Z86.718 Personal history of other venous thrombosis and embolism; Z86.73 Personal history of transient ischemic attack (TIA), and cerebral infarction without residual deficits
CPT/HCPCS: 80048; 82010; 82805; 85025; 96361; 96372; 96374; 99284; J1815; J1885; J7030

== ENCOUNTER 2017-07-15 13:52 | Observation (INO) | payer MEDICAID ==
[~2017-07-15 13:52] MED LIST changes: -CLEO300C2 PO; +CLIN150C14 PO; -GLUCTES27; -HYDR-3580 PO; +INSU-92; -NICO21DI25 T-DERMAL; -NORC5TAB PO; +TYLE325T PO
[2017-07-15] MEDS ORDERED: diphenhydrAMINE HCL 50 MG/ML VIAL IV PUSH ONE (16:30)
[2017-07-15] MEDS ORDERED: SODIUM CHLORIDE 0.9% FLUSH 10 ML FLUSH IVF PRN ×2 (16:30→18:45)
[2017-07-15] MEDS ORDERED: PROCHLORPERAZINE INJ 10 MG/2 ML VIAL IV PUSH ONE (16:30)
[2017-07-15] MEDS ORDERED: SODIUM CHLOR 0.9% 1000 ML INJ 1,000 ML IV ONE ×2 (16:30→17:15)
--- NOTE | 2017-07-15 16:30 | PD ---
HPI . Vomiting Chief Complaint: Medical Clearance Time Seen by Provider: 16:13 Travel History International Travel<30 days: No Contact w/Intl Traveler<30days: No Traveled to known affect area: No History of Present Illness HPI Patient presents with a chief complaint of vomiting for the last 2 days. She states that her symptoms all started after she took an antibiotic which has been prescribed to her for her teeth. She denies diarrhea. She denies fever. She denies urinary tract symptoms. She states that her vomiting has been profound. She states that she is now feeling weak and dizzy. PFSH Past Medical History Hx Anticoagulant Therapy: Yes (PLAVIX) Arthritis: No Asthma: Yes Autoimmune Disease: No Blood Disorders: No Anxiety: Yes Depression: Yes Heart Rhythm Problems: No Cancer: No Cardiovascular Problems: Yes (HX OF DVT, STENT PLACED IN LEFT LEG) High Cholesterol: Yes Chemotherapy: No Chest Pain: Yes Congestive Heart Failure: No COPD: No Cerebrovascular Accident: Yes (STROKE 2014) Coronary Artery Disease: Yes Diabetes: Yes Diminished Hearing: No Deep Vein Thrombosis: Yes Endocrine: Yes Gastrointestinal Disorders: Yes (GASTRITIS) GERD: Yes Genitourinary: No Headaches: Yes Heparin Induced Thrombocytopen: No Hypertension: Yes Immune Disorder: No Implanted Vascular Access Dvce: Yes (STENT IN LEFT LEG) Musculoskeletal: No Neurologic: Yes (CVA IN 2015, NEUROPATHY) Psychiatric: Yes (anixety & depression (pt states that she doesnt take medicine )) Reproductive: No Respiratory: Yes Immunizations Current: Yes Migraines: Yes Radiation Therapy: No Sickle Cell Disease: No Sleep Apnea: No Thyroid Disease: No : 3 Para: 0 Miscarriage: 3 : 0 Ovarian Cysts: Yes Past Surgical History Abdominal Surgery: Yes (04/30/02 FIBROIDS REMOVED FROM UTERUS.) AICD: No Arteriovenous Shunt: No Body Medical Devices: LEFT LEG FILTER/ dvt Ear Surgery: No Endocrine Surgery: No Eye Surgery: Yes Genitourinary Surgery: No Gynecologic Surgery: Yes Hysterectomy: Yes (PARTIAL) Insulin Pump: No Joint Replacement: No Oral Surgery: No Pacemaker: No Other Surgery: Yes (MYOMECTOMY, BLOOD CLOT FROM L LEG, R BELOW KNEE AMPUTATION) Social History Alcohol Use: No Tobacco Use: Yes (03/01 PPD) Substance Use: Yes (MARIJUANA/ once month/ last week) Allergies-Medications (Allergen,Severity, Reaction): Coded Allergies: penicillin G (Unverified Allergy, Severe, SWELLING WITH RESP DIFFICULTY, ) shellfish derived (Unverified Allergy, Severe, SWELLING, 07/15/17) tomato (Unverified Allergy, Intermediate, 07/15/17) milk (Unverified Allergy, Unknown, 07/15/17) Reported Meds & Prescriptions Reported Meds & Active Scripts Active Zofran (Ondansetron HCl) 4 Mg Tab 4 Mg PO Q6HR PRN Clindamycin (Clindamycin HCl) 150 Mg Cap 300 Mg PO Q6H 7 Days Carefine Pen [place] 30Gx 30G X 8 mm (Insulin Pen Needle/Carefine 30Gx 30G X 8 mm) 30 Gauge X 5/16" Mis Box .XX DIRECTED Use as directed Tylenol (Acetaminophen) 325 Mg Tab 650 Mg PO Q6H PRN Metoclopramide (Metoclopramide HCl) 10 Mg Tab 10 Mg PO ACHS 30 Days Sucralfate Liq (Sucralfate) 1 Gm/10 Ml Melina 1 Gm PO ACHS Reported Atorvastatin (Atorvastatin Calcium) 40 Mg Tab 40 Mg PO HS Citalopram (Citalopram Hydrobromide) 20 Mg Tab 20 Mg PO DAILY Metoprolol Tartrate 25 Mg Tab 12.5 Mg PO BID Albuterol Neb (Albuterol Sulfate) 2.5 Mg/3 Ml Neb 2.5 Mg NEB Q4-6H PRN Proair Hfa 8.5 GM Inh (Albuterol Sulfate) 90 Mcg/Act Aer 2 Puff INH BID 108 mcg/actuation Metformin (Metformin HCl) 500 Mg Tab 500 Mg PO BID With meals Sertraline (Sertraline HCl) Unknown Strength Tab Unknown Dose PO DAILY Pantoprazole (Pantoprazole Sodium) 40 Mg Tab 40 Mg PO DAILY Spiriva Handihaler (Tiotropium Inh) 18 Mcg Cap 18 Mcg INH DAILY 1 capsule = 18 mcg Do Not Swallow Capsule Lyrica (Pregabalin) 50 Mg Cap 50 Mg PO BID Zolpidem (Zolpidem Tartrate) 10 Mg Tab 10 Mg PO HS Clopidogrel (Clopidogrel Bisulfate) 75 Mg Tab 75 Mg PO DAILY Levemir Flextouch Pen Inj (Insulin Detemir) 300 unit/3 ML Pen 10 Units SQ BID Topamax (Topiramate) 50 Mg Tab 50 Mg PO HS Novolog Inj (Insulin Aspart) 1,000 Unit/10 Ml Vial 0 SQ DIRECTED Sliding Scale as directed. Review of Systems Except as stated in HPI: all other systems reviewed are Neg Physical Exam Narrative GENERAL: Awake and alert and in no acute distress. SKIN: Warm and dry. HEAD: Normocephalic/atraumatic. EYES: Pupils are equal. Extraocular movements are intact. ENT: Her mucous membranes are dry. NECK: Normal range of motion. CARDIOVASCULAR: Regular rate and rhythm. RESPIRATORY: Nonlabored respirations. ABDOMEN: Soft. MUSCULOSKELETAL: Atraumatic. NEUROLOGICAL: Nonfocal. PSYCHIATRIC: Appropriate mood and affect. Data Data Orders Orders Iv Access Insert/Monitor (07/15/17 16:30) Sodium Chloride 0.9% Flush (Ns Flush) (07/15/17 16:30) Prochlorperazine Inj (Compazine Inj) (07/15/17 16:30) Diphenhydramine Inj (Benadryl Inj) (07/15/17 16:30) Sodium Chlor 0.9% 1000 Ml Inj (Ns 1000 M (07/15/17 16:30) Bedside Glucose JHONNY.CSUGAR (07/15/17 16:38) Sodium Chlor 0.9% 1000 Ml Inj (Ns 1000 M (07/15/17 17:15) MDM Medical Decision Making Medical Screen Exam Complete: Yes Emergency Medical Condition: Yes Differential Diagnosis Differential diagnosis includes but is not limited to viral gastritis, food poisoning, pancreatitis, pneumonia, hepatitis, acute coronary syndrome, Narrative Course This patient presents with chief complaint of nausea and vomiting. Her mucous membranes are dry. She will be treated with IV fluids. She will be given IV Compazine and Benadryl. Diagnosis Primary Impression: Nausea and vomiting Qualified Codes: R11.2 - Nausea with vomiting, unspecified Patient Instructions: Acute Nausea and Vomiting (DC), General Instructions Med/Other Pt SpecificInfo: Prescription(s) given Scripts Ondansetron (Zofran) 4 Mg Tab 4 MG PO Q6HR Y for NAUSEA OR VOMITING, #6 TAB 0 Refills Prov: Aspen Jimenez MD 07/15/17 Disposition: 01 DISCHARGE HOME Condition: Stable Aspen Jimenez MD July 15, 2017 16:30
[2017-07-15] MEDS ORDERED: ZOFR4TAB PO (16:38)
[2017-07-15 18:24] VITALS: BP 154/82; PULSE 78; RESP 20; O2SAT 98
[2017-07-15 18:42] VITALS: RESP 20; O2SAT 100
[2017-07-15 18:46] LABS: AUTOMATED NEUTROPHIL # 6.4 TH/MM3 (1.8-7.7); BASOPHIL % 0.6 % (0.0-2.0); HEMATOCRIT 45.7 % (35.0-46.0); HEMOGLOBIN 15.4 GM/DL (11.6-15.3); LYMPH % 10.4 % (9.0-44.0); LYMPHOCYTE # 0.8 TH/MM3 (1.0-4.8); MEAN CELL VOLUME 98.1 FL (80.0-100.0); MEAN CORPUSCULAR HGB CONC 33.7 % (32.0-36.0); MEAN PLATELET VOLUME 8.8 FL (7.0-11.0); MONO % 3.2 % (0.0-8.0); MONOCYTE # 0.2 TH/MM3 (0-0.9); NEUT % 85.8 % (16.0-70.0); PLATELET COUNT 316 TH/MM3 (150-450); RED BLOOD COUNT 4.66 MIL/MM3 (4.00-5.30); RED CELL DISTRIBUTION WIDTH 13.1 % (11.6-17.2); WHITE BLOOD COUNT 7.4 TH/MM3 (4.0-11.0)
[2017-07-15 19:03] LABS: ALBUMIN 3.6 GM/DL (3.4-5.0); AST (GOT) 17 U/L (15-37); BICARBONATE 21.6 MEQ/L (21.0-32.0); BLOOD UREA NITROGEN 9 MG/DL (7-18); CALCIUM 9.5 MG/DL (8.5-10.1); CHLORIDE 109 MEQ/L (98-107); CREATININE 0.65 MG/DL (0.50-1.00); GLOMERULAR FILTRATION RATE 118 ML/MIN (>89); GLUCOSE,RANDOM 253 MG/DL (74-106); SODIUM (NA) 144 MEQ/L (136-145)
[2017-07-15 19:07] LABS: ALKALINE PHOSPHATASE 100 U/L (45-117); ALT (GPT) 33 U/L (10-53); TOTAL BILIRUBIN ADULT 0.4 MG/DL (0.2-1.0); TOTAL PROTEIN 7.8 GM/DL (6.4-8.2)
[2017-07-15] MEDS ORDERED: INSULIN HUMAN REGULAR 1,000 UNITS/10 ML VIAL SQ ONE (19:15)
--- NOTE | 2017-07-15 19:17 | PD ---
Data Data Last Documented VS Vital Signs Date Time Temp Pulse Resp B/P (MAP) Pulse Ox O2 Delivery O2 Flow Rate FiO2 07/15/17 18:42 20 100 Room Air 07/15/17 18:24 78 Orders Orders Iv Access Insert/Monitor (07/15/17 16:30) Sodium Chloride 0.9% Flush (Ns Flush) (07/15/17 16:30) Prochlorperazine Inj (Compazine Inj) (07/15/17 16:30) Diphenhydramine Inj (Benadryl Inj) (07/15/17 16:30) Sodium Chlor 0.9% 1000 Ml Inj (Ns 1000 M (07/15/17 16:30) Bedside Glucose JHONNY.CSUGAR (07/15/17 16:38) Sodium Chlor 0.9% 1000 Ml Inj (Ns 1000 M (07/15/17 17:15) Complete Blood Count With Diff (07/15/17 18:31) Comprehensive Metabolic Panel (07/15/17 18:31) Beta Hydroxybutyrate (Acetone) (07/15/17 18:31) Urinalysis - C+S If Indicated (07/15/17 18:31) Blood Gas Venous (Vbg) (07/15/17 18:31) Ecg Monitoring (07/15/17 18:31) Oximetry (07/15/17 18:31) NPO (07/15/17 18:31) Sodium Chloride 0.9% Flush (Ns Flush) (07/15/17 18:45) Insulin Human Regular Inj (Novolin R Inj (07/15/17 19:15) Labs Laboratory Tests Test 07/15/17 18:33 White Blood Count 7.4 TH/MM3 Red Blood Count 4.66 MIL/MM3 Hemoglobin 15.4 GM/DL Hematocrit 45.7 % Mean Corpuscular Volume 98.1 FL Mean Corpuscular Hemoglobin 33.0 PG Mean Corpuscular Hemoglobin Concent 33.7 % Red Cell Distribution Width 13.1 % Platelet Count 316 TH/MM3 Mean Platelet Volume 8.8 FL Neutrophils (%) (Auto) 85.8 % Lymphocytes (%) (Auto) 10.4 % Monocytes (%) (Auto) 3.2 % Eosinophils (%) (Auto) 0.0 % Basophils (%) (Auto) 0.6 % Neutrophils # (Auto) 6.4 TH/MM3 Lymphocytes # (Auto) 0.8 TH/MM3 Monocytes # (Auto) 0.2 TH/MM3 Eosinophils # (Auto) 0.0 TH/MM3 Basophils # (Auto) 0.0 TH/MM3 CBC Comment DIFF FINAL Differential Comment Blood Gas Puncture Site IV Blood Gas Patient Temperature 98.6 Venous Blood pH 7.27 Venous Blood Partial Pressure CO2 46 mmHg Venous Blood Partial Pressure O2 26 mmHg Venous Blood HCO3 20 mmol/L Venous Blood Oxygen Saturation 39 % Venous Blood Oxygen Content 7.6 Vol % Venous Blood Base Excess -5.3 mmol/L Oxygen Delivery Device ROOM AIR Blood Gas Inspired Oxygen 21 % Blood Urea Nitrogen 9 MG/DL Creatinine 0.65 MG/DL Random Glucose 253 MG/DL Total Protein 7.8 GM/DL Albumin 3.6 GM/DL Calcium Level 9.5 MG/DL Alkaline Phosphatase 100 U/L Aspartate Amino Transf (AST/SGOT) 17 U/L Alanine Aminotransferase (ALT/SGPT) 33 U/L Total Bilirubin 0.4 MG/DL Sodium Level 144 MEQ/L Potassium Level 3.7 MEQ/L Chloride Level 109 MEQ/L Carbon Dioxide Level 21.6 MEQ/L Anion Gap 13 MEQ/L Estimat Glomerular Filtration Rate 118 ML/MIN B-Hydroxybutyrate 3.91 MMOL/L [facility] Supervised Visit with INDERJIT: No Narrative Course The patient was initially evaluated by the previous provider and signed out to me at the beginning of my shift pending reassessment after antiemetics and IV fluids patient disposition. See her note for further details. Briefly this is a 47-year-old female with history of insulin dependent diabetes who presents for evaluation of several episodes of nausea and vomiting since yesterday after starting an antibiotic for dental pain. Patient was given Compazine and a liter of normal saline IV by the previous provider as well as Benadryl. Since the patient was signed out to me she had a few more episodes of nonbloody/nonbilious emesis. Because of this, labs were performed. VBG shows a pH of 7.23 CBC: WBC 7.4, hemoglobin 15.4, hematocrit 45.7, platelets 316, neutrophils 86%. CMP is remarkable for random glucose 253, otherwise essentially unremarkable. Beta hydroxybutyrate is 3.91. Patient is not tolerating clear liquids in the emergency department. Her abdominal exam shows no tenderness. She has presented this way in the past. Given history of diabetes with elevated beta hydroxybutyrate no ability to tolerate orally, the patient will be admitted for overnight observation for further rehydration therapy as well as treatment of ketoacidosis. Case discussed with hospitalist Dr. Dougherty who will admit the patient to her service. Diagnosis Primary Impression: Intractable nausea and vomiting Qualified Codes: R11.2 - Nausea with vomiting, unspecified Additional Impressions: Hyperglycemia Ketoacidosis Dehydration Admitting Information Admitting Physician Requests: Observation Patient Instructions: General Instructions, Acute Nausea and Vomiting (DC) Scripts Ondansetron (Zofran) 4 Mg Tab 4 MG PO Q6HR Y for NAUSEA OR VOMITING, #6 TAB 0 Refills Prov: Aspen Jimenez MD 07/15/17 Disposition: 01 DISCHARGE HOME Condition: Stable Tamir Nur MD July 15, 2017 19:17
[2017-07-15] MEDS ORDERED: PANTOPRAZOLE SODIUM 40 MG VIAL IV PUSH SCH (19:30)
[2017-07-15] MEDS ORDERED: ACETAMINOPHEN/HYDROcodone 325 MG/5 MG TAB PO PRN (19:30)
[2017-07-15] MEDS ORDERED: MAGNESIUM HYDROXIDE SUSP 30 ML CUP PO PRN (19:30)
[2017-07-15] MEDS ORDERED: METOCLOPRAMIDE HCL 10 MG/2 ML VIAL IV PUSH PRN (19:30)
[2017-07-15] MEDS ORDERED: BISACODYL 10 MG SUPP RECTAL PRN (19:30)
[2017-07-15] MEDS ORDERED: ACETAMINOPHEN 325 MG TAB PO PRN (19:30)
[2017-07-15] MEDS ORDERED: MORPHINE SULFATE 4 MG/ML INJ IV PUSH PRN (19:30)
[2017-07-15] MEDS ORDERED: SENNOSIDES 8.6 MG TAB PO PRN (19:30)
[2017-07-15] MEDS ORDERED: PROCHLORPERAZINE INJ 10 MG/2 ML VIAL IV PUSH PRN (19:30)
[2017-07-15] MEDS ORDERED: LACTULOSE SYRUP 20 GM/30 ML CUP PO PRN (19:30)
[2017-07-15] MEDS ORDERED: GLUCAGON 1 MG/ML VIAL OTHER PRN (19:30)
[2017-07-15] MEDS ORDERED: SODIUM CHLORIDE 0.9% FLUSH 10 ML FLUSH IV FLUSH PRN (19:30)
[2017-07-15] MEDS ORDERED: DEXTROSE 50% IN WATER 50 ML VIAL(D50) IV PUSH PRN (19:30)
--- NOTE | 2017-07-15 19:32 | HHI.HP ---
HPI Service [facility] Primary Care Physician Americo Chambers MD Admission Diagnosis Intractable nausea and vomiting, ketoacidosis, dehydration, hypergly Diagnoses: (1) Intractable nausea and vomiting Diagnosis: Principal (2) Ketoacidosis Diagnosis: Principal (3) DM (diabetes mellitus) Diagnosis: Principal Travel History International Travel<30 Days: No Contact w/Intl Traveler <30 Da: No Traveled to Known Affected Are: No History of Present Illness This is a 47-year-old female with a PMH of Anxiety, Depression, HTN, Hyperlipidemia, h/o DVT, CAD and DM who presented to the ER w/ c/o nausea and vomiting x2 days. Seen in ER on 07/13/17 for dental pain, found to have dental infection and d/c'd on Clinda 300mg po q6h, per pt has had persistent nausea/vomiting since starting antibiotics. Unable to take PO. notes her BS >300 tonight and he gave her her home dose of Levemir and sliding scale. On arrival, BP 154/82, HR 78, O2 sat 98% RA, Afebrile. CBC unremarkable except for hemoconcentration, hemoglobin 15.4. Chemistry essentially unremarkable. BS 253. UA negative for UTI. Beta hydroxy 3.91. PH 7.27. S/p IVF and antiemetics in ER w/ persistent symptoms. Review of Systems Except as stated in HPI: all other systems reviewed are Neg ROS: 14 point review of systems otherwise negative. Past Family Social History Past Medical History PMH: Anxiety, Depression, HTN, Hyperlipidemia, h/o DVT, CAD and DM Past Surgical History PAST SURGICAL HISTORY: IVC Filter, Partial Hysterectomy, Eye Surgery, Right BKA , Myomectomy Allergies: Coded Allergies: penicillin G (Unverified Allergy, Severe, SWELLING WITH RESP DIFFICULTY, ) shellfish derived (Unverified Allergy, Severe, SWELLING, 07/15/17) tomato (Unverified Allergy, Intermediate, 07/15/17) milk (Unverified Allergy, Unknown, 07/15/17) Family History PAST FAMILY HISTORY: Reviewed, positive for DM. Social History PAST SOCIAL HISTORY: Negative for alcohol. Smokes 1/2ppd. +Marijuana Physical Exam Vital Signs Vital Signs Date Time Temp Pulse Resp B/P (MAP) Pulse Ox O2 Delivery O2 Flow Rate FiO2 07/15/17 18:42 20 100 Room Air 07/15/17 18:24 78 20 154/82 (106) 98 Room Air Physical Exam PE: GENERAL: Middle-aged black female in no acute distress, appears weak/tired. at bedside. HEENT: PERRLA, EOMI. No scleral icterus or conjunctival pallor. No lid lag or facial droop. CARDIOVASCULAR: Regular rate and rhythm. No obvious murmurs to auscultation. No chest tenderness to palpation. RESPIRATORY: No obvious rhonchi or wheezing. Clear to auscultation. Breath sounds equal bilaterally. GASTROINTESTINAL: Abdomen soft, non-tender, nondistended. BS normal. MUSCULOSKELETAL: Extremities without clubbing, cyanosis, or edema. No obvious deformities. BKA NEUROLOGICAL: Awake, alert and oriented x4. No focal neurologic deficits. Moving both upper and lower extremities spontaneously. Laboratory Laboratory Tests Test 07/15/17 18:33 White Blood Count 7.4 Red Blood Count 4.66 Hemoglobin 15.4 Hematocrit 45.7 Mean Corpuscular Volume 98.1 Mean Corpuscular Hemoglobin 33.0 Mean Corpuscular Hemoglobin Concent 33.7 Red Cell Distribution Width 13.1 Platelet Count 316 Mean Platelet Volume 8.8 Neutrophils (%) (Auto) 85.8 Lymphocytes (%) (Auto) 10.4 Monocytes (%) (Auto) 3.2 Eosinophils (%) (Auto) 0.0 Basophils (%) (Auto) 0.6 Neutrophils # (Auto) 6.4 Lymphocytes # (Auto) 0.8 Monocytes # (Auto) 0.2 Eosinophils # (Auto) 0.0 Basophils # (Auto) 0.0 CBC Comment DIFF FINAL Differential Comment Blood Gas Puncture Site IV Blood Gas Patient Temperature 98.6 Venous Blood pH 7.27 Venous Blood Partial Pressure CO2 46 Venous Blood Partial Pressure O2 26 Venous Blood HCO3 20 Venous Blood Oxygen Saturation 39 Venous Blood Oxygen Content 7.6 Venous Blood Base Excess -5.3 Oxygen Delivery Device ROOM AIR Blood Gas Inspired Oxygen 21 Blood Urea Nitrogen 9 Creatinine 0.65 Random Glucose 253 Total Protein 7.8 Albumin 3.6 Calcium Level 9.5 Alkaline Phosphatase 100 Aspartate Amino Transf (AST/SGOT) 17 Alanine Aminotransferase (ALT/SGPT) 33 Total Bilirubin 0.4 Sodium Level 144 Potassium Level 3.7 Chloride Level 109 Carbon Dioxide Level 21.6 Anion Gap 13 Estimat Glomerular Filtration Rate 118 B-Hydroxybutyrate 3.91 Result Diagram: 07/15/17183207/15/171832 Derianrini VTE Risk Assessment Caprini VTE Risk Assessment: No/Low Risk (score <= 1) Caprini Risk Assessment Model Point Value = 1 Point Value = 2 Point Value = 3 Point Value = 5 Age 41-60 Minor surgery BMI > 25 kg/m2 Swollen legs Varicose veins or History of unexplained or recurrent spontaneous Oral contraceptives or hormone replacement Sepsis (< 1 month) Serious lung disease, including pneumonia (< 1 month) Abnormal pulmonary function Acute myocardial infarction Congestive heart failure (< 1 month) History of inflammatory bowel disease Medical patient at bed rest Age 61-74 Arthroscopic surgery Major open surgery (> 45 min) Laparoscopic surgery (> 45 min) Malignancy Confined to bed (> 72 hours) Immobilizing plaster cast Central venous access Age >= 75 History of VTE Family history of VTE Factor V Leiden Prothrombin [id number] Lupus anticoagulant Anticardiolipin antibodies Elevated serum homocysteine Heparin-induced thrombocytopenia Other congenital or acquired thrombophilia Stroke (< 1 month) Elective arthroplasty Hip, pelvis, or leg fracture Acute spinal cord injury (< 1 month) Prophylaxis Regimen Total Risk Factor Score Risk Level Prophylaxis Regimen 0-1 Low Early ambulation 2 Moderate Order ONE of the following: *Sequential Compression Device (SCD) *Heparin 5000 units SQ BID 3-4 Higher Order ONE of the following medications: *Heparin 5000 units SQ TID *Enoxaparin/Lovenox 40 mg SQ daily (WT < 150 kg, CrCl > 30 mL/min) *Enoxaparin/Lovenox 30 mg SQ daily (WT < 150 kg, CrCl > 10-29 mL/min) *Enoxaparin/Lovenox 30 mg SQ BID (WT < 150 kg, CrCl > 30 mL/min) AND/OR *Sequential Compression Device (SCD) 5 or more Highest Order ONE of the following medications: *Heparin 5000 units SQ TID (Preferred with Epidurals) *Enoxaparin/Lovenox 40 mg SQ daily (WT < 150 kg, CrCl > 30 mL/min) *Enoxaparin/Lovenox 30 mg SQ daily (WT < 150 kg, CrCl > 10-29 mL/min) *Enoxaparin/Lovenox 30 mg SQ BID (WT < 150 kg, CrCl > 30 mL/min) AND *Sequential Compression Device (SCD) Assessment and Plan Problem List: (1) Intractable nausea and vomiting ICD Code: R11.2 - Nausea with vomiting, unspecified Status: Acute (2) Ketoacidosis ICD Code: E87.2 - Acidosis Status: Acute (3) DM (diabetes mellitus) ICD Code: E11.9 - Type 2 diabetes mellitus without complications Status: Chronic Assessment and Plan A/P: 1. Intractable NV: per , symptoms began after taking Clindamycin 2 days ago, decreased PO intake, IVF, diet as tolerated, continue w/ analgesics/ antiemetics as needed. 2. Ketoacidosis: likely secondary to above, no evidence of DKA, continue aggressive IVF, monitor I/O, repeat labs in am. 3. DM: Sliding scale w/ Accu-Checks, resume home Levemir, Check Hgb A1c 4. DVT Prophylaxis: SCD/Teds 5. Social work for DC planning as needed. 6. Case discussed at length with the ER physician, lab/record/imaging reviewed by me. Problem Qualifiers (1) Intractable nausea and vomiting: Qualified Codes: R11.2 - Nausea with vomiting, unspecified Fina Dougherty MD July 15, 2017 19:32
[2017-07-15] MEDS: SODIUM CHLOR 0.9% 1000 ML INJ 1,000 ML IV SCH (20:37)
[2017-07-15] MEDS: TOPIRAMATE 25 MG TAB PO SCH (20:37)
[2017-07-15] MEDS: ATORVASTATIN 40 MG TAB PO SCH (20:37)
[2017-07-15] MEDS: DOCUSATE SODIUM 50 MG/SENNA 8.6 MG TAB PO SCH (20:37)
[2017-07-15] MEDS: SODIUM CHLORIDE 0.9% FLUSH 10 ML FLUSH IV FLUSH SCH (20:38)
[2017-07-15 20:49] VITALS: BP 115/73; PULSE 81; RESP 16; TEMP 98.4; O2SAT 98
[2017-07-15] MEDS: ZOLPIDEM TARTRATE 10 MG TAB PO SCH (21:00)
[2017-07-15] MEDS: INSULIN ASPART SUPPLEMENTAL SCALE SQ SCH (21:00)
[2017-07-15] MEDS ORDERED: [UNRECOGNIZED DRUG - OTHER] SQ SCH (21:00)
[2017-07-15] MEDS ORDERED: LEVEMIR 10 UNIT SQ SCH (21:00)
[2017-07-15 21:09] VITALS: PULSE 79
[2017-07-15 21:12] LABS: BILIRUBIN, URINE NEG (NEG); BLOOD, URINE NEG (NEG); GLUCOSE,URINE 1000 mg/dL (NEG); KETONE, URINE 150 mg/dL (NEG); NITRITE,URINE NEG (NEG); PH, URINE 5.5 (5.0-8.5); SQUAMOUS EPITHELIAL CELL URINE 2 /hpf (0-5); URINE COLOR YELLOW (YELLW/STRAW); URINE LEUKOCYTE ESTERASE NEG (NEG)
[2017-07-15] MEDS: PREGABALIN 25 MG CAP PO SCH (22:06)
[2017-07-15 23:34] VITALS: BP 111/65; PULSE 81; RESP 16; TEMP 98.4; O2SAT 97
[2017-07-16] VITALS (7 sets, daily range): BP systolic 99–155; BP diastolic 58–78; PULSE 57–96; RESP 16; TEMP 98–98.7; O2SAT 97–100
[2017-07-16] MEDS: SODIUM CHLOR 0.9% 1000 ML INJ 1,000 ML IV SCH ×3 (02:08→18:42)
[2017-07-16 08:24] LABS: AUTOMATED NEUTROPHIL # 4.7 TH/MM3 (1.8-7.7); BASOPHIL # 0.1 TH/MM3 (0-0.2); EOSINOPHIL # 0.1 TH/MM3 (0-0.4); HEMATOCRIT 40.3 % (35.0-46.0); HEMOGLOBIN 13.4 GM/DL (11.6-15.3); LYMPH % 31.6 % (9.0-44.0); LYMPHOCYTE # 2.5 TH/MM3 (1.0-4.8); MEAN CELL VOLUME 96.9 FL (80.0-100.0); MEAN CORPUSCULAR HEMOGLOBIN 32.3 PG (27.0-34.0); MEAN CORPUSCULAR HGB CONC 33.3 % (32.0-36.0); MEAN PLATELET VOLUME 8.1 FL (7.0-11.0); MONO % 5.9 % (0.0-8.0); MONOCYTE # 0.5 TH/MM3 (0-0.9); NEUT % 60.5 % (16.0-70.0); PLATELET COUNT 313 TH/MM3 (150-450); RED BLOOD COUNT 4.16 MIL/MM3 (4.00-5.30); RED CELL DISTRIBUTION WIDTH 13.2 % (11.6-17.2); WHITE BLOOD COUNT 7.8 TH/MM3 (4.0-11.0)
--- NOTE | 2017-07-16 08:51 | HHI.PR ---
Subjective Remarks Follow-up for nausea/vomiting, ketoacidosis. The patient reports feeling better this morning. She reports some continued nausea, but no vomiting since yesterday. She reports some mild crampy diffuse abdominal pain. Denies fevers or chills. She reports continued left lower jaw pain at site of dental infection. She has not yet attempted breakfast this morning. She reports she takes Levemir 10 units twice a day, NovoLog sliding scale insulin, and metformin for her diabetes. She reports compliance with her medications. She has no other medical complaints at this time. Objective Vitals Vital Signs Date Time Temp Pulse Resp B/P (MAP) Pulse Ox O2 Delivery O2 Flow Rate FiO2 07/16/17 08:00 98.6 95 16 110/78 (89) 98 07/16/17 03:31 98.3 84 16 131/74 (93) 100 07/16/17 00:41 85 07/15/17 23:34 98.4 81 16 111/65 (80) 97 07/15/17 21:09 79 07/15/17 20:49 98.4 81 16 115/73 (87) 98 07/15/17 18:42 20 100 Room Air 07/15/17 18:24 78 20 154/82 (106) 98 Room Air I/O 07/15/17 07/15/17 07/15/17 07/16/17 07/16/17 07/16/17 07:00 15:00 23:00 07:00 15:00 23:00 Intake Total 2000 ml 1000 ml Balance 2000 ml 1000 ml Intake IV Total 2000 ml 1000 ml Result Diagram: 07/16/17 0720 07/15/17 1833 Objective Remarks GENERAL: Thin female patient in NAD. SKIN: Warm and dry. No rash. HEENT: Normocephalic. Atraumatic. Pupils equal and round. Mucous membranes pink and moist. Left lower mandible with mild swelling, poor dentition with broken tooth in same region. CARDIOVASCULAR: Regular rate and rhythm. No murmur appreciated. RESPIRATORY: No accessory muscle use. Clear to auscultation. Breath sounds equal bilaterally. GASTROINTESTINAL: Abdomen soft, non-tender, nondistended. Normoactive bowel sounds x4. MUSCULOSKELETAL: No obvious deformities. Extremities without clubbing, cyanosis , or edema. NEUROLOGICAL: Awake and alert. No obvious cranial nerve deficits. Motor grossly within normal limits. Moving all extremities spontaneously. Normal speech. PSYCHIATRIC: Appropriate mood and affect; insight and judgment normal. Procedures None Medications and IVs Current Medications Medications (Trade) Dose Ordered Sig/Lizz Route Start Time Stop Time Status Last Admin (D50w (Vial) Inj) 50 ml UNSCH PRN IV PUSH 07/15/17 19:30 (Glucagon Inj) 1 mg UNSCH PRN OTHER 07/15/17 19:30 (NovoLOG SUPPLEMENTAL SCALE) 1 ACHS SLIDING SCALE SQ 07/15/17 21:00 07/16/17 08:57 (Compazine Inj) 10 mg Q6H PRN IV PUSH 07/15/17 19:30 (Protonix) 40 mg Q12HR PO 07/16/17 09:00 07/16/17 08:56 Sodium Chloride 1,000 ml @ 150 mls/hr Q6H40M IV 07/15/17 19:28 07/16/17 02:08 (NS Flush) 2 ml UNSCH PRN IV FLUSH 07/15/17 19:30 (NS Flush) 2 ml BID IV FLUSH 07/15/17 21:00 07/15/17 20:38 (Tylenol) 650 mg Q6H PRN PO 07/15/17 19:30 ([place] 5-325 Mg) 1 tab Q4H PRN PO 07/15/17 19:30 (Morphine Inj) 2 mg Q3H PRN IV PUSH 07/15/17 19:30 (Kavita-Colace) 1 tab BID PO 07/15/17 21:00 07/16/17 08:57 (Milk Of Magnesia Liq) 30 ml Q12H PRN PO 07/15/17 19:30 (Senokot) 17.2 mg Q12H PRN PO 07/15/17 19:30 (Dulcolax Supp) 10 mg DAILY PRN RECTAL 07/15/17 19:30 (Lactulose Liq) 30 ml DAILY PRN PO 07/15/17 19:30 (Lipitor) 40 mg HS PO 07/15/17 21:00 07/15/17 20:37 (CeleXA) 20 mg DAILY PO 07/16/17 09:00 07/16/17 08:56 (Plavix) 75 mg DAILY PO 07/16/17 09:00 07/16/17 08:56 (Lyrica) 50 mg BID PO 07/15/17 21:00 07/16/17 08:56 (Spiriva Inh) 18 mcg DAILY INH 07/16/17 09:00 (Topamax) 50 mg HS PO 07/15/17 21:00 07/15/17 20:37 (Ambien) 10 mg HS PO 07/15/17 21:00 Patient Own Medication PT OWN MED: LEVE... BID SQ 07/15/17 21:00 Future Hold (Reglan) 10 mg ACHS PO 07/16/17 08:00 07/16/17 08:56 (Carafate Liq) 1 gm ACHS PO 07/16/17 08:00 07/16/17 08:55 (Vibramycin) 100 mg BID PO 07/16/17 09:30 A/P Problem List: (1) Intractable nausea and vomiting ICD Code: R11.2 - Nausea with vomiting, unspecified Status: Acute (2) Ketoacidosis ICD Code: E87.2 - Acidosis Status: Acute (3) DM (diabetes mellitus) ICD Code: E11.9 - Type 2 diabetes mellitus without complications Status: Chronic Assessment and Plan 47-year-old female with a PMH of Anxiety, Depression, HTN, Hyperlipidemia, h/o DVT, CAD and DM who presented to the ER w/ c/o nausea and vomiting x2 days. Seen in ER on 07/13/17 for dental pain, found to have dental infection and d/c'd on Clinda 300mg po q6h, per pt has had persistent nausea/vomiting since starting antibiotics. Intractable NV: symptoms began immediately after taking Clindamycin 2 days ago, now with intractable N/V and inability to tolerate po intake. -Discontinue clindamycin -Continue IVF hydration -Antiemetics prn -Diet as tolerated -Symptoms improving Ketoacidosis: likely secondary to above, no evidence of DKA -continue IVF hydration -monitor I/O -repeat labs today show improvement Hypokalemia: K 3.1 today, suspect secondary to recent vomiting -give IV KCl 20meq x2 now -check mag level Dental Infection: diagnosed in ER 2 days ago. Patient with very poor dentition -start on doxycycline 100mg bid [id number] -strongly encouraged f/up with dentist soon after discharge DM: chronic -Sliding scale w/ Accu-Checks -resume home Levemir -Check Hgb A1c DVT Prophylaxis: SCD/Teds Discharge Planning Possible discharge later today if tolerating oral intake. Discharge patient to home Condition on discharge: Stable Diabetic Diet as tolerated Ad Felecia activity Rx written: doxycycline 100mg bid [id number] Follow-up with primary care physician within 1 week, and f/up with dentist chacha Problem Qualifiers (1) Intractable nausea and vomiting: Qualified Codes: R11.2 - Nausea with vomiting, unspecified Caro Martino PA-C July 16, 2017 8:51 am
[2017-07-16 08:54] LABS: ALBUMIN 2.5 GM/DL (3.4-5.0); ALKALINE PHOSPHATASE 69 U/L (45-117); ALT (GPT) 24 U/L (10-53); AST (GOT) 18 U/L (15-37); BICARBONATE 21.3 MEQ/L (21.0-32.0); BLOOD UREA NITROGEN 7 MG/DL (7-18); CALCIUM 7.7 MG/DL (8.5-10.1); CHLORIDE 115 MEQ/L (98-107); CREATININE 0.51 MG/DL (0.50-1.00); GLOMERULAR FILTRATION RATE 156 ML/MIN (>89); GLUCOSE,RANDOM 195 MG/DL (74-106); SODIUM (NA) 147 MEQ/L (136-145); TOTAL BILIRUBIN ADULT 0.3 MG/DL (0.2-1.0); TOTAL PROTEIN 5.6 GM/DL (6.4-8.2)
[2017-07-16] MEDS: SUCRALFATE 1 GM/10 ML CUP PO SCH ×4 (08:55→23:14)
[2017-07-16] MEDS: METOCLOPRAMIDE HCL 10 MG TAB PO SCH ×4 (08:56→20:23)
[2017-07-16] MEDS: CITALOPRAM HYDROBROMIDE 20 MG TAB PO SCH (08:56)
[2017-07-16] MEDS: PREGABALIN 25 MG CAP PO SCH ×2 (08:56→21:25)
[2017-07-16] MEDS: CLOPIDOGREL 75 MG TAB PO SCH (08:56)
[2017-07-16] MEDS: PANTOPRAZOLE SOD 40 MG DELAYED RELEASE TAB PO SCH ×2 (08:56→21:24)
[2017-07-16] MEDS: DOCUSATE SODIUM 50 MG/SENNA 8.6 MG TAB PO SCH ×2 (08:57→21:25)
[2017-07-16] MEDS: SODIUM CHLORIDE 0.9% FLUSH 10 ML FLUSH IV FLUSH SCH ×2 (08:57→20:24)
[2017-07-16] MEDS: INSULIN ASPART SUPPLEMENTAL SCALE SQ SCH ×4 (08:57→21:37)
[2017-07-16] MEDS ORDERED: PNEUMOCOCCAL POLYVALENT INJ 25 MCG/0.5 ML SYR IM ONE (10:00)
[2017-07-16] MEDS ORDERED: DOXY100C PO (11:28)
--- NOTE | 2017-07-16 11:30 | HHI.DCPOC ---
Discharge Care Plan Diagnosis: (1) Intractable nausea and vomiting (2) Hyperglycemia (3) Dehydration (4) DM (diabetes mellitus) (5) HTN (hypertension) (6) Dental infection Goals to Promote Your Health * To prevent worsening of your condition and complications * To maintain your health at the optimal level Directions to Meet Your Goals Take your medications as prescribed Follow your dietary instruction Follow activity as directed Keep your appointments as scheduled Take your immunizations and boosters as scheduled If your symptoms worsen call your PCP, if no PCP go to Urgent Care Center or Emergency Room Smoking is Dangerous to Your Health. Avoid second hand smoke Call the 24-hour hour crisis hotline for domestic abuse at Caro aMrtino PA-C July 16, 2017 11:30 am
[2017-07-16] MEDS: DOXYCYCLINE HYCLATE 100 MG CAP PO SCH ×2 (11:33→21:24)
[2017-07-16] MEDS: TIOTROPIUM BROMIDE 18 MCG INH INH SCH (11:33)
[2017-07-16 11:42] LABS: HEMOGLOBIN A1C 13.7 % (4.3-6.0)
[2017-07-16] MEDS: POTASSIUM CHLOR 20 MEQ PREMIX 100 ML IV SCH ×2 (12:26→15:17)
[2017-07-16] MEDS ORDERED: MAGNESIUM SULFATE 1 GM PREMIX 100 ML IV ONE (15:15)
[2017-07-16] MEDS ORDERED: PANTOPRAZOLE SODIUM 40 MG VIAL IV PUSH ONE (19:30)
[2017-07-16] MEDS: ATORVASTATIN 40 MG TAB PO SCH (21:24)
[2017-07-16] MEDS: ZOLPIDEM TARTRATE 10 MG TAB PO SCH (21:24)
[2017-07-16] MEDS: TOPIRAMATE 25 MG TAB PO SCH (21:25)
[2017-07-16] MEDS: INSULIN DETEMIR 100 UNITS/ML VIAL SQ SCH (21:37)
[2017-07-17 03:04] VITALS: BP 113/73; PULSE 94; RESP 16; TEMP 98.3; O2SAT 98
[2017-07-17] MEDS: SODIUM CHLOR 0.9% 1000 ML INJ 1,000 ML IV SCH (06:37)
[2017-07-17 07:40] VITALS: BP 117/67; PULSE 91; RESP 18; TEMP 98.8; O2SAT 97
[2017-07-17 08:00] VITALS: PULSE 81
[2017-07-17] MEDS: INSULIN ASPART SUPPLEMENTAL SCALE SQ SCH ×3 (08:00→17:00)
[2017-07-17] MEDS: SODIUM CHLORIDE 0.9% FLUSH 10 ML FLUSH IV FLUSH SCH (09:00)
--- NOTE | 2017-07-17 09:00 | HHI.PR ---
Subjective Remarks Follow up for nausea/vomiting, ketoacidosis. The patient reports feeling better today. Denies any further nausea/vomiting or abdominal pain since yesterday. Denies fevers/chills. Tolerating oral antibiotics and oral intake. She wants to go home. Objective Vitals Vital Signs Date Time Temp Pulse Resp B/P (MAP) Pulse Ox O2 Delivery O2 Flow Rate FiO2 07/17/17 07:40 98.8 91 18 117/67 (84) 97 07/17/17 03:04 98.3 94 16 113/73 (86) 98 07/16/17 23:03 98.7 89 16 99/58 (72) 97 07/16/17 19:21 98.6 96 16 140/75 (96) 100 07/16/17 14:54 98.0 71 16 152/72 (98) 98 07/16/17 12:16 98.0 57 16 155/73 (100) 98 I/O 07/16/17 07/16/17 07/16/17 07/17/17 07/17/17 07/17/17 07:00 15:00 23:00 07:00 15:00 23:00 Intake Total 1000 ml 500 ml Balance 1000 ml 500 ml Intake Oral 500 ml IV Total 1000 ml # Voids 3 Result Diagram: 07/16/1771907/16/17719 Objective Remarks GENERAL: Thin pleasant female patient in [facility]. SKIN: Warm and dry. No rash. HEENT: Normocephalic. Atraumatic. Pupils equal and round. Mucous membranes pink and moist. Left lower mandible with mild swelling, poor dentition with broken tooth in same region. CARDIOVASCULAR: Regular rate and rhythm. No murmur appreciated. RESPIRATORY: No accessory muscle use. Clear to auscultation. Breath sounds equal bilaterally. GASTROINTESTINAL: Abdomen soft, non-tender, nondistended. Normoactive bowel sounds x4. MUSCULOSKELETAL: No obvious deformities. Extremities without clubbing, cyanosis , or edema. NEUROLOGICAL: Awake and alert. No obvious cranial nerve deficits. Motor grossly within normal limits. Moving all extremities spontaneously. Normal speech. PSYCHIATRIC: Appropriate mood and affect; insight and judgment normal. Procedures None Medications and IVs Current Medications Medications (Trade) Dose Ordered Sig/Lizz Route Start Time Stop Time Status Last Admin (D50w (Vial) Inj) 50 ml UNSCH PRN IV PUSH 07/15/17 19:30 (Glucagon Inj) 1 mg UNSCH PRN OTHER 07/15/17 19:30 (NovoLOG SUPPLEMENTAL SCALE) 1 ACHS SLIDING SCALE SQ 07/15/17 21:00 07/16/17 21:37 (Compazine Inj) 10 mg Q6H PRN IV PUSH 07/15/17 19:30 07/16/17 13:05 (Protonix) 40 mg Q12HR PO 07/16/17 09:00 07/16/17 21:24 Sodium Chloride 1,000 ml @ 84 mls/hr [id number] IV 07/15/17 19:28 07/16/17 09:45 (NS Flush) 2 ml UNSCH PRN IV FLUSH 07/15/17 19:30 (NS Flush) 2 ml BID IV FLUSH 07/15/17 21:00 07/15/17 20:38 (Tylenol) 650 mg Q6H PRN PO 07/15/17 19:30 ([place] 5-325 Mg) 1 tab Q4H PRN PO 07/15/17 19:30 (Morphine Inj) 2 mg Q3H PRN IV PUSH 07/15/17 19:30 (Kavita-Colace) 1 tab BID PO 07/15/17 21:00 07/16/17 21:25 (Milk Of Magnesia Liq) 30 ml Q12H PRN PO 07/15/17 19:30 (Senokot) 17.2 mg Q12H PRN PO 07/15/17 19:30 (Dulcolax Supp) 10 mg DAILY PRN RECTAL 07/15/17 19:30 (Lactulose Liq) 30 ml DAILY PRN PO 07/15/17 19:30 (Lipitor) 40 mg HS PO 07/15/17 21:00 07/16/17 21:24 (CeleXA) 20 mg DAILY PO 07/16/17 09:00 07/16/17 08:56 (Plavix) 75 mg DAILY PO 07/16/17 09:00 07/16/17 08:56 (Lyrica) 50 mg BID PO 07/15/17 21:00 07/16/17 21:25 (Spiriva Inh) 18 mcg DAILY INH 07/16/17 09:00 07/16/17 11:33 (Topamax) 50 mg HS PO 07/15/17 21:00 07/16/17 21:25 (Ambien) 10 mg HS PO 07/15/17 21:00 07/16/17 21:24 (Reglan) 10 mg ACHS PO 07/16/17 08:00 07/17/17 09:03 (Carafate Liq) 1 gm ACHS PO 07/16/17 08:00 07/17/17 09:03 (Vibramycin) 100 mg BID PO 07/16/17 09:30 07/16/17 21:24 (Levemir Inj) 10 units BID SQ 07/16/17 21:00 07/16/17 21:37 A/P Problem List: (1) Intractable nausea and vomiting ICD Code: R11.2 - Nausea with vomiting, unspecified Status: Acute (2) Ketoacidosis ICD Code: E87.2 - Acidosis Status: Acute (3) DM (diabetes mellitus) ICD Code: E11.9 - Type 2 diabetes mellitus without complications Status: Chronic Assessment and Plan 47-year-old female with a PMH of Anxiety, Depression, HTN, Hyperlipidemia, h/o DVT, CAD and DM who presented to the ER w/ c/o nausea and vomiting x2 days. Seen in ER on 07/13/17 for dental pain, found to have dental infection and d/c'd on Clinda 300mg po q6h, per pt has had persistent nausea/vomiting since starting antibiotics. Intractable NV: symptoms began immediately after taking Clindamycin 2 days ago, now with intractable N/V and inability to tolerate po intake. -Discontinue clindamycin -Continue IVF hydration -Antiemetics prn -Diet as tolerated -Symptoms improved, patient tolerating oral intake, stable for discharge Ketoacidosis: likely secondary to above, no evidence of DKA -continue IVF hydration -monitor I/O -repeat labs improved. Hypokalemia: K 3.1 today, suspect secondary to recent vomiting -given IV KCl 20meq x2 -mag 1.7, given IV mag sulfate 1G Dental Infection: diagnosed in ER 2 days ago. Patient with very poor dentition -started on doxycycline 100mg bid [id number] -strongly encouraged f/up with dentist soon after discharge DM: chronic. Patient noncompliant, ran out of insulin. Hgb A1c 13.7 -Sliding scale w/ Accu-Checks -resume home Levemir -blood glucose improved DVT Prophylaxis: SCD/Teds Discharge Planning Discharge if today's labs are stable. Discharge patient to home Condition on discharge: Stable Diabetic Diet as tolerated Ad Felecia activity Rx written: doxycycline 100mg bid [id number] Follow-up with primary care physician within 1 week, and f/up with dentist chacha Problem Qualifiers (1) Intractable nausea and vomiting: Qualified Codes: R11.2 - Nausea with vomiting, unspecified Caro Martino PA-C July 17, 2017 9:00 am
[2017-07-17] MEDS: SUCRALFATE 1 GM/10 ML CUP PO SCH ×3 (09:03→17:00)
[2017-07-17] MEDS: METOCLOPRAMIDE HCL 10 MG TAB PO SCH ×3 (09:03→17:28)
[2017-07-17 09:10] LABS: AUTOMATED NEUTROPHIL # 4.1 TH/MM3 (1.8-7.7); BASOPHIL # 0.1 TH/MM3 (0-0.2); BASOPHIL % 0.9 % (0.0-2.0); EOSINOPHIL # 0.1 TH/MM3 (0-0.4); HEMATOCRIT 44.1 % (35.0-46.0); LYMPHOCYTE # 2.3 TH/MM3 (1.0-4.8); MEAN CELL VOLUME 96.1 FL (80.0-100.0); MEAN CORPUSCULAR HEMOGLOBIN 32.6 PG (27.0-34.0); MEAN CORPUSCULAR HGB CONC 33.9 % (32.0-36.0); MEAN PLATELET VOLUME 8.1 FL (7.0-11.0); MONO % 8.2 % (0.0-8.0); MONOCYTE # 0.6 TH/MM3 (0-0.9); NEUT % 56.9 % (16.0-70.0); PLATELET COUNT 367 TH/MM3 (150-450); RED BLOOD COUNT 4.58 MIL/MM3 (4.00-5.30); RED CELL DISTRIBUTION WIDTH 13.1 % (11.6-17.2); WHITE BLOOD COUNT 7.2 TH/MM3 (4.0-11.0)
[2017-07-17 10:02] LABS: BICARBONATE 21.2 MEQ/L (21.0-32.0); CALCIUM 7.9 MG/DL (8.5-10.1); CREATININE 0.44 MG/DL (0.50-1.00); MAGNESIUM 1.8 MG/DL (1.5-2.5)
[2017-07-17] MEDS: INSULIN DETEMIR 100 UNITS/ML VIAL SQ SCH (10:48)
[2017-07-17] MEDS: TIOTROPIUM BROMIDE 18 MCG INH INH SCH (10:48)
[2017-07-17] MEDS: DOCUSATE SODIUM 50 MG/SENNA 8.6 MG TAB PO SCH (10:50)
[2017-07-17] MEDS: DOXYCYCLINE HYCLATE 100 MG CAP PO SCH (10:51)
[2017-07-17] MEDS: PREGABALIN 25 MG CAP PO SCH (10:51)
[2017-07-17] MEDS: CITALOPRAM HYDROBROMIDE 20 MG TAB PO SCH (10:51)
[2017-07-17] MEDS: CLOPIDOGREL 75 MG TAB PO SCH (10:52)
[2017-07-17] MEDS: PANTOPRAZOLE SOD 40 MG DELAYED RELEASE TAB PO SCH (10:52)
[2017-07-17 11:32] VITALS: BP 129/71; PULSE 80; RESP 16; TEMP 98.5; O2SAT 99
[2017-07-17] MEDS ORDERED: POTASSIUM CHLORIDE 20 MEQ CONTROLLED RELEASE TAB PO ONE (12:30)
[2017-07-17] MEDS ORDERED: METO10TA PO (15:22)
[2017-07-17 15:55] VITALS: BP 111/63; PULSE 84; RESP 18; TEMP 97.9; O2SAT 98
--- NOTE | 2017-07-18 16:03 | HHI.DS ---
cc: Americo Chambers MD Discharge Summary Admission Date July 15, 2017 at 19:31 Discharge Date: July 17, 2017 Admitting Diagnosis Intractable nausea and vomiting, ketoacidosis, dehydration, hypergly (1) Intractable nausea and vomiting ICD Code: R11.2 - Nausea with vomiting, unspecified Diagnosis: Principal Status: Acute (2) Ketoacidosis ICD Code: E87.2 - Acidosis Diagnosis: Secondary Status: Acute (3) DM (diabetes mellitus) ICD Code: E11.9 - Type 2 diabetes mellitus without complications Diagnosis: Secondary Status: Chronic (4) Dental infection ICD Code: K04.7 - Periapical abscess without sinus Diagnosis: Secondary Procedures None Brief History - From Admission This is a 47-year-old female with a PMH of Anxiety, Depression, HTN, Hyperlipidemia, h/o DVT, CAD and DM who presented to the ER w/ c/o nausea and vomiting x2 days. Seen in ER on 07/13/17 for dental pain, found to have dental infection and d/c'd on Clinda 300mg po q6h, per pt has had persistent nausea/vomiting since starting antibiotics. Unable to take PO. notes her BS >300 tonight and he gave her her home dose of Levemir and sliding scale. On arrival, BP 154/82, HR 78, O2 sat 98% RA, Afebrile. CBC unremarkable except for hemoconcentration, hemoglobin 15.4. Chemistry essentially unremarkable. BS 253. UA negative for UTI. Beta hydroxy 3.91. PH 7.27. S/p IVF and antiemetics in ER w/ persistent symptoms. CBC/BMP: 07/17/17 0720 07/17/17 1505 Significant Findings Laboratory Tests Test 07/15/17 18:33 07/15/17 20:48 07/16/17 07:20 07/17/17 07:20 Hemoglobin 15.4 GM/DL (11.6-15.3) Neutrophils (%) (Auto) 85.8 % (16.0-70.0) Lymphocytes # (Auto) 0.8 TH/MM3 (1.0-4.8) Venous Blood pH 7.27 (7.360-7.400) Venous Blood Partial Pressure O2 26 mmHg (35-40) Venous Blood HCO3 20 mmol/L (22-26) Venous Blood Oxygen Saturation 39 % (70-76) Venous Blood Oxygen Content 7.6 Vol % (9.0-17.0) Venous Blood Base Excess -5.3 mmol/L (-2-2) Random Glucose 253 MG/DL (74-106) 195 MG/DL (74-106) 70 MG/DL (74-106) Chloride Level 109 MEQ/L (98-107) 115 MEQ/L (98-107) 110 MEQ/L (98-107) B-Hydroxybutyrate 3.91 MMOL/L (0.00-0.39) Urine Glucose (UA) 1000 mg/dL (NEG) Urine Ketones 150 mg/dL (NEG) Total Protein 5.6 GM/DL (6.4-8.2) Albumin 2.5 GM/DL (3.4-5.0) Calcium Level 7.7 MG/DL (8.5-10.1) 7.9 MG/DL (8.5-10.1) Sodium Level 147 MEQ/L (136-145) Potassium Level 3.1 MEQ/L (3.5-5.1) 3.1 MEQ/L (3.5-5.1) Hemoglobin A1c 13.7 % (4.3-6.0) Monocytes (%) (Auto) 8.2 % (0.0-8.0) Blood Urea Nitrogen 5 MG/DL (7-18) Creatinine 0.44 MG/DL (0.50-1.00) Test 07/17/17 15:05 PE at Discharge GENERAL: Thin pleasant female patient in NAD. SKIN: Warm and dry. No rash. HEENT: Normocephalic. Atraumatic. Pupils equal and round. Mucous membranes pink and moist. Left lower mandible with minimal swelling, poor dentition with broken tooth in same region. CARDIOVASCULAR: Regular rate and rhythm. No murmur appreciated. RESPIRATORY: No accessory muscle use. Clear to auscultation. Breath sounds equal bilaterally. GASTROINTESTINAL: Abdomen soft, non-tender, nondistended. Normoactive bowel sounds x4. MUSCULOSKELETAL: No obvious deformities. Extremities without clubbing, cyanosis , or edema. NEUROLOGICAL: Awake and alert. No obvious cranial nerve deficits. Motor grossly within normal limits. Moving all extremities spontaneously. Normal speech. PSYCHIATRIC: Appropriate mood and affect; insight and judgment normal. Hospital Course 47-year-old female with a PMH of Anxiety, Depression, HTN, Hyperlipidemia, h/o DVT, CAD and DM who presented to the ER w/ c/o nausea and vomiting x2 days. Seen in ER on 07/13/17 for dental pain, found to have dental infection and d/c'd on Clinda 300mg po q6h, per pt has had persistent nausea/vomiting since starting antibiotics. Intractable NV: symptoms began immediately after taking Clindamycin 2 days ago, now with intractable N/V and inability to tolerate po intake. Discontinued clindamycin. Given IVF hydration. Antiemetics prn. Diet as tolerated. Symptoms improved, patient tolerating oral intake, stable for discharge. Ketoacidosis: likely secondary to above, no evidence of DKA. Given IVF hydration. Monitor I/Os. Repeat labs improved. Resolved. Hypokalemia: K 3.1 today, suspect secondary to recent vomiting. Given IV KCl 20meq x2. Mag 1.7, given IV mag sulfate 1G. K 3.5 at discharge. Resolved. Dental Infection: diagnosed in ER 2 days ago. Patient with very poor dentition. Discontinued clinda with patient's GI symptoms as above. Started on doxycycline 100mg bid [id number]. Strongly encouraged f/up with dentist soon after discharge. DM: chronic. Patient noncompliant, ran out of insulin. Hgb A1c 13.7. Sliding scale w/ Accu-Checks. Resume home Levemir. Blood glucose improved. Stable for discharge. Pt Condition on Discharge: Stable Discharge Disposition: Discharge Home Discharge Time: <= 30 minutes Discharge Instructions DIET: Follow Instructions for: Heart Healthy Diet, Diabetic Diet Activities you can perform: Regular-No Restrictions Follow up Referrals: Dental - 2-3 Days PCP Follow-up - 1 Week with Americo Chambers MD New Medications: Doxycycline Hyclate (Doxycycline Hyclate) 100 Mg Cap 100 MG PO BID for dental infection for 10 Days, #20 CAP Continued Medications: Acetaminophen (Tylenol) 325 Mg Tab 650 MG PO Q6H PRN for PAIN SCALE 1 TO 4, #20 TAB 0 Refills Albuterol 8.5 GM Inh (Proair Hfa 8.5 GM Inh) 90 Mcg/Act Aer 2 PUFF INH BID for Shortness of Breath, #1 INHALER 0 Refills 108 mcg/actuation Albuterol Neb (Albuterol Neb) 2.5 Mg/3 Ml Neb 2.5 MG NEB Q4-6H PRN for SHORTNESS OF BREATH, #1 NEBULE 0 Refills Atorvastatin (Atorvastatin) 40 Mg Tab 40 MG PO HS for Cholesterol Management, #30 TAB 0 Refills Citalopram (Citalopram) 20 Mg Tab 20 MG PO DAILY for Control Depression, #30 TAB 0 Refills Clopidogrel (Clopidogrel) 75 Mg Tab 75 MG PO DAILY for Blood Clot Prevention, #30 TAB 0 Refills Insulin Aspart Inj (Novolog Inj) 1,000 Unit/10 Ml Vial 0 SQ DIRECTED for Blood Sugar Management, #10 ML 0 Refills Sliding Scale as directed. Insulin Detemir Inj (Levemir Flextouch Pen Inj) 300 unit/3 ML Pen 10 UNITS SQ BID for Blood Sugar Management, PEN 0 Refills Insulin Pen Needle/Carefine 30Gx 30G X 8 mm (Carefine Pen [place] 30Gx 30G X 8 mm) 30 Gauge X 5/16" Mis BOX .XX DIRECTED, #1 0 Refills Use as directed Metformin (Metformin) 500 Mg Tab 500 MG PO BID for Blood Sugar Management, #60 TAB 0 Refills With meals Metoclopramide (Metoclopramide) 10 Mg Tab 10 MG PO ACHS for Gastroparesis for 30 Days, #90 TAB (This prescription has been renewed) Metoprolol Tartrate (Metoprolol Tartrate) 25 Mg Tab 12.5 MG PO BID, #60 TAB 0 Refills Ondansetron (Zofran) 4 Mg Tab 4 MG PO Q6HR PRN for NAUSEA OR VOMITING, #6 TAB 0 Refills Pantoprazole (Pantoprazole) 40 Mg Tab 40 MG PO DAILY for Reflux, #30 TAB 0 Refills Pregabalin (Lyrica) 50 Mg Cap 50 MG PO BID, #60 CAP 0 Refills Sertraline (Sertraline) Unknown Strength Tab Unknown Dose PO DAILY, #30 TAB 0 Refills Sucralfate Liq (Sucralfate Liq) 1 Gm/10 Ml Melina 1 GM PO ACHS for gastritis, #210 ML Tiotropium Inh (Spiriva Handihaler) 18 Mcg Cap 18 MCG INH DAILY for COPD, #30 CAP 0 Refills 1 capsule = 18 mcg Do Not Swallow Capsule Topiramate (Topamax) 50 Mg Tab 50 MG PO HS for Control Seizures, #60 TAB 0 Refills Zolpidem (Zolpidem) 10 Mg Tab 10 MG PO HS for INSOMNIA, TAB 0 Refills Discontinued Medications: Clindamycin (Clindamycin) 150 Mg Cap 300 MG PO Q6H for Infection for 7 Days, #56 CAP 0 Refills Caro Martino PA-C July 18, 2017 16:03
== END 2017-07-17 19:55 | disposition home or self-care (01) ==
LOC: NEPD 13:52 → NEDA 19:31 → NEPGCP 20:19
PROVIDERS: ADMIT Internal Medicine; ATTEND Internal Medicine
DX: R11.2 Nausea with vomiting, unspecified (principal); E87.2 Acidosis; E11.65 Type 2 diabetes mellitus with hyperglycemia; I25.10 Atherosclerotic heart disease of native coronary artery without angina pectoris; I10 Essential (primary) hypertension; E78.5 Hyperlipidemia, unspecified; R10.9 Unspecified abdominal pain; R68.84 Jaw pain; K21.9 Gastro-esophageal reflux disease without esophagitis; E87.6 Hypokalemia; K04.7 Periapical abscess without sinus; E86.0 Dehydration; J45.909 Unspecified asthma, uncomplicated; F41.9 Anxiety disorder, unspecified; F32.9 Major depressive disorder, single episode, unspecified; F12.90 Cannabis use, unspecified, uncomplicated; Z79.4 Long term (current) use of insulin; Z91.14 Patient's other noncompliance with medication regimen; Z86.73 Personal history of transient ischemic attack (TIA), and cerebral infarction without residual deficits; Z79.899 Other long term (current) drug therapy; Z86.718 Personal history of other venous thrombosis and embolism; Z23 Encounter for immunization
CPT/HCPCS: 80048; 80053; 81001; 82010; 82805; 82948; 83036; 83735; 84132; 85025; 90471; 90732; 96361; 96365; 96366; 96372; 96375; 96376; 99285; G0378; J0780; J1200; J1815; J3475; J3480; J7030; G0009

== ENCOUNTER 2017-08-18 10:04 | Emergency (ER) | payer MEDICAID ==
[~2017-08-18] VITALS: Ht 175.3 cm; Wt 40.0 kg
[~2017-08-18 10:04] MED LIST changes: -CLIN150C14 PO; +DOXY100C PO; +ZOFR4TAB PO
[2017-08-18 10:08] VITALS: BP 133/66; PULSE 92; RESP 16; TEMP 97.9; O2SAT 98
[2017-08-18 10:20] VITALS: BP 131/82; PULSE 87; RESP 22; O2SAT 98
--- NOTE | 2017-08-18 10:44 | PD ---
HPI Chief Complaint: Dizziness Time Seen by Provider: 10:17 Travel History International Travel<30 days: No Contact w/Intl Traveler<30days: No Traveled to known affect area: No History of Present Illness HPI Patient is a 47 year old female presents to the ER for evaluation of headache, facial pain, numbness and tingling in bilateral hands over the past 3 days. She states this has never happened to her before. States she felt weak and fell forward out of her wheelchair 3 days ago as well but denies hitting her head. States she feels achy all over as well. States has pain behind her left eye. History of BKA on right from PVD, and continues to smoke. Also history of HTN, HLD and anxiety. States symptoms are severe, location, context and associated s/s as above. She states that she is also quite concerned with a bump on the left side of her forehead that has been there 'for years' No CP, SOB, Abdominal pain, N/V/D PFSH Past Medical History Hx Anticoagulant Therapy: Yes (PLAVIX) Arthritis: No Asthma: Yes Autoimmune Disease: No Blood Disorders: No Anxiety: Yes Depression: Yes Heart Rhythm Problems: No Cancer: No Cardiovascular Problems: Yes (HX OF DVT, STENT PLACED IN LEFT LEG) High Cholesterol: Yes Chemotherapy: No Chest Pain: Yes Congestive Heart Failure: No COPD: No Cerebrovascular Accident: Yes (hx left cva) Coronary Artery Disease: Yes Diabetes: Yes Patient Takes Glucophage: Yes Diminished Hearing: No Deep Vein Thrombosis: Yes Endocrine: Yes Gastrointestinal Disorders: Yes (GASTRITIS) GERD: Yes Genitourinary: No Headaches: Yes Heparin Induced Thrombocytopen: No Hypertension: Yes Immune Disorder: No Implanted Vascular Access Dvce: Yes (STENT IN LEFT LEG) Musculoskeletal: No Neurologic: Yes (CVA IN 2015, NEUROPATHY) Psychiatric: Yes Reproductive: No Respiratory: Yes Immunizations Current: Yes Migraines: Yes Radiation Therapy: No Sickle Cell Disease: No Sleep Apnea: No Thyroid Disease: No ?: Not : 3 Para: 0 Miscarriage: 3 : 0 Ovarian Cysts: Yes Past Surgical History Abdominal Surgery: Yes (04/30/02 FIBROIDS REMOVED FROM UTERUS.) AICD: No Arteriovenous Shunt: No Body Medical Devices: LEFT LEG FILTER/ dvt Ear Surgery: No Endocrine Surgery: No Eye Surgery: Yes Genitourinary Surgery: No Gynecologic Surgery: Yes Hysterectomy: Yes (PARTIAL) Insulin Pump: No Joint Replacement: No Oral Surgery: No Pacemaker: No Other Surgery: Yes (MYOMECTOMY, BLOOD CLOT FROM L LEG, R BELOW KNEE AMPUTATION) Social History Alcohol Use: No Tobacco Use: Yes (1/2 PPD) Substance Use: Yes (MARIJUANA/ once month/ last week) Allergies-Medications (Allergen,Severity, Reaction): Coded Allergies: penicillin G (Unverified Allergy, Severe, SWELLING WITH RESP DIFFICULTY, ) shellfish derived (Unverified Allergy, Severe, SWELLING, 08/18/17) tomato (Unverified Allergy, Intermediate, 08/18/17) milk (Unverified Allergy, Unknown, 08/18/17) Reported Meds & Prescriptions Reported Meds & Active Scripts Active Metoclopramide (Metoclopramide HCl) 10 Mg Tab 10 Mg PO ACHS 30 Days Zofran (Ondansetron HCl) 4 Mg Tab 4 Mg PO Q6HR PRN Carefine Pen [place] 30Gx 30G X 8 mm (Insulin Pen Needle/Carefine 30Gx 30G X 8 mm) 30 Gauge X 5/16" Mis Box .XX DIRECTED Use as directed Sucralfate Liq (Sucralfate) 1 Gm/10 Ml Melina 1 Gm PO ACHS Reported Atorvastatin (Atorvastatin Calcium) 40 Mg Tab 40 Mg PO HS Citalopram (Citalopram Hydrobromide) 20 Mg Tab 20 Mg PO DAILY Metoprolol Tartrate 25 Mg Tab 12.5 Mg PO BID Albuterol Neb (Albuterol Sulfate) 2.5 Mg/3 Ml Neb 2.5 Mg NEB Q4-6H PRN Proair Hfa 8.5 GM Inh (Albuterol Sulfate) 90 Mcg/Act Aer 2 Puff INH BID 108 mcg/actuation Metformin (Metformin HCl) 500 Mg Tab 500 Mg PO BID With meals Sertraline (Sertraline HCl) Unknown Strength Tab Unknown Dose PO DAILY Pantoprazole (Pantoprazole Sodium) 40 Mg Tab 40 Mg PO DAILY Spiriva Handihaler (Tiotropium Inh) 18 Mcg Cap 18 Mcg INH DAILY 1 capsule = 18 mcg Do Not Swallow Capsule Lyrica (Pregabalin) 50 Mg Cap 50 Mg PO BID Zolpidem (Zolpidem Tartrate) 10 Mg Tab 10 Mg PO HS Clopidogrel (Clopidogrel Bisulfate) 75 Mg Tab 75 Mg PO DAILY Levemir Flextouch Pen Inj (Insulin Detemir) 300 unit/3 ML Pen 10 Units SQ BID Topamax (Topiramate) 50 Mg Tab 50 Mg PO HS Novolog Inj (Insulin Aspart) 1,000 Unit/10 Ml Vial 0 SQ DIRECTED Sliding Scale as directed. Review of Systems Except as stated in HPI: all other systems reviewed are Neg Physical Exam Narrative GENERAL: WD/thin appears anxious but non-toxic. SKIN: Warm and dry. HEAD: Atraumatic. Normocephalic. There is a small firm lesion less than pea sized subcutaneously on left forehead. No overlying skin changes. EYES: Pupils equal and round. No scleral icterus. No injection or drainage. ENT: No nasal bleeding or discharge. Mucous membranes pink and moist. NECK: Trachea midline. No JVD. CARDIOVASCULAR: Regular rate and rhythm. RESPIRATORY: No accessory muscle use. Clear to auscultation. Breath sounds equal bilaterally. GASTROINTESTINAL: Abdomen soft, non-tender, nondistended. Hepatic and splenic margins not palpable. MUSCULOSKELETAL: Extremities without clubbing, cyanosis, or edema. No obvious deformities. Left leg BKA. Pulses 2+ in remaining 3 extremities. NEUROLOGICAL: Awake and alert. No obvious cranial nerve deficits. Motor grossly within normal limits. Five out of 5 muscle strength in the arms and Left leg. Normal speech. PSYCHIATRIC: Appropriate mood and affect; insight and judgment normal. Data Data Last Documented VS Vital Signs Date Time Temp Pulse Resp B/P (MAP) Pulse Ox O2 Delivery O2 Flow Rate FiO2 08/18/17 15:57 08/18/17 14:00 93 18 97 Room Air 08/18/17 10:[address] Brain W/O Iv Contrast(Rout) (08/18/17 ) Lorazepam (Ativan) (08/18/17 10:45) Ed Discharge Order (08/18/17 15:01) [facility] Medical Decision Making Medical Screen Exam Complete: Yes Emergency Medical Condition: Yes Differential Diagnosis Anixety, stroke unlikely, intracranial injury unlikely, facial lesion. Narrative Course Patient roomed in the ER with multiple non-specific complaints. I do not think that there is any indication for lab work of this patient at this time. Ativan 2mg PO given and patient slept for some time. On awakening she has a new complaint of left eye pain. Her eyes are examined and she reports normal vision , EOMI, no injection nor drainage. PERRLA. Patient has multiple non-specific chronic appearing complaints and a ct head was performed showing no concerning finding. Last [address] 08/18/17 0000 Signed Impressions: CONCLUSION: 1. Negative noncontrast CT without change. Discussed with her need for follow up with a PCP. Discussed return to ED criteria. Discussed smoking cessation and healthy life style changes including diet and exercise. Diagnosis Primary Impression: Facial pain Additional Impression: Paresthesia of hand, bilateral Patient Instructions: General Instructions, How to Stop Smoking (DC) Additional Instructions: Follow up with your regular physician. Stop smoking, it leads to cancer, heart attack and stroke. Follow up with your regular physician about the lump on your forehead. Disposition: 01 DISCHARGE HOME Condition: Stable Gustavo Castillo MD Aug 18, 2017 10:44
[2017-08-18] MEDS ORDERED: LORazepam 2 MG TAB PO ONE (10:45)
[2017-08-18 12:00] VITALS: BP 129/86; PULSE 85; RESP 18; O2SAT 97
--- NOTE | 2017-08-18 12:18 | RADRPT ---
EXAM DATE: 08/18/2017 12:12 PM EDT AGE/SEX: 47 years / Female INDICATIONS: Dizziness and bilateral hand numbness for 3 days. CLINICAL DATA: This is the patient's initial encounter. Patient reports that signs and symptoms have been present for 3 days and indicates a pain score of 10/10. MEDICAL/SURGICAL HISTORY: Cardiovascular disease. Deep venous thrombosis. Diabetes. Asthma None . RADIATION DOSE: 34.21 CTDI (mGy) COMPARISON: [facility] [place], CT BRAIN W/O CONTRAST, 08/01/2016. . TECHNIQUE: CT of the head without contrast. Using automated exposure control and adjustment of the mA and/or kV according to patient size, radiation dose was kept as low as reasonably achievable to ob tain optimal diagnostic quality images. DICOM format image data is available electronically for revi ew and comparison. FINDINGS: Cerebrum: The ventricles are normal for age. No evidence of midline shift, mass lesion, hemorrhage or acute infarction. No extraaxial fluid collections are seen. Posterior Fossa: The cerebellum and brainstem are intact. The 4th ventricle is midline. The cerebe llopontine angle is unremarkable. Extracranial: The visualized portion of the orbits is intact. Skull: The calvaria is intact. No evidence of skull fracture. CONCLUSION: 1. Negative noncontrast CT without change. Electronically signed by: Dmitriy Aguila MD 08/18/2017 12:17 PM EDT
[2017-08-18 13:09] VITALS: BP 124/80; PULSE 89; RESP 19; O2SAT 98
[2017-08-18 14:00] VITALS: BP 118/77; PULSE 93; RESP 18; O2SAT 97
== END 2017-08-18 15:58 | disposition home or self-care (01) ==
LOC: NEPD 10:04
DX: R51 Headache (principal); R20.2 Paresthesia of skin; F12.90 Cannabis use, unspecified, uncomplicated; J45.909 Unspecified asthma, uncomplicated; F41.9 Anxiety disorder, unspecified; F32.9 Major depressive disorder, single episode, unspecified; E78.00 Pure hypercholesterolemia, unspecified; I25.10 Atherosclerotic heart disease of native coronary artery without angina pectoris; K21.9 Gastro-esophageal reflux disease without esophagitis; I10 Essential (primary) hypertension; E11.40 Type 2 diabetes mellitus with diabetic neuropathy, unspecified; F17.200 Nicotine dependence, unspecified, uncomplicated; Z87.19 Personal history of other diseases of the digestive system; Z79.4 Long term (current) use of insulin; Z79.51 Long term (current) use of inhaled steroids; Z79.899 Other long term (current) drug therapy; Z88.0 Allergy status to penicillin; Z86.718 Personal history of other venous thrombosis and embolism; Z86.73 Personal history of transient ischemic attack (TIA), and cerebral infarction without residual deficits
CPT/HCPCS: 70450

== ENCOUNTER 2017-08-21 13:23 | Emergency (ER) | payer MEDICAID ==
[~2017-08-21 13:23] MED LIST changes: -DOXY100C PO; -TYLE325T PO
[2017-08-21 13:49] VITALS: BP 156/87; PULSE 85; RESP 19; TEMP 97.8; O2SAT 98
--- NOTE | 2017-08-21 15:41 | PD ---
HPI Chief Complaint: Facial Pain or Swelling Time Seen by Provider: 15:30 Travel History International Travel<30 days: No Contact w/Intl Traveler<30days: No Traveled to known affect area: No History of Present Illness HPI 29-year-old female with history of migraine headache, hypertension, COPD, diabetes, presents emergency department for evaluation of left-sided facial swelling. Patient states it has been worsening over the last 3 days. It is painful. It is constant, throbbing. It does not radiate anywhere. She denies any fever or chills. She denies any trauma. She has no other symptoms to report. PFSH Past Medical History Hx Anticoagulant Therapy: Yes (PLAVIX) Arthritis: No Asthma: Yes Autoimmune Disease: No Blood Disorders: No Anxiety: Yes Depression: Yes Heart Rhythm Problems: No Cancer: No Cardiovascular Problems: Yes (HX OF DVT, STENT PLACED IN LEFT LEG) High Cholesterol: Yes Chemotherapy: No Chest Pain: Yes Congestive Heart Failure: No COPD: Yes Cerebrovascular Accident: Yes (2016) Coronary Artery Disease: Yes Diabetes: Yes Patient Takes Glucophage: Yes Diminished Hearing: No Deep Vein Thrombosis: Yes Endocrine: Yes Gastrointestinal Disorders: Yes (GASTRITIS) GERD: Yes Genitourinary: No Headaches: Yes Heparin Induced Thrombocytopen: No Hypertension: Yes Immune Disorder: No Implanted Vascular Access Dvce: Yes (STENT IN LEFT LEG) Musculoskeletal: No Neurologic: Yes (CVA IN 2015, NEUROPATHY) Psychiatric: Yes Reproductive: No Respiratory: Yes (asthma/copd) Immunizations Current: Yes Migraines: Yes Radiation Therapy: No Sickle Cell Disease: No Sleep Apnea: No Thyroid Disease: No ?: Not : 3 Para: 0 Miscarriage: 3 : 0 Ovarian Cysts: Yes Past Surgical History Abdominal Surgery: Yes (04/30/02 FIBROIDS REMOVED FROM UTERUS.) AICD: No Arteriovenous Shunt: No Body Medical Devices: LEFT LEG FILTER/ dvt Ear Surgery: No Endocrine Surgery: No Eye Surgery: Yes Genitourinary Surgery: No Gynecologic Surgery: Yes Hysterectomy: Yes (PARTIAL) Insulin Pump: No Joint Replacement: No Oral Surgery: No Pacemaker: No Other Surgery: Yes ( BLOOD CLOT FROM L LEG, ) Social History Alcohol Use: No Tobacco Use: Yes (ppd) Substance Use: Yes (MARIJUANA) Allergies-Medications (Allergen,Severity, Reaction): Coded Allergies: penicillin G (Unverified Allergy, Severe, SWELLING WITH RESP DIFFICULTY, ) shellfish derived (Unverified Allergy, Severe, SWELLING, 08/21/17) tomato (Unverified Allergy, Intermediate, 08/21/17) milk (Unverified Allergy, Unknown, 08/21/17) Reported Meds & Prescriptions Reported Meds & Active Scripts Active Ultram (Tramadol HCl) 50 Mg Tab 50 Mg PO Q8H PRN Clindamycin (Clindamycin HCl) 150 Mg Cap 300 Mg PO Q6H 10 Days Metoclopramide (Metoclopramide HCl) 10 Mg Tab 10 Mg PO ACHS 30 Days Zofran (Ondansetron HCl) 4 Mg Tab 4 Mg PO Q6HR PRN Carefine Pen Terral 30Gx 30G X 8 mm (Insulin Pen Needle/Carefine 30Gx 30G X 8 mm) 30 Gauge X 5/16" Mis Box .XX DIRECTED Use as directed Sucralfate Liq (Sucralfate) 1 Gm/10 Ml Melina 1 Gm PO ACHS Reported Atorvastatin (Atorvastatin Calcium) 40 Mg Tab 40 Mg PO HS Citalopram (Citalopram Hydrobromide) 20 Mg Tab 20 Mg PO DAILY Metoprolol Tartrate 25 Mg Tab 12.5 Mg PO BID Albuterol Neb (Albuterol Sulfate) 2.5 Mg/3 Ml Neb 2.5 Mg NEB Q4-6H PRN Proair Hfa 8.5 GM Inh (Albuterol Sulfate) 90 Mcg/Act Aer 2 Puff INH BID 108 mcg/actuation Metformin (Metformin HCl) 500 Mg Tab 500 Mg PO BID With meals Sertraline (Sertraline HCl) Unknown Strength Tab Unknown Dose PO DAILY Pantoprazole (Pantoprazole Sodium) 40 Mg Tab 40 Mg PO DAILY Spiriva Handihaler (Tiotropium Inh) 18 Mcg Cap 18 Mcg INH DAILY 1 capsule = 18 mcg Do Not Swallow Capsule Lyrica (Pregabalin) 50 Mg Cap 50 Mg PO BID Zolpidem (Zolpidem Tartrate) 10 Mg Tab 10 Mg PO HS Clopidogrel (Clopidogrel Bisulfate) 75 Mg Tab 75 Mg PO DAILY Levemir Flextouch Pen Inj (Insulin Detemir) 300 unit/3 ML Pen 10 Units SQ BID Topamax (Topiramate) 50 Mg Tab 50 Mg PO HS Novolog Inj (Insulin Aspart) 1,000 Unit/10 Ml Vial 0 SQ DIRECTED Sliding Scale as directed. Review of Systems Except as stated in HPI: all other systems reviewed are Neg Physical Exam Narrative GENERAL: Well-nourished female patient, in no acute distress SKIN: Focused skin assessment warm/dry. HEAD: Atraumatic. Normocephalic. Moderate edema of the left cheek over the maxillary sinus extending to the left nare. This area is tender to palpate. No fluctuance. EYES: Pupils equal and round. No scleral icterus. No injection or drainage. EOMI. PERRLA. ENT: No nasal bleeding or discharge. Mucous membranes pink and moist. The left nasal turbinate is edematous. The airway is nearly occluded due to edema. No drainage. NECK: Trachea midline. No JVD. CARDIOVASCULAR: Regular rate and rhythm. No murmur appreciated. RESPIRATORY: No accessory muscle use. Clear to auscultation. Breath sounds equal bilaterally. GASTROINTESTINAL: Abdomen soft, non-tender, nondistended. Hepatic and splenic margins not palpable. MUSCULOSKELETAL: No obvious deformities. No clubbing. No cyanosis. No edema. NEUROLOGICAL: Awake and alert. No obvious cranial nerve deficits. Motor grossly within normal limits. Normal speech. PSYCHIATRIC: Appropriate mood and affect; insight and judgment normal. Data Data Last Documented VS Vital Signs Date Time Temp Pulse Resp B/P (MAP) Pulse Ox O2 Delivery O2 Flow Rate FiO2 08/21/17 13:49 97.8 85 19 156/87 (110) 98 Orders Orders Iv Access Insert/Monitor (08/21/17 15:39) Complete Blood Count With Diff (08/21/17 15:39) Basic Metabolic Panel (Bmp) (08/21/17 15:39) Ct Facial Bones W Iv Contrast (08/21/17 ) Dexamethasone Inj (Decadron Inj) (08/21/17 15:45) Sodium Chlor 0.9% 1000 Ml Inj (Ns 1000 M (08/21/17 15:45) Clindamycin 900 Mg/Ns Premix (Cleocin 90 (08/21/17 15:45) Iohexol 350 Inj (Omnipaque 350 Inj) (08/21/17 17:00) Ed Discharge Order (08/21/17 17:37) Labs Laboratory Tests Test 08/21/17 15:54 White Blood Count 8.2 TH/MM3 Red Blood Count 4.45 MIL/MM3 Hemoglobin 14.9 GM/DL Hematocrit 43.0 % Mean Corpuscular Volume 96.5 FL Mean Corpuscular Hemoglobin 33.5 PG Mean Corpuscular Hemoglobin Concent 34.7 % Red Cell Distribution Width 13.0 % Platelet Count 376 TH/MM3 Mean Platelet Volume 7.9 FL Neutrophils (%) (Auto) 66.8 % Lymphocytes (%) (Auto) 23.6 % Monocytes (%) (Auto) 6.8 % Eosinophils (%) (Auto) 2.1 % Basophils (%) (Auto) 0.7 % Neutrophils # (Auto) 5.5 TH/MM3 Lymphocytes # (Auto) 1.9 TH/MM3 Monocytes # (Auto) 0.6 TH/MM3 Eosinophils # (Auto) 0.2 TH/MM3 Basophils # (Auto) 0.1 TH/MM3 CBC Comment DIFF FINAL Differential Comment Blood Urea Nitrogen 4 MG/DL Creatinine 0.65 MG/DL Random Glucose 343 MG/DL Calcium Level 8.9 MG/DL Sodium Level 139 MEQ/L Potassium Level 3.6 MEQ/L Chloride Level 104 MEQ/L Carbon Dioxide Level 28.6 MEQ/L Anion Gap 6 MEQ/L Estimat Glomerular Filtration Rate 118 ML/MIN [facility] Medical Decision Making Medical Screen Exam Complete: Yes Emergency Medical Condition: Yes Medical Record Reviewed: Yes Differential Diagnosis Cellulitis versus abscess versus a contact dermatitis versus insect bite versus local reaction Narrative Course 47-year-old female presents emergency department for evaluation of left-sided facial swelling. Patient appears well. Her vital signs are stable. She is given Decadron and IV antibiotic. CT imaging is ordered. Laboratory Tests Test 08/21/17 15:54 White Blood Count 8.2 TH/MM3 Red Blood Count 4.45 MIL/MM3 Hemoglobin 14.9 GM/DL Hematocrit 43.0 % Mean Corpuscular Volume 96.5 FL Mean Corpuscular Hemoglobin 33.5 PG Mean Corpuscular Hemoglobin Concent 34.7 % Red Cell Distribution Width 13.0 % Platelet Count 376 TH/MM3 Mean Platelet Volume 7.9 FL Neutrophils (%) (Auto) 66.8 % Lymphocytes (%) (Auto) 23.6 % Monocytes (%) (Auto) 6.8 % Eosinophils (%) (Auto) 2.1 % Basophils (%) (Auto) 0.7 % Neutrophils # (Auto) 5.5 TH/MM3 Lymphocytes # (Auto) 1.9 TH/MM3 Monocytes # (Auto) 0.6 TH/MM3 Eosinophils # (Auto) 0.2 TH/MM3 Basophils # (Auto) 0.1 TH/MM3 CBC Comment DIFF FINAL Differential Comment Blood Urea Nitrogen 4 MG/DL Creatinine 0.65 MG/DL Random Glucose 343 MG/DL Calcium Level 8.9 MG/DL Sodium Level 139 MEQ/L Potassium Level 3.6 MEQ/L Chloride Level 104 MEQ/L Carbon Dioxide Level 28.6 MEQ/L Anion Gap 6 MEQ/L Estimat Glomerular Filtration Rate 118 ML/MIN Last Impressions Maxillofacial CT 08/21/17 0000 Signed Impressions: CONCLUSION: 1. Questionable mild facial cellulitis but without discrete abscess. No acute bony abnormalities. Mild ethmoid sinus disease. I discussed the patient with my attending physician. Patient will be discharged home with oral antibiotics. She is counseled on care and encouraged to follow-up with a primary care provider. She agrees to return immediately with acute worsening symptoms. Diagnosis Primary Impression: Facial cellulitis Referrals: Primary Care Physician Patient Instructions: Cellulitis (ED), General Instructions Additional Instructions: Follow-up with a primary care provider Start antibiotic in the morning and take it until it is all gone Return immediately with acute worsening symptoms Med/Other Pt SpecificInfo: Prescription(s) given Scripts Tramadol (Ultram) 50 Mg Tab 50 MG PO Q8H Y for PAIN GREATER THAN 5, #15 TAB 0 Refills Prov: Sarah Mae 08/21/17 Clindamycin (Clindamycin) 150 Mg Cap 300 MG PO Q6H for Infection for 10 Days, #80 CAP 0 Refills Prov: Sarah Mae 08/21/17 Disposition: 01 DISCHARGE HOME Condition: Stable Sarah Mae Aug 21, 2017 15:40
[2017-08-21] MEDS ORDERED: DEXAMETHASONE SOD PHOS 4 MG/ML VIAL IV PUSH ONE (15:45)
[2017-08-21] MEDS ORDERED: SODIUM CHLOR 0.9% 1000 ML INJ 1,000 ML IV ONE (15:45)
[2017-08-21] MEDS ORDERED: CLINDAMYCIN 900 MG/NS PREMIX 50 ML IV ONE (15:45)
[2017-08-21 16:08] LABS: AUTOMATED NEUTROPHIL # 5.5 TH/MM3 (1.8-7.7); BASOPHIL # 0.1 TH/MM3 (0-0.2); BASOPHIL % 0.7 % (0.0-2.0); EOSINOPHIL # 0.2 TH/MM3 (0-0.4); EOSINOPHIL % 2.1 % (0.0-4.0); HEMOGLOBIN 14.9 GM/DL (11.6-15.3); LYMPH % 23.6 % (9.0-44.0); LYMPHOCYTE # 1.9 TH/MM3 (1.0-4.8); MEAN CELL VOLUME 96.5 FL (80.0-100.0); MEAN CORPUSCULAR HEMOGLOBIN 33.5 PG (27.0-34.0); MEAN CORPUSCULAR HGB CONC 34.7 % (32.0-36.0); MEAN PLATELET VOLUME 7.9 FL (7.0-11.0); MONO % 6.8 % (0.0-8.0); MONOCYTE # 0.6 TH/MM3 (0-0.9); NEUT % 66.8 % (16.0-70.0); PLATELET COUNT 376 TH/MM3 (150-450); RED BLOOD COUNT 4.45 MIL/MM3 (4.00-5.30); WHITE BLOOD COUNT 8.2 TH/MM3 (4.0-11.0)
[2017-08-21 16:30] LABS: BICARBONATE 28.6 MEQ/L (21.0-32.0); CALCIUM 8.9 MG/DL (8.5-10.1); CREATININE 0.65 MG/DL (0.50-1.00)
[2017-08-21] MEDS ORDERED: IOHEXOL 350 MG/ML 10 ML VIAL (for RAD DIAG) IVCONTRAST ONE (17:00)
--- NOTE | 2017-08-21 17:15 | RADRPT ---
EXAM DATE: 08/21/2017 5:04 PM EDT AGE/SEX: 47 years / Female INDICATIONS: Facial pain and swelling. CLINICAL DATA: This is the patient's initial encounter. Patient reports that signs and symptoms have been present for 1 day and indicates a pain score of 7/10. MEDICAL/SURGICAL HISTORY: Diabetes. Stroke. Hypertension. None. RADIATION DOSE: 42.16 CTDI (mGy) COMPARISON: No prior exams available for comparison. TECHNIQUE: Contiguous images in the axial and coronal planes were obtained using helical multirow de tector technique with 70 ml Omnipaque 350 (iohexol) nonionic water-soluble contrast as a single exam dose. Using automated exposure control and adjustment of the mA and/or kV according to patient size , radiation dose was kept as low as reasonably achievable to obtain optimal diagnostic quality images . DICOM format image data is available electronically for review and comparison. FINDINGS: No acute bony abnormalities. Mucosal thickening and partial opacification of the ethmoid air cells. G lobes intact. There is some subcutaneous edema noted in the malar eminence and around the mandible bu t no loculated fluid to suggest abscess. CONCLUSION: 1. Questionable mild facial cellulitis but without discrete abscess. No acute bony abnormalities. Mi ld ethmoid sinus disease. Electronically signed by: Hesham Thompson MD 08/21/2017 5:14 PM EDT
[2017-08-21] MEDS ORDERED: CLIN150C14 PO (17:39)
[2017-08-21] MEDS ORDERED: TRAM50 PO (17:39)
== END 2017-08-21 18:17 | disposition home or self-care (01) ==
LOC: NEPE 13:23
DX: L03.211 Cellulitis of face (principal); I10 Essential (primary) hypertension; E11.9 Type 2 diabetes mellitus without complications; J44.9 Chronic obstructive pulmonary disease, unspecified; I25.10 Atherosclerotic heart disease of native coronary artery without angina pectoris; K21.9 Gastro-esophageal reflux disease without esophagitis; E78.00 Pure hypercholesterolemia, unspecified; F41.8 Other specified anxiety disorders; Z79.4 Long term (current) use of insulin; Z79.01 Long term (current) use of anticoagulants; Z86.718 Personal history of other venous thrombosis and embolism; Z86.69 Personal history of other diseases of the nervous system and sense organs; Z86.79 Personal history of other diseases of the circulatory system; Z87.19 Personal history of other diseases of the digestive system
CPT/HCPCS: 70487; 80048; 85025; 96374; 96375; 99285; J1100; J7030; Q9967

== ENCOUNTER 2017-08-27 14:06 | Inpatient (IN) ==
[2017-08-28] MEDS ORDERED: Dextrose 50% in Water 50 ML Vial IV.PUSH PRN (03:18)
[2017-08-28] MEDS ORDERED: Sod Chloride 0.9% Inj 1,000 ML IV.SIG SCH (04:00)
[2017-08-28] MEDS: Vancomycin Inj 750 MG in Sodium Chlor 0.9% Inj 250 ML IV.SIG SCH ×2 (06:47→16:07)
[2017-08-28 08:09] LABS: Baso # (Auto) 0.1 th/mm3 (0.0-0.2); Baso % (Auto) 0.4 % (0.0-2.0); Eos # (Auto) 0.2 th/mm3 (0.0-0.4); Eos % (Auto) 1.4 % (0.0-4.0); Hematocrit 42.3 % (35.0-46.0); Hemoglobin 14.2 gm/dL (11.6-15.3); Lymph % (Auto) 17.1 % (9.0-44.0); Mean Corpuscular HGB Conc 33.7 % (32.0-36.0); Mean Corpuscular Hemoglobin 32.5 pg (27.0-34.0); Mean Corpuscular Volume 96.5 fL (80.0-100.0); Mono # (Auto) 0.9 th/mm3 (0.0-0.9); Mono % (Auto) 7.5 % (0.0-8.0); Neut # (Auto) 8.6 th/mm3 (1.8-7.7); Neut % (Auto) 73.6 % (16.0-70.0); Platelet Count 438 th/mm3 (150-450); Red Blood Count 4.38 mil/mm3 (4.00-5.30); Red Cell Distribution Width 13.3 % (11.6-17.2); White Blood Count 11.7 th/mm3 (4.0-11.0)
--- NOTE | 2017-08-28 08:53 | P.PN ---
Subjective Interval history: Follow up for facial/nasal cellulitis. The patient reports continued diffuse facial pain, worse throughout the entire nose, with edema, erythema. Denies any drainage from the nares. Denies fevers but does report chills. Denies any other medical complaints. Physical Exam Vital signs: Vital Signs 08/28/17 04:00 08/28/17 04:10 08/28/17 08:00 Temperature 98.3 F 98.6 F 97.5 F L Pulse Rate 80 75 Respiratory Rate 16 16 16 Blood Pressure 130/78 125/76 130/80 Pulse Oximetry 97 08/28/17 08:30 Temperature Pulse Rate Respiratory Rate 15 Blood Pressure Pulse Oximetry Intake & Output 08/27/17 08/28/17 08/28/17 18:59 06:59 18:59 Weight 42 kg Narrative: GENERAL: Well-nourished, well-developed middle aged female patient in [facility]. SKIN: Warm and dry. No rash. Left nasal area with diffuse edema, warmth, erythema, with +fluctuance and deviation of the septum due to swelling. HEENT: Normocephalic. Atraumatic. Pupils equal and round. Mucous membranes pink and moist. NECK: Supple. Trachea midline. CARDIOVASCULAR: Regular rate and rhythm. No murmur appreciated. RESPIRATORY: No accessory muscle use. Clear to auscultation. Breath sounds equal bilaterally. GASTROINTESTINAL: Abdomen soft, non-tender, nondistended. Normoactive bowel sounds x4. MUSCULOSKELETAL: Well-healed RLE BKA. Extremities without clubbing, cyanosis, or edema. NEUROLOGICAL: Awake and alert. No obvious cranial nerve deficits. Motor grossly within normal limits. Moving all extremities spontaneously. Normal speech. PSYCHIATRIC: Appropriate mood and affect; insight and judgment normal. Results - Labs CBC & Chem 7: 08/28/17 07:29 08/27/17 16:00 Labs: Laboratory Results - last 24 hr 08/27/17 08/27/17 08/27/17 16:00 16:00 16:00 WBC 11.5 H RBC 5.04 Hgb 16.2 H Hct 48.6 H MCV 96.4 MCH 32.2 MCHC 33.4 RDW 13.6 Plt Count 510 H D MPV 8.1 Neut % (Auto) 75.3 H Lymph % (Auto) 16.7 Toombs % (Auto) 6.2 Eos % (Auto) 1.2 Baso % (Auto) 0.6 Neut # (Auto) 8.6 H Lymph # (Auto) 1.9 [place]ombs # (Auto) 0.7 Eos # (Auto) 0.1 Baso # (Auto) 0.1 CBC Comment DIFF FINAL WBC Differential Differential Comment PT INR Puncture Site Patient Temperature HCO3 Base Excess O2 Saturation ABG pH ABG pCO2 ABG pO2 ABG O2 Content ABG Carboxyhemoglobin ABG Methemoglobin Hemoglobin O2 Delivery Device Inspired O2 Sodium 131 L Potassium 4.3 Chloride 92 L Carbon Dioxide 26.1 Anion Gap 13 BUN 12 Creatinine 0.84 Estimated GFR 88 L POC Glucose Random Glucose 432 H Calcium 9.8 B-Hydroxybutyrate 1.62 H 08/27/17 08/27/17 08/28/17 16:02 22:32 07:29 WBC 11.7 H RBC 4.38 Hgb 14.2 Hct 42.3 MCV 96.5 MCH 32.5 MCHC 33.7 RDW 13.3 Plt Count 438 MPV 8.0 Neut % (Auto) 73.6 H Lymph % (Auto) 17.1 [place]bs % (Auto) 7.5 Eos % (Auto) 1.4 Baso % (Auto) 0.4 Neut # (Auto) 8.6 H Lymph # (Auto) 2.0 [place] # (Auto) 0.9 Eos # (Auto) 0.2 Baso # (Auto) 0.1 CBC Comment WBC Differential . Differential Comment Auto diff final PT 10.6 INR 1.0 Puncture Site RT RADIAL Patient Temperature 98.6 HCO3 26 Base Excess 2.8 H O2 Saturation 90 ABG pH 7.53 H* ABG pCO2 31 L ABG pO2 93 ABG O2 Content 18.7 ABG Carboxyhemoglobin 7.4 H* ABG Methemoglobin 0.8 Hemoglobin 14.7 O2 Delivery Device ROOM AIR Inspired O2 21 Sodium Potassium Chloride Carbon Dioxide Anion Gap BUN Creatinine Estimated GFR POC Glucose Random Glucose Calcium B-Hydroxybutyrate 08/28/17 07:56 WBC RBC Hgb Hct MCV MCH MCHC RDW Plt Count MPV Neut % (Auto) Lymph % (Auto) [place] % (Auto) Eos % (Auto) Baso % (Auto) Neut # (Auto) Lymph # (Auto) [place] # (Auto) Eos # (Auto) Baso # (Auto) CBC Comment WBC Differential Differential Comment PT INR Puncture Site Patient Temperature HCO3 Base Excess O2 Saturation ABG pH ABG pCO2 ABG pO2 ABG O2 Content ABG Carboxyhemoglobin ABG Methemoglobin Hemoglobin O2 Delivery Device Inspired O2 Sodium Potassium Chloride Carbon Dioxide Anion Gap BUN Creatinine Estimated GFR POC Glucose 295 H Random Glucose Calcium B-Hydroxybutyrate - Imaging Imagin08/27/17 - Face MRI shows evidence of a rim-enhancing subcutaneous fluid collection involving the left side of the nose measuring 2.4 x 1.7 x 3.8 cm consistent with probable subcutaneous abscess; no evidence of communication with underlying left maxillary sinus; mucosal thickening is noted involving the ethmoid air cells bilaterally Assessment and Plan - Plan 47-year-old female with known history of diabetes type 2 insulin requiring on Levemir and metformin, hypertension, hyperlipidemia, peripheral arterial disease status post BKA hold still continues to smoke who about a week ago spontaneously noted swelling of the left side of the face specifically the left side of the nasal area involving the bridge Nasal abscess mainly involving the Left nares: fluctuance with mild deviation of septum on exam. Leukocytosis WBC 11.5K and tachycardic HR 110. -CT of face done a week ago- no collection -Face MRI shows evidence of a rim-enhancing subcutaneous fluid collection involving the left side of the nose measuring 2.4 x 1.7 x 3.8 cm consistent with probable subcutaneous abscess; no evidence of communication with underlying left maxillary sinus; mucosal thickening is noted involving the ethmoid air cells bilaterally -Continue antibiotics with IV Vanco, pharmacy consult -Pain control prn -Consult oral/maxillofacial/plastic surgery, however no coverage at [facility], call placed for transfer to [facility] Diabetes type 2: uncontrolled BG 400s, anion gap 13. S/p IVF bolus. -will hold off on metformin and Levemir for now in the event that patient may need procedure as above -monitor accu-checks and cover with SSI -Check hemoglobin A1c in am -Continue IVF hydration -diabetes education, dietitian consult Hypertension: Chronic, BP fairly well controlled -Continue metoprolol 25 mg twice daily. -Consider starting PRICILLA inhibitor for renal protection with diabetes, if BP can tolerate Peripheral arterial disease: status post BKA right. Chronic -Hold Plavix and Coumadin for possible procedure -suspect noncompliance, INR 1.0 GERD: chronic -continue on PPI and sucralfate COPD/Tobacco Use: chronic, does not appear to be in exacerbation -Continue on albuterol inhaler nebulization and Spiriva. -counselled on smoking cessation Depression: chronic -continue on citalopram. DVT Prophylaxis: mechanical contraindication with PAD and BKA; Holding coumadin in the event of possible procedure Discharge Planning: Likely will need transfer to [facility] for surgical intervention. See discharge summary. Progress Note: Quality - VTE Deep Vein Thrombosis/Pulmonary Embolism Present on Admission: No
[2017-08-28] MEDS ORDERED: Pregabalin 25 MG Capsule PO SCH (09:00)
[2017-08-28] MEDS ORDERED: Vancomycin Consult Pharmacy 1 EACH OTHER SCH (09:00)
[2017-08-28] MEDS ORDERED: Citalopram 20 MG Tablet PO SCH (09:00)
[2017-08-28] MEDS ORDERED: Metoprolol Tartrate 25 MG Tablet PO SCH (09:00)
[2017-08-28] MEDS: Insulin NovoLIN Regular Correctional Sugar Inj SQ SCH ×2 (09:37→13:41)
[2017-08-28] MEDS: Metoclopramide 10 MG Tablet PO SCH ×3 (09:43→16:08)
[2017-08-28] MEDS: Sucralfate Liq 1 GM/10 ML UDC PO SCH ×3 (09:44→16:09)
[2017-08-28] MEDS ORDERED: Morphine Inj 4 MG/ML Vial IV.PUSH ONE (11:00)
--- NOTE | 2017-08-28 11:10 | P.DS ---
DS: Providers Date of admission: 08/27/17 18:45 Primary care physician: Americo Chambers MD Attending physician on discharge: Florinda Pepe Anticipated date of discharge: 08/28/17 DS: Diagnosis - Discharge Diagnosis (1) Nasal abscess Status: Acute DS: Summary Hospital Course: 47-year-old female with known history of diabetes type 2 insulin requiring on Levemir and metformin, hypertension, hyperlipidemia, peripheral arterial disease status post BKA, ongoing tobacco use, reports noticing spontaneous swelling of the left side of the nose with associated warmth and intractable pain. Nasal abscess mainly involving the Left nares: fluctuance with mild deviation of septum on exam. Leukocytosis WBC 11.5K and tachycardic HR 110. Lactic acid 1.0. Face MRI shows evidence of a rim-enhancing subcutaneous fluid collection involving the left side of the nose measuring 2.4 x 1.7 x 3.8 cm consistent with probable subcutaneous abscess; no evidence of communication with underlying left maxillary sinus; mucosal thickening is noted involving the ethmoid air cells bilaterally. Continued antibiotics with IV Vanco, pharmacy consulted. Pain control with percocet and IV morphine prn. Consult facial/ plastic surgery however no consult coverage available at [place]. [facility] transfer center was contacted, spoke with Xander who facilitated transfer to [facility]. Discussed with oral surgeon Dr. Youssef who recommends admission to hospitalist service with consult to him given multiple comorbidities. Dr. Youssef agrees patient likely requires surgical intervention. Discussed with Dr. Stanley with the hospitalists, accepts transfer to her service. Patient and family members at bedside updated with the plan and agrees to proceed with transfer. Discussed with Johanna Pelaez casey saw operator who will assist with transfer. Diabetes type 2: uncontrolled BG 400s, anion gap 13. S/p IVF bolus. Will hold off on metformin and Levemir for now in the event that patient may need procedure as above. Monitor accu-checks and cover with SSI. Check hemoglobin A1c. Continue IVF hydration. Diabetes education, dietitian consulted. Hypertension: Chronic, BP fairly well controlled. Continue metoprolol 25 mg twice daily. Consider starting PRICILLA inhibitor for renal protection with diabetes , if BP can tolerate. Peripheral arterial disease: status post BKA right. Chronic. Holding Plavix and Coumadin for possible procedure. Suspect noncompliance, INR 1.0. GERD: chronic. Continue on PPI and sucralfate. COPD/Tobacco Use: chronic, does not appear to be in exacerbation. Continue on albuterol inhaler nebulization and Spiriva. Counselled on smoking cessation. Depression: chronic. Continue on citalopram. DVT Prophylaxis: mechanical contraindication with PAD and BKA; Holding coumadin in the event of possible procedure - Time Spent with Patient Total time spent providing and/or coordinating discharge services: 60minutes Greater than 30 minutes - Quality: VTE Deep Vein Thrombosis/Pulmonary Embolism Present on Admission: No Exam Vital signs: Vital Signs 08/28/17 04:00 08/28/17 04:10 08/28/17 08:00 Temperature 98.3 F 98.6 F 97.5 F L Pulse Rate 80 75 Respiratory Rate 16 16 16 Blood Pressure 130/78 125/76 130/80 Pulse Oximetry 97 08/28/17 08:30 Temperature Pulse Rate Respiratory Rate 15 Blood Pressure Pulse Oximetry Intake & Output 08/27/17 08/28/17 08/28/17 18:59 06:59 18:59 Weight 42 kg Narrative: GENERAL: Well-nourished, well-developed middle aged female patient in mild distress secondary to pain. Tearful. SKIN: Warm and dry. No rash. Left nasal area with diffuse edema, warmth, erythema, with +fluctuance and deviation of the septum due to swelling. HEENT: Normocephalic. Atraumatic. Pupils equal and round. Mucous membranes pink and moist. CARDIOVASCULAR: Regular rate and rhythm. No murmur appreciated. RESPIRATORY: No accessory muscle use. Clear to auscultation. Breath sounds equal bilaterally. GASTROINTESTINAL: Abdomen soft, non-tender, nondistended. Normoactive bowel sounds x4. MUSCULOSKELETAL: Well-healed RLE BKA. Extremities without clubbing, cyanosis, or edema. NEUROLOGICAL: Awake and alert. No obvious cranial nerve deficits. Motor grossly within normal limits. Moving all extremities spontaneously. Normal speech. PSYCHIATRIC: Appropriate mood and affect; insight and judgment normal. Results Completed studies during hospitalization: 08/27/17 - Face MRI shows evidence of a rim-enhancing subcutaneous fluid collection involving the left side of the nose measuring 2.4 x 1.7 x 3.8 cm consistent with probable subcutaneous abscess; no evidence of communication with underlying left maxillary sinus; mucosal thickening is noted involving the ethmoid air cells bilaterally Labs on day of discharge: Labs from last 24 hours 08/28/17 08/28/17 08/28/17 07:56 07:29 07:29 WBC RBC Hgb Hct MCV MCH MCHC RDW Plt Count MPV Neut % (Auto) Lymph % (Auto) Franklin % (Auto) Eos % (Auto) Baso % (Auto) Neut # (Auto) Lymph # (Auto) Franklin # (Auto) Eos # (Auto) Baso # (Auto) CBC Comment WBC Differential Differential Comment PT INR Puncture Site Patient Temperature HCO3 Base Excess O2 Saturation ABG pH ABG pCO2 ABG pO2 ABG O2 Content ABG Carboxyhemoglobin ABG Methemoglobin Hemoglobin O2 Delivery Device Inspired O2 Sodium Pending Potassium Pending Chloride Pending Carbon Dioxide Pending Anion Gap Pending BUN Pending Creatinine Pending Estimated GFR POC Glucose 295 H Random Glucose Pending Hemoglobin A1c Pending Calcium Pending Total Bilirubin Pending AST Pending ALT Pending Alkaline Phosphatase Pending Total Protein Pending Albumin Pending Triglycerides Pending Cholesterol Pending LDL Cholesterol, Calc Pending HDL Cholesterol Pending Cholesterol/HDL Ratio Pending B-Hydroxybutyrate 08/28/17 08/27/17 08/27/17 07:29 22:32 16:02 WBC 11.7 H RBC 4.38 Hgb 14.2 Hct 42.3 MCV 96.5 MCH 32.5 MCHC 33.7 RDW 13.3 Plt Count 438 MPV 8.0 Neut % (Auto) 73.6 H Lymph % (Auto) 17.1 Franklin % (Auto) 7.5 Eos % (Auto) 1.4 Baso % (Auto) 0.4 Neut # (Auto) 8.6 H Lymph # (Auto) 2.0 Franklin # (Auto) 0.9 Eos # (Auto) 0.2 Baso # (Auto) 0.1 CBC Comment WBC Differential . Differential Comment Auto diff final PT 10.6 INR 1.0 Puncture Site RT RADIAL Patient Temperature 98.6 HCO3 26 Base Excess 2.8 H O2 Saturation 90 ABG pH 7.53 H* ABG pCO2 31 L ABG pO2 93 ABG O2 Content 18.7 ABG Carboxyhemoglobin 7.4 H* ABG Methemoglobin 0.8 Hemoglobin 14.7 O2 Delivery Device ROOM AIR Inspired O2 21 Sodium Potassium Chloride Carbon Dioxide Anion Gap BUN Creatinine Estimated GFR POC Glucose Random Glucose Hemoglobin A1c Calcium Total Bilirubin AST ALT Alkaline Phosphatase Total Protein Albumin Triglycerides Cholesterol LDL Cholesterol, Calc HDL Cholesterol Cholesterol/HDL Ratio B-Hydroxybutyrate 08/27/17 08/27/17 08/27/17 16:00 16:00 16:00 WBC 11.5 H RBC 5.04 Hgb 16.2 H Hct 48.6 H MCV 96.4 MCH 32.2 MCHC 33.4 RDW 13.6 Plt Count 510 H D MPV 8.1 Neut % (Auto) 75.3 H Lymph % (Auto) 16.7 Franklin % (Auto) 6.2 Eos % (Auto) 1.2 Baso % (Auto) 0.6 Neut # (Auto) 8.6 H Lymph # (Auto) 1.9 Franklin # (Auto) 0.7 Eos # (Auto) 0.1 Baso # (Auto) 0.1 CBC Comment DIFF FINAL WBC Differential Differential Comment PT INR Puncture Site Patient Temperature HCO3 Base Excess O2 Saturation ABG pH ABG pCO2 ABG pO2 ABG O2 Content ABG Carboxyhemoglobin ABG Methemoglobin Hemoglobin O2 Delivery Device Inspired O2 Sodium 131 L Potassium 4.3 Chloride 92 L Carbon Dioxide 26.1 Anion Gap 13 BUN 12 Creatinine 0.84 Estimated GFR 88 L POC Glucose Random Glucose 432 H Hemoglobin A1c Calcium 9.8 Total Bilirubin AST ALT Alkaline Phosphatase Total Protein Albumin Triglycerides Cholesterol LDL Cholesterol, Calc HDL Cholesterol Cholesterol/HDL Ratio B-Hydroxybutyrate 1.62 H Discharge Plan - Discharge Disposition Patient Disposition: 69 Transfer To Other Facility - Discharge Condition Condition: Stable - Discharge Order Discharge Orders: Discharge Order (Routine); Ordered 08/28/17 Ordered By: Caro Martino - Discharge Details Anticipated Discharge Date/Time: 08/28/17 11:08 Discharge Comment: Transfer to [facility]. - Physicians Team Primary Care Provider: Americo Chambers Attending Provider: Florinda Pepe - Rxs /Orders / Referrals /Forms Prescriptions: No Action albuterol sulfate 2.5 mg /3 mL (0.083 %) Solution For Nebulization 2.5 mg INHALATION Q4-6H PRN (Reason: Shortness Of Breath) albuterol sulfate [ProAir HFA] 90 mcg/actuation Hfa Aerosol Inhaler 2 puff INHALATION BID atorvastatin 40 mg Tablet 40 mg PO HS citalopram 20 mg Tablet 20 mg PO DAILY clopidogrel 75 mg Tablet 75 mg PO DAILY insulin aspart U-100 100 unit/mL Solution 1 sliding scale dose SUB-Q UD insulin detemir U-100 100 unit/mL (3 mL) Insulin Pen 10 unit SUB-Q BID metformin 500 mg Tablet 500 mg PO AC metoclopramide HCl 10 mg Tablet 10 mg PO ACHS metoprolol tartrate 25 mg Tablet 12.5 mg PO BID ondansetron 4 mg Tablet,Disintegrating 4 mg PO Q6H PRN (Reason: nausea or vomiting) pantoprazole 40 mg Tablet,Delayed Release (Dr/Ec) 40 mg PO DAILY pregabalin 50 mg Capsule 50 mg PO BID sucralfate 100 mg/mL Suspension 10 ml PO ACHS tiotropium bromide [Spiriva with HandiHaler] 18 mcg Capsule, W/Inhalation Device 1 cap INHALATION DAILY topiramate 50 mg Tablet 50 mg PO HS tramadol 50 mg Tablet 50 mg PO Q8H PRN (Reason: pain greater than 5) zolpidem 10 mg Tablet 10 mg PO HS (DME) pen needle, diabetic [CareFine Pen Needle] 30 gauge x 5/16" Needle Referrals: Americo Chambers MD [Primary Care Provider] - See Instructions - Discharge Instructions Print Language: Mongolian
[2017-08-28 15:55] LABS: Anion Gap 12 meq/L (5-15); Aspartate Aminotransferase 7 U/L (15-37); Blood Urea Nitrogen 7 mg/dL (7-18); Calcium 8.5 mg/dL (8.5-10.1); Chloride 101 meq/L (98-107); Glomerular Filtration Rate Greater Than 89 mL/min (>89); Glucose,Random 306 mg/dL (74-106); Potassium 3.8 meq/L (3.5-5.1); Sodium 135 meq/L (136-145)
[2017-08-28 15:56] LABS: Alanine Aminotransferase 18 U/L (10-53); Albumin 2.8 g/dL (3.4-5.0); Alkaline Phosphatase 128 U/L (45-117); Chol/HDL Ratio 3.44 Ratio; Cholesterol 217 mg/dL (120-200); HDL Cholesterol 62.9 mg/dL (40.0-60.0); LDL Cholesterol,Calculated 129 mg/dL (0-99); Triglycerides 125 mg/dL (42-150)
[2017-08-28] MEDS ORDERED: Topiramate 25 MG Tablet PO SCH (21:00)
[2017-08-28] MEDS ORDERED: Tiotropium Bromide 18 MCG/ACT Inhaler INH SCH (21:00)
[2017-08-29] MEDS ORDERED: Pharmacy Ordered Lab Info OTHER ONE (03:45)
[2017-08-29 22:46] LABS: Hemoglobin A1c 14.7 % (4.3-6.0)
[2017-09-03] MEDS ORDERED: Vancomycin Inj 1,000 MG in Sodium Chlor 0.9% Inj 250 ML IV.SIG SCH (06:00)
== END 2017-08-28 18:23 | disposition short-term general hospital (02) ==
LOC: UNDODISIN → NEDA 18:45 → NEPHCDU 20:40
PROVIDERS: ADMIT Hospitalist; ATTEND Hospitalist